=== PATIENT | female | born 1990 | race African-American/Black ===

== ENCOUNTER 2016-08-17 15:11 | Emergency (ER) | payer BC, OTHER ==
[~2016-08-17] VITALS: Ht 172.7 cm; Wt 134.7 kg
[~2016-08-17 15:11] MED LIST: ALBU0.8322 IH; ALBU17AE23; ALBU8.5H2; AMIT25TA9 PO; AMOX500C2 PO; BUTA1TAB55 PO; CEPH500C PO; CIPR-225 PO; CIPR500T4 PO; CLIN60GE TP; DOXY100C2 PO; FERR-84 PO; GBPN100C PO; HYDR-2997 PO; HYDR-3812 PO; HYDR-3874 PO; HYDR-757 PO; LNZ600T PO; MECL-124 PO; METR500T PO; MNTL10T; NAPR-243 PO; NF-ESOM40C PO; NITR-65 PO; ONDAN4ODT PO; OXYC-12 PO; OXYC-202 PO; OXYC5CAP4 PO; PNT40TEC PO; PRD50T PO; PRED-501 PO; PREN-94 PO; RABE20TA PO; RIFA300C39 PO; RIZA5TAB13 PO; SLMFT1E; SULF1TAB35 PO; TRAM-42 PO; TRAM50TA2; TRM50T PO
--- NOTE | 2016-08-17 15:33 | ED Lower Extremity ---
General Chief Complaint: Lower Extremity Stated Complaint: R FOOT INJ Nursing Triage Note: RIGHT ANKLE PAIN X2 MONTHS, NO RECENT INJURY Nursing Sepsis Screen: No Definite Risk Source: patient Exam Limitations: no limitations History of Present Illness Time seen by provider: 15:33 Initial Comments 26 yo female patient presents to the ED with c/o twisting the rt ankle 2 months ago. continues to have rt ankle pain. denies seeing her PCP for symptoms. Pain no different today. Onset: other (2 months ago) Pain/Injury Location: right ankle Method of Injury: twisted Modifying Factors: Worse With Movement Allergies and Home Medications Allergies Coded Allergies: ibuprofen (Unverified Allergy, Unknown, 10/15/10) Home Medications Ciprofloxacin HCl 500 Mg Tablet, 500 MG PO BID, #20 Ref 4 Prescribed by: PIEDAD ORTEGA on 02/28/16 1146 Ferrous Sulfate 325 Mg Tablet, 325 MG PO DAILY, (Reported) Oxycodone HCl/Acetaminophen 1 Each Tablet, 1-2 EACH PO Q4H PRN for PAIN, #60 Prescribed by: PIEDAD ORTEGA on 02/28/16 1146 Vits #90/Iron Fum/FA 1 Each Tablet, 1 TAB PO DAILY, (Reported) Constitutional: no symptoms reported Respiratory: no symptoms reported Cardiovascular: no symptoms reported Musculoskeletal: No back pain, joint pain (rt ankle), joint swelling (rt ankle) , No neck pain Skin: No change in color, No lesions Psychiatric/Neurological: Denies Numbness, Denies Paresthesia, Denies Tingling , Denies Weakness All Other Systems Reviewed Negative Unless Noted: Yes (Negative excepted noted.) Past Ekmwzfp-Jqptbk-Ygetis Hx Patient Social History Alcohol Use: Denies Use Recreational Drug Use: No Smoking Status: Former Smoker Type Used: Cigarettes 2nd Hand Smoke Exposure: No Recent Foreign Travel: No Contact w/Someone Who Travel: No Recent Infectious Disease Expo: No Recent Hopitalizations: No Immunizations Up To Date Tetanus Booster (TDap): Unknown Date of Influenza Vaccine: Dec 14, 2012 Seasonal Allergies Seasonal Allergies: Yes Surgeries HX Surgeries: Yes (LEFT KNEE, WISDOM TEETH, ABSCESS I&D'S ) Surgeries: Gallbladder, Orthopedic Respiratory Hx Respiratory Disorders: Yes Respiratory Disorders: Asthma Cardiovascular Hx Cardiac Disorders: No Neurological Hx Neurological Disorders: Yes Neurological Disorders: Headaches /Migraines Reproductive System : No Hx Reproductive Disorders: Yes (BLIGHTED OVUM) Genitourinary Hx Genitourinary Disorders: No Gastrointestinal Hx Gastrointestinal Disorders: Yes Gastrointestinal Disorders: Gastroesophageal Reflux Musculoskeletal Hx Musculoskeletal Disorders: No Endocrine Hx Endocrine Disorders: No HEENT HX ENT Disorders: Yes (GLASSES, CONTACTS) Loss of Vision: Bilateral Hearing Impairment: Denies Cancer Hx Cancer: No Psychosocial Hx Psychiatric Problems: No Integumentary HX Skin/Integumentary Disorder: Yes (MULTIPLE ABSCESSES - I&D'S, MRSA, HYDRADENTITIS SUPPURATIVA) Blood Transfusions Hx Blood Disorders: No Reviewed Nursing Assessment Reviewed/Agree w Nursing PMH: Yes Family Medical History Significant Family History: No Pertinent Family Hx Physical Exam Vital Signs Vital Sign - Last 12Hours 08/17/16 15:19 Temp 97.2 Pulse 99 Resp 18 B/P (MAP) 152/82 Pulse Ox 97 O2 Delivery Room Air Capillary Refill : Less Than 3 Seconds General Appearance: WD/WN, no apparent distress Cardiovascular: normal peripheral pulses, no edema Legs: bilateral leg non-tender, bilateral leg normal inspection, bilateral leg normal range of motion, bilateral leg no evidence of injury Knees: bilateral knee non-tender, bilateral knee normal inspection, bilateral knee normal range of motion, bilateral knee no evidence of injury Ankles: left ankle non-tender, left ankle normal inspection, left ankle normal range of motion, bilateral ankle no evidence of injury, right ankle bone tenderness (rt lateral maleolus), right ankle joint effusion, right ankle pain, right ankle soft tissue tenderness, right ankle swelling (mild swelling laterally and anteriorly) Feet: bilateral foot non-tender, bilateral foot normal inspection, bilateral foot normal range of motion, bilateral foot no evidence of injury Neurologic/Tendon: normal sensation, normal motor functions, normal tendon functions, responds to pain, no evidence tendon injury Neurologic/Psychiatric: no motor/sensory deficits, alert, normal mood/affect, oriented x 3 Skin: normal color, warm/dry Progress/Results/Core Measures Results/Orders My Orders Orders - BELINDA LAGOS Ankle, Right, 3 Views (08/17/16 15:33) Hydrocodone/Apap 5/325 Tablet (Lortab 5 (08/17/16 16:29) Crutches (08/17/16 16:29) Steplite (08/17/16 16:29) Vital Signs/I&O Vital Sign - Last 12Hours 08/17/16 08/17/16 15:19 16:52 Temp 97.2 97.6 Pulse 99 87 Resp 18 18 B/P (MAP) 152/82 Pulse Ox 97 98 O2 Delivery Room Air Blood Pressure Mean: 105 Diagnostic Imaging Diagonstic Imaging: Xray Plain Films/CT/US/NM/MRI: ankle Comments FINDINGS: On the oblique view, there is a vague area of slightly diminished density extending transversely through the lateral malleolus of the distal fibula. This finding is difficult to appreciate on the other two projections and consequently may be secondary to superimposition as opposed to a nondisplaced fracture. There is mild soft tissue edema in this area, however. If further imaging is desired, then CT would be recommended. No other fracture or acute bony abnormality is appreciated. The ankle mortise is not widened and the talar dome is smooth. IMPRESSION: 1. There is a question of a transverse nondisplaced fracture of the lateral malleolus of the distal fibula. Recommendations as above. 2. There is no acute bony abnormality noted otherwise. Dictated on workstation # [id number] Reviewed: Reviewed by Me (radiology report reviewed) Departure Communication Progress Notes Diagnostic findings discussed with the patient. Patient placed in a steplite boot and given crutches. Plan for discharge to home. Impression Impression: Primary Impression: Fracture of distal fibula Qualified Codes: S82.831A - Other fracture of upper and lower end of right fibula, initial encounter for closed fracture Disposition: HOME, SELF-CARE Condition: Improved Departure-Patient Inst. Decision time for Depature: 16:22 Referrals: [facility] (PCP/Family) Primary Care Physician JOEY GARCES MD Patient Instructions: Ankle Fracture (DC) Add. Discharge Instructions: All discharge instructions reviewed with patient and/or family. Voiced understanding. Medications as instructed. Tylenol extra strength over-the- counter as directed for pain. Elevate the right ankle on pillows, ice pack for 20 minute intervals as needed for pain. Boot and crutches as instructed. Follow-up with your family practitioner for recheck as an outpatient and possible need for MRI of the ankle. Return to the emergency department for worsened symptoms or any other concerns. BELINDA LAGOS Aug 17, 2016 15:33
--- NOTE | 2016-08-17 16:17 | Diagnostic Imaging Report ---
INDICATION: Ankle pain. EXAMINATION: Right ankle. Three views were obtained. FINDINGS: On the oblique view, there is a vague area of slightly diminished density extending transversely through the lateral malleolus of the distal fibula. This finding is difficult to appreciate on the other two projections and consequently may be secondary to superimposition as opposed to a nondisplaced fracture. There is mild soft tissue edema in this area, however. If further imaging is desired, then CT would be recommended. No other fracture or acute bony abnormality is appreciated. The ankle mortise is not widened and the talar dome is smooth. IMPRESSION: 1. There is a question of a transverse nondisplaced fracture of the lateral malleolus of the distal fibula. Recommendations as above. 2. There is no acute bony abnormality noted otherwise. Dictated by: Dictated on workstation # [id number]
[2016-08-17] MEDS ORDERED: HYDROcodone/APAP 5 MG/325 MG (LORTAB) TAB PO STA (16:29)
[2016-08-17 16:52] VITALS: BP 148/80
== END 2016-08-17 16:55 | disposition home or self-care (01) ==
LOC: EDUNIT# 15:11 → ER 15:13
DX: S82.831A Other fracture of upper and lower end of right fibula, initial encounter for closed fracture (principal); Z87.891 Personal history of nicotine dependence; X50.1XXA Overexertion from prolonged static or awkward postures, initial encounter
CPT/HCPCS: 73610; 99283

== ENCOUNTER 2016-10-17 15:41 | Emergency (ER) | payer SELFPAY ==
[~2016-10-17] VITALS: Ht 175.3 cm; Wt 104.3 kg
--- NOTE | 2016-10-17 16:09 | ED Lower Extremity ---
General Chief Complaint: Lower Extremity Stated Complaint: ANKLE INJ Source: patient Exam Limitations: no limitations History of Present Illness Time seen by provider: 16:08 Initial Comments To ER with reports of medial left ankle and midfoot pain over the plantar surface and medial surface that began 2 days ago without injury or known precipitating event. Onset: other Severity: moderate Pain/Injury Location: left foot Method of Injury: unknown Modifying Factors: Worse With Movement Allergies and Home Medications Allergies Coded Allergies: ibuprofen (Unverified Allergy, Unknown, 10/15/10) Home Medications Ciprofloxacin HCl 500 Mg Tablet, 500 MG PO BID, #20 Ref 4 Prescribed by: PIEDAD ORTEGA on 02/28/16 1146 Ferrous Sulfate 325 Mg Tablet, 325 MG PO DAILY, (Reported) Oxycodone HCl/Acetaminophen 1 Each Tablet, 1-2 EACH PO Q4H PRN for PAIN, #60 Prescribed by: PIEDAD ORTEGA on 02/28/16 1146 Vits #90/Iron Fum/FA 1 Each Tablet, 1 TAB PO DAILY, (Reported) Constitutional: see HPI EENTM: see HPI Respiratory: no symptoms reported Cardiovascular: no symptoms reported Genitourinary: no symptoms reported Musculoskeletal: see HPI Skin: no symptoms reported Psychiatric/Neurological: No Symptoms Reported Past Kuapdps-Afvvhk-Camphc Hx Patient Social History Type Used: Cigarettes 2nd Hand Smoke Exposure: No Recent Foreign Travel: No Contact w/Someone Who Travel: No Recent Hopitalizations: No Immunizations Up To Date Tetanus Booster (TDap): Unknown Date of Influenza Vaccine: Dec 14, 2012 Seasonal Allergies Seasonal Allergies: Yes Surgeries HX Surgeries: Yes (LEFT KNEE, WISDOM TEETH, ABSCESS I&D'S ) Surgeries: Gallbladder, Orthopedic Respiratory Hx Respiratory Disorders: Yes Respiratory Disorders: Asthma Cardiovascular Hx Cardiac Disorders: No Neurological Hx Neurological Disorders: Yes Neurological Disorders: Headaches /Migraines Reproductive System Hx Reproductive Disorders: Yes (BLIGHTED OVUM) Genitourinary Hx Genitourinary Disorders: No Gastrointestinal Hx Gastrointestinal Disorders: Yes Gastrointestinal Disorders: Gastroesophageal Reflux Musculoskeletal Hx Musculoskeletal Disorders: No Endocrine Hx Endocrine Disorders: No HEENT HX ENT Disorders: Yes (GLASSES, CONTACTS) Loss of Vision: Bilateral Hearing Impairment: Denies Cancer Hx Cancer: No Psychosocial Hx Psychiatric Problems: No Integumentary HX Skin/Integumentary Disorder: Yes (MULTIPLE ABSCESSES - I&D'S, MRSA, HYDRADENTITIS SUPPURATIVA) Blood Transfusions Hx Blood Disorders: No Family Medical History Significant Family History: No Pertinent Family Hx Physical Exam Vital Signs Capillary Refill : General Appearance: WD/WN, no apparent distress HEENT: PERRL/EOMI, normal ENT inspection Neck: non-tender, full range of motion Respiratory: normal breath sounds, no respiratory distress, no accessory muscle use Gastrointestinal: normal bowel sounds, non tender, soft Hips: bilateral hip non-tender, bilateral hip normal inspection, bilateral hip normal range of motion Legs: bilateral leg non-tender, bilateral leg normal inspection, bilateral leg normal range of motion Knees: bilateral knee non-tender, bilateral knee normal inspection, bilateral knee normal range of motion Ankles: left ankle pain, left ankle soft tissue tenderness, left ankle other ( tenderness over the medial aspect left foot of the plantar fascia.) Neurologic/Psychiatric: alert, normal mood/affect, oriented x 3 Skin: normal color, warm/dry Progress/Results/Core Measures Results/Orders My Orders Orders - TIA GRACE APRN Ankle, Left, 3 Views (10/17/16 16:07) Departure Impression Impression: Primary Impression: Plantar fasciitis Disposition: 01 HOME, SELF-CARE Condition: Stable Departure-Patient Inst. Decision time for Depature: 16:10 Referrals: [facility] (PCP/Family) Primary Care Physician Patient Instructions: Plantar Fasciitis Exercises Add. Discharge Instructions: 1. Return to ER for any concerns 2. Freeze a 2 L bottle of pop full of water and roll your foot back and forth over this 2. Get some shoe inserts for her shoe 2. Return to ER for any concerns All discharge instructions reviewed with patient and/or family. Voiced understanding. Scripts Methylprednisolone (Medrol) 4 Mg Tab.ds.pk 4 MG PO UD, #1 PKG Prov: TIA GRACE APRN 10/17/16 TIA GRACE APRN Oct 17, 2016 16:09
[2016-10-17] MEDS ORDERED: METH4TAB PO (16:11)
[2016-10-17 16:34] VITALS: BP 131/100
--- NOTE | 2016-10-17 16:44 | Diagnostic Imaging Report ---
EXAMINATION: Left ankle at 4:37 p.m. INDICATION: Ankle pain. Three views were obtained. There are no prior studies available for comparison. FINDINGS: There is no fracture, dislocation, or acute bony abnormality evident. The ankle mortise is not widened. The talar dome is smooth. There is soft tissue edema along the medial aspect of the ankle joint. If there is clinical concern regarding a ligamentous or tendinous injury in this area, then MRI would be recommended for further study. IMPRESSION: 1. There is no evidence for an acute bony abnormality. 2. There is soft tissue edema along the medial aspect of the ankle joint. Additional considerations as above. Dictated by: Dictated on workstation # [id number]
== END 2016-10-17 16:34 | disposition home or self-care (01) ==
LOC: EDUNIT# 15:41 → ER 15:44
DX: M72.2 Plantar fascial fibromatosis (principal); K21.9 Gastro-esophageal reflux disease without esophagitis; G43.909 Migraine, unspecified, not intractable, without status migrainosus; J45.909 Unspecified asthma, uncomplicated; Z98.890 Other specified postprocedural states; Z87.2 Personal history of diseases of the skin and subcutaneous tissue
CPT/HCPCS: 73610; 99283

== ENCOUNTER 2017-03-31 21:20 | Emergency (ER) | payer SELFPAY ==
[~2017-03-31] VITALS: Ht 170.2 cm; Wt 129.3 kg
[~2017-03-31 21:20] MED LIST changes: +ACHD5005 PO; -HYDR-3812 PO; +HYDR-3816 PO; +METH4TAB PO
[2017-04-01 00:15] LABS: BILIRUBIN,URINE NEGATIVE (NEGATIVE); CLARITY,URINE SLIGHTLY CLOUDY; COLOR,URINE YELLOW; GLUCOSE, URINE (UA) NEGATIVE (NEGATIVE); KETONES,URINE NEGATIVE (NEGATIVE); LEUKOCYTE ESTERASE ,URINE 2+ (NEGATIVE); NITRITE,URINE NEGATIVE (NEGATIVE); PH,URINE 7 (5-9); PROTEIN,URINE NEGATIVE (NEGATIVE); UROBILINOGEN,URINE NORMAL (NORMAL)
[2017-04-01 00:28] LABS: BACTERIA,URINE TRACE /HPF; RBC,URINE RARE /HPF; SQUAMOUS EPITHELIAL CELL,UR >50 /HPF; WBC,URINE RARE /HPF
[2017-04-01] MEDS ORDERED: FLUT1DIS28 IH (01:20)
[2017-04-01] MEDS ORDERED: RT-ALBUINH IH (01:20)
[2017-04-01 01:31] LABS: BASOPHILS % (AUTO) 0 % (0-10); EOSINOPHILS # (AUTO) 0.3 10^3/uL (0.0-0.3); EOSINOPHILS % (AUTO) 4 % (0-10); HEMATOCRIT 31 % (35-52); HEMOGLOBIN 10.2 G/DL (11.5-16.0); LYMPHOCYTES % (AUTO) 27 % (12-44); MEAN CORPUSCULAR HEMOGLOBIN 25 PG (25-34); MEAN CORPUSCULAR HGB CONC 33 G/DL (32-36); MEAN CORPUSCULAR VOLUME 74 FL (80-99); MEAN PLATELET VOLUME 9.2 FL (7.4-10.4); MONOCYTES # (AUTO) 0.5 X 10^3 (0.0-1.0); MONOCYTES % (AUTO) 7 % (0-12); NEUTROPHILS # (AUTO) 4.5 X 10^3 (1.8-7.8); NEUTROPHILS % (AUTO) 62 % (42-75); PLATELET COUNT 415 10^3/uL (130-400); RED BLOOD COUNT 4.17 10^6/uL (4.35-5.85); RED CELL DISTRIBUTION WIDTH 17.2 % (10.0-14.5); WHITE BLOOD COUNT 7.2 10^3/uL (4.3-11.0)
[2017-04-01 01:46] LABS: ALANINE AMINOTRANSFERASE 11 U/L (0-55); ALBUMIN 3.6 GM/DL (3.2-4.5); ALKALINE PHOSPHATASE 69 U/L (40-136); BILIRUBIN,TOTAL 0.2 MG/DL (0.1-1.0); BUN/CREATININE RATIO 12; CALCIUM 9.3 MG/DL (8.5-10.1); CARBON DIOXIDE 23 MMOL/L (21-32); CHLORIDE 103 MMOL/L (98-107); CREATININE SERUM 0.68 MG/DL (0.60-1.30); GFR ESTIMATED > 60; GLUCOSE 85 MG/DL (70-105); POTASSIUM 3.7 MMOL/L (3.6-5.0); SODIUM 138 MMOL/L (135-145); TOTAL PROTEIN 8.7 GM/DL (6.4-8.2)
[2017-04-01] MEDS ORDERED: DOXY100T2 PO (02:09)
--- NOTE | 2017-04-01 02:09 | ED Abdominal Pain ---
General Chief Complaint: Abdominal/GI Problems Stated Complaint: LT SIDED ABD PAIN Nursing Triage Note: PT PRESENTS TO ED WITH COMPLAINT OF LEFT SIDED LOWER ABDOMINAL PAIN. STATES SHES HAD THE PAIN X8 DAYS. Sepsis Screen: No Definite Risk Allergies and Home Medications Allergies Coded Allergies: ibuprofen (Unverified Allergy, Unknown, 01/17/17) Home Medications Albuterol Sulfate 6.7 Gm Hfa.aer.ad, 2 PUFF IH Q6H PRN for SHORTNESS OF BREATH, (Reported) Fluticasone/Salmeterol 1 Each Blst.w.dev, Unknown Dose IH, (Reported) Past Ajhbbtt-Oxkxdy-Exyehu Hx Patient Social History Alcohol Use: Occasionally Uses Number of Drinks Today: CC Alcohol Beverage of Choice: Cheap Liquor Recreational Drug Use: No Smoking Status: Former Smoker Type Used: Cigarettes Former Smoker, Quit: Sep 13, 2013 2nd Hand Smoke Exposure: No Recent Foreign Travel: No Contact w/Someone Who Travel: No Recent Infectious Disease Expo: No Recent Hopitalizations: No Immunizations Up To Date Tetanus Booster (TDap): Unknown PED Vaccines UTD: No Date of Influenza Vaccine: Dec 15, 2016 Seasonal Allergies Seasonal Allergies: Yes (HEMRROID, FISSURE) Surgeries History of Surgeries: Yes Surgeries: Gallbladder, Orthopedic Respiratory History of Respiratory Disorde: Yes Respiratory Disorders: Asthma Currently Using CPAP: No Currently Using BIPAP: No Cardiovascular History of Cardiac Disorders: No Neurological History of Neurological Disord: Yes Neurological Disorders: Headaches /Migraines Reproductive System Hx Reproductive Disorders: Yes (BLIGHTED OVUM) Genitourinary History of Genitourinary Disor: Yes Gastrointestinal History of Gastrointestinal Di: No Gastrointestinal Disorders: Gastroesophageal Reflux, Hemorrhoids Musculoskeletal History of Musculoskeletal Dis: No Endocrine History of Endocrine Disorders: No HEENT History of HEENT Disorders: Yes Loss of Vision: Denies Hearing Impairment: Denies Cancer History of Cancer: No Psychosocial History of Psychiatric Problem: No Integumentary History of Skin or Integumenta: Yes Skin/Integumentary Disorders: Recent Skin Changes Blood Transfusions History of Blood Disorders: No Adverse Reaction to a Blood Tr: No Family Medical History Significant Family History: No Pertinent Family Hx Family Medial History: Patient reports no known family medical history. Physical Exam Vital Signs VS - Last 72 Hours, by Label 04/01/17 00:00 Temp 98.8 Pulse 91 Resp 20 B/P (MAP) 141/98 (112) O2 Delivery Room Air Capillary Refill : Less Than 3 Seconds Progress/Results/Core Measures Results/Orders Lab Results Laboratory Tests Test 04/01/17 00:10 04/01/17 01:20 Range/Units Urine Color YELLOW Urine Clarity SLIGHTLY CLOUDY Urine pH 7 5-9 Urine Specific [place] 1.005 L 1.016-1.022 Urine Protein NEGATIVE NEGATIVE Urine Glucose (UA) NEGATIVE NEGATIVE Urine Ketones NEGATIVE NEGATIVE Urine Nitrite NEGATIVE NEGATIVE Urine Bilirubin NEGATIVE NEGATIVE Urine Urobilinogen NORMAL NORMAL MG/DL Urine Leukocyte Esterase 2+ H NEGATIVE Urine RBC (Auto) 2+ H NEGATIVE Urine RBC RARE /HPF Urine WBC RARE /HPF Urine Squamous Epithelial Cells >50 H /HPF Urine Crystals NONE /LPF Urine Bacteria TRACE /HPF Urine Casts NONE /LPF Urine Mucus NEGATIVE /LPF Urine Culture Indicated NO White Blood Count 7.2 4.3-11.0 10^3/uL Red Blood Count 4.17 L 4.35-5.85 10^6/uL Hemoglobin 10.2 L 11.5-16.0 G/DL Hematocrit 31 L 35-52 % Mean Corpuscular Volume 74 L 80-99 FL Mean Corpuscular Hemoglobin 25 25-34 PG Mean Corpuscular Hemoglobin Concent 33 32-36 G/DL Red Cell Distribution Width 17.2 H 10.0-14.5 % Platelet Count 415 H 130-400 10^3/uL Mean Platelet Volume 9.2 7.4-10.4 FL Neutrophils (%) (Auto) 62 42-75 % Lymphocytes (%) (Auto) 27 12-44 % Monocytes (%) (Auto) 7 0-12 % Eosinophils (%) (Auto) 4 0-10 % Basophils (%) (Auto) 0 0-10 % Neutrophils # (Auto) 4.5 1.8-7.8 X 10^3 Lymphocytes # (Auto) 2.0 1.0-4.0 X 10^3 Monocytes # (Auto) 0.5 0.0-1.0 X 10^3 Eosinophils # (Auto) 0.3 0.0-0.3 10^3/uL Basophils # (Auto) 0.0 0.0-0.1 10^3/uL Sodium Level 138 135-145 MMOL/L Potassium Level 3.7 3.6-5.0 MMOL/L Chloride Level 103 98-107 MMOL/L Carbon Dioxide Level 23 21-32 MMOL/L Anion Gap 12 5-14 MMOL/L Blood Urea Nitrogen 8 7-18 MG/DL Creatinine 0.68 0.60-1.30 MG/DL Estimat Glomerular Filtration Rate > 60 BUN/Creatinine Ratio 12 Glucose Level 85 70-105 MG/DL Calcium Level 9.3 8.5-10.1 MG/DL Total Bilirubin 0.2 0.1-1.0 MG/DL Aspartate Amino Transf (AST/SGOT) 10 5-34 U/L Alanine Aminotransferase (ALT/SGPT) 11 0-55 U/L Alkaline Phosphatase 69 40-136 U/L C-Reactive Protein High Sensitivity 7.78 H 0.00-0.50 MG/DL Total Protein 8.7 H 6.4-8.2 GM/DL Albumin 3.6 3.2-4.5 GM/DL Serum Test, Qualitative NEGATIVE NEGATIVE My Orders Orders - JOSE PANTOJA MD Ua Culture If Indicated (03/31/17 23:55) Cbc With Automated Diff (04/01/17 00:08) Comprehensive Metabolic Panel (04/01/17 00:08) Hs C Reactive Protein (04/01/17 00:08) Hcg,Qualitative Serum (04/01/17 00:08) Wound Culture (04/01/17 00:08) Saline Lock/Iv-Start (04/01/17 00:08) Abdomen/Kub 1view (04/01/17 01:54) Doxycycline Hyclate Tablet (Vibramycin T (04/01/17 02:15) Vital Signs/I&O Vital Sign - Last 12Hours 04/01/17 00:00 Temp 98.8 Pulse 91 Resp 20 B/P (MAP) 141/98 (112) O2 Delivery Room Air Blood Pressure Mean: 112 Departure Impression Impression: Primary Impression: Left lower quadrant pain Additional Impression: Hidradenitis suppurativa Disposition: 01 HOME, SELF-CARE Condition: Stable Departure-Patient Inst. Decision time for Depature: 02:00 Referrals: NO,LOCAL PHYSICIAN (PCP/Family) Primary Care Physician Patient Instructions: Acute Abdomen (Belly Pain), Adult (DC), Hidradenitis Suppurativa Add. Discharge Instructions: Complete your antibiotics as prescribed. Follow-up with your primary care provider as soon as possible. Your wound culture should be available in about 48 hours. Review results with your doctor. Return to the ER if symptoms worsen. You may take Tylenol and/or ibuprofen for pain. All discharge instructions reviewed with patient and/or family. Voiced understanding. Scripts Doxycycline Hyclate (Doxycycline Hyclate) 100 Mg Tablet 100 MG PO BID, #20 TAB Prov: JOSE PANTOJA MD 04/01/17 JOSE PANTOJA MD Apr 01, 2017 02:09
[2017-04-01 02:15] VITALS: BP 141/98
[2017-04-01] MEDS ORDERED: DOXYCYCLINE 100 MG (VIBRAMYCIN) TABLET PO ONE (02:15)
== END 2017-04-01 02:15 | disposition home or self-care (01) ==
LOC: EDUNIT# 21:20 → ER 21:21
DX: R10.32 Left lower quadrant pain (principal); L73.2 Hidradenitis suppurativa; J45.909 Unspecified asthma, uncomplicated; G43.909 Migraine, unspecified, not intractable, without status migrainosus; K21.9 Gastro-esophageal reflux disease without esophagitis; Z87.891 Personal history of nicotine dependence; Z87.19 Personal history of other diseases of the digestive system
CPT/HCPCS: 36415; 80053; 81000; 84703; 85025; 86141; 87070; 87077; 87186; 87205

== ENCOUNTER → 2017-04-07 | Outpatient (CLI) | payer OTHER ==
[~2017-04-07] MED LIST changes: +DOXY100T2 PO; +FLUT1DIS28 IH; +RT-ALBUINH IH
== END ==
LOC: RAD 08:54
PROVIDERS: ATTEND Nurse Practitioner Community Health
DX: Z53.20 Procedure and treatment not carried out because of patient's decision for unspecified reasons (principal); L73.2 Hidradenitis suppurativa; Z68.41 Body mass index [BMI] 40.0-44.9, adult

== ENCOUNTER → 2017-04-14 | Outpatient (CLI) | payer OTHER ==
--- NOTE | 2017-04-14 11:27 | Diagnostic Imaging Report ---
INDICATION: Left-sided pelvic pain. FINDINGS: Transabdominal and transvaginal pelvic sonography was performed. The uterus measures 7.5 x 4.2 x 3.0 cm. The endometrium is 5 mm in thickness. No myometrial mass is identified. The ovaries were not well-visualized. There is a cystic lesion near the midline, posterior to the uterine fundus measuring approximately 2.7 cm in diameter. Minimal free fluid is present. No other abnormalities identified. IMPRESSION: Poorly visualized ovaries. There is a midline 2.7 cm simple cyst, as described. This could conceivably be ovarian in etiology. No other significant abnormality is seen. Dictated by: Dictated on workstation # [id number]
== END ==
LOC: RAD 10:08
PROVIDERS: ATTEND Nurse Practitioner Community Health
DX: N94.89 Other specified conditions associated with female genital organs and menstrual cycle (principal)
CPT/HCPCS: 76830; 76856

== ENCOUNTER 2017-04-24 18:30 | Emergency (ER) | payer OTHER ==
[~2017-04-24] VITALS: Ht 172.7 cm; Wt 133.4 kg
[~2017-04-24 18:30] MED LIST changes: +HYDR-34 PO; -HYDR-3816 PO
[2017-04-24] MEDS ORDERED: NABU500T (21:48)
[2017-04-24] MEDS ORDERED: diphenhydrAMINE 50 MG/ML INJ (BENADRYL) IM STA (22:05)
[2017-04-24] MEDS ORDERED: KETOROLAC 60 MG/2 ML VIAL IM STA (22:05)
[2017-04-24] MEDS ORDERED: ORPHENADRINE 60 MG/2 ML (NORFLEX) AMP IM STA (22:05)
[2017-04-25] MEDS ORDERED: RX-TRAMADOL 50 MG (ULTRAM) TAB PPK#4 PO STA (00:33)
[2017-04-25] MEDS ORDERED: RX-CYCLOBENZAPRINE 10 MG (FLEXERIL) TAB PPK#3 PO STA (00:33)
[2017-04-25] MEDS ORDERED: METH4TAB PO (00:37)
[2017-04-25] MEDS ORDERED: BUTA1CAP45 PO (00:37)
[2017-04-25] MEDS ORDERED: METH500T PO (00:37)
--- NOTE | 2017-04-25 00:38 | ED Headache ---
General Chief Complaint: Head/Cervical Problems Stated Complaint: NECK STIFFNESS/VISION ISSUES Nursing Triage Note: pt to ER from [facility] [place] [facility]. c/o neck pain starting Thursday. headache starting yesterday. MEDICAL BILLING CODER at urgent care reports severe nystagmus. Nursing Sepsis Screen: No Definite Risk Source: patient History of Present Illness Date Seen by Provider: Apr 24, 2017 Time Seen by Provider: 21:58 Initial Comments PT ARRIVES VIA POV--SEEN AT URGENT CARE TODAY AROUND 1800 AND SENT HERE--MEDICAL BILLING CODER REPORTED NYSTAGMUS PT STATES SHE WOKE UP ON Thursday04/20/17 WITH A "STIFF NECK"--MOSTLY ON LEFT LATERAL NECK C/O HEADACHE -MOSTLY FRONTAL-SINCE YESTERDAY C/O MILD DIZZINESS WITH HEAD MOVEMENTS--NOT NOW C/O SLIGHTLY BLURRED VISION WITH DIZZINESS--NOT NOW C/O MILD NAUSEA NO FEVER NO RECENT ILLNESS, URI SYMPTOMS, ETC. 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 NO CONTROL. HAD LAB AND ULTRASOUND LAST WEEK FOR THIS PROBLEM--REPORTEDLY NORMAL AND PT STATES SHE IS NOT . [place] [facility] [place] [facility] ANALYST: DR. BENTON Allergies and Home Medications Allergies Coded Allergies: ibuprofen (Unverified Allergy, Unknown, 01/17/17) Home Medications Butalb/Acetaminophen/Caffeine 1 Each Capsule, 1-2 EACH PO Q6H PRN for HEADACHE, #10 Prescribed by: HARESH HARDING on 04/25/1736 Methocarbamol 500 Mg Tablet, 500 MG PO QID, #20 Prescribed by: HARESH HARDING on 04/25/17 003 Methylprednisolone 4 Mg Tab.ds.pk, 4 MG PO UD, #1 Prescribed by: HARESH HARDING on 04/25/1736 Nabumetone 500 Mg Tablet, (Reported) Constitutional: see HPI, No chills, No diaphoresis, dizziness, No fever, No malaise, No weakness Eyes: See HPI Ears, Nose, Mouth, Throat: no symptoms reported Respiratory: no symptoms reported Cardiovascular: no symptoms reported Gastrointestinal: see HPI, No abdominal pain, No loss of appetite, nausea Genitourinary: see HPI LMP: Feb 26, 2017 Musculoskeletal: see HPI, neck pain Skin: no symptoms reported Psychiatric/Neurological: See HPI, Headache, Denies Numbness, Denies Seizure, Denies Tingling, Denies Tremors, Denies Weakness Past Bpbjhcf-Hyuwom-Yqaply Hx Patient Social History Alcohol Use: Occasionally Uses Number of Drinks Today: CC Alcohol Beverage of Choice: Cheap Liquor Recreational Drug Use: No Smoking Status: Former Smoker (1 PPD) Type Used: Cigarettes (1 PPD) Former Smoker, Quit: Sep 13, 2013 2nd Hand Smoke Exposure: No Recent Foreign Travel: No Contact w/Someone Who Travel: No Recent Infectious Disease Expo: No Recent Hopitalizations: No Immunizations Up To Date Tetanus Booster (TDap): Unknown PED Vaccines UTD: No Date of Influenza Vaccine: Dec 15, 2016 Seasonal Allergies Seasonal Allergies: Yes (HEMRROID, FISSURE) Surgeries History of Surgeries: Yes (Hemorrhoids) Surgeries: Gallbladder, Orthopedic, Rectal Respiratory History of Respiratory Disorde: Yes Respiratory Disorders: Asthma Currently Using CPAP: No Currently Using BIPAP: No Cardiovascular History of Cardiac Disorders: No Neurological History of Neurological Disord: Yes Neurological Disorders: Headaches /Migraines Reproductive System Hx Reproductive Disorders: Yes (BLIGHTED OVUM) Genitourinary History of Genitourinary Disor: Yes Genitourinary Disorders: UTI-Chronic Gastrointestinal History of Gastrointestinal Di: Yes Gastrointestinal Disorders: Gastroesophageal Reflux, Hemorrhoids Musculoskeletal History of Musculoskeletal Dis: Yes (TAKES RELAFEN FOR GENERAL ACHES AND PAINS) Endocrine History of Endocrine Disorders: No HEENT History of HEENT Disorders: Yes Loss of Vision: Denies Hearing Impairment: Denies Cancer History of Cancer: No Psychosocial History of Psychiatric Problem: No Integumentary History of Skin or Integumenta: No Blood Transfusions History of Blood Disorders: No Adverse Reaction to a Blood Tr: No Family Medical History Family Medial History: Patient reports no known family medical history. Physical Exam Vital Signs Vital Signs - First Documented 04/24/17 19:06 Temp 98.7 Pulse 85 Resp 16 B/P (MAP) 144/78 (100) Pulse Ox 100 Capillary Refill : Less Than 3 Seconds General Appearance: WD/WN, no apparent distress, obese, other (DOES NOT APPEAR ILL OR TO BE IN ANY DISCOMFORT OR DISTRESSS) HEENT: PERRL/EOMI, normal ENT inspection, TMs normal, pharynx normal, No photophobia, other (NO NYSTAGMUS) Neck: full range of motion, supple, tender lateral (BILATERAL TRAPEZIUS AND LATERAL PARACERVICAL VERTEBRAL MUSCLE TENDERNESS AND SPASM--LEFT>>RIGHT. NO NUCHAL RIGIDITY OR MENINGISMUS), No tender midline Cardiovascular: regular rate, rhythm, no murmur Respiratory: normal breath sounds, no respiratory distress, no accessory muscle use Gastrointestinal: non tender, soft Back: normal inspection, no CVA tenderness, no vertebral tenderness Extremities: normal range of motion, non-tender, normal inspection, no pedal edema, no calf tenderness, normal capillary refill Psychiatric: alert, oriented x 3 Crainal Nerves: normal hearing, normal speech, PERRL Coordination/Gait: normal gait (AMBULATES AND MOVES /CHANGES POSITIONS QUICKLY WITHOUT DIFFICULTY) Motor/Sensory: no motor deficit, no sensory deficit, no pronator drift, other ( DTR'S INTACT) Skin: normal color, warm/dry, No rash, tattoos/piercings (MULTIPLE TATTOOS) Progress/Results/Core Measures Results/Orders My Orders Orders - HARESH HARDING DO Ct Head/Cervical Spine Wo (04/24/17 22:05) Ketorolac Injection (Toradol Injection) (04/24/17 22:05) Orphenadrine Injection (Norflex Injectio (04/24/17 22:05) Diphenhydramine Injection (Benadryl Inje (04/24/17 22:05) Rx-Cyclobenzaprine Tablet (Rx-Flexeril T (04/25/17 00:33) Rx-Tramadol Hcl (Rx-Ultram) (04/25/17 00:33) Methylprednisolone Sod Succ (Solu-Medrol (04/25/17 01:00) Vital Signs/I&O Vital Sign - Last 12Hours 04/24/17 04/24/17 04/24/17 04/25/17 19:06 22:32 22:32 00:59 Temp 98.7 98.7 98.7 98.7 Pulse 85 78 Resp 16 16 B/P (MAP) 144/78 (100) Pulse Ox 100 100 Blood Pressure Mean: 100 Progress Note : Progress Note SYMPTOMS IMPROVED AT DISMISSAL NO COMPLAINT OF DIZZINESS DURING ER STAY Diagnostic Imaging Comments CT HEAD/CERVICAL SPINE--NO ACUTE PROCESS, MILD PARANASAL SINUS MUCOSAL THICKENING--PER [facility] VIA FAX @ [phone] Reviewed: Reviewed by Me Departure Impression Impression: Primary Impression: Tension type headache Additional Impressions: Trapezius muscle strain Dizziness Disposition: 01 HOME, SELF-CARE Condition: Stable Departure-Patient Inst. Referrals: NO,LOCAL PHYSICIAN (PCP/Family) Primary Care Physician Patient Instructions: Cervical Muscle Strain (DC), Tension Headache (DC) Add. Discharge Instructions: MOST HEAT TO AREA AT 20 MINUTE INTERVALS HOLD RELAFEN WHILE TAKING PREDNISONE FOLLOW UP WITH YOUR DR IN 3-4 DAYS IF NO BETTER All discharge instructions reviewed with patient and/or family. Voiced understanding. Scripts Butalb/Acetaminophen/Caffeine (Esgic Capsule) 1 Each Capsule 1-2 EACH PO Q6H Y for HEADACHE, #10 CAP Prov: HARESH HARDING DO 04/25/17 Methocarbamol (Robaxin) 500 Mg Tablet 500 MG PO QID for Muscle Spasms, #20 TAB Prov: HARESH HARDING DO 04/25/17 Methylprednisolone (Medrol) 4 Mg Tab.ds.pk 4 MG PO UD, #1 PKG Prov: HARESH HARDING DO 04/25/17 HARESH HARDING DO Apr 25, 2017 00:38
[2017-04-25 00:59] VITALS: BP 100/77
[2017-04-25] MEDS ORDERED: methylPREDNISolone 125 MG (Solu-MEDROL) VIAL IM ONE (01:00)
--- NOTE | 2017-04-25 06:34 | Diagnostic Imaging Report ---
PROCEDURE: CT head and CT cervical spine without contrast. TECHNIQUE: Multiple contiguous axial images were obtained through the brain and cervical spine without the use of intravenous contrast. Sagittal and coronal reformations through the cervical spine were then performed. INDICATION: Head and neck pain. CT head: There is no hemorrhage, hydrocephalus, edema, mass, mass effect or displaced fracture deformity. No hemo-sinus. CT cervical spine: No fracture, dislocation or substantial stenosis. IMPRESSION: CT head: Negative. CT cervical spine: Negative. Dictated by: Dictated on workstation # [id number]
== END 2017-04-25 00:59 | disposition home or self-care (01) ==
LOC: EDUNIT# 18:30 → ER 18:31
DX: S29.012A Strain of muscle and tendon of back wall of thorax, initial encounter (principal); G44.209 Tension-type headache, unspecified, not intractable; R42 Dizziness and giddiness; K21.9 Gastro-esophageal reflux disease without esophagitis; J45.909 Unspecified asthma, uncomplicated; Z87.19 Personal history of other diseases of the digestive system; Z87.891 Personal history of nicotine dependence; Z88.6 Allergy status to analgesic agent; X58.XXXA Exposure to other specified factors, initial encounter
CPT/HCPCS: 70450; 72125; 96372; 99285

== ENCOUNTER 2017-06-10 14:32 | Outpatient (CLI) | payer OTHER ==
[~2017-06-10] VITALS: Ht 172.7 cm; Wt 134.9 kg
[~2017-06-10 14:32] MED LIST changes: +BUTA1CAP45 PO; +HYDR-3870 PO; -HYDR-3874 PO; +METH500T PO; +NABU500T
[2017-06-10] MEDS ORDERED: BUDE10.2 IH (14:42)
[2017-06-10] MEDS ORDERED: RT-ALBUINH IH (14:42)
[2017-06-10 14:46] VITALS: BP 120/80
[2017-06-10 15:21] LABS: BASOPHILS % (AUTO) 0 % (0-10); EOSINOPHILS # (AUTO) 0.4 10^3/uL (0.0-0.3); EOSINOPHILS % (AUTO) 5 % (0-10); HEMATOCRIT 30 % (35-52); HEMOGLOBIN 9.9 G/DL (11.5-16.0); LYMPHOCYTES # (AUTO) 1.7 X 10^3 (1.0-4.0); LYMPHOCYTES % (AUTO) 23 % (12-44); MEAN CORPUSCULAR HEMOGLOBIN 24 PG (25-34); MEAN CORPUSCULAR HGB CONC 33 G/DL (32-36); MEAN CORPUSCULAR VOLUME 72 FL (80-99); MEAN PLATELET VOLUME 9.4 FL (7.4-10.4); MONOCYTES # (AUTO) 0.5 X 10^3 (0.0-1.0); MONOCYTES % (AUTO) 7 % (0-12); NEUTROPHILS % (AUTO) 66 % (42-75); PLATELET COUNT 480 10^3/uL (130-400); RED BLOOD COUNT 4.13 10^6/uL (4.35-5.85); RED CELL DISTRIBUTION WIDTH 16.5 % (10.0-14.5); WHITE BLOOD COUNT 7.6 10^3/uL (4.3-11.0)
[2017-06-11] MEDS ORDERED: HYDR-757 PO (10:37)
== END 2017-06-10 15:57 ==
LOC: PREOP 14:32
PROVIDERS: ATTEND Obstetrics & Gynecology
DX: Z01.812 Encounter for preprocedural laboratory examination (principal); Z11.2 Encounter for screening for other bacterial diseases; R10.2 Pelvic and perineal pain
CPT/HCPCS: 36415; 84703; 85025; 87081

== ENCOUNTER 2017-06-11 08:58 | Day surgery (SDC) | payer OTHER ==
[~2017-06-11] VITALS: Ht 172.7 cm; Wt 134.9 kg
[~2017-06-11 08:58] MED LIST changes: +BUDE10.2 IH; +LACTATED RINGERS 1,000 ML IV PRN
[2017-06-11] MEDS ORDERED: LACTATED RINGERS 1,000 ML IV PRN (09:56)
[2017-06-11] MEDS ORDERED: FAMOTIDINE 20MG/2ML IV (PEPCID) IV ONE (10:00)
[2017-06-11 10:07] VITALS: BP 123/75
[2017-06-11] MEDS ORDERED: SEVOFLURANE (ULTANE) 15 ML INHAL SOLN ONE ×3 (10:21→12:13)
[2017-06-11] MEDS ORDERED: ROCURONIUM 10 MG/ML 5 ML SYRINGE IV ONE (10:21)
[2017-06-11] MEDS ORDERED: fentaNYL INJECTION 100 MCG/2 ML AMP ONE ×3 (10:21→12:01)
[2017-06-11] MEDS ORDERED: MIDAZOLAM 2 MG/2 ML (VERSED) VIAL ONE (10:21)
[2017-06-11] MEDS ORDERED: proPOfol 200 MG/20 ML (DIPRIVAN) VIAL IV ONE (10:21)
[2017-06-11] MEDS ORDERED: LIDOCAINE PF 2% 5 ML (XYLOCAINE) VIAL ONE (10:21)
[2017-06-11] MEDS ORDERED: LACTATED RINGERS 1,000 ML IV ONE (10:21)
--- NOTE | 2017-06-11 10:27 | Progress Note-Pre Operative ---
Pre-Operative Progress Note H&P Reviewed The H&P was reviewed, patient examined and no changes noted. Date Seen by Provider: Jun 11, 2017 Time Seen by Provider: 10: Date H&P Reviewed: Jun 11, 2017 Time H&P Reviewed: : Pre-Operative Diagnosis: Acute on Chronic pelvic pain JONES LARSON DO Jun 11, 2017 10:27 am
--- NOTE | 2017-06-11 10:32 | Discharge Inst-Women's Service ---
Discharge Inst-Women's Serv Depart Medication/Instructions New, Converted or Re-Newed RX: RX on Chart Consults/Follow Up Additional Follow Up: Yes Activity Activity: Activity as Tolerated Driving Instructions: You May Drive NO SMOKING: NO SMOKING Nothing Inside Vagina: No Douching, No [place], No Tampons Diet Discharge Diet: No Restrictions Symptoms to Report to : Bleeding Excessive, Pain Increased, Fever Over 101 Degrees F, Vaginal Bleeding Increase, Questions/Concerns For Any Problems or Questions: Contact Your Physician Skin/Wound Care Infection Signs and Symptoms: Increased Redness, Foul Odor of Wound, Increased Drainage, Skin Itchy or Has a Rash, Increased Swelling, Temperature Above 101 F Operative Area Clean and Dry: Keep Incision Clean/Dry Stitches/Doug/Dermabond: Dermabond, Care of Stitches Bathing Instructions: JONES Bass DO Jun 11, 2017 10:32 am
[2017-06-11] MEDS ORDERED: D5 LR IV SOLUTION 1,000 ML IV SCH (10:34)
[2017-06-11] MEDS ORDERED: HYDR-757 PO (10:37)
[2017-06-11] MEDS ORDERED: ONDANSETRON 4 MG/2 ML (SDV) Z0FRAN IVP PRN ×2 (10:45→13:15)
[2017-06-11] MEDS ORDERED: HYDROcodone/APAP 5 MG/325 MG (LORTAB) TAB PO PRN (10:45)
[2017-06-11] MEDS ORDERED: fentaNYL INJECTION 100 MCG/2 ML AMP IVP ONE (10:45)
[2017-06-11] MEDS ORDERED: BUPIVACAINE 0.25% 30 ML (SENSORCAINE) VIAL ONE (10:49)
[2017-06-11] MEDS ORDERED: GLYCOPYRROLATE 0.2 MG/ML (ROBINUL) 2 ML VIAL ONE (13:07)
[2017-06-11] MEDS ORDERED: NEOSTIGMINE 1 MG/ML 5 ML SYRINGE ONE (13:07)
[2017-06-11] MEDS ORDERED: ceFAZolin 1,000 MG (ANCEF) VIAL ONE ×3 (13:10→13:19)
[2017-06-11] MEDS ORDERED: fentaNYL INJECTION 100 MCG/2 ML AMP IVP PRN (13:15)
[2017-06-11] MEDS ORDERED: ceFAZolin 2 GM IV Premixed 50 ML IV ONE (13:15)
[2017-06-11] MEDS ORDERED: MEPERIDINE (DEMEROL) INJ 50 MG/ML IVP PRN (13:15)
[2017-06-11] MEDS: morphine INJ 10 MG/ML 1ML (SYR OR VIAL) IVP PRN ×2 (13:30→13:37)
--- NOTE | 2017-06-11 14:02 | Anesthesia-General Post-Op ---
General Patient Condition Mental Status/LOC: Same as Preop Cardiovascular: Satisfactory Nausea/Vomiting: Absent Respiratory: Satisfactory Pain: Controlled Complications: Absent Post Op Complications Complications None Follow Up Care/Instructions Patient Instructions None needed. Anesthesia/Patient Condition Patient Condition Patient was seen after surgery and was doing well, no complaints, stable vital signs, no apparent adverse anesthesia problems. She initially had some nausea in PACU but it improved after zofran. PRIYANKA DORADO DO Jun 11, 2017 14:02
[2017-06-11 14:05] VITALS: BP 135/77
[2017-06-11 14:35] VITALS: BP 137/71
[2017-06-11 15:05] VITALS: BP 134/76
[2017-06-11 16:05] VITALS: BP 133/77
--- NOTE | 2017-06-11 16:50 | OPERATIVE REPORT ---
DATE OF SERVICE: PREOPERATIVE DIAGNOSIS: A 27-year-old female with acute on chronic pelvic pain. POSTOPERATIVE DIAGNOSIS: A 27-year-old female with acute on chronic pelvic pain. PROCEDURE: Operative laparoscopy with cauterization of endometriosis implants and intraoperative consult for appendectomy. SURGEON: Dr. Jones Larson. COSURGEON: Dr. Wisam Nolasco. ANESTHESIA: General endotracheal. ESTIMATED BLOOD LOSS: Minimal. URINE OUTPUT: 150 mL clear at the end of the procedure. FLUIDS: 1100 mL of lactated Ringer solution. FINDINGS: Grossly normal-appearing uterus, bilateral fallopian tubes and ovaries. A corpus luteum cyst of the right ovary. Multiple endometriosis implants of the posterior leaf of the broad ligament on the left side. There are dense adhesions of the uterosacral ligament to the descending sigmoid colon and dense adhesions of the posterior cul-de-sac to the omentum and epiploic of the descending sigmoid colon. SPECIMEN SENT: Appendix. COMPLICATIONS: None. INDICATIONS FOR PROCEDURE: This 27-year-old female with a self consultation in my office due to frustration with ongoing pelvic pain and concern for it worsening. The patient reports that her menstrual cycles have always been heavy; however, in the past year, they have gotten significantly heavier and more painful to the point where it is debilitating in nature. She is when seen in the office and holding her side, it does affect her lifestyle and her ability to work. She is having a crouch over to avoid some of the pain. She also reports significant amount of pain with intercourse, so it has gotten significantly worse in the same time frame. The patient reports that her menstrual cycles were fairly regular; however, they become more irregular in the past month or two. She denies any new sexual partners, has undergone recently a sexual transmitted disease testing with the [facility] as well as a recent pelvic ultrasound, which really showed no abnormalities. Due to ongoing concern, the patient wishes to proceed with finding out what is going on. She has never undergone a diagnostic laparoscopy and is told that maybe she has PCOs or maybe she had endometriosis in the past. She was attempted to be on continuous control pills; however, is unable to tolerate this either due to a side effect of the medication or poor response to the medication and continuous bleeding and continuous pain. She is at her frustration limits and wants to proceed with diagnostic laparoscopy. Risks of this procedure were discussed with the patient in detail including risk of bleeding, infection, damage to any surrounding structures including, but not limited to bowel, bladder, ureter, kidneys, possible need for removal of any of the pelvic organs, possible appendectomy was discussed with the patient preoperatively. After all of her questions were answered, consent was obtained in the preoperative area and the patient was taken to the operating room. OPERATIVE REPORT IN DETAIL: Once in the operating room, general anesthesia was found to be adequate, placed in dorsal lithotomy position, prepped and draped in normal sterile fashion. Mars catheter was placed using sterile technique. A weighted speculum was inserted to the patient's vagina. A right angle retractor was used to visualize the cervix. It was grasped at 12 o'clock position using a long Allis clamp. I then gently dilate the uterus using Hegar dilators and sound the uterine cavity depth was found to be 8 cm. I then placed an 8 cm [id number] uterine manipulator. Once this was in place and the balloon was deployed, I removed all the instruments from the patient's vagina to perform a change of gloves and took my attention to the abdomen where infraumbilically, I infiltrated this area using 0.25% Marcaine and make a 5 mm incision and directed Veress needle through this incision until intraperitoneal placement was confirmed using a saline drop test. I proceed with insufflation using CO2 gas and opening pressure of 9 mmHg was noted. I proceeded to maximum pressure of 15 mmHg, at which point I removed the Veress needle and introduced a 5 mm blunt trocar. Once this was in place, I am able to confirm intraperitoneal placement using the laparoscope. I had the patient placed in steep Trendelenburg, I am able to visualize all the findings as listed above. I proceeded with using a hook cautery to take down some of these dense adhesions; however, due to the proximity to the bowel, I am not able to take all of them down, I do cauterize what endometriosis implants that I can see. Once these were taken down due to the patient's chronic pain and concern for visit to the emergency room and possible appendicitis with her symptoms, I intraoperatively consult Dr. Nolasco to come in and perform an appendectomy. He performs appendectomy and completes the procedure including closing all of the incisions. The patient tolerated the procedure well and was taken to recovery in stable condition. Lap and sponge counts correct at the procedure. Instruments counts were correct as well. Please see his operative report for the second portion of the procedure. Job ID: [id number] DocumentID: [id number] Dictated Date: 06/11/2017 12:49:41 Local Hazmat Driver Date: 06/11/2017 16:49:52 Dictated By: JONES LARSON DO
--- NOTE | 2017-06-11 17:07 | OPERATIVE REPORT ---
DATE OF SERVICE: 06/11/2017 ATTENDING PHYSICIAN: Jacob Powell DO. PREOPERATIVE DIAGNOSIS: Symptomatic chronic appendicitis. POSTOPERATIVE DIAGNOSIS: Symptomatic chronic appendicitis. PROCEDURE PERFORMED: Laparoscopic appendectomy. SURGEON: Eve Aguero MD. ANESTHESIA: General endotracheal. ESTIMATED BLOOD LOSS: Minimal. FINDINGS: This was done in conjunction with another procedure as an intraoperative consultation. The patient presented with a chronic abdominal pain with suspected endometriosis, which was identified. She was also found to have chronic inflammatory changes to the appendix, which was long and tortuous with increased turgor pressure consistent with a chronic appendicitis. DISPOSITION: The patient tolerated the procedure well. INDICATIONS: The patient is a 27-year-old female with chronic lower abdominal pain. The patient also has a history of menorrhagia and her pain appears to be coordinated with her menstrual cycles. Endometriosis was suspected and she underwent a diagnostic laparoscopy and was found to have endometriosis and underwent an ablative procedure. We were consulted intraoperatively for findings of what appeared to be a chronic appendicitis. Upon examination, there was a long and tortuous appendix with some chronic edema and increased turgor pressure consistent with a chronic appendicitis. DESCRIPTION OF PROCEDURE: The patient was already under general anesthesia with pneumo insufflation. The 5 mm infraumbilical port was converted to a 10 mm port. A left lower abdominal quadrant 5 mm port was already in place and we added another 5 mm port midline in the epigastric region. The appendix was then retracted towards the anterior abdominal wall. A window was then created between the base of the appendix and the mesoappendix. This was done using a [place] dissector. The appendix was then stapled and transected with a ZEKE 45 mm stapler with a 2.5 mm thickness load. The mesoappendix was then stapled and transected with the same stapler with a 2.0 mm thickness reload with visualization of good hemostasis. The appendix was removed through the 10 mm port site using an EndoCatch bag. The pelvis and peritoneal cavity were then irrigated and suctioned out. The 10 mm port site fascia and peritoneum were then closed under direct visualization using Cosmo-Lizzy device and 0 Vicryl suture. Abdomen was desufflated and remaining ports removed. All skin incisions were closed using 4-0 Monocryl running subcuticular sutures. Wounds were then cleaned and covered with Dermabond. The patient tolerated the procedure well. We will turn the patient back over to PIGEON FANCIER for further management and postoperative care. From our standpoint, the only restriction is no heavy lifting or exertion for the next 2 weeks and then to increase activity as tolerated. Job ID: [id number] DocumentID: [id number] Dictated Date: 06/11/2017 13:15:52 Probation Manager Date: 06/11/2017 17:06:26 Dictated By: EVE AGUERO MD
== END 2017-06-11 16:05 | disposition home or self-care (01) ==
LOC: SDC 08:58
PROVIDERS: ATTEND Obstetrics & Gynecology
DX: N80.3 Endometriosis of pelvic peritoneum (principal); K36 Other appendicitis; N83.11 Corpus luteum cyst of right ovary; N73.6 Female pelvic peritoneal adhesions (postinfective); N94.10 Unspecified dyspareunia; J45.909 Unspecified asthma, uncomplicated; E66.01 Morbid (severe) obesity due to excess calories; Z68.42 Body mass index [BMI] 45.0-49.9, adult; Z87.891 Personal history of nicotine dependence; Z79.899 Other long term (current) drug therapy
CPT/HCPCS: 86850; 86900; 86901

== ENCOUNTER 2017-08-06 05:30 | Outpatient (CLI) | payer OTHER ==
[~2017-08-06] VITALS: Ht 172.7 cm; Wt 134.7 kg
[~2017-08-06 05:30] MED LIST changes: -LACTATED RINGERS 1,000 ML IV PRN
== END 2017-08-06 12:37 ==
LOC: PREOP 05:30
PROVIDERS: ATTEND Obstetrics & Gynecology
DX: Z01.818 Encounter for other preprocedural examination (principal); N80.9 Endometriosis, unspecified

== ENCOUNTER 2017-08-09 17:31 | Emergency (ER) | payer OTHER ==
[~2017-08-09] VITALS: Ht 172.7 cm; Wt 137.4 kg
--- NOTE | 2017-08-09 18:29 | ED Integumentary General ---
General Chief Complaint: Skin/Wound Problems Stated Complaint: ABSCESS UNDER ARM Nursing Triage Note: pt reports pain and swelling under r/l axilla. Pt reports she has been on antibiotics within the last couple weeks but they are getting worse. various stages of draining sores noted in both r and l axilla. Source: patient Exam Limitations: no limitations History of Present Illness Date Seen by Provider: August 09, 2017 Time Seen by Provider: 18:23 Initial Comments To ER with c/o draining abscesses beneath each axilla, suprapubic region and inguinal region bilaterally. No fevers or chills. She has a history of hidradenitis suppurativa. She just finished a course of Diflucan and clindamycin last week. Severity: moderate Allergies and Home Medications Allergies Coded Allergies: ibuprofen (Unverified Allergy, Mild, HIVES, 06/10/17) Home Medications Albuterol Sulfate 6.7 Gm Hfa.aer.ad, 2 PUFF IH Q6H PRN for SHORTNESS OF BREATH, (Reported) Ampicillin Trihydrate 500 Mg Capsule, 500 MG PO Q6H Prescribed by: TIA GRACE on 08/09/171832 Azithromycin 250 Mg Tablet, 250 MG PO UD TAKE 2 TABLETS ON DAY ONE THEN TAKE 1 TABLET DAILY FOR FOUR MORE DAYS Prescribed by: TIA GRACE on 08/09/171832 Budesonide/Formoterol Fumarate 10.2 Gm Hfa.aer.ad, 2 PUFF IH BID, (Reported) Hydrocodone/Acetaminophen 1 Each Tablet, 1 EACH PO Q4H PRN for PAIN-MODERATE Prescribed by: TIA GRACE on 08/09/171834 Patient Home Medication List Home Medication List Reviewed: Yes Constitutional: see HPI; No chills, No fever EENTM: see HPI Respiratory: no symptoms reported Cardiovascular: no symptoms reported Genitourinary: no symptoms reported Musculoskeletal: no symptoms reported Skin: see HPI Psychiatric/Neurological: No Symptoms Reported Endocrine: No Symptoms Reported Hematologic/Lymphatic: No Symptoms Reported Past Tmhgzmt-Ckwqgx-Zdgwte Hx Patient Social History Alcohol Use: Denies Use Number of Drinks Today: CC Alcohol Beverage of Choice: Cheap Liquor Recreational Drug Use: No Smoking Status: Former Smoker Type Used: Cigarettes Former Smoker, Quit: Sep 13, 2013 2nd Hand Smoke Exposure: No Recent Foreign Travel: No Contact w/Someone Who Travel: No Recent Infectious Disease Expo: No Recent Hopitalizations: No Physical Abuse: No Sexual Abuse: No Mistreated: No Fear: No Immunizations Up To Date Tetanus Booster (TDap): Unknown PED Vaccines UTD: No Date of Influenza Vaccine: Dec 15, 2016 Seasonal Allergies Seasonal Allergies: Yes Past Medical History Surgeries: Yes (Hemorrhoids, KNEE SCOPE, D&C, DXLS) Gallbladder, Orthopedic, Rectal Respiratory: Yes Asthma Currently Using CPAP: No Currently Using BIPAP: No Cardiac: No Neurological: Yes Headaches /Migraines Reproductive Disorders: No (PELVIC PAIN) Female Reproductive Disorders: Menstrual Problems, Ovarian Cyst Sexually Transmitted Disease: No HIV/AIDS: No Genitourinary: Yes UTI-Chronic Gastrointestinal: Yes Gastroesophageal Reflux Musculoskeletal: Yes (TAKES RELAFEN FOR GENERAL ACHES AND PAINS) Arthritis, Chronic Back Pain Endocrine: No HEENT: No Loss of Vision: Bilateral Hearing Impairment: Denies Cancer: No Psychosocial: No Nursing Suicide Risk Score: 0 Integumentary: Yes (HYDRADENTITIS SUPPURATIVA) Recent Skin Changes Blood Disorders: Yes (ANEMIA) Adverse Reaction/Blood Tranf: No Family Medical History Patient reports no known family medical history. Physical Exam Vital Signs Vital Signs - First Documented 08/09/17 18:09 Temp 98.5 Pulse 88 Resp 20 B/P (MAP) 142/86 (104) Pulse Ox 97 Capillary Refill : Less Than 3 Seconds General Appearance: WD/WN, no apparent distress HEENT: PERRL/EOMI, normal ENT inspection Neck: non-tender, full range of motion Respiratory: no respiratory distress, no accessory muscle use Gastrointestinal: normal bowel sounds, non tender Neurologic/Psychiatric: alert, normal mood/affect, oriented x 3 Skin: normal color, warm/dry, other (There is a multitude of abscesses to each axilla, the mons pubis. She complains of no pain to the areas in the right inguinal region so I did not examine them. She is afebrile. She does have purulent drainage in each axilla.) Progress/Results/Core Measures Results/Orders My Orders Orders - TIA GRACE APRN Wound Culture (08/09/17 18:18) Rx-Hydrocodone/Apap 5-325 Mg (Rx-Vicodin (08/09/17 18:30) Amoxicillin/Clavulanate Tablet (Augmenti (08/09/17 18:45) Azithromycin Tablet (Zithromax Tablet) (08/09/17 18:45) Vital Signs/I&O 08/09/17 18:09 Temp 98.5 Pulse 88 Resp 20 B/P (MAP) 142/86 (104) Pulse Ox 97 Blood Pressure Mean: 104 Departure Communication (Admissions) Family Conversation Below is a copy of abscess culture and sensitivity from inguinal abscess March of this year WOUND CULTURE RESULT Final (continued) Verified 04/06/17 ( continued) PRO [facility] FAECAL INTERP INTERP AMPICILLIN S S GENTAMICIN S GENTAMICIN 500 S TOBRAMYCIN S CEFAZOLIN S CEFTRIAXONE S AMP/SULBACTAM S PIP/TAZO S ERYTHROMYCIN S LINEZOLID S TRIMETH/SULFA S VANCOMYCIN S CIPROFLOXACIN S MEROPENEM S AZTREONAM S Impression Primary Impression: Hidradenitis suppurativa Disposition: HOME, SELF-CARE Condition: Stable Departure-Patient Inst. Decision time for Depature: 18:29 Referrals: [facility] [place] (PCP/Family) Primary Care Physician TALYA WASHINGTON BRETT D DO JENKINS, XAVIER M MD KIDO, TAKAAKI MD Patient Instructions: Skin Abscess Add. Discharge Instructions: 1. Make an appointment with a surgeon of your choosing. Call Thursday for an appointment. Pain medication and antibiotics as directed. All discharge instructions reviewed with patient and/or family. Voiced understanding. Scripts Hydrocodone/Acetaminophen ([place] 5-325 Tablet) 1 Each Tablet 1 EACH PO Q4H PRN for PAIN-MODERATE, #14 TAB Prov: TIA GRACE APRN 08/09/17 Azithromycin (Azithromycin) 250 Mg Tablet 250 MG PO UD, #6 TAB TAKE 2 TABLETS ON DAY ONE THEN TAKE 1 TABLET DAILY FOR FOUR MORE DAYS Prov: TIA GRACE APRN 08/09/17 Ampicillin Trihydrate (Ampicillin Trihydrate) 500 Mg Capsule 500 MG PO Q6H, #28 CAP Prov: TIA GRACE APRN 08/09/17 Copy Copies To 1: TALYA WASHINGTON DO; CULLEN DE PETER J APRN August 09, 2017 18:29
[2017-08-09] MEDS ORDERED: RX-HYDROCODONE/APAP 5/325 MG #4 TAB PK PO PRN (18:30)
[2017-08-09] MEDS ORDERED: AMPI500C9 PO (18:33)
[2017-08-09] MEDS ORDERED: AZIT250T12 PO (18:33)
[2017-08-09] MEDS ORDERED: HYDR-757 PO (18:35)
[2017-08-09] MEDS ORDERED: AUGMENTIN 875 MG TAB (AMOXICILLIN/CLAVULANATE) PO SCH (18:45)
[2017-08-09] MEDS ORDERED: AZITHROMYCIN 250 MG TAB (ZITHROMAX) PO SCH (18:45)
[2017-08-09 19:05] VITALS: BP 132/87
== END 2017-08-09 19:04 | disposition home or self-care (01) ==
LOC: EDUNIT# 17:31 → ER 17:32
DX: L73.2 Hidradenitis suppurativa (principal); J45.909 Unspecified asthma, uncomplicated; G43.909 Migraine, unspecified, not intractable, without status migrainosus; K21.9 Gastro-esophageal reflux disease without esophagitis; D64.9 Anemia, unspecified; Z87.440 Personal history of urinary (tract) infections; Z87.448 Personal history of other diseases of urinary system; Z79.51 Long term (current) use of inhaled steroids; Z88.6 Allergy status to analgesic agent; Z87.891 Personal history of nicotine dependence
CPT/HCPCS: 87070; 87077; 87186; 87205; 99283

== ENCOUNTER 2017-08-13 07:44 | Day surgery (SDC) | payer OTHER ==
[~2017-08-13] VITALS: Ht 172.7 cm; Wt 134.7 kg
[~2017-08-13 07:44] MED LIST changes: +AMPI500C9 PO; +AZIT250T12 PO
[2017-08-13] MEDS ORDERED: LACTATED RINGERS 1,000 ML IV ONE (07:55)
[2017-08-13] MEDS ORDERED: LACTATED RINGERS 1,000 ML IV PRN (07:55)
[2017-08-13 08:00] VITALS: BP 123/78
[2017-08-13] MEDS ORDERED: ceFAZolin 2 GM IV Premixed 50 ML IV ONE (08:00)
[2017-08-13] MEDS ORDERED: metroNIDAZOLE 500MG/100ML IVPB 100 ML IV ONE (08:00)
[2017-08-13] MEDS ORDERED: SCOPOLAMINE 1.5 MG (TRANSDERM-SCOP) PATCH TOP ONE (08:15)
[2017-08-13] MEDS ORDERED: FAMOTIDINE 20MG/2ML IV (PEPCID) IV ONE (08:15)
[2017-08-13] MEDS ORDERED: ONDANSETRON 4 MG/2 ML (SDV) Z0FRAN IV ONE (08:15)
[2017-08-13 08:50] LABS: BASOPHILS % (AUTO) 0 % (0-10); EOSINOPHILS # (AUTO) 0.4 10^3/uL (0.0-0.3); EOSINOPHILS % (AUTO) 5 % (0-10); HEMATOCRIT 30 % (35-52); LYMPHOCYTES # (AUTO) 1.7 X 10^3 (1.0-4.0); LYMPHOCYTES % (AUTO) 22 % (12-44); MEAN CORPUSCULAR HEMOGLOBIN 24 PG (25-34); MEAN CORPUSCULAR HGB CONC 33 G/DL (32-36); MEAN CORPUSCULAR VOLUME 73 FL (80-99); MEAN PLATELET VOLUME 9.1 FL (7.4-10.4); MONOCYTES # (AUTO) 0.4 X 10^3 (0.0-1.0); MONOCYTES % (AUTO) 6 % (0-12); NEUTROPHILS # (AUTO) 5.2 X 10^3 (1.8-7.8); NEUTROPHILS % (AUTO) 67 % (42-75); PLATELET COUNT 483 10^3/uL (130-400); RED BLOOD COUNT 4.12 10^6/uL (4.35-5.85); RED CELL DISTRIBUTION WIDTH 17.6 % (10.0-14.5); WHITE BLOOD COUNT 7.8 10^3/uL (4.3-11.0)
== END 2017-08-13 09:35 | disposition home or self-care (01) ==
LOC: SDC 07:44
PROVIDERS: ATTEND Obstetrics & Gynecology
DX: N80.9 Endometriosis, unspecified (principal); R10.2 Pelvic and perineal pain; J45.909 Unspecified asthma, uncomplicated; G43.909 Migraine, unspecified, not intractable, without status migrainosus; K21.9 Gastro-esophageal reflux disease without esophagitis; E66.01 Morbid (severe) obesity due to excess calories; Z68.42 Body mass index [BMI] 45.0-49.9, adult; Z79.51 Long term (current) use of inhaled steroids; Z88.6 Allergy status to analgesic agent; Z87.891 Personal history of nicotine dependence; Z53.9 Procedure and treatment not carried out, unspecified reason
CPT/HCPCS: 36415; 84702; 84703; 85025; 86850; 86900; 86901

== ENCOUNTER → 2017-12-01 | Outpatient (CLI) | payer MEDICAID, OTHER ==
[~2017-12-01] MED LIST changes: +HYDR-4226 PO; -OXYC-202 PO; +OXYC1TAB12 PO
--- NOTE | 2017-12-01 17:28 | Diagnostic Imaging Report ---
INDICATION: . TECHNIQUE: Multiple real-time grayscale images were obtained over the gravid uterus. COMPARISON: None. FINDINGS: A painting gestation has a heart rate of 147 beats per minute. The placenta is posterior with no abruption or previa. No pathological finding at the anatomical survey was revealed, however the intracranial structures, the spine, and the cord insertion were suboptimally visualized on a positional basis. Measurements correlate with an age 20 weeks 3 days reflecting normal growth from prior. Biometrical measurements are as follows: Biparietal 4.92 cm, age 21 weeks 0 days. Head circumference 18.90 cm, age 21 weeks 2 days. Abdominal circumference 14.59 cm, age 20 weeks 0 days. Femur length 2.97 cm, age 19 weeks 2 days. Sonographic estimate age: 20 weeks 3 days. Sonographic estimated date of delivery: 04/17/18. Estimated Weight: 311 gm (+/- 45 gm). LMP percentile: 32%. heart rate: 147 beats per minute. number: 1 of 1. IMPRESSION: Painting gestation measures 20 weeks 3 days. No abnormality identified, however the anatomical survey is limited on a positional basis as discussed above. Dictated by: Dictated on workstation # [id number]
== END ==
LOC: RAD 16:02
PROVIDERS: ATTEND Obstetrics & Gynecology
DX: Z34.92 Encounter for supervision of normal pregnancy, unspecified, second trimester (principal); Z3A.20 20 weeks gestation of pregnancy
CPT/HCPCS: 76805

== ENCOUNTER 2018-01-03 17:12 | Emergency (ER) | payer MEDICAID ==
[~2018-01-03] VITALS: Ht 172.7 cm; Wt 136.1 kg
[2018-01-03] MEDS ORDERED: PREN-102 PO (17:36)
[2018-01-03] MEDS ORDERED: HYDROcodone/APAP 7.5 MG/325 MG (LORTAB, LORCET PLUS) TABLET PO STA (18:02)
[2018-01-03 18:11] LABS: BASOPHILS % (AUTO) 0 % (0-10); EOSINOPHILS # (AUTO) 0.1 10^3/uL (0.0-0.3); EOSINOPHILS % (AUTO) 1 % (0-10); HEMATOCRIT 26 % (35-52); HEMOGLOBIN 8.7 G/DL (11.5-16.0); LYMPHOCYTES # (AUTO) 1.2 X 10^3 (1.0-4.0); LYMPHOCYTES % (AUTO) 15 % (12-44); MEAN CORPUSCULAR HEMOGLOBIN 24 PG (25-34); MEAN CORPUSCULAR HGB CONC 33 G/DL (32-36); MEAN CORPUSCULAR VOLUME 72 FL (80-99); MEAN PLATELET VOLUME 8.9 FL (7.4-10.4); MONOCYTES # (AUTO) 0.5 X 10^3 (0.0-1.0); MONOCYTES % (AUTO) 7 % (0-12); NEUTROPHILS % (AUTO) 77 % (42-75); PLATELET COUNT 415 10^3/uL (130-400); RED BLOOD COUNT 3.67 10^6/uL (4.35-5.85); WHITE BLOOD COUNT 7.9 10^3/uL (4.3-11.0)
[2018-01-03] MEDS ORDERED: LIDOCAINE 1% INJ 20 ML 20 ML VIAL INJ ONE (18:15)
--- NOTE | 2018-01-03 18:16 | ED Lower Extremity ---
General Chief Complaint: Lower Extremity Stated Complaint: ABSCESS ON LEG Nursing Triage Note: ARRIVED VIA AMB TO ROOM 05. COMPLAINS OF MULTIPLE ABSCESSES ON RIGHT INNER THIGH X1 WEEK. STATES IT HAS DRAINED X3 ON ITS OWN. PT IS 25 WEEKS GESTATION. Nursing Sepsis Screen: No Definite Risk History of Present Illness Date Seen by Provider: Jan 03, 2018 Time Seen by Provider: 17:35 Initial Comments 27-year-old -[place] female presents for abscess to the right groin for 1 week. She has a history of MRSA and hydradenitis superlative. She is 25 weeks gestation. She has been taking Tylenol occasionally for the pain. She reports that it has been opening and expressing on its own until the last day when she has had no drainage. She has felt good movement through noon yesterday, today there has been less. Onset: last week Pain/Injury Location: right thigh Method of Injury: unknown Modifying Factors: Improves With Rest Allergies and Home Medications Allergies Coded Allergies: ibuprofen (Unverified Allergy, Mild, HIVES, 06/10/17) Home Medications Amoxicillin/Potassium Clav 1 Each Tablet, 1 EACH PO BID Prescribed by: ROSALBA HARVEY on 01/03/181922 Patient Home Medication List Home Medication List Reviewed: Yes Review of Systems Constitutional: no symptoms reported, see HPI Skin: see HPI, change in color, lesions (abscess right groin) All Other Systems Reviewed Negative Unless Noted: Yes Past Bmnpjpg-Dojasf-[place] Hx Past Med/Social Hx: Reviewed Nursing Past Med/Soc Hx, Reviewed and Corrections made Patient Social History Alcohol Use: Denies Use Number of Drinks Today: 0 Alcohol Beverage of Choice: Cheap Liquor Recreational Drug Use: No Smoking Status: Former Smoker Type Used: Cigarettes Former Smoker, Quit: Sep 13, 2013 2nd Hand Smoke Exposure: No Recent Foreign Travel: No Contact w/Someone Who Travel: No Recent Infectious Disease Expo: No Recent Hopitalizations: No Immunizations Up To Date Tetanus Booster (TDap): Unknown PED Vaccines UTD: No Date of Influenza Vaccine: Dec 15, 2016 Seasonal Allergies Seasonal Allergies: Yes Past Medical History Surgeries: Yes (Hemorrhoids, KNEE SCOPE, D&C, DXLS) Appendectomy, Gallbladder, Orthopedic, Rectal Respiratory: Yes Asthma Currently Using CPAP: No Currently Using BIPAP: No Cardiac: No Neurological: Yes Headaches /Migraines : Yes Expected Date of Delivery: Apr 20, 2018 Hx : 2 Hx Para: 0 Hx Total # of Abortions (Sp): 1 Reproductive Disorders: Yes (PELVIC PAIN) Female Reproductive Disorders: Menstrual Problems, Endometriosis, Ovarian Cyst Sexually Transmitted Disease: No HIV/AIDS: No Genitourinary: Yes UTI-Chronic Gastrointestinal: Yes Gastroesophageal Reflux Musculoskeletal: Yes (TAKES RELAFEN FOR GENERAL ACHES AND PAINS) Arthritis, Chronic Back Pain Endocrine: No HEENT: No Loss of Vision: Bilateral Hearing Impairment: Denies Cancer: No Psychosocial: No Integumentary: Yes (HYDRADENTITIS SUPPURATIVA, MRSA) Recent Skin Changes Blood Disorders: Yes (ANEMIA) Adverse Reaction/Blood Tranf: No Family Medical History Patient reports no known family medical history. Physical Exam Vital Signs Vital Signs - First Documented 01/03/18 17:23 Temp 98.2 Pulse 91 Resp 16 B/P (MAP) 144/81 (102) Pulse Ox 99 O2 Delivery Room Air Capillary Refill : Less Than 3 Seconds Height, Weight, BMI Height: 5'8.00" Weight: 300lbs. 0.0oz. 136.399007bl; 45.2 BMI Method:Stated General Appearance: WD/WN, no apparent distress Cardiovascular: normal peripheral pulses, regular rate, rhythm Respiratory: chest non-tender, lungs clear, normal breath sounds Gastrointestinal: normal bowel sounds, non tender, soft Hips: bilateral hip non-tender, bilateral hip normal inspection; right hip limited range of motion (secondary to right groin pain) Neurologic/Psychiatric: no motor/sensory deficits, alert, normal mood/affect, oriented x 3 Skin: normal color, warm/dry, other (Indurated, large abscess to right upper groin, extending to labia. Fluctuance in center. Marked tenderness and warmth, no active purullent drainage noted. Serous drainage noted. ) Good heart tones, 150-160. Active movement detected. Procedures/Interventions I&D : Blade Size: 11 I & D Procedure: betadine prep, sterile drapes applied, Wound Packing (1/4 iodoform ) Packing/Drain: Idoform 1/4 Progress Skin cleansed with Betadine, 2 areas opened with 11 blade. Medial wound with serous to purulent drainage, 10 mls Culture obtained. 2nd area opened deeper and wider with 11 blade, copious purulent, malodorous drainage approx 40 ml, culture obtained. Thoroughly irrigated with 1,000 ml of sterile saline, Bactroban oint to wound. Abscess approx 8 cm in depth. 1/4 iodoform gauze packed into wound. Bulky sterile dressing applied and secured with Kerlex and Dylon wrap. Pt tolerated procedure well. heart tones 160-170 during procedure and 140-150 post procedure. Pt denied any abdominal pain. movement felt during and after procedure by patient. Progress/Results/Core Measures Results/Orders Lab Results Laboratory Tests Test 01/03/18 18:02 01/03/18 18:15 Range/Units White Blood Count 7.9 4.3-11.0 10^3/uL Red Blood Count 3.67 L 4.35-5.85 10^6/uL Hemoglobin 8.7 L 11.5-16.0 G/DL Hematocrit 26 L 35-52 % Mean Corpuscular Volume 72 L 80-99 FL Mean Corpuscular Hemoglobin 24 L 25-34 PG Mean Corpuscular Hemoglobin Concent 33 32-36 G/DL Red Cell Distribution Width 18.0 H 10.0-14.5 % Platelet Count 415 H 130-400 10^3/uL Mean Platelet Volume 8.9 7.4-10.4 FL Neutrophils (%) (Auto) 77 H 42-75 % Lymphocytes (%) (Auto) 15 12-44 % Monocytes (%) (Auto) 7 0-12 % Eosinophils (%) (Auto) 1 0-10 % Basophils (%) (Auto) 0 0-10 % Neutrophils # (Auto) 6.0 1.8-7.8 X 10^3 Lymphocytes # (Auto) 1.2 1.0-4.0 X 10^3 Monocytes # (Auto) 0.5 0.0-1.0 X 10^3 Eosinophils # (Auto) 0.1 0.0-0.3 10^3/uL Basophils # (Auto) 0.0 0.0-0.1 10^3/uL Sodium Level 135 135-145 MMOL/L Potassium Level 3.9 3.6-5.0 MMOL/L Chloride Level 105 98-107 MMOL/L Carbon Dioxide Level 20 L 21-32 MMOL/L Anion Gap 10 5-14 MMOL/L Blood Urea Nitrogen 4 L 7-18 MG/DL Creatinine 0.61 0.60-1.30 MG/DL Estimat Glomerular Filtration Rate > 60 BUN/Creatinine Ratio 7 Glucose Level 95 70-105 MG/DL Lactic Acid Level 1.07 0.50-2.00 MMOL/L Calcium Level 9.0 8.5-10.1 MG/DL Corrected Calcium 9.8 8.5-10.1 MG/DL Total Bilirubin 0.2 0.1-1.0 MG/DL Aspartate Amino Transf (AST/SGOT) 7 5-34 U/L Alanine Aminotransferase (ALT/SGPT) 6 0-55 U/L Alkaline Phosphatase 71 40-136 U/L Total Protein 7.2 6.4-8.2 GM/DL Albumin 3.0 L 3.2-4.5 GM/DL Urine Color YELLOW Urine Clarity VERY CLOUDY H Urine pH 6.5 5-9 Urine Specific [place] 1.015 L 1.016-1.022 Urine Protein 2+ H NEGATIVE Urine Glucose (UA) NEGATIVE NEGATIVE Urine Ketones NEGATIVE NEGATIVE Urine Nitrite NEGATIVE NEGATIVE Urine Bilirubin NEGATIVE NEGATIVE Urine Urobilinogen 1 NORMAL MG/DL Urine Leukocyte Esterase 3+ H NEGATIVE Urine RBC (Auto) 3+ H NEGATIVE Urine RBC 10-25 H /HPF Urine WBC 25-50 H /HPF Urine Squamous Epithelial Cells 10-25 H /HPF Urine Crystals NONE /LPF Urine Bacteria LARGE H /HPF Urine Casts NONE /LPF Urine Mucus NEGATIVE /LPF Urine Culture Indicated YES My Orders Orders - ROSALBA HARVEY Cbc With Automated Diff (01/03/18 17:57) Comprehensive Metabolic Panel (01/03/18 17:57) Ua Culture If Indicated (01/03/18 17:57) Blood Culture (01/03/18 17:57) Lactic Acid Analyzer (01/03/18 17:57) Hydrocodone/Apap 7.5/325 Tab (Lortab 7. (01/03/18 18:02) Lidocaine 1% Inj 20 Ml (Xylocaine 1% Inj (01/03/18 18:15) Urine Culture (01/03/18 18:15) Rx-Mupirocin 2% Oint (Rx-Bactroban) (01/03/18 18:42) Rx-Mupirocin 2% Oint (Rx-Bactroban) (01/03/18 19:13) Rx-Amoxicillin/Clav Tab (Rx-Augmentin Ta (01/03/18 19:13) Rx-Hydrocodone/Apap 5-325 Mg (Rx-Vicodin (01/03/18 19:15) Wound Culture (01/03/18 19:32) Wound Culture (01/03/18 19:00) Medications Given in ED Current Medications Medications Dose Ordered Sig/Braulio Route Start Time Stop Time Status Last Admin Dose Admin Acetaminophen/ Hydrocodone Bitart 1 ea Q6H PRN PO 01/03/18 19:15 01/03/18 19:32 DC 01/03/18 19:16 1 EA Lidocaine HCl 20 ml ONCE ONCE INJ 01/03/18 18:15 01/03/18 18:16 DC 01/03/18 18:11 20 ML Vital Signs/I&O 01/03/18 01/03/18 17:23 19:31 Temp 98.2 98.2 Pulse 91 91 Resp 16 16 B/P (MAP) 144/81 (102) 144/81 (102) Pulse Ox 99 99 O2 Delivery Room Air Blood Pressure Mean: 102 Progress Progress Note : Time: 17:35 Progress Note Patient seen and evaluated, discussed findings with Dr. Larson per phone, ok for patient to have Hydrocodone. 1800 Recommended I&D to patient, discussed risks and benefits. She agreed with this treatment plan. 1845 Reviewed lab results, UA prob from contaminant, covered with Augmentin for abscess and urine. Cultures pending. HGB 8.7, which is lower than normal for her , she will discuss with Dr Larson tomorrow, WBC 7.9. CMP WNL. Discharge instructions and return precautions reviewed with her in detail. She verbalized significant relief in her groin pain, she is able to ambulate without discomfort. She has continued to have good movement. Departure Impression Primary Impression: Hidradenitis suppurativa Additional Impression: Abscess of right groin Disposition: HOME, SELF-CARE Condition: Improved Departure-Patient Inst. Decision time for Depature: 18:45 Referrals: [facility]/ (PCP) Primary Care Physician TASHA COLLADO (Family) Primary Care Physician Patient Instructions: Abscess Incision and Drainage (DC) Add. Discharge Instructions: Call Dr. Larson's office tomorrow for follow-up. Leave packing in wound until your follow-up with Dr. Larson. Re-apply dressings and wrap, if they become soiled or for excessive drainage. Take Augmentin one tablet twice daily with food. Take hydrocodone/apap every 6 hours as needed for pain. If pain is not as severe you may take Tylenol 650 mg every 6 hours. Do not take both, as the Hydrocodone/APAP has tylenol in it. Monitor movement, notify Dr. Larson via OB dept if no movement for 4 hours. Increase water intake. Return to Emergency Dept for new or worsening problems. All discharge instructions reviewed with patient and/or family. Voiced understanding. Scripts Amoxicillin/Potassium Clav (Augmentin 875-125 Tablet) 1 Each Tablet 1 EACH PO BID, #20 TAB 0 Refills Prov: ROSALBA HARVEY 01/03/18 Work/School Note: Work Release Form Date Seen in the Emergency Department: Jan 03, 2018 Return to Work: Jan 06, 2018 Restrictions: Need Release from Doctor Other Restrictions Listed Below: Work release per Dr. Larson. Copy Copies To 1: JONES LARSON AMY ARNP Jan 03, 2018 18:16
[2018-01-03 18:23] LABS: BILIRUBIN,URINE NEGATIVE (NEGATIVE); CLARITY,URINE VERY CLOUDY; COLOR,URINE YELLOW; GLUCOSE, URINE (UA) NEGATIVE (NEGATIVE); KETONES,URINE NEGATIVE (NEGATIVE); LEUKOCYTE ESTERASE ,URINE 3+ (NEGATIVE); NITRITE,URINE NEGATIVE (NEGATIVE); PH,URINE 6.5 (5-9); PROTEIN,URINE 2+ (NEGATIVE); UROBILINOGEN,URINE 1 MG/DL (NORMAL)
[2018-01-03 18:31] LABS: BACTERIA,URINE LARGE /HPF; WBC,URINE 25-50 /HPF
[2018-01-03 18:36] LABS: ALANINE AMINOTRANSFERASE 6 U/L (0-55); ALKALINE PHOSPHATASE 71 U/L (40-136); BILIRUBIN,TOTAL 0.2 MG/DL (0.1-1.0); BUN/CREATININE RATIO 7; CARBON DIOXIDE 20 MMOL/L (21-32); CHLORIDE 105 MMOL/L (98-107); CREATININE SERUM 0.61 MG/DL (0.60-1.30); GFR ESTIMATED > 60; GLUCOSE 95 MG/DL (70-105); POTASSIUM 3.9 MMOL/L (3.6-5.0); SODIUM 135 MMOL/L (135-145); TOTAL PROTEIN 7.2 GM/DL (6.4-8.2)
[2018-01-03] MEDS ORDERED: RX-MUPIROCIN (BACTROBAN) 2% OINT 22 GM TUBE ONE (18:42)
[2018-01-03] MEDS ORDERED: RX-AMOX/CLAV. (AUGMENTIN) 500MG TAB PPK#2 PO STA (19:13)
[2018-01-03] MEDS ORDERED: RX-MUPIROCIN (BACTROBAN) 2% OINT 22 GM TUBE TOP STA (19:13)
[2018-01-03] MEDS ORDERED: RX-HYDROCODONE/APAP 5/325 MG #4 TAB PK PO PRN (19:15)
[2018-01-03] MEDS ORDERED: AMOX-358 PO (19:23)
[2018-01-03 19:31] VITALS: BP 144/81
== END 2018-01-03 19:31 | disposition home or self-care (01) ==
LOC: EDUNIT# 17:12 → ER 17:14
DX: O99.712 Diseases of the skin and subcutaneous tissue complicating pregnancy, second trimester (principal); L02.214 Cutaneous abscess of groin; L73.2 Hidradenitis suppurativa; O99.512 Diseases of the respiratory system complicating pregnancy, second trimester; J45.909 Unspecified asthma, uncomplicated; O99.352 Diseases of the nervous system complicating pregnancy, second trimester; G43.909 Migraine, unspecified, not intractable, without status migrainosus; O99.612 Diseases of the digestive system complicating pregnancy, second trimester; K21.9 Gastro-esophageal reflux disease without esophagitis; O99.012 Anemia complicating pregnancy, second trimester; D64.9 Anemia, unspecified; Z87.440 Personal history of urinary (tract) infections; Z88.6 Allergy status to analgesic agent; Z86.14 Personal history of Methicillin resistant Staphylococcus aureus infection; Z87.891 Personal history of nicotine dependence; Z90.89 Acquired absence of other organs; Z3A.25 25 weeks gestation of pregnancy
CPT/HCPCS: 10061; 36415; 80053; 81000; 83605; 85025; 87040; 87070; 87077; 87088; 87205

== ENCOUNTER 2018-01-28 16:01 | Outpatient (CLI) | payer MEDICAID ==
[~2018-01-28] VITALS: Ht 172.7 cm; Wt 135.6 kg
[~2018-01-28 16:01] MED LIST changes: +AMOX-358 PO; +PREN-102 PO
[2018-01-28 16:20] VITALS: BP 138/78
[2018-01-28 16:40] LABS: BILIRUBIN,URINE NEGATIVE (NEGATIVE); CLARITY,URINE SLIGHTLY CLOUDY; COLOR,URINE YELLOW; GLUCOSE, URINE (UA) NEGATIVE (NEGATIVE); KETONES,URINE 1+ (NEGATIVE); LEUKOCYTE ESTERASE ,URINE 3+ (NEGATIVE); NITRITE,URINE NEGATIVE (NEGATIVE); PH,URINE 6 (5-9); PROTEIN,URINE 2+ (NEGATIVE); UROBILINOGEN,URINE 4 MG/DL (NORMAL)
[2018-01-28 17:01] LABS: BACTERIA,URINE MODERATE /HPF; CALCIUM OXALATE CRYSTALS,UR FEW /LPF
[2018-01-28] MEDS ORDERED: FLU QUADRIvalent (5+ YOA) 2018-2019 (AFLURIA) 0.5 ML IM ONE (18:45)
== END 2018-01-28 17:30 | disposition home or self-care (01) ==
LOC: WSo 16:01 → LDRP 16:10 → WSo 17:30
PROVIDERS: ATTEND Obstetrics & Gynecology
DX: O36.8130 Decreased fetal movements, third trimester, not applicable or unspecified (principal); Z3A.28 28 weeks gestation of pregnancy
CPT/HCPCS: 81000; 87088; 99212

== ENCOUNTER 2018-02-24 17:02 | Outpatient (CLI) | payer MEDICAID ==
[~2018-02-24] VITALS: Ht 172.7 cm; Wt 136.1 kg
[2018-02-24 17:10] VITALS: BP 117/69
[2018-02-24 17:27] LABS: BILIRUBIN,URINE NEGATIVE (NEGATIVE); CLARITY,URINE CLEAR; COLOR,URINE YELLOW; GLUCOSE, URINE (UA) NEGATIVE (NEGATIVE); KETONES,URINE NEGATIVE (NEGATIVE); LEUKOCYTE ESTERASE ,URINE 3+ (NEGATIVE); NITRITE,URINE NEGATIVE (NEGATIVE); PH,URINE 6 (5-9); PROTEIN,URINE 1+ (NEGATIVE); UROBILINOGEN,URINE 4 MG/DL (NORMAL)
[2018-02-24] MEDS ORDERED: ONDANSETRON 4 MG/2 ML (SDV) Z0FRAN IVP ONE (17:30)
[2018-02-24] MEDS ORDERED: D5 LR IV SOLUTION 1,000 ML IV ONE ×2 (17:30→17:39)
[2018-02-24] MEDS ORDERED: ONDANSETRON 4 MG/2 ML (SDV) Z0FRAN ONE (17:39)
[2018-02-24 17:43] LABS: BACTERIA,URINE MODERATE /HPF; CALCIUM OXALATE CRYSTALS,UR LARGE /LPF; WBC,URINE 50-100 /HPF
[2018-02-24 18:16] LABS: BILIRUBIN,URINE NEGATIVE (NEGATIVE); CLARITY,URINE CLEAR; COLOR,URINE YELLOW; GLUCOSE, URINE (UA) NEGATIVE (NEGATIVE); KETONES,URINE NEGATIVE (NEGATIVE); LEUKOCYTE ESTERASE ,URINE 1+ (NEGATIVE); NITRITE,URINE NEGATIVE (NEGATIVE); PH,URINE 5 (5-9); PROTEIN,URINE 1+ (NEGATIVE); UROBILINOGEN,URINE 4 MG/DL (NORMAL)
[2018-02-24 18:18] LABS: BASOPHILS % (AUTO) 0 % (0-10); EOSINOPHILS # (AUTO) 0.1 10^3/uL (0.0-0.3); EOSINOPHILS % (AUTO) 2 % (0-10); HEMATOCRIT 30 % (35-52); HEMOGLOBIN 9.7 G/DL (11.5-16.0); LYMPHOCYTES # (AUTO) 1.3 X 10^3 (1.0-4.0); LYMPHOCYTES % (AUTO) 19 % (12-44); MEAN CORPUSCULAR HEMOGLOBIN 24 PG (25-34); MEAN CORPUSCULAR HGB CONC 33 G/DL (32-36); MEAN CORPUSCULAR VOLUME 73 FL (80-99); MEAN PLATELET VOLUME 9.4 FL (7.4-10.4); MONOCYTES # (AUTO) 0.5 X 10^3 (0.0-1.0); MONOCYTES % (AUTO) 7 % (0-12); NEUTROPHILS # (AUTO) 4.9 X 10^3 (1.8-7.8); NEUTROPHILS % (AUTO) 72 % (42-75); PLATELET COUNT 416 10^3/uL (130-400); RED BLOOD COUNT 4.05 10^6/uL (4.35-5.85); RED CELL DISTRIBUTION WIDTH 17.3 % (10.0-14.5); WHITE BLOOD COUNT 6.8 10^3/uL (4.3-11.0)
[2018-02-24] MEDS ORDERED: FERR-84 PO (18:22)
[2018-02-24] MEDS ORDERED: CIPR-225 PO (18:22)
[2018-02-24 18:25] LABS: SQUAMOUS EPITHELIAL CELL,UR 0-2 /HPF; WBC,URINE 0-2 /HPF
[2018-02-24 18:37] LABS: ALANINE AMINOTRANSFERASE 13 U/L (0-55); ALBUMIN 3.1 GM/DL (3.2-4.5); ALKALINE PHOSPHATASE 104 U/L (40-136); BILIRUBIN,TOTAL 0.3 MG/DL (0.1-1.0); BUN/CREATININE RATIO 8; CALCIUM 9.2 MG/DL (8.5-10.1); CARBON DIOXIDE 21 MMOL/L (21-32); CHLORIDE 105 MMOL/L (98-107); CREATININE SERUM 0.62 MG/DL (0.60-1.30); GFR ESTIMATED > 60; GLUCOSE 70 MG/DL (70-105); POTASSIUM 3.8 MMOL/L (3.6-5.0); SODIUM 135 MMOL/L (135-145); TOTAL PROTEIN 7.8 GM/DL (6.4-8.2)
[2018-02-24] MEDS ORDERED: FLU QUADRIvalent (5+ YOA) 2018-2019 (AFLURIA) 0.5 ML IM ONE (19:00)
[2018-02-24 19:55] VITALS: BP 106/50
== END 2018-02-24 21:15 | disposition home or self-care (01) ==
LOC: WSo 17:02 → LDRP 17:02 → WSo 21:15
PROVIDERS: ATTEND Obstetrics & Gynecology
DX: O21.2 Late vomiting of pregnancy (principal); Z3A.32 32 weeks gestation of pregnancy
CPT/HCPCS: 36415; 80053; 81000; 82570; 84156; 85025; 87088; 96361; 96374; 99214

== ENCOUNTER 2018-03-23 04:37 | Inpatient (IN) | payer MEDICAID ==
[~2018-03-23] VITALS: Ht 172.7 cm; Wt 136.1 kg
--- NOTE | 2018-03-23 04:45 | NUR ---
Arrived to unit from ED with c/o Leaking fluid. pt reports started at 330 with a gush of fluid in bed. Wt obtained. to room 315. gowned and urine sample obtained. To bed and monitors on. Oriented to room, call light and surroundings. Plan of care reviewed with pt and s.o. at bedside.
[2018-03-23 05:06] VITALS: BP 136/93
[2018-03-23] MEDS ORDERED: ACET-789 PO (05:10)
[2018-03-23] MEDS ORDERED: CEPH-507 PO (05:10)
[2018-03-23] MEDS ORDERED: D5 LR IV SOLUTION 1,000 ML IV ONE (05:15)
--- NOTE | 2018-03-23 05:15 | NUR ---
multiple lesions noted on perineum, between legs and groin area at least 7 open lesions. 1 on right lower groin area draining and pt has gauze placed for drainage.
[2018-03-23 06:05] VITALS: BP 135/66
[2018-03-23] MEDS ORDERED: LACTATED RINGERS 1,000 ML IV ONE (07:30)
--- NOTE | 2018-03-23 07:38 | NUR ---
open lesion on Rt. labia cultured per Dr's orders. labeled and sent to lab.
--- NOTE | 2018-03-23 07:44 | NUR ---
SVE per . order received for primary c/s.
--- NOTE | 2018-03-23 07:47 | NUR ---
OR notified of primary c/s.
[2018-03-23] MEDS ORDERED: LACTATED RINGERS 1,000 ML IV PRN ×2 (07:51→08:00)
--- NOTE | 2018-03-23 07:53 | History & Physical-OB ---
OB - Chief Complaint & HPI Date/Time Date of Admission: Date of Admission: Date seen by a Provider: Mar 23, 2018 Time Seen by a Provider: 07:45 Chief Complaint/History OB-Reason for Admission/Chief: Rupture of Membranes Hx : 2 Hx Para: 0 Expected Date of Delivery: Apr 20, 2018 Gestational Age in Weeks: 36 Gestational Age in Days: 0 Other reason for admission: Patient has a history a severe hidradenitis suppurativa. she was planned to have a primary section on 04/13 She is however, ruptured and sulma. there are active lesions in the groin and on the vulva so we will proceed with primary section today. She was to see Dr. Powell in the office today. Admission Nurse Assessment Rev: Yes Allergies and Home Medications Allergies Coded Allergies: ibuprofen (Unverified Allergy, Mild, HIVES, 06/10/17) Home Medications Acetaminophen with Codeine 1 Each Tablet, 1 EACH PO Q4H PRN for PAIN-MILD, ( Reported) Cephalexin 500 Mg Capsule, 500 MG PO Q6H, (Reported) Ferrous Sulfate 325 Mg Tablet, 325 MG PO BID, (Reported) OB - History Hx of Present Care: Yes Obstetrical History Hx : 2 Hx Para: 0 Delivery History Hx Blood Disorders: Yes (ANEMIA) Adverse Rxn to Tranfusion: No Social History/Family History HIV/AIDS: No Recent Infectious Disease Expo: No Sexually Transmitted Disease: No Alcohol Use: Denies Use Recreational Drug Use: No 2nd Hand Smoke Exposure: No Immunizations Hepatitis A: No Hepatitis B: No Tetanus Booster (TDap): Unknown Date of Influenza Vaccine: Dec 15, 2017 OB - Admission Exam Physical Exam Vitals: Vital Signs 03/23/18 03/23/18 05:06 06:05 Temp 97.3 Pulse 103 Resp 20 B/P (MAP) 135/66 (89) O2 Delivery Room Air CHARLY BENTON DO Mar 23, 2018 07:53
[2018-03-23] MEDS ORDERED: KETAMINE HCL 100 MG/ML 5 ML VIAL ONE (07:57)
[2018-03-23] MEDS ORDERED: fentaNYL INJECTION 100 MCG/2 ML AMP ONE ×2 (07:57→09:41)
[2018-03-23 07:58] LABS: BASOPHILS % (AUTO) 0 % (0-10); EOSINOPHILS # (AUTO) 0.1 10^3/uL (0.0-0.3); EOSINOPHILS % (AUTO) 1 % (0-10); HEMATOCRIT 33 % (35-52); HEMOGLOBIN 10.8 G/DL (11.5-16.0); LYMPHOCYTES # (AUTO) 1.2 X 10^3 (1.0-4.0); LYMPHOCYTES % (AUTO) 16 % (12-44); MEAN CORPUSCULAR HEMOGLOBIN 24 PG (25-34); MEAN CORPUSCULAR HGB CONC 33 G/DL (32-36); MEAN CORPUSCULAR VOLUME 73 FL (80-99); MEAN PLATELET VOLUME 9.9 FL (7.4-10.4); MONOCYTES # (AUTO) 0.6 X 10^3 (0.0-1.0); MONOCYTES % (AUTO) 9 % (0-12); NEUTROPHILS # (AUTO) 5.3 X 10^3 (1.8-7.8); NEUTROPHILS % (AUTO) 74 % (42-75); PLATELET COUNT 488 10^3/uL (130-400); RED BLOOD COUNT 4.47 10^6/uL (4.35-5.85); RED CELL DISTRIBUTION WIDTH 17.6 % (10.0-14.5); WHITE BLOOD COUNT 7.2 10^3/uL (4.3-11.0)
[2018-03-23] MEDS ORDERED: OXYTOCIN/NORMAL SALINE 1,000 ML IV ONE (07:58)
[2018-03-23] MEDS ORDERED: ONDANSETRON 4 MG/2 ML (SDV) Z0FRAN ONE (07:58)
[2018-03-23] MEDS ORDERED: FAMOTIDINE 20MG/2ML IV (PEPCID) IVP ONE ×2 (08:00)
[2018-03-23] MEDS ORDERED: METOCLOPRAMIDE INJ 10 MG/2 ML (REGLAN) IV ONE ×2 (08:00)
[2018-03-23] MEDS ORDERED: CITRIC ACID/SOB CIT (BICITRA) 30 ML UDC PO ONE ×2 (08:00)
[2018-03-23] MEDS ORDERED: METOCLOPRAMIDE INJ 10 MG/2 ML (REGLAN) ONE (08:02)
[2018-03-23] MEDS ORDERED: CITRIC ACID/SOB CIT (BICITRA) 30 ML UDC ONE (08:02)
[2018-03-23] MEDS ORDERED: FAMOTIDINE 20MG/2ML IV (PEPCID) ONE (08:03)
--- NOTE | 2018-03-23 08:05 | NUR ---
pt crying with ctx's. S.SHAWN Gaffney @ bedside. Fentanyl 25mg IV given by FOOD AND NUTRITION SERVICES ASSISTANT
--- NOTE | 2018-03-23 08:10 | NUR ---
pre-op medications given. see eMar for further.
[2018-03-23] MEDS ORDERED: AZITHROMYCIN INJECTION 500 MG in NS (IVPB) 250 ML IV NR (08:15)
[2018-03-23 08:22] LABS: BILIRUBIN,URINE NEGATIVE (NEGATIVE); CLARITY,URINE SLIGHTLY CLOUDY; COLOR,URINE YELLOW; GLUCOSE, URINE (UA) NEGATIVE (NEGATIVE); KETONES,URINE NEGATIVE (NEGATIVE); LEUKOCYTE ESTERASE ,URINE 3+ (NEGATIVE); NITRITE,URINE NEGATIVE (NEGATIVE); PH,URINE 6 (5-9); PROTEIN,URINE 2+ (NEGATIVE); UROBILINOGEN,URINE NORMAL (NORMAL)
--- NOTE | 2018-03-23 08:22 | NUR ---
monitors dc'd. pt transferred to OB c/s room via bed with OR staff @ side. pt stable, no sx's of distress noted.
[2018-03-23 08:38] LABS: BACTERIA,URINE FEW /HPF; CALCIUM OXALATE CRYSTALS,UR FEW /LPF
[2018-03-23] MEDS ORDERED: MIDAZOLAM 2 MG/2 ML (VERSED) VIAL ONE (09:27)
[2018-03-23] MEDS ORDERED: ceFAZolin 2 GM IV Premixed 50 ML IV ONE (09:45)
[2018-03-23] MEDS ORDERED: LIDOCAINE PF 2% 5 ML (XYLOCAINE) VIAL ONE (09:48)
[2018-03-23] MEDS ORDERED: ceFAZolin 1,000 MG/10 ML (ANCEF) VIAL ONE (10:10)
[2018-03-23] MEDS ORDERED: OXYTOCIN/NORMAL SALINE 500 ML IV SCH (10:18)
--- NOTE | 2018-03-23 10:22 | Cesarean Section Operative ---
Procedure Procedure Note Pre-operative Diagnosis: Sabrina Mcclure is darrion (27 /Para 2 / 0, Gestational Age (wks)36 with active vulvar infection/hidradinitis supperativa Post-operative Diagnosis: same [] Procedure: [] low transverse section Physician: CHARLY BENTON Director Print: [] Estimated blood loss: [500 mL Disposition: [] Findings: Viable [] , Apgars [], weight [], intact placenta, 3vc, normal appearing uterus, tubes, and ovaries. Indications:Sabrina Mcclure is darrion (27 /Para 2 / 0,Gestational Age ( wks)36 presenting for []. Procedure Details: The patient was seen in pre-op and the procedure was discussed with the patient in full, including the risks, benefits, and alternatives. All questions were answered. The patient was taken to the operating room and a time out was performed, verifying patient and procedure. After spinal anesthesia was placed by our anesthesia colleagues, the patient was placed in the dorsal supine with leftward tilt for uterine displacement.~ Her abdomen was then prepped and draped in the typical sterile fashion. A Pfannenstiel skin incision was made using a scalpel and carried down through the underlying fascia. The fascia was incised in the midline and tented up using Pepe clamps. On both the inferior and superior fascia side the rectus muscle was dissected off bluntly and sharply using Lovell scissors. The peritoneum was identified and entered bluntly in the midline. This was then stretched laterally using manual strength. After entering the abdominal cavity and confirming lack of intraperitoneal adhesions, a large Heron retractor was placed and the lower uterine segment was visualized. A bladder flap was created with the use of Metzenbaum scissors.~ A scalpel was utilized to make a low transverse uterine incision. Amniotomy was performed with an Allis clamp with return of clear fluid. The infant's head was grasped and brought to the level of the incision. Fundal pressure was applied and was delivered without difficulty. Mouth and nares were suctioned with bulb suction. After the umbilical cord was clamped and cut, the was handed off to the pediatric staff. A sample of cord blood was then obtained. The placenta was delivered intact via uterine massage. The uterus was exteriorized and cleared of all clots and debris. The uterine incision was closed using 0 Vicryl in a running locked fashion. A second imbricated layer was placed using 0 Vicryl in a running fashion as well. The uterus was flexed forward and the posterior rectouterine space was inspected and cleared of all clots and debris. Again the hysterotomy site was examined and hemostasis was observed. The bilateral tubes and ovaries appeared normal. The uterus was placed back into the abdominal cavity and abdominal gutters were cleared of all clots and debris. A final check of the uterine incision showed it to be hemostatic. The peritoneum was closed using 3-0 Vicryl in a running fashion. The fascia was closed with 0 Vicryl in a running fashion. The subcutaneous space was hemostatic, and irrigated. The subcutaneous space was closed with 3-0 Vicryl in several single interrupted stitches. The skin was then closed using 4- 0 Monocryl in a running subcuticular fashion. The skin edges were reapproximated together and were hemostatic. A pressure dressing was applied. All sponge, lap and needle counts were correct at the end of the procedure per nursing. Vitals - Labs Vital Signs - I&O Vital Signs Date Time Temp Pulse Resp B/P (MAP) Pulse Ox O2 Delivery O2 Flow Rate FiO2 03/23/18 06:05 103 135/66 (89) Room Air 03/23/18 05:06 97.3 133 20 136/93 (107) Room Air Labs Laboratory Tests 03/23/18 05:45: White Blood Count 7.2, Red Blood Count 4.47, Hemoglobin 10.8L, Hematocrit 33L, Mean Corpuscular Volume 73L, Mean Corpuscular Hemoglobin 24L, Mean Corpuscular Hemoglobin Concent 33, Red Cell Distribution Width 17.6H, Platelet Count 488H, Mean Platelet Volume 9.9, Neutrophils (%) (Auto) 74, Lymphocytes (%) (Auto) 16, Monocytes (%) (Auto) 9, Eosinophils (%) (Auto) 1, Basophils (%) (Auto) 0, Neutrophils # (Auto) 5.3, Lymphocytes # (Auto) 1.2, Monocytes # (Auto) 0.6, Eosinophils # (Auto) 0.1, Basophils # (Auto) 0.0 03/23/18 08:00: Urine Color YELLOW, Urine Clarity SLIGHTLY CLOUDY, Urine pH 6, Urine Specific [place] 1.020, Urine Protein 2+H, Urine Glucose (UA) NEGATIVE, Urine Ketones NEGATIVE, Urine Nitrite NEGATIVE, Urine Bilirubin NEGATIVE, Urine Urobilinogen NORMAL, Urine Leukocyte Esterase 3+H, Urine RBC (Auto) 2+H, Urine RBC 10-25H, Urine WBC 5-10H, Urine Squamous Epithelial Cells 5-10, Urine Crystals PRESENTH, Urine Calcium Oxalate Crystals FEWH, Urine Bacteria FEWH, Urine Casts NONE, Urine Mucus SMALLH, Urine Culture Indicated YES CHARLY BENTON DO Mar 23, 2018 10:22
[2018-03-23] MEDS ORDERED: MEASLES,MUMPS,RUBELLA 1 EA INJ SC SCH (10:30)
[2018-03-23] MEDS ORDERED: HYDROmorphone 2 MG/ML VIAL (DILAUDID) IV PRN (10:30)
[2018-03-23] MEDS ORDERED: TETANUS,DIPTH,PERTUSS P/F (BOOSTRIX) 0.5 ML VIAL IM SCH (10:30)
--- NOTE | 2018-03-23 11:35 | NUR ---
pt transferred to room 313 via bed with staff @ side. report received from JUAN Jamison. care assumed of pt.
--- NOTE | 2018-03-23 11:37 | NUR ---
TRANSFER TEAM AT BEDSIDE TO TALK WITH PT. ABOUT INFANT.
[2018-03-23 11:50] VITALS: BP 141/84
--- NOTE | 2018-03-23 12:00 | NUR ---
PT HAS A DRSG OVER A LESION ON UPPER RIGHT GROIN AREA AND LOWER BACK REPORTED BY JAZZMINE MAGNET PLACER.
[2018-03-23] MEDS: CLINDAMYCIN 150 MG (CLEOCIN) CAP PO SCH ×3 (12:32→23:45)
--- NOTE | 2018-03-23 12:32 | NUR ---
DILAUDID 1 MG IVP FOR C/O ABD PAIN.
[2018-03-23] MEDS: oxyCODONE/APAP 5/325MG (PERCOCET 5) TABLET PO PRN ×3 (13:11→22:07)
--- NOTE | 2018-03-23 13:12 | NUR ---
LOTS OF FAMILY AT BEDSIDE. PERCOCET 2 TABS P.O. FOR C/O ABD PAIN.
[2018-03-23] MEDS: CEPHALEXIN 250 MG (KEFLEX) CAP PO SCH ×3 (14:05→21:24)
[2018-03-23 17:15] VITALS: BP 127/76
--- NOTE | 2018-03-23 17:15 | NUR ---
vs taken. POC reviewed, states understanding.
--- NOTE | 2018-03-23 17:30 | NUR ---
assisted up to BR. jasson-care offered. v-pad and panties in place. open lesions in "butt crack" cleaned and redressed with abd and opsites.
--- NOTE | 2018-03-23 17:45 | NUR ---
ambulated in hallways with this RN @ side. pt tolerated well. assisted back to bed. open lesion in Rt.groin area redressed with 4x4's, secured in place with tape.
--- NOTE | 2018-03-23 18:00 | NUR ---
called. update given on pt's status. no new orders received.
[2018-03-23] MEDS: CATHETER FLUSH 10 ML SYR IV SCH ×2 (18:28→23:45)
--- NOTE | 2018-03-23 18:30 | NUR ---
respiratory notified of IS order
[2018-03-23 21:00] VITALS: BP 107/64
[2018-03-23] MEDS: DOCUSATE SODIUM 100 MG (COLACE) CAP PO SCH (21:24)
[2018-03-24 01:00] VITALS: BP 115/69
[2018-03-24] MEDS: oxyCODONE/APAP 5/325MG (PERCOCET 5) TABLET PO PRN ×2 (02:23→08:54)
[2018-03-24 05:15] LABS: BASOPHILS % (AUTO) 0 % (0-10); EOSINOPHILS # (AUTO) 0.1 10^3/uL (0.0-0.3); EOSINOPHILS % (AUTO) 1 % (0-10); HEMATOCRIT 29 % (35-52); HEMOGLOBIN 9.5 G/DL (11.5-16.0); LYMPHOCYTES # (AUTO) 1.2 X 10^3 (1.0-4.0); LYMPHOCYTES % (AUTO) 14 % (12-44); MEAN CORPUSCULAR HEMOGLOBIN 24 PG (25-34); MEAN CORPUSCULAR HGB CONC 32 G/DL (32-36); MEAN CORPUSCULAR VOLUME 74 FL (80-99); MEAN PLATELET VOLUME 9.6 FL (7.4-10.4); MONOCYTES # (AUTO) 0.5 X 10^3 (0.0-1.0); MONOCYTES % (AUTO) 6 % (0-12); NEUTROPHILS # (AUTO) 6.5 X 10^3 (1.8-7.8); NEUTROPHILS % (AUTO) 78 % (42-75); PLATELET COUNT 330 10^3/uL (130-400); RED BLOOD COUNT 3.98 10^6/uL (4.35-5.85); RED CELL DISTRIBUTION WIDTH 16.9 % (10.0-14.5); WHITE BLOOD COUNT 8.3 10^3/uL (4.3-11.0)
[2018-03-24 05:50] VITALS: BP 135/79
[2018-03-24] MEDS: CLINDAMYCIN 150 MG (CLEOCIN) CAP PO SCH ×2 (06:10→12:38)
--- NOTE | 2018-03-24 07:45 | NUR ---
Assisted up to bathroom. pt with steady gait, void, pericare done. pt up and ambulating in halls with no assist.
--- NOTE | 2018-03-24 08:33 | Postpartum Progress Note ---
Post Op Post-operative Day #1 s/p PLTCS active hidradinitis supperativa. baby transferred due to respiratory distress/surfactant; patient motivated to discharge. Subjective: Patient is without complaints. Ambulating, voiding after costello removed. Tolerating a regular diet without nausea or vomiting. Normal lochia. Pain is well controlled with oral pain medications. Passing flatus. [] feeding. [] Objective: Laboratory Tests Test 03/24/18 04:40 Range/Units White Blood Count 8.3 4.3-11.0 10^3/uL Red Blood Count 3.98 L 4.35-5.85 10^6/uL Hemoglobin 9.5 L 11.5-16.0 G/DL Hematocrit 29 L 35-52 % Mean Corpuscular Volume 74 L 80-99 FL Mean Corpuscular Hemoglobin 24 L 25-34 PG Mean Corpuscular Hemoglobin Concent 32 32-36 G/DL Red Cell Distribution Width 16.9 H 10.0-14.5 % Platelet Count 330 130-400 10^3/uL Mean Platelet Volume 9.6 7.4-10.4 FL Neutrophils (%) (Auto) 78 H 42-75 % Lymphocytes (%) (Auto) 14 12-44 % Monocytes (%) (Auto) 6 0-12 % Eosinophils (%) (Auto) 1 0-10 % Basophils (%) (Auto) 0 0-10 % Neutrophils # (Auto) 6.5 1.8-7.8 X 10^3 Lymphocytes # (Auto) 1.2 1.0-4.0 X 10^3 Monocytes # (Auto) 0.5 0.0-1.0 X 10^3 Eosinophils # (Auto) 0.1 0.0-0.3 10^3/uL Basophils # (Auto) 0.0 0.0-0.1 10^3/uL 03/23/18 03/24/18 03/24/18 21:00 01:00 05:50 Temp 98.0 96.9 96.8 Pulse 86 79 84 Resp 18 18 18 B/P (MAP) 107/64 (78) 115/69 (84) 135/79 (97) Pulse Ox 100 97 100 O2 Delivery Room Air Room Air Room Air 03/24/18 00:00 Intake Total 840 ml Output Total 350 ml Balance 490 ml Physical Exam: General - Alert and oriented, no apparent distress Abdomen - Soft, appropriately tender to palpation, non-distended, fundus firm at umbilicus Incision - clean, dry and intact; no erythema or induration, no drainage Extremities - no edema, negative Shad's bilaterally [] Assessment: [] post-operative day # [], status post []. Recovering well, hemodynamically stable Acute blood loss anemia [] Plan: Routine post-operative care. Encourage breast feeding. Encourage ambulation. VTE prophylaxis: SCDs. Ferrous sulfate supplementation. Plan for discharge [] Vitals - Labs Vital Signs - I&O Vital Signs Date Time Temp Pulse Resp B/P (MAP) Pulse Ox O2 Delivery O2 Flow Rate FiO2 03/24/18 05:50 96.8 84 18 135/79 (97) 100 Room Air 03/24/18 01:00 96.9 79 18 115/69 (84) 97 Room Air 03/23/18 21:00 98.0 86 18 107/64 (78) 100 Room Air 03/23/18 19:26 Room Air 03/23/18 17:15 97.8 70 18 127/76 (93) 100 Room Air 03/23/18 11:50 98.0 67 18 141/84 (103) 99 Room Air I & O 03/24/18 07:00 Intake Total 3340 ml Output Total 1100 ml Balance 2240 ml Labs Laboratory Tests 03/24/18 04:40: White Blood Count 8.3, Red Blood Count 3.98L, Hemoglobin 9.5L, Hematocrit 29L, Mean Corpuscular Volume 74L, Mean Corpuscular Hemoglobin 24L, Mean Corpuscular Hemoglobin Concent 32, Red Cell Distribution Width 16.9H, Platelet Count 330, Mean Platelet Volume 9.6, Neutrophils (%) (Auto) 78H, Lymphocytes (%) (Auto) 14 , Monocytes (%) (Auto) 6, Eosinophils (%) (Auto) 1, Basophils (%) (Auto) 0, Neutrophils # (Auto) 6.5, Lymphocytes # (Auto) 1.2, Monocytes # (Auto) 0.5, Eosinophils # (Auto) 0.1, Basophils # (Auto) 0.0 CHARLY BENTON DO Mar 24, 2018 08:33
[2018-03-24] MEDS ORDERED: OXYC1TAB87 PO (08:35)
[2018-03-24] MEDS ORDERED: NAPR-1070 PO (08:35)
[2018-03-24] MEDS ORDERED: CLIN150C17 PO (08:37)
--- NOTE | 2018-03-24 08:39 | NUR ---
Dr white to see patient.
--- NOTE | 2018-03-24 08:44 | Discharge Inst-Women's Service ---
Discharge Inst-Women's Serv Depart Medication/Instructions New, Converted or Re-Newed RX: RX on Chart Final Diagnosis primary section vulvar infection/ history of hidradinitis supperativa Consults/Follow Up Additional Follow Up: Yes (1 week for incision check with [facility] then 6 weeks with [facility]) Activity Activity: Activity as Tolerated Driving Instructions: No Driving for 1 Week NO SMOKING: NO SMOKING Nothing Inside Vagina: No Douching, No [place], No Tampons Diet Discharge Diet: No Restrictions Symptoms to Report to : Swelling Increased, Pain Increased, Fever Over 101 Degrees F, Pain/Pressure in Jaw, Vaginal Bleeding Increase, Cramps in Feet or Legs, Vaginal Discharge Foul For Any Problems or Questions: Contact Your Physician Skin/Wound Care Infection Signs and Symptoms: Increased Redness, Foul Odor of Wound, Increased Drainage, Skin Itchy or Has a Rash, Increased Swelling, Temperature Above 101 F Operative Area Clean and Dry: Keep Incision Clean/Dry Stitches/Doug/Dermabond: Dermabond Bathing Instructions: CHARLY Garcia DO Mar 24, 2018 08:44
[2018-03-24] MEDS: CEPHALEXIN 250 MG (KEFLEX) CAP PO SCH ×2 (08:55→12:38)
[2018-03-24] MEDS: DOCUSATE SODIUM 100 MG (COLACE) CAP PO SCH (08:55)
[2018-03-24 09:03] VITALS: BP 114/70
--- NOTE | 2018-03-24 09:05 | Anesthesia-Regional Post-Op ---
Regional Patient Condition Mental Status: Alert, Oriented x3 Circulation: Same as Pre-Op Headache: Absent Sensation: Full Recovery Motor Block: Absent Post Op Complications Complications None Follow Up Care/Instructions Patient Instructions None needed. Anesthesia/Patient Condition Patient is doing well, no complaints, stable vital signs, no apparent adverse anesthesia problems. No complications reported per nursing. AR READ CRNA Mar 24, 2018 09:05
--- NOTE | 2018-03-24 10:30 | NUR ---
dressing on lower back area off for shower, noted dk brown green drainage on dressing,
--- NOTE | 2018-03-24 11:09 | NUR ---
BACK LESIONS REDRESSED WITH ABD PAD AND TAP ALONG WITH INNER RIGHT THIGH 4x4 PLACED AND TAPED FOR LESION THAT IS OOZING.
--- NOTE | 2018-03-24 12:50 | NUR ---
Discharge instructions given - orally and written. Pt verbalizes understanding. Scripts given for pain medications and breast pump.
--- NOTE | 2018-03-24 13:11 | NUR ---
Abdominal binder applied per pt request for comfort and support.
[2018-03-24] MEDS: CATHETER FLUSH 10 ML SYR IV SCH (13:16)
--- NOTE | 2018-03-24 13:35 | NUR ---
Discharged per wheelchair. Pt and significant other plan to go to [place] to see baby in NICU.
== END 2018-03-24 13:30 | disposition home or self-care (01) | DRG 787 ==
LOC: WSo 04:37 → LDRP 04:39 → WSo 07:54 → LDRP 07:54
PROVIDERS: ADMIT Obstetrics & Gynecology; ATTEND Obstetrics & Gynecology
PROC: 10D00Z1 Extraction of Products of Conception, Low, Open Approach (ICD-10-PCS; principal; 2018-03-23 08:22)
DX: O99.72 Diseases of the skin and subcutaneous tissue complicating childbirth (principal); L73.2 Hidradenitis suppurativa; O99.02 Anemia complicating childbirth; D62 Acute posthemorrhagic anemia; Z3A.36 36 weeks gestation of pregnancy; Z37.0 Single live birth
CPT/HCPCS: 36415; 81000; 85025; 86850; 86900; 86901; 87070; 87075; 87076; 87088; 87185; 87205; 99212

== ENCOUNTER 2019-09-09 19:47 | Emergency (ER) | payer SELFPAY ==
[~2019-09-09] VITALS: Ht 175 cm; Wt 125.0 kg
[~2019-09-09 19:47] MED LIST changes: +ACET-789 PO; +CEPH-507 PO; +CLIN150C17 PO; +NAPR-1070 PO; +OXYC1TAB87 PO
--- NOTE | 2019-09-09 20:02 | ED General ---
General Chief Complaint: Lower Extremity Stated Complaint: LEG SWELLING Source of Information: Patient Exam Limitations: No Limitations History of Present Illness Date Seen by Provider: Sep 09, 2019 Time Seen by Provider: 20:02 Initial Comments 29-year-old female presents with swallowing on the anterior portion of her right thigh. It is just proximal to her right knee. With "some knots up in her right side. Patient denies any injury. It is mildly erythematous and mildly warm to the touch. She denies any fevers chills. Patient is known COVID positive. She denies any shortness of breath. She did have a mild fever couple days ago. Allergies and Home Medications Allergies Coded Allergies: ibuprofen (Unverified Allergy, Mild, HIVES, 06/10/17) Home Medications Cephalexin 500 Mg Capsule, 500 MG PO Q6H, (Reported) Clindamycin HCl 150 Mg Capsule, 150 MG PO QID Prescribed by: CHARLY BENTON on 03/24/18 0837 Ferrous Sulfate 325 Mg Tablet, 325 MG PO BID, (Reported) Naproxen Sodium 550 Mg Tablet, 550 MG PO BID Prescribed by: CHARLY BENTON on 03/24/18 0835 Oxycodone HCl/Acetaminophen 1 Each Tablet, 2 TAB PO Q6H PRN for PAIN-MODERATE no more than 3 grams of tylenol daily; 1 for moderate pain, may take two for severe pain Prescribed by: CHARLY BENTON on 03/24/18 0835 Patient Home Medication List Home Medication List Reviewed: Yes Review of Systems Review of Systems Constitutional: fever Respiratory: No cough, No short of breath Cardiovascular: no symptoms reported Gastrointestinal: no symptoms reported Musculoskeletal: see HPI Skin: see HPI Psychiatric/Neurological: No Symptoms Reported Hematologic/Lymphatic: No Symptoms Reported Past Wuhxiob-Wclykw-Oqkrnh Hx Past Med/Social Hx: Reviewed Nursing Past Med/Soc Hx Patient Social History Alcohol Beverage of Choice: Cheap Liquor Type Used: Cigarettes Former Smoker, Quit: Sep 13, 2013 2nd Hand Smoke Exposure: No Recent Hopitalizations: No Immunizations Up To Date Tetanus Booster (TDap): Unknown PED Vaccines UTD: No Date of Influenza Vaccine: Dec 15, 2017 Seasonal Allergies Seasonal Allergies: Yes Past Medical History Surgeries: Yes (Hemorrhoids, KNEE SCOPE, D&C, DXLS) Appendectomy, Gallbladder, Orthopedic, Rectal Respiratory: Yes Asthma Currently Using CPAP: No Currently Using BIPAP: No Cardiac: No Neurological: No Headaches /Migraines Reproductive Disorders: Yes (PELVIC PAIN) Female Reproductive Disorders: Menstrual Problems, Endometriosis, Ovarian Cyst Sexually Transmitted Disease: No HIV/AIDS: No Genitourinary: No UTI-Chronic Gastrointestinal: Yes Gastroesophageal Reflux Musculoskeletal: Yes Arthritis, Chronic Back Pain Endocrine: No HEENT: No Loss of Vision: Bilateral Hearing Impairment: Denies Cancer: No Psychosocial: No Integumentary: Yes (HYDRADENTITIS SUPPURATIVA, MRSA) Recent Skin Changes Blood Disorders: Yes (ANEMIA) Adverse Reaction/Blood Tranf: No Family Medical History Patient reports no known family medical history. Physical Exam Vital Signs Vital Signs - First Documented 09/09/19 19:50 Temp 37.6 Pulse 101 Resp 16 B/P (MAP) 136/61 (86) Pulse Ox 100 O2 Delivery Room Air Capillary Refill : Height, Weight, BMI Height: 5'8.00" Weight: 300lbs. 2.0oz. [id number]; 45.6 BMI Method:Stated General Appearance: No Apparent Distress, WD/WN Eyes: Bilateral Eye Normal Inspection Neck: Full Range of Motion Respiratory: Lungs Clear, Normal Breath Sounds Cardiovascular: Regular Rate, Rhythm, No Edema Gastrointestinal: Non Tender, Soft Extremity: Normal Capillary Refill, Swelling (mild swelling just proximal to the right knee with some warmth and erythema to the area does not appear to affected knee joint. 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 Norm as Tested Skin: Erythema Progress/Results/Core Measures Suspected Sepsis SIRS Temperature: Pulse: Respiratory Rate: Laboratory Tests 09/09/19 20:06: White Blood Count 8.4 Blood Pressure / Mean: Laboratory Tests 09/09/19 20:06: Platelet Count 461H Results/Orders Lab Results Laboratory Tests Test 09/09/19 20:06 Range/Units White Blood Count 8.4 4.3-11.0 10^3/uL Red Blood Count 4.04 L 4.35-5.85 10^6/uL Hemoglobin 9.6 L 11.5-16.0 G/DL Hematocrit 30 L 35-52 % Mean Corpuscular Volume 74 L 80-99 FL Mean Corpuscular Hemoglobin 24 L 25-34 PG Mean Corpuscular Hemoglobin Concent 32 32-36 G/DL Red Cell Distribution Width 19.0 H 10.0-14.5 % Platelet Count 461 H 130-400 10^3/uL Mean Platelet Volume 9.8 7.4-10.4 FL Erythrocyte Sedimentation Rate > 140 H 0-20 MM/HR C-Reactive Protein High Sensitivity 10.07 H 0.00-0.50 MG/DL My Orders Orders - LEHMAN,GABBY L DO Cbc No Diff (09/09/19 20:03) Hs C Reactive Protein (09/09/19 20:03) Erythrocyte Sedimentation Rate (09/09/19 20:03) Ceftriaxone For Im Use (Rocephin For Im (09/09/19 20:45) Vital Signs/I&O 09/09/19 19:50 Temp 37.6 Pulse 101 Resp 16 B/P (MAP) 136/61 (86) Pulse Ox 100 O2 Delivery Room Air Capillary Refill : Progress Note : Time: 20:41 Progress Note Patient with symptoms somewhat consistent with an right anterior thigh cellulitis. I will treat her with Keflex. I did have a long discussion with patient that this could be an unknown complications with COVID due to the newness of disease and we are still figuring out all the pathology. I did do a literature search and do not find any associated symptoms. However I discussed with her that symptoms continue to worsen her signally worsen she should return to the ER immediately and we will further evaluate. Bedside ultrasound showed good popliteal vein flow. She also is very low risk on presentation for a DVT since the pain is anterior not posterior. Patient is discharged home in stable condition. Departure Impression Primary Impression: Cellulitis of right thigh Disposition: HOME, SELF-CARE Condition: Stable Departure-Patient Inst. Referrals: [facility] [place] ([place]P) Primary Care Physician TASHA COLLADO (Family) Primary Care Physician Patient Instructions: Cellulitis (Skin Infection), Adult (DC), Cellulitis and Erysipelas (Skin Infections) Add. Discharge Instructions: Return to the ER with any concerns or worsening of symptoms Follow-up with your primary care provider Thursday for recheck in today symptoms All discharge instructions reviewed with patient and/or family. Voiced understanding. Scripts Cephalexin (Cephalexin) 500 Mg Tablet 500 MG PO QID, #20 TAB 0 Refills Prov: LEHMAN,GABBY L DO 09/09/19 LEHMAN,GABBY L DO Sep 09, 2019 20:02
[2019-09-09 20:12] LABS: HEMATOCRIT 30 % (35-52); HEMOGLOBIN 9.6 G/DL (11.5-16.0); MEAN CORPUSCULAR HEMOGLOBIN 24 PG (25-34); MEAN CORPUSCULAR HGB CONC 32 G/DL (32-36); MEAN CORPUSCULAR VOLUME 74 FL (80-99); MEAN PLATELET VOLUME 9.8 FL (7.4-10.4); PLATELET COUNT 461 10^3/uL (130-400); WHITE BLOOD COUNT 8.4 10^3/uL (4.3-11.0)
[2019-09-09 20:30] LABS: ERYTHROCYTE SEDIMENTATION RATE > 140 MM/HR (0-20)
[2019-09-09] MEDS ORDERED: LIDOCAINE 1% INJ 20 ML 20 ML VIAL ONE (20:44)
[2019-09-09] MEDS ORDERED: cefTRIAXone 500 MG/1.43 ML vial (IM ONLY) IM ONE (20:45)
[2019-09-09] MEDS ORDERED: CEPH500T PO (20:45)
[2019-09-09 20:58] VITALS: BP 134/89
== END 2019-09-09 20:58 | disposition home or self-care (01) ==
LOC: EDUNIT# 19:47 → ER 19:49
DX: L03.115 Cellulitis of right lower limb (principal); U07.1 COVID-19; G43.909 Migraine, unspecified, not intractable, without status migrainosus; G89.29 Other chronic pain; M54.9 Dorsalgia, unspecified; N39.0 Urinary tract infection, site not specified; D64.9 Anemia, unspecified; Z88.6 Allergy status to analgesic agent; Z87.891 Personal history of nicotine dependence; Z79.1 Long term (current) use of non-steroidal anti-inflammatories (NSAID)
CPT/HCPCS: 36415; 85027; 85652; 86141

== ENCOUNTER 2019-11-20 18:41 | Emergency (ER) | payer OTHER ==
[~2019-11-20] VITALS: Ht 172 cm; Wt 122.0 kg
[~2019-11-20 18:41] MED LIST changes: +CEPH500T PO
[2019-11-20 18:55] LABS: BASOPHILS % (AUTO) 0 % (0-10); EOSINOPHILS # (AUTO) 0.4 10^3/uL (0.0-0.3); EOSINOPHILS % (AUTO) 5 % (0-10); HEMATOCRIT 31 % (35-52); HEMOGLOBIN 9.9 G/DL (11.5-16.0); LYMPHOCYTES # (AUTO) 2.9 X 10^3 (1.0-4.0); LYMPHOCYTES % (AUTO) 32 % (12-44); MEAN CORPUSCULAR HEMOGLOBIN 24 PG (25-34); MEAN CORPUSCULAR HGB CONC 32 G/DL (32-36); MEAN CORPUSCULAR VOLUME 76 FL (80-99); MEAN PLATELET VOLUME 9.6 FL (7.4-10.4); MONOCYTES # (AUTO) 0.5 X 10^3 (0.0-1.0); MONOCYTES % (AUTO) 6 % (0-12); NEUTROPHILS # (AUTO) 5.2 X 10^3 (1.8-7.8); NEUTROPHILS % (AUTO) 58 % (42-75); PLATELET COUNT 450 10^3/uL (130-400)
[2019-11-20 19:06] LABS: ALBUMIN 3.4 GM/DL (3.2-4.5); CHLORIDE 98 MMOL/L (98-107); POTASSIUM 3.9 MMOL/L (3.6-5.0); SODIUM 132 MMOL/L (135-145)
--- NOTE | 2019-11-20 19:06 | Diagnostic Imaging Report ---
CHEST 1 VIEW, AP/PA ONLY Indication: Chest pain. Comparison: None available. Findings: No focal airspace disease in the visualized lungs. Please note that the posterior lower lobes are poorly evaluated by portable radiography. No pleural effusion or pneumothorax. Normal cardiomediastinal silhouette. Impression: 1. No acute cardiopulmonary process by portable radiography. Dictated by: Dictated on workstation # [id number]
[2019-11-20 19:07] LABS: PROTHROMBIN TIME PATIENT 14.1 SEC (12.2-14.7)
[2019-11-20 19:08] LABS: CALCIUM 8.8 MG/DL (8.5-10.1); GLUCOSE 89 MG/DL (70-105)
[2019-11-20 19:09] LABS: TOTAL PROTEIN 8.8 GM/DL (6.4-8.2)
[2019-11-20 19:10] LABS: CARBON DIOXIDE 25 MMOL/L (21-32)
[2019-11-20 19:11] LABS: BILIRUBIN,TOTAL < 0.1 MG/DL (0.1-1.0)
[2019-11-20 19:12] LABS: ALKALINE PHOSPHATASE 55 U/L (40-136)
[2019-11-20 19:14] LABS: BUN/CREATININE RATIO 15; CREATININE SERUM 0.73 MG/DL (0.60-1.30); GFR ESTIMATED > 60
[2019-11-20 19:15] LABS: ALANINE AMINOTRANSFERASE 6 U/L (0-55); MAGNESIUM 1.8 MG/DL (1.6-2.4)
--- NOTE | 2019-11-20 19:27 | ED Chest Pain ---
General Chief Complaint: Chest Pain Stated Complaint: CHEST PAIN Nursing Triage Note: CHEST PAIN X1 HOUR Nursing Sepsis Screen: No Definite Risk Source: patient Exam Limitations: no limitations History of Present Illness Date Seen by Provider: Nov 20, 2019 Time Seen by Provider: 18:00 Initial Comments To ER with pain in the center of her chest x1 hour. Belching makes it better. Timing/Duration: 1 hour Severity/Quality: moderate Radiation: no radiation Activities at Onset: none ASA po LASER SPECIALIST: No NTG SL LASER SPECIALIST: No Associated Symptoms: denies symptoms Allergies and Home Medications Allergies Coded Allergies: ibuprofen (Unverified Allergy, Mild, HIVES, 06/10/17) Home Medications Cephalexin 500 Mg Capsule, 500 MG PO Q6H, (Reported) Cephalexin 500 Mg Tablet, 500 MG PO QID Prescribed by: GABBY LEHMAN on 09/09/192044 Clindamycin HCl 150 Mg Capsule, 150 MG PO QID Prescribed by: CHARLY BENTON on 03/24/18 0837 Ferrous Sulfate 325 Mg Tablet, 325 MG PO BID, (Reported) Naproxen Sodium 550 Mg Tablet, 550 MG PO BID Prescribed by: CHARLY BENTON on 03/24/18 0835 Oxycodone HCl/Acetaminophen 1 Each Tablet, 2 TAB PO Q6H PRN for PAIN-MODERATE no more than 3 grams of tylenol daily; 1 for moderate pain, may take two for severe pain Prescribed by: CHARLY BENTON on 03/24/18 0835 Patient Home Medication List Home Medication List Reviewed: Yes Review of Systems Review of Systems Constitutional: see HPI EENTM: No Symptoms Reported Respiratory: No Symptoms Reported, See HPI Cardiovascular: See HPI, Chest Pain Gastrointestinal: See HPI Genitourinary: No Symptoms Reported Musculoskeletal: no symptoms reported Skin: no symptoms reported Psychiatric/Neurological: No Symptoms Reported Endocrine: No Symptoms Reported Hematologic/Lymphatic: No Symptoms Reported Past Prhkexy-Djyyge-Ylijep Hx Patient Social History Alcohol Use: Occasionally Uses Alcohol Beverage of Choice: Cheap Liquor Recreational Drug Use: No Smoking Status: Never a Smoker Type Used: Cigarettes Former Smoker, Quit: Sep 13, 2013 2nd Hand Smoke Exposure: No Recent Foreign Travel: No Contact w/Someone Who Travel: No Recent Infectious Disease Expo: No Recent Hopitalizations: No Immunizations Up To Date Tetanus Booster (TDap): Unknown PED Vaccines UTD: No Date of Influenza Vaccine: Dec 15, 2017 Seasonal Allergies Seasonal Allergies: Yes Past Medical History Surgeries: Yes (Hemorrhoids, KNEE SCOPE, D&C, DXLS) Appendectomy, Gallbladder, Orthopedic, Rectal Respiratory: Yes Asthma Currently Using CPAP: No Currently Using BIPAP: No Cardiac: No Neurological: No Headaches /Migraines Reproductive Disorders: Yes (PELVIC PAIN) Female Reproductive Disorders: Menstrual Problems, Endometriosis, Ovarian Cyst Sexually Transmitted Disease: No HIV/AIDS: No Genitourinary: No UTI-Chronic Gastrointestinal: Yes Gastroesophageal Reflux Musculoskeletal: Yes Arthritis, Chronic Back Pain Endocrine: No HEENT: No Loss of Vision: Bilateral Hearing Impairment: Denies Cancer: No Psychosocial: No Integumentary: Yes (HYDRADENTITIS SUPPURATIVA, MRSA) Recent Skin Changes Blood Disorders: Yes (ANEMIA) Adverse Reaction/Blood Tranf: No Family Medical History Patient reports no known family medical history. Physical Exam Vital Signs Vital Signs - First Documented 11/20/19 18:41 Temp 37.0 Pulse 60 Resp 16 B/P (MAP) 138/53 (81) Pulse Ox 100 O2 Delivery Room Air Capillary Refill : Less Than 3 Seconds Height, Weight, BMI Height: 5'8.00" Weight: 300lbs. 2.0oz. [id number]; 41.00 BMI Method:Stated General Appearance: No Apparent Distress, WD/WN HEENT: PERRL/EOMI, TMs Normal Respiratory: Lungs Clear, Normal Breath Sounds, No Accessory Muscle Use, No Respiratory Distress Cardiovascular: Regular Rate, Rhythm, Normal Peripheral Pulses Gastrointestinal: Normal Bowel Sounds, Non Tender, Soft Extremity: Normal Capillary Refill, Normal Inspection Neurologic/Psychiatric: Alert, Oriented x3 Skin: Normal Color, Warm/Dry Progress/Results/Core Measures Results/Orders Lab Results Laboratory Tests Test 11/20/19 18:47 Range/Units White Blood Count 9.0 4.3-11.0 10^3/uL Red Blood Count 4.06 L 4.35-5.85 10^6/uL Hemoglobin 9.9 L 11.5-16.0 G/DL Hematocrit 31 L 35-52 % Mean Corpuscular Volume 76 L 80-99 FL Mean Corpuscular Hemoglobin 24 L 25-34 PG Mean Corpuscular Hemoglobin Concent 32 32-36 G/DL Red Cell Distribution Width 17.3 H 10.0-14.5 % Platelet Count 450 H 130-400 10^3/uL Mean Platelet Volume 9.6 7.4-10.4 FL Neutrophils (%) (Auto) 58 42-75 % Lymphocytes (%) (Auto) 32 12-44 % Monocytes (%) (Auto) 6 0-12 % Eosinophils (%) (Auto) 5 0-10 % Basophils (%) (Auto) 0 0-10 % Neutrophils # (Auto) 5.2 1.8-7.8 X 10^3 Lymphocytes # (Auto) 2.9 1.0-4.0 X 10^3 Monocytes # (Auto) 0.5 0.0-1.0 X 10^3 Eosinophils # (Auto) 0.4 H 0.0-0.3 10^3/uL Basophils # (Auto) 0.0 0.0-0.1 10^3/uL Prothrombin Time 14.1 12.2-14.7 SEC INR Comment 1.0 0.8-1.4 Activated Partial Thromboplast Time 38 H 24-35 SEC D-Dimer 0.42 0.00-0.49 UG/ML Sodium Level 132 L 135-145 MMOL/L Potassium Level 3.9 3.6-5.0 MMOL/L Chloride Level 98 98-107 MMOL/L Carbon Dioxide Level 25 21-32 MMOL/L Anion Gap 9 5-14 MMOL/L Blood Urea Nitrogen 11 7-18 MG/DL Creatinine 0.73 0.60-1.30 MG/DL Estimat Glomerular Filtration Rate > 60 BUN/Creatinine Ratio 15 Glucose Level 89 70-105 MG/DL Calcium Level 8.8 8.5-10.1 MG/DL Corrected Calcium 9.3 8.5-10.1 MG/DL Magnesium Level 1.8 1.6-2.4 MG/DL Total Bilirubin < 0.1 L 0.1-1.0 MG/DL Aspartate Amino Transf (AST/SGOT) 8 5-34 U/L Alanine Aminotransferase (ALT/SGPT) 6 0-55 U/L Alkaline Phosphatase 55 40-136 U/L Myoglobin 18.1 10.0-92.0 NG/ML Troponin I < 0.028 <0.028 NG/ML Total Protein 8.8 H 6.4-8.2 GM/DL Albumin 3.4 3.2-4.5 GM/DL My Orders Orders - GRACE,PETER J DIAL REFINISHER Cbc With Automated Diff (11/20/19 18:43) Magnesium (11/20/19 18:43) Chest 1 View, Ap/Pa Only (11/20/19 18:43) Ekg Tracing (11/20/19 18:43) Comprehensive Metabolic Panel (11/20/19 18:43) Myoglobin Serum (11/20/19 18:43) Protime With Inr (11/20/19 18:43) Partial Thromboplastin Time (11/20/19 18:43) O2 (11/20/19 18:43) Monitor-Rhythm Ecg Trace Only (11/20/19 18:43) Lipid Panel (11/21/19 06:00) Ed Iv/Invasive Line Start (11/20/19 18:43) Fibrin Degradation Products (11/20/19 18:43) Troponin I (11/20/19 18:43) Antacid Suspension (Mylanta Suspension (11/20/19 19:30) Lidocaine 2% Viscous 15 Ml (Xylocaine Vi (11/20/19 19:30) Medications Given in ED Current Medications Medications Dose Ordered Sig/Braulio Route Start Time Stop Time Status Last Admin Dose Admin Al Hydrox/Mg Hydrox/Simethicone 30 ml ONCE ONCE PO 11/20/19 19:30 11/20/19 19:31 11/20/19 19:28 30 ML Lidocaine HCl 15 ml ONCE ONCE PO 11/20/19 19:30 11/20/19 19:31 11/20/19 19:28 15 ML Vital Signs/I&O 11/20/19 18:41 Temp 37.0 Pulse 60 Resp 16 B/P (MAP) 138/53 (81) Pulse Ox 100 O2 Delivery Room Air Blood Pressure Mean: 81 Departure Impression Primary Impression: Chest pain Qualified Codes: R07.9 - Chest pain, unspecified Disposition: HOME, SELF-CARE Condition: Stable Departure-Patient Inst. Decision time for Depature: 19:27 Referrals: [facility] (PCP) Primary Care Physician TASHA COLLADO (Family) Primary Care Physician Patient Instructions: Chest Pain (DC) Scripts Omeprazole (Omeprazole) 40 Mg Capsule. 40 MG PO DAILY for 14 Days, #20 CAP Prov: TIA GRACE APRN 11/20/19 TIA GRACE APRN Nov 20, 2019 19:27
[2019-11-20] MEDS ORDERED: ANTACID SUSP 30 ML UDC (MYLANTA) PO ONE (19:30)
[2019-11-20] MEDS ORDERED: LIDOCAINE 2% VISCOUS 15 ML UDC PO ONE (19:30)
[2019-11-20] MEDS ORDERED: OMEP40CA27 PO (19:32)
[2019-11-20 19:55] VITALS: BP 74/53
== END 2019-11-20 19:55 | disposition home or self-care (01) ==
LOC: EDUNIT# 18:41 → ER 18:41
DX: R07.9 Chest pain, unspecified (principal); G89.29 Other chronic pain; M54.9 Dorsalgia, unspecified; Z87.891 Personal history of nicotine dependence; Z88.6 Allergy status to analgesic agent; Z79.891 Long term (current) use of opiate analgesic
CPT/HCPCS: 36415; 71045; 80053; 83735; 83874; 84484; 85025; 85379; 85610; 85730; 93005; 93041

== ENCOUNTER 2020-01-26 05:36 | Outpatient (RCR) | payer OTHER ==
[~2020-01-26] VITALS: Ht 175.3 cm; Wt 125.0 kg
[~2020-01-26 05:36] MED LIST changes: +NABU-88; -NABU500T; +OMEP40CA27 PO
[2020-01-26] MEDS ORDERED: PROP40TA5 PO (13:40)
[2020-01-26] MEDS ORDERED: HYDR25LI MC (13:40)
[2020-01-26] MEDS ORDERED: CLIN300C11 PO (13:40)
[2020-01-26] MEDS ORDERED: DICY20TA10 PO (13:40)
[2020-01-26] MEDS ORDERED: RIFA300C3 PO (13:40)
[2020-01-26] MEDS ORDERED: NAPR-915 PO (13:40)
[2020-01-26] MEDS ORDERED: CARI1.5C PO (13:46)
[2020-01-26] MEDS ORDERED: ADAL40SY SQ (13:46)
== END 2020-01-26 12:27 | disposition home or self-care (01) ==
LOC: PREOP 05:36
PROVIDERS: ATTEND Obstetrics & Gynecology
DX: Z01.812 Encounter for preprocedural laboratory examination (principal); N80.9 Endometriosis, unspecified; Z20.828 Contact with and (suspected) exposure to other viral communicable diseases
CPT/HCPCS: 87635

== ENCOUNTER 2020-01-30 06:03 | Day surgery (SDC) | payer OTHER ==
[~2020-01-30] VITALS: Ht 175 cm; Wt 125.0 kg
[2020-01-30] VITALS (12 sets, daily range): BP systolic 124–146; BP diastolic 72–94
[~2020-01-30 06:03] MED LIST changes: +ADAL40SY SQ; +CARI1.5C PO; +CLIN300C11 PO; +DICY20TA10 PO; +HYDR25LI MC; +NAPR-915 PO; +PROP40TA5 PO; +RIFA300C3 PO
[2020-01-30] MEDS ORDERED: LACTATED RINGERS 1,000 ML IV ONE (06:40)
[2020-01-30] MEDS ORDERED: LACTATED RINGERS 1,000 ML IV PRN (06:40)
[2020-01-30 06:45] LABS: BASOPHILS % (AUTO) 1 % (0-10); EOSINOPHILS # (AUTO) 0.3 10^3/uL (0.0-0.3); EOSINOPHILS % (AUTO) 4 % (0-10); HEMATOCRIT 33 % (35-52); HEMOGLOBIN 10.3 g/dL (11.5-16.0); LYMPHOCYTES # (AUTO) 2.1 10^3/uL (1.0-4.0); LYMPHOCYTES % (AUTO) 26 % (12-44); MEAN CORPUSCULAR HEMOGLOBIN 24 pg (25-34); MEAN CORPUSCULAR HGB CONC 31 g/dL (32-36); MEAN CORPUSCULAR VOLUME 78 fL (80-99); MEAN PLATELET VOLUME 9.6 fL (9.0-12.2); MONOCYTES # (AUTO) 0.5 10^3/uL (0.0-1.0); MONOCYTES % (AUTO) 6 % (0-12); NEUTROPHILS # (AUTO) 5.3 10^3/uL (1.8-7.8); NEUTROPHILS % (AUTO) 64 % (42-75); PLATELET COUNT 450 10^3/uL (130-400); WHITE BLOOD COUNT 8.3 10^3/uL (4.3-11.0)
[2020-01-30] MEDS ORDERED: metroNIDAZOLE 500MG/100ML IVPB 100 ML IV ONE (06:45)
[2020-01-30] MEDS ORDERED: ceFAZolin 2 GM IV Premixed 50 ML IV ONE (06:45)
[2020-01-30] MEDS ORDERED: ceFAZolin 2 GM IV Premixed 50 ML ONE (06:54)
[2020-01-30] MEDS ORDERED: SCOPOLAMINE 1.5 MG (TRANSDERM-SCOP) PATCH ONE (06:54)
[2020-01-30] MEDS ORDERED: metroNIDAZOLE 500MG/100ML IVPB 100 ML ONE (06:54)
[2020-01-30] MEDS ORDERED: ONDANSETRON 4 MG/2 ML (SDV) Z0FRAN ONE ×2 (06:54→06:57)
--- NOTE | 2020-01-30 06:56 | Progress Note-Pre Operative ---
Pre-Operative Progress Note H&P Reviewed The H&P was reviewed, patient examined and no changes noted. Date Seen by Provider: Jan 30, 2020 Time Seen by Provider: 06:45 Date H&P Reviewed: Jan 30, 2020 Time H&P Reviewed: 06:50 Pre-Operative Diagnosis: CPP, Endometriosis JONES LARSON DO Jan 30, 2020 06:56
[2020-01-30] MEDS ORDERED: proPOfol 200 MG/20 ML (DIPRIVAN) VIAL IV ONE (06:57)
[2020-01-30] MEDS ORDERED: ROCURONIUM 10 MG/ML 5 ML SYRINGE IV ONE ×2 (06:57→08:29)
[2020-01-30] MEDS ORDERED: SEVOFLURANE (ULTANE) 15 ML INHAL SOLN ONE ×8 (06:57→08:48)
[2020-01-30] MEDS ORDERED: LIDOCAINE PF 2% 5 ML (XYLOCAINE) VIAL ONE (06:57)
[2020-01-30] MEDS ORDERED: BUPIVACAINE 0.25% 30 ML (SENSORCAINE) VIAL ONE (06:58)
[2020-01-30] MEDS ORDERED: MIDAZOLAM 2 MG/2 ML (VERSED) VIAL ONE (06:58)
[2020-01-30] MEDS ORDERED: fentaNYL INJECTION 100 MCG/2 ML AMP ONE (06:58)
[2020-01-30] MEDS ORDERED: ZOLPIDEM 5 MG (AMBIEN) TAB PO PRN (07:00)
[2020-01-30] MEDS ORDERED: ANTACID SUSP 30 ML UDC (MYLANTA) PO PRN (07:00)
[2020-01-30] MEDS ORDERED: SCOPOLAMINE 1.5 MG (TRANSDERM-SCOP) PATCH TOP ONE (07:00)
[2020-01-30] MEDS ORDERED: FAMOTIDINE 20MG/2ML IV (PEPCID) IV ONE (07:00)
[2020-01-30] MEDS ORDERED: CHLORASEPTIC LOZENGE MM PRN (07:00)
[2020-01-30] MEDS ORDERED: ONDANSETRON 4 MG/2 ML (SDV) Z0FRAN IV ONE (07:00)
[2020-01-30] MEDS ORDERED: SIMETHICONE 80 MG (MYLICON) CHEW PO PRN (07:00)
[2020-01-30] MEDS ORDERED: DOCUSATE SODIUM 100 MG (COLACE) CAP PO PRN (07:00)
[2020-01-30] MEDS ORDERED: ONDANSETRON 4 MG/2 ML (SDV) Z0FRAN IV PRN (07:00)
[2020-01-30] MEDS ORDERED: NAPR250T6 PO (07:18)
[2020-01-30] MEDS ORDERED: DCS100C PO (07:18)
[2020-01-30] MEDS ORDERED: HYDR-34 PO (07:18)
--- NOTE | 2020-01-30 07:21 | Discharge Inst-Women's Service ---
Discharge Inst-Women's Serv Depart Medication/Instructions New, Converted or Re-Newed RX: RX on Chart Final Diagnosis PO RATLH w/ BSO Problems Reviewed?: Yes Consults/Follow Up Additional Follow Up: Yes Orders/Referrals Dr. Powell in 7-10 days and in 8 weeks Activity Activity: Activity as Tolerated Driving Instructions: No Driving for 1 Week NO SMOKING: NO SMOKING Nothing Inside Vagina: No Douching, No [place], No Tampons Diet Discharge Diet: No Restrictions Symptoms to Report to : Bleeding Excessive, Pain Increased, Fever Over 101 Degrees F For Any Problems or Questions: Contact Your Physician Skin/Wound Care Infection Signs and Symptoms: Increased Redness, Foul Odor of Wound, Increased Drainage, Skin Itchy or Has a Rash, Increased Swelling, Temperature Above 101 F Operative Area Clean and Dry: Keep Incision Clean/Dry Stitches/[place]/Dermabond: Dermabond, Care of Stitches Bathing Instructions: JONES Bass DO Jan 30, 2020 07:21
[2020-01-30] MEDS ORDERED: RT-ALBUINH IH (07:38)
[2020-01-30] MEDS ORDERED: fentaNYL INJECTION 250 MCG/5 ML AMP ONE (07:52)
[2020-01-30] MEDS ORDERED: GLYCOPYRROLATE 0.2 MG/ML (ROBINUL) 2 ML VIAL ONE (08:29)
[2020-01-30] MEDS ORDERED: NEOSTIGMINE 3 MG/3 ML VIAL ONE (08:29)
[2020-01-30] MEDS: LACTATED RINGERS 1,000 ML IV SCH ×2 (08:30→12:43)
[2020-01-30] MEDS ORDERED: NAPROXEN 250 MG (NAPROSYN) TABLET PO SCH (09:00)
[2020-01-30] MEDS ORDERED: morphine INJ 10 MG/ML 1ML (SYR OR VIAL) ONE (09:23)
[2020-01-30] MEDS ORDERED: PROMETHAZINE INJ 25 MG/ML (PHENERGAN) AMP ONE (09:24)
[2020-01-30] MEDS ORDERED: morphine INJ 10 MG/ML 1ML (SYR OR VIAL) IVP ONE (09:30)
[2020-01-30] MEDS ORDERED: PROMETHAZINE INJ 25 MG/ML (PHENERGAN) AMP IVP ONE (09:30)
--- NOTE | 2020-01-30 10:10 | NUR ---
Pt to unit via bed accompanied by OR staff. Report rec'd from Mitzi. VSS. Assessment done. Surgical op site dressings dry and intact with no drainage. Pt resting, but responds to name.
[2020-01-30] MEDS ORDERED: KETOROLAC 30 MG/ML VIAL ONE (10:50)
[2020-01-30] MEDS: KETOROLAC 30 MG/ML VIAL IV PRN ×2 (10:56→17:42)
[2020-01-30] MEDS ORDERED: HYDROcodone/APAP 7.5 MG/325 MG (LORTAB, LORCET PLUS) TABLET PO ONE ×2 (11:03→11:04)
[2020-01-30] MEDS: HYDROcodone/APAP 7.5 MG/325 MG (LORTAB, LORCET PLUS) TABLET PO PRN ×2 (11:07→18:27)
[2020-01-30] MEDS ORDERED: FLU QUADRIvalent (3YOA+) 60 mcg/0.5 ml 2020-21 (AFLURIA) IM ONE (14:15)
--- NOTE | 2020-01-30 16:15 | NUR ---
Report received from JUAN Mariano.
--- NOTE | 2020-01-30 17:30 | NUR ---
assisted up to BR. voided 100cc urine without difficulty.
--- NOTE | 2020-01-30 17:41 | NUR ---
pt requesting dismissal to home. was given update on status. dismissal orders received.
--- NOTE | 2020-01-30 18:29 | NUR ---
IV site dc'd. dismissal instructions given- verbalizes understanding. instructed pt to schedule 7-10 day incision check and 8 week post op appointments. reviewed medication administration schedule. signature page signed, placed on chart.
--- NOTE | 2020-01-30 18:38 | NUR ---
pt dismissed to private vehicle via w/c with this RN @ side. pt stable with no sx's of distress noted.
--- NOTE | 2020-01-30 18:51 | OPERATIVE REPORT ---
DATE OF SERVICE: PREOPERATIVE DIAGNOSES: 1. A 29-year-old female with chronic pelvic pain. 2. Endometriosis. POSTOPERATIVE DIAGNOSES: 1. A 29-year-old female with chronic pelvic pain. 2. Endometriosis. 3. Filmy adhesions of the omentum to the anterior abdominal wall and vesicouterine peritoneum. SURGEON: Jacob Powell DO LACE BURN OUT TENDER: Dianna Kim DNP, was necessary for manipulation and retraction throughout the procedure. ANESTHESIA: General endotracheal. ESTIMATED BLOOD LOSS: Minimal. URINE OUTPUT: 50 mL clear at the end of procedure. FLUIDS: 2 liters lactated Ringer's solution. FINDINGS: A grossly normal appearing uterus, bilateral fallopian tubes and ovaries with multiple endometriosis implants of the serosa of the uterus, posterior cul-de-sac and anterior vesicouterine peritoneum as well as adhesions into the vesicouterine peritoneum of the omentum. SPECIMEN SENT: Uterus, bilateral fallopian tubes and ovaries. INDICATIONS FOR PROCEDURE: This 29-year-old female patient who had chronically undergone issues with pelvic pain, endometriosis in the past. She had diagnostic laparoscopy in the past. She had planned to have a hysterectomy in the past. She was scheduled for hysterectomy in the past; however, was found to be at the time of her surgery. I therefore hysterectomy was deferred to . She followed up with me now that she has had a child and was 18 months later, she still wishing to proceed with hysterectomy. Risks of the procedure were discussed with the patient including risk of bleeding, infection, damage to surrounding structures including, but not limited to bowel, bladder, ureter, kidneys, possible need for reoperation, postoperative complications that may occur, risk from anesthesia, recovery timeframe and even . After all questions were answered, consent was obtained, the patient was taken to the operating room. OPERATIVE REPORT IN DETAIL: Once in the operating room, general anesthesia was found to be adequate, placed in dorsal lithotomy position, prepped and draped in normal sterile fashion where a timeout was performed. A Mars catheter was placed using sterile technique. A weighted speculum inserted to the patient's vagina. Right angle retractor was used to visualize the cervix. Anterior lip of cervix, was grasped using a long Allis clamp. The uterus was then gently sounded and found to have a depth of 8 cm, I then placed a Merry uterine manipulator with an 8 cm manipulator tip and a 3.5 cm colpotomy ring. The manipulator tip was advanced into the uterus where the balloon was deployed. Colpotomy ring was advanced around the vaginal fornix after which an excellent manipulation is noted on bimanual. I then removed all the instruments from the patient's vagina, performed change of gloves and took my attention to the abdomen where infraumbilically I infiltrated this area using 0.25% Marcaine with making 8 mm incision with a knife and directed Veress needle through the incision, intraperitoneal placement confirmed using saline drop test. An opening pressure of 5 mm that was noted. I proceeded to max pressure of 15 mmHg, at which point I removed the Veress needle and introduced an 8 mm laparoscopic trocar. Once this was in place, I am able to confirm intraperitoneal placement using the laparoscope. I then had the patient placed in steep Trendelenburg and made visualize all my pelvic anatomy was defined in my findings above. I placed two lateral trocars, both 8 mm trocars approximately 8 cm lateral to my infraumbilical trocar. Once both these trocars were placed under direct visualization and laparoscope by bringing the da Ladan robot and docked in appropriate fashion. Placing the vessel sealer in the left hand and monopolar ayesha in the right hand. I then took my place at the da Ladan operative console. I first started by taking down the multiple adhesions of the peritoneum and pelvis to visualize the pelvic anatomy as defined in my findings above. I performed the following dissection bilaterally starting at the infundibulopelvic ligament, bipolar cauterized and transected using the vessel sealer. I then grasped the round ligament, bipolar cauterized and transected using the vessel sealer. I then grasped the entire broad ligament, which I bipolar cauterized and transected using vessel sealer down to the level of the lower uterine segment, at which point, I the anterior leaflets and the posterior leaflets of the broad ligament. Anterior leaflet was taken around the anterior vaginal fornix, posterior leaflet was taken around the posterior vaginal fornix. This allows me to skeletonize the uterine vessels laterally, which I bipolar cauterized and transected using vessel sealer. I then created a colpotomy at 12 o'clock position using monopolar ayesha and took this circumferentially around the vaginal fornix amputating the cervix away from the vagina. The entire specimen was then removed from the patient's vagina. The lateral vaginal apices of the vaginal cuff are reapproximated using 2-0 Vicryl suture in a [id number] fashion colposuspending them to the uterosacral ligaments. I then closed the remainder of the vaginal cuff using 2-0 V-Loc in a running fashion, after which there was no active bleeding noted from any of my dissection planes. I then undocked the da Ladan robot and proceeded with remainder of the case laparoscopically. I copiously irrigated the pelvis using normal saline. Once again, there was no active bleeding noted from any of my dissection planes. I placed FloSeal hemostatic agent over all my planes of dissection tapped the patient taken out of steep Trendelenburg where I removed the lateral trocars under direct visualization of the laparoscope and infraumbilical trocars left in place to release insufflation and to introduce 10 mL of 0.25% Marcaine into the peritoneal cavity for postoperative pain management. I then removed this trocar as well. The skin reapproximated using 4-0 Monocryl in interrupted subcuticular stitches. Dermabond was applied to incision and bandage placed over the incisions as well. Mars catheter was left in place. The patient tolerated the procedure well and sent to recovery in stable condition. Lap and sponge counts were correct at the end of the procedure. Instrument counts correct as well. Two grams of Ancef, 500 mg of Flagyl were given preoperatively for infection prophylaxis. Job ID: [id number] DocumentID: [id number] Dictated Date: 01/30/2020 11:17:39 Electronics Manufacturer Date: 01/30/2020 18:50:39 Dictated By: DO CHERIE HAHN
--- NOTE | 2020-01-31 07:32 | Anesthesia-General Post-Op ---
General Patient Condition Mental Status/LOC: Same as Preop Cardiovascular: Satisfactory Nausea/Vomiting: Absent Respiratory: Satisfactory Pain: Controlled Complications: Absent Post Op Complications Complications None Follow Up Care/Instructions Patient Instructions None needed. Anesthesia/Patient Condition Patient Condition Patient is doing well, no complaints, stable vital signs, no apparent adverse anesthesia problems. No complications reported per nursing. [place] [facility] [place]: Yes JOSEPH QUINN CRNA Jan 31, 2020 07:32
== END 2020-01-30 18:38 | disposition home or self-care (01) ==
LOC: SDC 06:03 → WS 10:26 → SDC 18:38
PROVIDERS: ATTEND Obstetrics & Gynecology
DX: N80.0 Endometriosis of uterus (principal); N83.11 Corpus luteum cyst of right ovary; N83.8 Other noninflammatory disorders of ovary, fallopian tube and broad ligament; G89.29 Other chronic pain; K66.0 Peritoneal adhesions (postprocedural) (postinfection); J45.909 Unspecified asthma, uncomplicated; G43.909 Migraine, unspecified, not intractable, without status migrainosus; K21.9 Gastro-esophageal reflux disease without esophagitis; F41.9 Anxiety disorder, unspecified; F31.9 Bipolar disorder, unspecified; N94.6 Dysmenorrhea, unspecified; L73.2 Hidradenitis suppurativa; E28.2 Polycystic ovarian syndrome; M54.81 Occipital neuralgia; M19.90 Unspecified osteoarthritis, unspecified site; E66.01 Morbid (severe) obesity due to excess calories; Z68.41 Body mass index [BMI] 40.0-44.9, adult; Z79.899 Other long term (current) drug therapy; Z79.51 Long term (current) use of inhaled steroids; Z88.5 Allergy status to narcotic agent; Z87.891 Personal history of nicotine dependence; Z90.49 Acquired absence of other specified parts of digestive tract; Z83.3 Family history of diabetes mellitus
CPT/HCPCS: 36415; 84703; 85025; 86850; 86900; 86901; 87081; 88307; 90686; 94664

== ENCOUNTER 2020-02-02 13:51 | Emergency (ER) | payer OTHER ==
[~2020-02-02] VITALS: Ht 173 cm; Wt 122.0 kg
[~2020-02-02 13:51] MED LIST changes: +DCS100C PO; +NAPR250T6 PO
--- NOTE | 2020-02-02 14:09 | ED Abdominal Pain ---
General Chief Complaint: Post OP Complications/Pain Stated Complaint: P.O. TOTAL HYST BURNING SENSATION, PAIN Source of Information: Patient Exam Limitations: No Limitations History of Present Illness Date Seen by Provider: Feb 02, 2020 Time Seen by Provider: 14:07 Initial Comments ER with reports of pelvic pain after having a total hysterectomy 3 days ago. She states the pain is not improving despite hydrocodone. Timing/Duration: 2-3 Days Severity/Quality: Moderate Radiation: No Radiation Activities at Onset: None Allergies and Home Medications Allergies Coded Allergies: ibuprofen (Unverified Allergy, Mild, HIVES, 06/10/17) Home Medications Adalimumab 40 Mg/0.4 Ml Syringekit, 40 MG SQ WEEK, (Reported) Albuterol Sulfate 1 Puff Puff, 2 PUFF IH Q4H, (Reported) 1 PUFF = 90 MCG Cariprazine Hydrochloride 1.5 Mg Capsule, 1.5 MG PO DAILY, (Reported) Clindamycin HCl 300 Mg Capsule, 600 MG PO DAILY, (Reported) Dicyclomine HCl 20 Mg Tablet, 20 MG PO TID, (Reported) Docusate Sodium 100 Mg Capsule, 100 MG PO BID PRN for CONSTIPATION-1ST LINE Prescribed by: JONES POWELL on 01/30/20717 Hydrochloric Acid 25 Ml Liquid, 25 ML MC DAILY, (Reported) Hydrocodone Bit/Acetaminophen 1 Ea Tablet, 2 EA PO Q6H PRN for Pain-See Instructions Prescribed by: JONES POWELL on 01/30/20717 Naproxen 250 Mg Tablet, 500 MG PO BID Prescribed by: JONES POWELL on 01/30/20717 Propranolol HCl 40 Mg Tablet, 40 MG PO BID, (Reported) Rifampin 300 Mg Capsule, 300 MG PO BID, (Reported) Patient Home Medication List Home Medication List Reviewed: Yes Review of Systems Review of Systems Constitutional: see HPI EENTM: No Symptoms Reported Respiratory: No Symptoms Reported Cardiovascular: No Symptoms Reported Gastrointestinal: No Symptoms Reported Genitourinary: No Symptoms Reported Musculoskeletal: no symptoms reported Skin: no symptoms reported Psychiatric/Neurological: No Symptoms Reported Endocrine: No Symptoms Reported Hematologic/Lymphatic: No Symptoms Reported Past Cjakmvz-Gbcvfu-Xjzrrn Hx Patient Social History Alcohol Beverage of Choice: Cheap Liquor Type Used: Cigarettes Former Smoker, Quit: Sep 13, 2013 2nd Hand Smoke Exposure: No Recent Foreign Travel: No Contact w/Someone Who Travel: No Recent Hopitalizations: No Immunizations Up To Date Tetanus Booster (TDap): Unknown PED Vaccines UTD: No Date of Influenza Vaccine: Dec 16, 2019 Seasonal Allergies Seasonal Allergies: Yes Past Medical History Surgeries: Yes (Hemorrhoids, KNEE SCOPE, D&C, DXLS) Appendectomy, Section, Gallbladder, Orthopedic, Rectal Respiratory: Yes Asthma Currently Using CPAP: No Currently Using BIPAP: No Cardiac: No Neurological: Yes Headaches /Migraines Reproductive Disorders: Yes (PELVIC PAIN) Female Reproductive Disorders: Menstrual Problems, Endometriosis Sexually Transmitted Disease: No HIV/AIDS: No Genitourinary: No UTI-Chronic Gastrointestinal: No Gastroesophageal Reflux Musculoskeletal: Yes Arthritis, Chronic Back Pain Endocrine: No HEENT: No Loss of Vision: Bilateral Hearing Impairment: Denies Cancer: No Psychosocial: Yes Anxiety, Bipolar, Depression Integumentary: Yes (HYDRADENTITIS SUPPURATIVA, MRSA) Recent Skin Changes Blood Disorders: Yes (ANEMIA) Adverse Reaction/Blood Tranf: No Family Medical History Patient reports no known family medical history. Physical Exam Vital Signs Vital Signs - First Documented 02/02/20 14:06 Temp 35.8 Pulse 78 Resp 18 B/P (MAP) 125/60 (81) Pulse Ox 99 O2 Delivery Room Air Capillary Refill : Height/Weight/BMI Height: 5'8.00" Weight: 300lbs. 2.0oz. 136.701756vc; 40.81 BMI Method:Stated General Appearance: WD/WN, no apparent distress, obese Respiratory: no respiratory distress, no accessory muscle use Gastrointestinal: normal bowel sounds, soft, tenderness (Incisions are clean dry and intact) Neurologic/Psychiatric: alert, normal mood/affect, oriented x 3 Skin: normal color, warm/dry Progress/Results/Core Measures Results/Orders Lab Results Laboratory Tests Test 02/02/20 14:15 02/02/20 15:29 Range/Units White Blood Count 7.7 4.3-11.0 10^3/uL Red Blood Count 3.76 L 3.80-5.11 10^6/uL Hemoglobin 9.2 L 11.5-16.0 g/dL Hematocrit 30 L 35-52 % Mean Corpuscular Volume 79 L 80-99 fL Mean Corpuscular Hemoglobin 25 25-34 pg Mean Corpuscular Hemoglobin Concent 31 L 32-36 g/dL Red Cell Distribution Width 17.6 H 10.0-14.5 % Platelet Count 355 130-400 10^3/uL Mean Platelet Volume 9.0 9.0-12.2 fL Immature Granulocyte % (Auto) 0 % Neutrophils (%) (Auto) 62 42-75 % Lymphocytes (%) (Auto) 27 12-44 % Monocytes (%) (Auto) 6 0-12 % Eosinophils (%) (Auto) 5 0-10 % Basophils (%) (Auto) 0 0-10 % Neutrophils # (Auto) 4.8 1.8-7.8 10^3/uL Lymphocytes # (Auto) 2.1 1.0-4.0 10^3/uL Monocytes # (Auto) 0.4 0.0-1.0 10^3/uL Eosinophils # (Auto) 0.4 H 0.0-0.3 10^3/uL Basophils # (Auto) 0.0 0.0-0.1 10^3/uL Immature Granulocyte # (Auto) 0.0 0.0-0.1 10^3/uL Sodium Level 136 135-145 MMOL/L Potassium Level 3.5 L 3.6-5.0 MMOL/L Chloride Level 104 98-107 MMOL/L Carbon Dioxide Level 24 21-32 MMOL/L Anion Gap 8 5-14 MMOL/L Blood Urea Nitrogen 9 7-18 MG/DL Creatinine 0.61 0.60-1.30 MG/DL Estimat Glomerular Filtration Rate > 60 BUN/Creatinine Ratio 15 Glucose Level 85 70-105 MG/DL Calcium Level 8.3 L 8.5-10.1 MG/DL Urine Color YELLOW Urine Clarity CLEAR Urine pH 7.0 5-9 Urine Specific [place] <=1.005 1.016-1.022 Urine Protein NEGATIVE NEGATIVE Urine Glucose (UA) NEGATIVE NEGATIVE Urine Ketones NEGATIVE NEGATIVE Urine Nitrite NEGATIVE NEGATIVE Urine Bilirubin NEGATIVE NEGATIVE Urine Urobilinogen 0.2 < = 1.0 MG/DL Urine Leukocyte Esterase NEGATIVE NEGATIVE Urine RBC (Auto) NEGATIVE NEGATIVE Urine RBC NONE /HPF Urine WBC NONE /HPF Urine Squamous Epithelial Cells 0-2 /HPF Urine Crystals NONE /LPF Urine Bacteria NEGATIVE /HPF Urine Casts NONE /LPF Urine Mucus NEGATIVE /LPF Urine Culture Indicated NO My Orders Orders - TIA GRACE DESIGN ENGINEER AGRICULTURAL EQUIPMENT Cbc With Automated Diff (02/02/20 14:04) Ed Iv/Invasive Line Start (02/02/20 14:04) Basic Metabolic Panel (02/02/20 14:04) Ua Culture If Indicated (02/02/20 14:09) Ns Iv 500 Ml (Sodium Chloride 0.9%) (02/02/20 14:15) Ketamine Syringe (Ed Only) (Ketamine Syr (02/02/20 14:15) Ct Abdomen/Pelvis W (02/02/20 14:09) Iohexol Injection (Omnipaque 350 Mg/Ml 1 (02/02/20 14:30) Received Contrast (Hold Metformin- Contr (02/02/20 14:30) Ns (Ivpb) (Sodium Chloride 0.9% Ivpb Bag (02/02/20 14:30) Ondansetron Injection (Zofran Injectio (02/02/20 14:30) Medications Given in ED Current Medications Medications Dose Ordered Sig/Braulio Route Start Time Stop Time Status Last Admin Dose Admin Iohexol 100 ml ONCE ONCE IV 02/02/20 14:30 02/02/20 14:31 DC 02/02/20 14:33 100 ML Ketamine HCl 25 mg ONCE ONCE IV 02/02/20 14:15 02/02/20 14:16 DC 02/02/20 14:25 25 MG Ondansetron HCl 8 mg ONCE ONCE IVP 02/02/20 14:30 02/02/20 14:31 DC 02/02/20 14:25 8 MG Sodium Chloride 100 ml ONCE ONCE IV 02/02/20 14:30 02/02/20 14:31 DC 02/02/20 14:33 80 ML Vital Signs/I&O 02/02/20 14:06 Temp 35.8 Pulse 78 Resp 18 B/P (MAP) 125/60 (81) Pulse Ox 99 O2 Delivery Room Air Diagnostic Imaging Diagonstic Imaging: CT Comments NAME: LUNALauritaLUDIWGANNA MED REC#: [id number] PT STATUS: REG ER : 1990 PHYSICIAN: TIA GRACE APRN ADMIT DATE: 02/02/20/ER Draft Date of Exam:02/02/20 CT ABDOMEN/PELVIS W PROCEDURE: CT abdomen and pelvis with contrast. TECHNIQUE: Multiple contiguous axial images were obtained through the abdomen and pelvis after administration of intravenous contrast. Auto Exposure Controls were utilized during the CT exam to meet ALARA standards for radiation dose reduction. All CT scans use one or more of the following dose optimizing techniques: automated exposure control, MA and/or KvP adjustment based on patient size and exam type or iterative reconstruction. INDICATION: Status post hysterectomy three days ago. Patient complains of abdominal pain and nausea. Correlation is made with prior CT from 06/13/2015. The lung bases are clear. The liver is unremarkable. Gallbladder is surgically absent. No biliary ductal dilatation is seen. The pancreas and spleen are unremarkable. No adrenal mass is detected. Kidneys are unremarkable. There is no hydronephrosis. Aorta is non-aneurysmal. The bowel loops appear to be normal caliber. No obstruction is identified. There is moderate stool in the colon. Bladder is decompressed. The uterus is surgically absent. There is trace free fluid in the pelvis. No fluid collection is seen apart from some mild fluid in the subcutaneous fat and left paramidline gluteal region as well as right paramidline gluteal region. There is some subcutaneous gas in the anterior abdominal wall subcutaneous tissues. IMPRESSION: Postsurgical changes from recent hysterectomy. No developing abscess or bowel obstruction is seen. There is some dependent fluid in the subcutaneous fat of the right and left gluteal regions. The study is otherwise unremarkable. Dictated on workstation # [id number] Dict: 02/02/20 1448 Trans: 02/02/20 1453 [facility] [id number] Interpreted by: JERRY MAYO MD Electronically signed by: Departure Impression Primary Impression: Lower abdominal pain, unspecified Disposition: 01 HOME, SELF-CARE Condition: Stable Departure-Patient Inst. Decision time for Depature: 16:12 Referrals: [facility] [place] (PCP) Primary Care Physician TASHA COLLADO (Family) Primary Care Physician Patient Instructions: Acute Pain, Adult Add. Discharge Instructions: 1. Use the oxycodone instead of hydrocodone. Return to Er for any concerns. See Dr Powell later this week for recheck Scripts Oxycodone HCl/Acetaminophen (Percocet 5-325 mg Tablet) 1 Each Tablet 1 TAB PO Q4H PRN for PAIN-MODERATE MDD 6 for 7 Days, #14 TAB Prov: TIA GRACE APRN 02/02/20 Copy Copies To 1: JONES POWELL PETER J APRN Feb 02, 2020 14:08
[2020-02-02] MEDS ORDERED: NS IV 500 ML 500 ML IV SCH (14:15)
[2020-02-02] MEDS ORDERED: KETAMINE/NaCl 50 MG/5 ML SYRINGE (ED ONLY) IV ONE (14:15)
[2020-02-02 14:23] LABS: BASOPHILS % (AUTO) 0 % (0-10); EOSINOPHILS # (AUTO) 0.4 10^3/uL (0.0-0.3); EOSINOPHILS % (AUTO) 5 % (0-10); HEMATOCRIT 30 % (35-52); HEMOGLOBIN 9.2 g/dL (11.5-16.0); LYMPHOCYTES # (AUTO) 2.1 10^3/uL (1.0-4.0); LYMPHOCYTES % (AUTO) 27 % (12-44); MEAN CORPUSCULAR HEMOGLOBIN 25 pg (25-34); MEAN CORPUSCULAR HGB CONC 31 g/dL (32-36); MEAN CORPUSCULAR VOLUME 79 fL (80-99); MONOCYTES # (AUTO) 0.4 10^3/uL (0.0-1.0); MONOCYTES % (AUTO) 6 % (0-12); NEUTROPHILS # (AUTO) 4.8 10^3/uL (1.8-7.8); NEUTROPHILS % (AUTO) 62 % (42-75); PLATELET COUNT 355 10^3/uL (130-400); WHITE BLOOD COUNT 7.7 10^3/uL (4.3-11.0)
[2020-02-02] MEDS ORDERED: ONDANSETRON 4 MG/2 ML (SDV) Z0FRAN IVP ONE (14:30)
[2020-02-02] MEDS ORDERED: IOHEXOL 350 MG/ML 100 ML (OMNIPAQUE 350) VIAL IV ONE (14:30)
[2020-02-02] MEDS ORDERED: NS 100 ML (IVPB) BAG IV ONE (14:30)
[2020-02-02] MEDS ORDERED: HOLD METFORMIN - RECEIVED CONTRAST 20 ML VIAL IV SCH (14:30)
[2020-02-02 14:38] LABS: CHLORIDE 104 MMOL/L (98-107)
[2020-02-02 14:39] LABS: POTASSIUM 3.5 MMOL/L (3.6-5.0); SODIUM 136 MMOL/L (135-145)
[2020-02-02 14:40] LABS: CALCIUM 8.3 MG/DL (8.5-10.1); GLUCOSE 85 MG/DL (70-105)
[2020-02-02 14:42] LABS: CARBON DIOXIDE 24 MMOL/L (21-32)
[2020-02-02 14:44] LABS: CREATININE SERUM 0.61 MG/DL (0.60-1.30); GFR ESTIMATED > 60
[2020-02-02 14:45] LABS: BUN/CREATININE RATIO 15
--- NOTE | 2020-02-02 14:53 | Diagnostic Imaging Report ---
PROCEDURE: CT abdomen and pelvis with contrast. TECHNIQUE: Multiple contiguous axial images were obtained through the abdomen and pelvis after administration of intravenous contrast. Auto Exposure Controls were utilized during the CT exam to meet ALARA standards for radiation dose reduction. All CT scans use one or more of the following dose optimizing techniques: automated exposure control, MA and/or KvP adjustment based on patient size and exam type or iterative reconstruction. INDICATION: Status post hysterectomy three days ago. Patient complains of abdominal pain and nausea. Correlation is made with prior CT from 06/13/2015. The lung bases are clear. The liver is unremarkable. Gallbladder is surgically absent. No biliary ductal dilatation is seen. The pancreas and spleen are unremarkable. No adrenal mass is detected. Kidneys are unremarkable. There is no hydronephrosis. Aorta is non-aneurysmal. The bowel loops appear to be normal caliber. No obstruction is identified. There is moderate stool in the colon. Bladder is decompressed. The uterus is surgically absent. There is trace free fluid in the pelvis. No fluid collection is seen apart from some mild fluid in the subcutaneous fat and left paramidline gluteal region as well as right paramidline gluteal region. There is some subcutaneous gas in the anterior abdominal wall subcutaneous tissues. IMPRESSION: Postsurgical changes from recent hysterectomy. No developing abscess or bowel obstruction is seen. There is some dependent fluid in the subcutaneous fat of the right and left gluteal regions. The study is otherwise unremarkable. Dictated by: Dictated on workstation # [id number]
[2020-02-02 15:39] LABS: BILIRUBIN,URINE NEGATIVE (NEGATIVE); CLARITY,URINE CLEAR; COLOR,URINE YELLOW; GLUCOSE, URINE (UA) NEGATIVE (NEGATIVE); KETONES,URINE NEGATIVE (NEGATIVE); LEUKOCYTE ESTERASE ,URINE NEGATIVE (NEGATIVE); NITRITE,URINE NEGATIVE (NEGATIVE); PROTEIN,URINE NEGATIVE (NEGATIVE)
[2020-02-02 15:49] LABS: BACTERIA,URINE NEGATIVE /HPF; SQUAMOUS EPITHELIAL CELL,UR 0-2 /HPF
[2020-02-02] MEDS ORDERED: OXYC-199 PO (16:13)
[2020-02-02 16:26] VITALS: BP 123/66
== END 2020-02-02 16:25 | disposition home or self-care (01) ==
LOC: EDUNIT# 13:51 → ER 13:53
DX: R10.30 Lower abdominal pain, unspecified (principal); G89.29 Other chronic pain; M54.9 Dorsalgia, unspecified; E66.9 Obesity, unspecified; J45.909 Unspecified asthma, uncomplicated; F31.9 Bipolar disorder, unspecified; Z88.6 Allergy status to analgesic agent; Z87.891 Personal history of nicotine dependence; Z68.41 Body mass index [BMI] 40.0-44.9, adult; Z79.891 Long term (current) use of opiate analgesic
CPT/HCPCS: 36415; 74177; 80048; 81000; 85025; 96374

== ENCOUNTER 2020-04-09 18:23 | Emergency (ER) | payer OTHER ==
[~2020-04-09] VITALS: Ht 175.3 cm; Wt 131.5 kg
[~2020-04-09 18:23] MED LIST changes: -CLIN150C17 PO; +CLIN150C18 PO; -CLIN300C11 PO; +CLIN300C12 PO; +OXYC-199 PO
--- NOTE | 2020-04-09 19:14 | ED General ---
General Chief Complaint: Cough/Cold/Flu Symptoms Stated Complaint: HEADACHE/COUGH Nursing Triage Note: PT AMB TO RM 8 WITH COMPLAINT OF HEADACHE, COUGH, AND SORE THROAT FOR TWO DAYS. 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 Nursing Sepsis Screen: No Definite Risk Source of Information: Patient Exam Limitations: No Limitations History of Present Illness Date Seen by Provider: Apr 09, 2020 Time Seen by Provider: 18:50 Initial Comments To ER accompanied by her daughter. Both patients have fevers cough headache. Present for 48 hours. 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 Timing/Duration: 1-2 Days Severity: Moderate Associated Systoms: Cough, Headaches Allergies and Home Medications Allergies Coded Allergies: ibuprofen (Unverified Allergy, Mild, HIVES, 06/10/17) Home Medications Adalimumab 40 Mg/0.4 Ml Syringekit, 40 MG SQ WEEK, (Reported) Albuterol Sulfate 1 Puff Puff, 2 PUFF IH Q4H, (Reported) 1 PUFF = 90 MCG Cariprazine Hydrochloride 1.5 Mg Capsule, 1.5 MG PO DAILY, (Reported) Clindamycin HCl 300 Mg Capsule, 600 MG PO DAILY, (Reported) Dicyclomine HCl 20 Mg Tablet, 20 MG PO TID, (Reported) Docusate Sodium 100 Mg Capsule, 100 MG PO BID PRN for CONSTIPATION-1ST LINE Prescribed by: JONES LARSON on 01/30/20717 Hydrochloric Acid 25 Ml Liquid, 25 ML MC DAILY, (Reported) Hydrocodone Bit/Acetaminophen 1 Ea Tablet, 2 EA PO Q6H PRN for Pain-See Instructions Prescribed by: JONES LARSON on 01/30/20717 Naproxen 250 Mg Tablet, 500 MG PO BID Prescribed by: JONES LARSON on 01/30/20717 Oxycodone HCl/Acetaminophen 1 Each Tablet, 1 TAB PO Q4H PRN for PAIN-MODERATE Prescribed by: TIA GRACE on 02/02/20 1613 Propranolol HCl 40 Mg Tablet, 40 MG PO BID, (Reported) Rifampin 300 Mg Capsule, 300 MG PO BID, (Reported) Patient Home Medication List Home Medication List Reviewed: Yes Review of Systems Review of Systems Constitutional: see HPI, chills, fever Respiratory: see HPI, cough Cardiovascular: no symptoms reported Genitourinary: no symptoms reported Musculoskeletal: no symptoms reported Skin: no symptoms reported Psychiatric/Neurological: No Symptoms Reported Hematologic/Lymphatic: No Symptoms Reported Past Kdmklon-Dqphni-Zhvgkv Hx Patient Social History Alcohol Use: Occasionally Uses Number of Drinks Today: CC Alcohol Beverage of Choice: Cheap Liquor Smoking Status: Former Smoker Type Used: Cigarettes Former Smoker, Quit: Sep 13, 2013 2nd Hand Smoke Exposure: No Recent Infectious Disease Expo: No Recent Hopitalizations: No Immunizations Up To Date Tetanus Booster (TDap): Unknown PED Vaccines UTD: No Date of Influenza Vaccine: Dec 16, 2019 Seasonal Allergies Seasonal Allergies: Yes Past Medical History Surgeries: Yes (Hemorrhoids, KNEE SCOPE, D&C, DXLS) Appendectomy, Section, Gallbladder, Orthopedic, Rectal Respiratory: Yes Asthma Currently Using CPAP: No Currently Using BIPAP: No Cardiac: No Neurological: Yes Headaches /Migraines Reproductive Disorders: Yes (PELVIC PAIN) Female Reproductive Disorders: Menstrual Problems, Endometriosis Sexually Transmitted Disease: No HIV/AIDS: No Genitourinary: No UTI-Chronic Gastrointestinal: No Gastroesophageal Reflux Musculoskeletal: Yes Arthritis, Chronic Back Pain Endocrine: No HEENT: No Loss of Vision: Bilateral Hearing Impairment: Denies Cancer: No Psychosocial: Yes Anxiety, Bipolar, Depression Integumentary: Yes (HYDRADENTITIS SUPPURATIVA, MRSA) Recent Skin Changes Blood Disorders: Yes (ANEMIA) Adverse Reaction/Blood Tranf: No Family Medical History Patient reports no known family medical history. Physical Exam Vital Signs Vital Signs - First Documented 04/09/20 18:43 Temp 35.8 Pulse 89 Resp 20 B/P (MAP) 138/102 (114) Pulse Ox 99 O2 Delivery Room Air Capillary Refill : Less Than 3 Seconds Height, Weight, BMI Height: 5'8.00" Weight: 300lbs. 2.0oz. 136.856672db; 42.00 BMI Method:Stated General Appearance: No Apparent Distress, WD/WN Eyes: Bilateral Eye Normal Inspection, Bilateral Eye PERRL, Bilateral Eye EOMI Neck: Full Range of Motion, Normal Inspection Respiratory: No Accessory Muscle Use, No Respiratory Distress Cardiovascular: Regular Rate, Rhythm, Normal Peripheral Pulses Gastrointestinal: Normal Bowel Sounds, Non Tender, Soft Extremity: Normal Capillary Refill, Normal Inspection Neurologic/Psychiatric: Alert, Oriented x3 Skin: Normal Color, Warm/Dry Progress/Results/Core Measures Suspected Sepsis Recent Fever Within 48 Hours: No Infection Criteria Present: None New/Unexplained Altered Menta: No Sepsis Screen: No Definite Risk SIRS Temperature: Pulse: 89 Respiratory Rate: 20 Blood Pressure 138 /102 Mean: 114 Results/Orders Lab Results Laboratory Tests Test 04/09/20 18:55 Range/Units Coronavirus 2019 (ANDREA) Negative Negative Micro Results Microbiology 04/09/20 Influenza Types A,B Antigen (OVIDIO) - Final, Complete My Orders Orders - TIA GRACE STRAIGHTEDGE MACHINE OPERATOR HELPER Influenza A And B Antigens (04/09/20 18:36) Coronavirus Sars-Cov-2 So 2018 (04/09/20 18:36) Covid 19 Inhouse Test (04/09/20 19:03) Rx-Ondansetron Po (Rx-Zofran Po) (04/09/20 19:41) Oseltamivir 75 Mg Capsule (Tamiflu 75 (04/09/20 19:45) Vital Signs/I&O 04/09/20 04/09/20 18:43 18:43 Temp 35.8 Pulse 89 Resp 20 B/P (MAP) 138/102 (114) Pulse Ox 99 O2 Delivery Room Air Room Air Capillary Refill : Less Than 3 Seconds Blood Pressure Mean: 114 Departure Impression Primary Impression: Viral syndrome Disposition: HOME, SELF-CARE Condition: Stable Departure-Patient Inst. Decision time for Depature: 19:14 Referrals: [facility] (PCP) Primary Care Physician TASHA COLLADO (Family) Primary Care Physician Patient Instructions: Viral Syndrome (DC) Add. Discharge Instructions: 1. Continue to use Tylenol and naproxen for fever control. Return to ER for any concerns. All discharge instructions reviewed with patient and/or family. Voiced understanding. Scripts Promethazine HCl/Codeine (Prometh-Codein 6.25-10 mg/5 ml) 5 Ml Syrup 5 ML PO Q4H PRN for COUGH, #60 ML Prov: TIA GRACE STRAIGHTEDGE MACHINE OPERATOR HELPER 04/09/20 Oseltamivir Phosphate (Tamiflu) 75 Mg Cap 75 MG PO BID, #10 CAP Prov: TIA GRACE STRAIGHTEDGE MACHINE OPERATOR HELPER 04/09/20 TIA GRACE STRAIGHTEDGE MACHINE OPERATOR HELPER Apr 09, 2020 19:14
[2020-04-09] MEDS ORDERED: RX-ONDANSETRON 4 MG ODT (ZOFRAN) PPK #4 PO STA (19:41)
[2020-04-09] MEDS ORDERED: OSELTAMIVIR 75 MG (TAMIFLU) CAPSULE PO ONE (19:45)
[2020-04-09] MEDS ORDERED: OSLT75C PO (19:54)
[2020-04-09] MEDS ORDERED: PROM5SYR PO (19:55)
[2020-04-09 20:02] VITALS: BP 138/102
== END 2020-04-09 20:02 | disposition home or self-care (01) ==
LOC: EDUNIT# 18:23 → ER 18:26
DX: B34.9 Viral infection, unspecified (principal); J45.909 Unspecified asthma, uncomplicated; K21.9 Gastro-esophageal reflux disease without esophagitis; G89.29 Other chronic pain; M54.9 Dorsalgia, unspecified; F31.9 Bipolar disorder, unspecified; Z20.822 Contact with and (suspected) exposure to COVID-19; Z87.891 Personal history of nicotine dependence; Z88.6 Allergy status to analgesic agent; Z79.891 Long term (current) use of opiate analgesic
CPT/HCPCS: 87804; 99282; U0002; 87635

== ENCOUNTER 2020-05-05 16:01 | Emergency (ER) | payer OTHER ==
[~2020-05-05] VITALS: Ht 175 cm; Wt 131.0 kg
[~2020-05-05 16:01] MED LIST changes: -CIPR500T4 PO; +CIPR500T5 PO; +OSLT75C PO; +PROM5SYR PO
[2020-05-05] MEDS ORDERED: fentaNYL INJECTION 100 MCG/2 ML AMP IVP ONE (16:45)
--- NOTE | 2020-05-05 17:06 | ED Integumentary General ---
General Chief Complaint: Skin/Wound Problems Stated Complaint: RECTAL ABCESS Nursing Triage Note: ARRIVED VIA AMB TO ROOM 07. COMPLAINS OF ABSCESS LEFT BUTTOCK X1 MONTH. APPT WITH A PLASTIC SURGEON ON May. Source: patient Exam Limitations: no limitations (GORDON NOGUERA) History of Present Illness Date Seen by Provider: May 05, 2020 Time Seen by Provider: 16:40 Initial Comments Sabrina is a 30 y/o female that presents with three days of 10/10 left gluteus abscess pain. 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 No discharge has been noted and the use of hydrocodone has not relieve her pain. Sitting makes it worse. Associated nausea and fever at home. Radiation of pain down the left leg. Denies vomiting, SOB, chest pain, abdominal pain, dysuria, blood in stool or urine, loss of sensation or muscle strength at this time. The patient has not had a hiradenitis drained in over a month. She used to follow with with [facility] Razo but has not since insurance has changed. She is known to Dr. De and her last visit with him was due to a right gluteus hiradenitis which did not require drainage at the time. The patient states her cultures from past drainage has been polymicrobial. Last time she anything to eat or drink was at 1530pm. Timing/Duration: getting worse Severity: moderate, severe Location: genitalia (gluteus region tracking lateral and towards rectum. ) Possible Cause: other (hx of hiradenitis ) Associated Symptoms: fever, tingling (left leg), other (nausea and fever at home. ) (GORDON NOGUERA) Allergies and Home Medications Allergies Coded Allergies: ibuprofen (Unverified Allergy, Mild, HIVES, 06/10/17) Home Medications Adalimumab 40 Mg/0.4 Ml Syringekit, 40 MG SQ WEEK, (Reported) Albuterol Sulfate 1 Puff Puff, 2 PUFF IH Q4H, (Reported) 1 PUFF = 90 MCG Cariprazine Hydrochloride 1.5 Mg Capsule, 1.5 MG PO DAILY, (Reported) Clindamycin HCl 300 Mg Capsule, 600 MG PO DAILY, (Reported) Dicyclomine HCl 20 Mg Tablet, 20 MG PO TID, (Reported) Docusate Sodium 100 Mg Capsule, 100 MG PO BID PRN for CONSTIPATION-1ST LINE Prescribed by: JONES LARSON on 01/30/20717 Hydrochloric Acid 25 Ml Liquid, 25 ML MC DAILY, (Reported) Hydrocodone Bit/Acetaminophen 1 Ea Tablet, 2 EA PO Q6H PRN for Pain-See Instructions Prescribed by: JONES LARSON on 01/30/20717 Naproxen 250 Mg Tablet, 500 MG PO BID Prescribed by: JONES LARSON on 01/30/20717 Oseltamivir Phosphate 75 Mg Cap, 75 MG PO BID Prescribed by: TIA GRACE on 04/09/201953 Oxycodone HCl/Acetaminophen 1 Each Tablet, 1 TAB PO Q4H PRN for PAIN-MODERATE Prescribed by: TIA GRACE on 02/02/201612 Promethazine HCl/Codeine 5 Ml Syrup, 5 ML PO Q4H PRN for COUGH Prescribed by: TIA GRACE on 04/09/201955 Propranolol HCl 40 Mg Tablet, 40 MG PO BID, (Reported) Rifampin 300 Mg Capsule, 300 MG PO BID, (Reported) Sulfamethoxazole/Trimethoprim 1 Each Tablet, 1 EACH PO BID Prescribed by: BISHOP DRAKE on 05/05/201927 Patient Home Medication List Home Medication List Reviewed: Yes (BISHOP DRAKE MD) Review of Systems Review of Systems Constitutional: see HPI EENTM: no symptoms reported Respiratory: see HPI Cardiovascular: see HPI Gastrointestinal: see HPI Genitourinary: see HPI Musculoskeletal: see HPI Skin: other (warmth noted in left gluteus region) Psychiatric/Neurological: No Symptoms Reported Endocrine: No Symptoms Reported (POORNIMAGORDON [employer] STUDEN) Past Yxfairh-Cyqwea-Wevuci Hx Patient Social History Alcohol Use: Denies Use Number of Drinks Today: CC Alcohol Beverage of Choice: Cheap Liquor Smoking Status: Current Everyday Smoker Type Used: Cigarettes Former Smoker, Quit: Sep 13, 2013 2nd Hand Smoke Exposure: No Recent Infectious Disease Expo: No Recent Hopitalizations: No (POORNIMA,GORDON MED STUDEN) Immunizations Up To Date Tetanus Booster (TDap): Unknown PED Vaccines UTD: No Date of Influenza Vaccine: Dec 16, 2019 (POORNIMA,GORDON [employer]) Seasonal Allergies Seasonal Allergies: Yes (POORNIMA,GORDON MED STUDEN) Past Medical History Surgeries: Yes (Hemorrhoids, KNEE SCOPE, D&C, DXLS) Appendectomy, Section, Gallbladder, Orthopedic, Rectal Respiratory: Yes Asthma Currently Using CPAP: No Currently Using BIPAP: No Cardiac: No Neurological: Yes Headaches /Migraines Reproductive Disorders: Yes (PELVIC PAIN) Female Reproductive Disorders: Menstrual Problems, Endometriosis Sexually Transmitted Disease: No HIV/AIDS: No Genitourinary: No UTI-Chronic Gastrointestinal: No Gastroesophageal Reflux Musculoskeletal: Yes Arthritis, Chronic Back Pain Endocrine: No HEENT: No Loss of Vision: Bilateral Hearing Impairment: Denies Cancer: No Psychosocial: Yes Anxiety, Bipolar, Depression Integumentary: Yes (HYDRADENTITIS SUPPURATIVA, MRSA) Recent Skin Changes Blood Disorders: Yes (ANEMIA) Adverse Reaction/Blood Tranf: No (POORNIMA,GORDON MED STUDEN) Family Medical History Patient reports no known family medical history. Physical Exam Vital Signs Vital Signs - First Documented 05/05/20 16:20 Temp 36.3 Pulse 97 Resp 16 B/P (MAP) 123/75 (91) Pulse Ox 100 O2 Delivery Room Air (JOSE PANTOJA MD) Vital Signs Capillary Refill : Less Than 3 Seconds (POORNIMA,GORDON MED STUDEN) General Appearance: no apparent distress, obese HEENT: PERRL/EOMI Neck: non-tender, full range of motion Cardiovascular: normal peripheral pulses, regular rate, rhythm Respiratory: chest non-tender, lungs clear, no respiratory distress, no accessory muscle use Gastrointestinal: normal bowel sounds, non tender, soft Back: no CVA tenderness Extremities: no pedal edema, calf tenderness (left side calf tenderness) 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 ) Skin Problem Location: other (gluteus region ) Skin Problem Character: abscess (warm to touch. Hx of Hiradenitis Supportiva), erythema, swelling Lymphatic: no adenopathy Comments Examined patients gluteus region. The left side has an indurated and edematous /erythematous region that is >10cm in width and tracking lateral from the intergluteal cleft and towards the rectum. Old scars and healing abscesses noted on BL intergluteal cleft and gluteal folds. Area of concern is tender and warm to the touch. (GORDON NOGUERA) Progress/Results/Core Measures Results/Orders Lab Results Laboratory Tests Test 05/05/20 16:55 Range/Units White Blood Count 10.4 4.3-11.0 10^3/uL Red Blood Count 4.30 3.80-5.11 10^6/uL Hemoglobin 10.0 L 11.5-16.0 g/dL Hematocrit 32 L 35-52 % Mean Corpuscular Volume 75 L 80-99 fL Mean Corpuscular Hemoglobin 23 L 25-34 pg Mean Corpuscular Hemoglobin Concent 31 L 32-36 g/dL Red Cell Distribution Width 17.1 H 10.0-14.5 % Platelet Count 473 H 130-400 10^3/uL Mean Platelet Volume 9.2 9.0-12.2 fL Immature Granulocyte % (Auto) 0 % Neutrophils (%) (Auto) 69 42-75 % Lymphocytes (%) (Auto) 21 12-44 % Monocytes (%) (Auto) 6 0-12 % Eosinophils (%) (Auto) 3 0-10 % Basophils (%) (Auto) 0 0-10 % Neutrophils # (Auto) 7.2 1.8-7.8 10^3/uL Lymphocytes # (Auto) 2.2 1.0-4.0 10^3/uL Monocytes # (Auto) 0.7 0.0-1.0 10^3/uL Eosinophils # (Auto) 0.3 0.0-0.3 10^3/uL Basophils # (Auto) 0.0 0.0-0.1 10^3/uL Immature Granulocyte # (Auto) 0.0 0.0-0.1 10^3/uL Sodium Level 133 L 135-145 MMOL/L Potassium Level 4.2 3.6-5.0 MMOL/L Chloride Level 100 98-107 MMOL/L Carbon Dioxide Level 22 21-32 MMOL/L Anion Gap 11 5-14 MMOL/L Blood Urea Nitrogen 12 7-18 MG/DL Creatinine 0.78 0.60-1.30 MG/DL Estimat Glomerular Filtration Rate > 60 BUN/Creatinine Ratio 15 Glucose Level 88 70-105 MG/DL Calcium Level 9.2 8.5-10.1 MG/DL Corrected Calcium 9.5 8.5-10.1 MG/DL Total Bilirubin 0.1 0.1-1.0 MG/DL Aspartate Amino Transf (AST/SGOT) 11 5-34 U/L Alanine Aminotransferase (ALT/SGPT) 13 0-55 U/L Alkaline Phosphatase 66 40-136 U/L C-Reactive Protein High Sensitivity 7.42 H 0.00-0.50 MG/DL Total Protein 9.8 H 6.4-8.2 GM/DL Albumin 3.6 3.2-4.5 GM/DL Serum Test, Qualitative NEGATIVE NEGATIVE (JOSE PANTOJA MD) My Orders Orders - JOSE PANTOJA MD Fentanyl Injection (Sublimaze Injection (05/05/20 16:45) Cbc With Automated Diff (05/05/20 16:39) Comprehensive Metabolic Panel (05/05/20 16:39) Hs C Reactive Protein (05/05/20 16:39) Ed Iv/Invasive Line Start (05/05/20 16:39) Hcg,Qualitative Serum (05/05/20 16:39) Morphine Injection (Morphine Injection (05/05/20 17:16) Lidocaine/Epi 2% 1:100,000 (Xylocaine/Ep (05/05/20 18:49) (JOSE PANTOJA MD) Medications Given in ED (JOSE PANTOJA MD) Vital Signs/I&O 05/05/20 05/05/20 16:20 19:37 Temp 36.3 36.4 Pulse 97 88 Resp 16 18 B/P (MAP) 123/75 (91) 125/71 (91) Pulse Ox 100 100 O2 Delivery Room Air Room Air (JOSE PANTOJA MD) Blood Pressure Mean: 91 Progress Progress Note : Time: 16:40 Progress Note Ordered Faetanyl for pain management. Ordered CBC with, CMP and will obtain U/S in ER to better assess area of concer. Patient is in agreement with plan. Results will dictate future orders/consults/procedures. (GORDON NOGUERA) Progress Note : Time: 18:08 Progress Note I have personally interviewed and examined this patient. Bedside US was performed. She has a very large complex fluid collection within her affected areas of hidradenitis suppurativa on the left buttock. There is purulent drainage into the gluteal cleft. Laterally the fluid collection is tight, warm, and very tender. The collection appears to be approximately 10 cm, by 15 cm, by 3 cm. She does not appear septic at this time. I have discussed the case with Dr. De who is agreeable to drain the collection here in the emergency room. Ultimately she needs a wide debridement, preferably with plastics to perform skin reconstruction. (JOSE PANTOJA MD) Departure Impression Primary Impression: History of hidradenitis suppurativa Additional Impression: Abscess of left buttock Disposition: HOME, SELF-CARE Condition: Stable Departure-Patient Inst. Decision time for Depature: 19:27 (BISHOP DRAKE MD) Referrals: GOYO CARDONA MD (PCP/Family) Primary Care Physician Patient Instructions: Hidradenitis Suppurativa, Skin Abscess Add. Discharge Instructions: Take the Bactrim DS twice daily. Please drink plenty of fluids while taking the Bactrim to stay well-hydrated. Follow-up with Dr. De on Thursday in his office as directed. Return to the emergency room for any fever over 101, increased pain or any other emergent concerning symptoms. Take Tylenol and/or ibuprofen as needed for pain. Please keep your follow-up appointment with plastic surgery. Scripts Sulfamethoxazole/Trimethoprim (Bactrim Ds Tablet) 1 Each Tablet 1 EACH PO BID for 10 Days, #20 TAB Prov: BISHOP DRAKE MD 05/05/20 Medical Student Attestation and Attending Note: I have personally interviewed and examined this patient along with Gordon Chen, MS 4. I have reviewed student documentation including history, physical, and assessments. I agree with the documentation except where otherwise noted. Exam: General: Alert, oriented, no acute distress, well developed HEENT: Normocephalic and atraumatic Heart: Regular rate and rhythm without murmur Lungs: Normal respiratory rate and normal effort Neuropsych: Alert, oriented, normal mood and affect Skin: Large, tight skin overlying a large complex collection in the left buttock. Scarring noted more medially. Purulent drainage into the gluteal cleft. (JOSE PANTOJA MD) Copy Copies To 1: CULLEN DE DO Copies To 2: BOWEN HYLTON DO Progress Note Care assumed at shift change. Dr. De came by to see the patient and incised and opened the area of concern. Had moderate amount of pus return. He packed it. He request that the patient be placed on Bactrim DS for 10 days. Patient will follow-up in his office on Thursday for a wound check and repacking. Patient also has follow-up scheduled with plastic surgery at . Return precautions have been given. Patient is comfortable with the plan of care. All questions were sought and answered by Dr. De. Patient is stable for discharge. (BISHOP DRAKE MD) GORDON NOGUERA [facility] May 05, 2020 17:06 JOSE PANTOJA MD May 05, 2020 18:12 BISHOP DRAKE MD May 05, 2020 19:29
[2020-05-05 17:08] LABS: BASOPHILS % (AUTO) 0 % (0-10); EOSINOPHILS # (AUTO) 0.3 10^3/uL (0.0-0.3); EOSINOPHILS % (AUTO) 3 % (0-10); HEMATOCRIT 32 % (35-52); LYMPHOCYTES # (AUTO) 2.2 10^3/uL (1.0-4.0); LYMPHOCYTES % (AUTO) 21 % (12-44); MEAN CORPUSCULAR HEMOGLOBIN 23 pg (25-34); MEAN CORPUSCULAR HGB CONC 31 g/dL (32-36); MEAN CORPUSCULAR VOLUME 75 fL (80-99); MEAN PLATELET VOLUME 9.2 fL (9.0-12.2); MONOCYTES # (AUTO) 0.7 10^3/uL (0.0-1.0); MONOCYTES % (AUTO) 6 % (0-12); NEUTROPHILS # (AUTO) 7.2 10^3/uL (1.8-7.8); NEUTROPHILS % (AUTO) 69 % (42-75); PLATELET COUNT 473 10^3/uL (130-400); WHITE BLOOD COUNT 10.4 10^3/uL (4.3-11.0)
[2020-05-05] MEDS ORDERED: morphine INJ 10 MG/ML 1ML (SYR OR VIAL) IVP STA (17:16)
[2020-05-05 17:20] LABS: ALBUMIN 3.6 GM/DL (3.2-4.5); CHLORIDE 100 MMOL/L (98-107); POTASSIUM 4.2 MMOL/L (3.6-5.0); SODIUM 133 MMOL/L (135-145)
[2020-05-05 17:21] LABS: CALCIUM 9.2 MG/DL (8.5-10.1)
[2020-05-05 17:23] LABS: GLUCOSE 88 MG/DL (70-105); TOTAL PROTEIN 9.8 GM/DL (6.4-8.2)
[2020-05-05 17:24] LABS: BILIRUBIN,TOTAL 0.1 MG/DL (0.1-1.0); CARBON DIOXIDE 22 MMOL/L (21-32)
[2020-05-05 17:26] LABS: ALKALINE PHOSPHATASE 66 U/L (40-136); CREATININE SERUM 0.78 MG/DL (0.60-1.30); GFR ESTIMATED > 60
[2020-05-05 17:28] LABS: BUN/CREATININE RATIO 15
[2020-05-05 17:29] LABS: ALANINE AMINOTRANSFERASE 13 U/L (0-55)
[2020-05-05] MEDS ORDERED: LIDOCAINE/EPI 2% 1:100,00 (XYLOCAINE) 20 ML VIAL ONE (18:49)
[2020-05-05] MEDS ORDERED: SULF1TAB35 PO (19:28)
--- NOTE | 2020-05-05 19:35 | Consultation - Surgery ---
ANDREA CAMPA MED STUDENT 05/05/201934: History of Present Illness History of Present Illness Patient Consulted On(alda/time) 05/05/20 19:30 Date Seen by Provider: May 05, 2020 Time Seen by Provider: 19:15 Reason for Visit: L. Gluteal Abscess History of Present Illness Surgery consulted for abscess I&D. HPI per ER: Sabrina is a 30 y/o female that presents with three days of 10/10 left gluteus abscess pain. 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 No discharge has been noted and the use of hydrocodone has not relieve her pain. Sitting makes it worse. Associated nausea and fever at home. Radiation of pain down the left leg. Denies vomiting, SOB, chest pain, abdominal pain, dysuria, blood in stool or urine, loss of sensation or muscle strength at this time. The patient has not had a hiradenitis drained in over a month. She used to follow with with [facility] but has not since insurance has changed. She is known to Dr. De and her last visit with him was due to a right gluteus hiradenitis which did not require drainage at the time. The patient states her cultures from past drainage has been polymicrobial. Last time she anything to eat or drink was at 1530pm. Pt states the abscess first started four days ago, states its progessed in pain and size since. Denies radiation of pain. Pt has PMH of Hiradenitis Suppurtiva and has chronic hx of abscess formation in groin, gluteal and axillary regions. Pt states shes been on many different antibiotics in the past but can't name any specific ones. Pt denies fevers, night sweats, chest pain, abd pain or SOB. Allergies and Home Medications Allergies Coded Allergies: ibuprofen (Unverified Allergy, Mild, HIVES, 06/10/17) Home Medications Adalimumab 40 Mg/0.4 Ml Syringekit, 40 MG SQ WEEK, (Reported) Albuterol Sulfate 1 Puff Puff, 2 PUFF IH Q4H, (Reported) 1 PUFF = 90 MCG Cariprazine Hydrochloride 1.5 Mg Capsule, 1.5 MG PO DAILY, (Reported) Clindamycin HCl 300 Mg Capsule, 600 MG PO DAILY, (Reported) Dicyclomine HCl 20 Mg Tablet, 20 MG PO TID, (Reported) Docusate Sodium 100 Mg Capsule, 100 MG PO BID PRN for CONSTIPATION-1ST LINE Prescribed by: JONES LARSON on 01/30/20717 Hydrochloric Acid 25 Ml Liquid, 25 ML MC DAILY, (Reported) Hydrocodone Bit/Acetaminophen 1 Ea Tablet, 2 EA PO Q6H PRN for Pain-See Instructions Prescribed by: JONES LARSON on 01/30/20717 Naproxen 250 Mg Tablet, 500 MG PO BID Prescribed by: JONES LARSON on 01/30/20717 Oseltamivir Phosphate 75 Mg Cap, 75 MG PO BID Prescribed by: TIA GRACE on 04/09/201953 Oxycodone HCl/Acetaminophen 1 Each Tablet, 1 TAB PO Q4H PRN for PAIN-MODERATE Prescribed by: TIA GRACE on 02/02/201612 Promethazine HCl/Codeine 5 Ml Syrup, 5 ML PO Q4H PRN for COUGH Prescribed by: TIA GRACE on 04/09/201955 Propranolol HCl 40 Mg Tablet, 40 MG PO BID, (Reported) Rifampin 300 Mg Capsule, 300 MG PO BID, (Reported) Sulfamethoxazole/Trimethoprim 1 Each Tablet, 1 EACH PO BID Prescribed by: BISHOP DRAKE on 05/05/201927 Past Wxfgbny-Nywgih-Ivpqez Hx Patient Social History Number of Drinks Today: CC Smoking Status: Current Everyday Smoker Former Smoker, Quit: Sep 13, 2013 Type Used: Cigarettes 2nd Hand Smoke Exposure: No Recent Hopitalizations: No Immunizations Up To Date Tetanus Booster (TDap): Unknown PED Vaccines UTD: No Date of Influenza Vaccine: Dec 16, 2019 Seasonal Allergies Seasonal Allergies: Yes Surgeries History of Surgeries: Yes (Hemorrhoids, KNEE SCOPE, D&C, DXLS) Surgeries: Appendectomy, Section, Gallbladder, Orthopedic, Rectal Respiratory History of Respiratory Disorde: Yes Respiratory Disorders: Asthma Cardiovascular History of Cardiac Disorders: No Neurological History of Neurological Disord: Yes Neurological Disorders: Headaches /Migraines Reproductive System Hx Reproductive Disorders: Yes (PELVIC PAIN) Sexually Transmitted Disease: No HIV/AIDS: No Female Reproductive Disorders: Menstrual Problems, Endometriosis Genitourinary History of Genitourinary Disor: No Genitourinary Disorders: UTI-Chronic Gastrointestinal History of Gastrointestinal Di: No Gastrointestinal Disorders: Gastroesophageal Reflux Musculoskeletal History of Musculoskeletal Dis: Yes Musculoskeletal Disorders: Arthritis, Chronic Back Pain Endocrine History of Endocrine Disorders: No HEENT History of HEENT Disorders: No Loss of Vision: Bilateral Hearing Impairment: Denies Cancer History of Cancer: No Psychosocial History of Psychiatric Problem: Yes Behavioral Health Disorders: Anxiety, Bipolar, Depression Integumentary History of Skin or Integumenta: Yes (HYDRADENTITIS SUPPURATIVA, MRSA) Skin/Integumentary Disorders: Recent Skin Changes Blood Transfusions History of Blood Disorders: Yes (ANEMIA) Adverse Reaction to a Blood Tr: No Family Medical History Family Medial History: Patient reports no known family medical history. Review of Systems-General Constitutional: No chills, No diaphoresis EENTM: No hearing loss, No hoarseness, No throat pain Respiratory: No cough, No dyspnea on exertion, No hemoptysis, No orthopnea Cardiovascular: No chest pain, No palpitations Gastrointestinal: No abdominal pain, No constipation, No diarrhea, No dysphagia Genitourinary: No dysuria, No incontinence Musculoskeletal: back pain (chronic hx ); No muscle pain, No muscle cramps Skin: No pruritus; other (Hx of Hiradenitis Suppurtiva) Psychiatric/Neurological: Denies Numbness, Denies Paresthesia, Denies Tingling, Denies Tremors Other no FH of blood dyscrasias Physical Exam-General Problems Physical Exam Vital Signs Vital Signs - First Documented 05/05/20 16:20 Temp 36.3 Pulse 97 Resp 16 B/P (MAP) 123/75 (91) Pulse Ox 100 O2 Delivery Room Air Capillary Refill : Less Than 3 Seconds General Appearance: WD/WN, no apparent distress Eyes: Bilateral Eye PERRL, Bilateral Eye EOMI HEENT: PERRL/EOMI, pharynx normal Neck: supple, normal inspection Respiratory: chest non-tender, normal breath sounds, no respiratory distress, no accessory muscle use Cardiovascular: regular rate, rhythm, no murmur Peripheral Pulses: 2+ Radial Pulses (R), 2+ Radial Pulses (L) Gastrointestinal: non tender, soft Rectal: deferred Back: normal inspection, no CVA tenderness, no vertebral tenderness Extremities: normal range of motion, non-tender, normal inspection, no pedal edema 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 ) Lymphatic: no adenopathy Data Review Labs Laboratory Tests 05/05/20 16:55: White Blood Count 10.4, Red Blood Count 4.30, Hemoglobin 10.0L, Hematocrit 32L, Mean Corpuscular Volume 75L, Mean Corpuscular Hemoglobin 23L, Mean Corpuscular Hemoglobin Concent 31L, Red Cell Distribution Width 17.1H, Platelet Count 473H, Mean Platelet Volume 9.2, Immature Granulocyte % (Auto) 0, Neutrophils (%) (Auto) 69, Lymphocytes (%) (Auto) 21, Monocytes (%) (Auto) 6, Eosinophils (%) (Auto) 3, Basophils (%) (Auto) 0, Neutrophils # (Auto) 7.2, Lymphocytes # (Auto) 2.2, Monocytes # (Auto) 0.7, Eosinophils # (Auto) 0.3, Basophils # (Auto) 0.0, Immature Granulocyte # (Auto) 0.0, Sodium Level 133L, Potassium Level 4.2, Chloride Level 100, Carbon Dioxide Level 22, Anion Gap 11, Blood Urea Nitrogen 12, Creatinine 0.78, Estimat Glomerular Filtration Rate > 60, BUN/Creatinine Ratio 15, Glucose Level 88, Calcium Level 9.2, Corrected Calcium 9.5, Total Bilirubin 0.1, Aspartate Amino Transf (AST/SGOT) 11, Alanine Aminotransferase (ALT/SGPT) 13, Alkaline Phosphatase 66, C-Reactive Protein High Sensitivity 7.42H, Total Protein 9.8H, Albumin 3.6, Serum Test, Qualitative NEGATI VE Assessment/Plan Assessment/Plan Admission Diagonsis L gluteal Abscess Assessment/Plan L gluteal Abscess Hiradenitis Suppurtiva endometriosis I&D of gluteal abscess Oral ABs Follow up to clinic for wound care possible outpt regional gluteal debridement. CULLEN DE DO 05/06/20 1033: History of Present Illness History of Present Illness History of Present Illness Patient with longstanding Hidradenitis suppurativa. Presented to ED with pain to left buttock for 3 days that has worsened. Pain moderate and radiates down left leg. Nothing makes better. Has had drainage from multiple areas. Denies n/v fever sweats chills shortness of breath or chest pain. Allergies and Home Medications Allergies Coded Allergies: ibuprofen (Unverified Allergy, Mild, HIVES, 06/10/17) Home Medications Adalimumab 40 Mg/0.4 Ml Syringekit, 40 MG SQ WEEK, (Reported) Albuterol Sulfate 1 Puff Puff, 2 PUFF IH Q4H, (Reported) 1 PUFF = 90 MCG Cariprazine Hydrochloride 1.5 Mg Capsule, 1.5 MG PO DAILY, (Reported) Clindamycin HCl 300 Mg Capsule, 600 MG PO DAILY, (Reported) Dicyclomine HCl 20 Mg Tablet, 20 MG PO TID, (Reported) Docusate Sodium 100 Mg Capsule, 100 MG PO BID PRN for CONSTIPATION-1ST LINE Prescribed by: JONES LARSON on 01/30/20717 Hydrochloric Acid 25 Ml Liquid, 25 ML MC DAILY, (Reported) Hydrocodone Bit/Acetaminophen 1 Ea Tablet, 2 EA PO Q6H PRN for Pain-See Instructions Prescribed by: JONES LARSON on 01/30/20717 Naproxen 250 Mg Tablet, 500 MG PO BID Prescribed by: JONES LARSON on 01/30/20717 Oseltamivir Phosphate 75 Mg Cap, 75 MG PO BID Prescribed by: TIA GRACE on 04/09/201953 Oxycodone HCl/Acetaminophen 1 Each Tablet, 1 TAB PO Q4H PRN for PAIN-MODERATE Prescribed by: TIA GRACE on 02/02/201612 Promethazine HCl/Codeine 5 Ml Syrup, 5 ML PO Q4H PRN for COUGH Prescribed by: TIA GRACE on 04/09/201955 Propranolol HCl 40 Mg Tablet, 40 MG PO BID, (Reported) Rifampin 300 Mg Capsule, 300 MG PO BID, (Reported) Sulfamethoxazole/Trimethoprim 1 Each Tablet, 1 EACH PO BID Prescribed by: BISHOP DRAKE on 05/05/201927 Patient Home Medication List Home Medication List Reviewed: Yes Past Kxfqdtn-Hcphtf-Vckdwv Hx Reviewed Nursing Assessment Reviewed/Agree w Nursing PMH: Yes Family Medical History Significant Family History: No Pertinent Family Hx Family Medial History: Patient reports no known family medical history. Review of Systems-General Constitutional: No chills, No diaphoresis EENTM: No hearing loss, No hoarseness, No throat pain Respiratory: No cough, No hemoptysis, No orthopnea Cardiovascular: No chest pain, No palpitations Gastrointestinal: No abdominal pain, No constipation, No diarrhea, No dysphagia, No nausea, No vomiting Genitourinary: No incontinence Musculoskeletal: back pain (chronic hx ); No muscle pain, No muscle cramps Skin: change in color; No pruritus; other (Hx of Hidradenitis Suppurativa, drainage left buttock) Psychiatric/Neurological: Denies Numbness, Denies Paresthesia, Denies Tingling, Denies Tremors Physical Exam-General Problems Physical Exam General Appearance: WD/WN, no apparent distress HEENT: PERRL/EOMI, normal ENT inspection, pharynx normal Neck: supple, normal inspection Respiratory: chest non-tender, no respiratory distress, no accessory muscle use Cardiovascular: regular rate, rhythm, no JVD Gastrointestinal: non tender, soft Rectal: deferred Back: no CVA tenderness, no vertebral tenderness Extremities: non-tender, normal inspection Neurologic/Psychiatric: alert, normal mood/affect, oriented x 3 Skin: other (L gluteal abscess formation with area of fluctuance left buttock with surrounding induration and chronic granulation tissue formation with sinus tracts, ) Lymphatic: no adenopathy Assessment/Plan Assessment/Plan Assessment/Plan L gluteal Abscess Hidradenitis Suppurativa I&D of gluteal abscess Oral ABs Bactrim DS Needs to irrigate and pack daily. Follow up to clinic for wound care Patient has appointment with plastics which I have encouraged her to keep. Patient understands risks and benefits of Incision and drainage left buttock and agrees with plan. PROCEDURE: Incision and Drainage Left buttock Patient left buttock prepped and draped in sterile fashion. 5 mL of 1% lidocaine with epi was used to anesthesize area. 10 blade scalpel was used to make 3 cm incision over fluctuant area. Purulent material erupted and culture obtained. Adhesion were broken up and wound was irrigated with normal saline. Wound was packed with Iodoform gauze. Sterile bandage applied. Patient tolerated procedure well. Supervisory-Addendum Brief Verification & Attestation Participated in pt care: history, MDM, physical Personally performed: exam, history, MDM, supervision of care Care discussed with: Medical Student Procedures: n/a Results interpretation: Verified all documentation Verification and Attestation of Medical Student E/M Service A medical student performed and documented this service in my presence. I reviewed and verified all information documented by the medical student and made modifications to such information, when appropriate. I personally performed the physical exam and medical decision making. Cullen De, May 05, 2020,19:40 ANDREA CAMPA MED STUDENT May 05, 2020 19:35 CULLEN DE DO May 06, 2020 10:33
[2020-05-05 19:37] VITALS: BP 125/71
== END 2020-05-05 19:40 | disposition home or self-care (01) ==
LOC: EDUNIT# 16:01 → ER 16:02
DX: L02.31 Cutaneous abscess of buttock (principal); J45.909 Unspecified asthma, uncomplicated; E66.9 Obesity, unspecified; G89.29 Other chronic pain; M54.9 Dorsalgia, unspecified; F31.9 Bipolar disorder, unspecified; F17.210 Nicotine dependence, cigarettes, uncomplicated; Z88.6 Allergy status to analgesic agent; Z79.891 Long term (current) use of opiate analgesic
CPT/HCPCS: 36415; 80053; 84703; 85025; 86141

== ENCOUNTER 2020-06-12 17:09 | Emergency (ER) | payer OTHER ==
[~2020-06-12] VITALS: Ht 172.7 cm; Wt 136.6 kg
[~2020-06-12 17:09] MED LIST changes: +NAPR-1088 PO; -NAPR250T6 PO
--- NOTE | 2020-06-12 17:39 | ED Integumentary General ---
General Chief Complaint: Skin/Wound Problems Stated Complaint: ABCESS ON BUTT Nursing Triage Note: pt states she has had an abscess on her left buttocks for 5 weeks. has been seen here in ed and at [facility], is on second rx of bactrim currently. states she gets it packed every 3 days at [facility] and had it done last on thursday but today is having severe pain shooting up her back from it. Source: patient Exam Limitations: no limitations (TIANA COTE) History of Present Illness Date Seen by Provider: Jun 12, 2020 Time Seen by Provider: 17:24 Initial Comments Patient presents ER by private conveyance with chief complaint that 5 weeks ago she had bedside abscesses drained on her left buttock by Dr. De in the ER and has been following up routinely on antibiotics and every 2 days and now 3 days for packing changes at [facility]. She is having another spot on her right buttock that is draining and new area of tenderness along her left buttock shooting pain up her leg and back. No fevers or chills. No nausea vomiting cough shortness of breath. She has a history of hidradenitis suparativa and had an appointment today with plastic surgery to discuss revision of her multiple issues. She does not have any active draining abscesses in her armpits. She has had a history of hysterectomy which did help significantly with her HS. She is not having dysuria but she is having frequency of urine and feeling like she is not emptying her bladder. Last dose of hydrocodone 10/325 at 10 AM. Last oral intake 1 hour prior to arrival approximately and 1630. (TIANA COTE) Initial Comments PT STATES THAT SHE WAS SEEN AT TODAY BY PLASTIC SURGEON FOR THIS PROBLEM, AND STATES NO SURGERY WAS SCHEDULED, BUT WAS TOLD THEY WOULD DO IT IN 4 WEEKS. NO OTHER TREATMENT WAS DONE BY THEM TODAY AND NO RX'S GIVEN PT IS CURRENTLY ON BACTRIM--WAS PRESCRIBED BY DR. CARDONA ON 05/22/20 TO BE TAKING TWICE A DAY FOR 10 DAYS, BUT PT STILL HAS SEVERAL PILLS LEFT ( DESPITE CLAIMING SHE HAS NOT MISSED ANY DOSES) PT REPORTS THAT THEY DID CULTURES AT [facility] RECENTLY, BUT DOES NOT KNOW WHAT KIND OF BACTERIA GREW IN CULTURE. (HARESH RUGGIERO DO) Allergies and Home Medications Allergies Coded Allergies: ibuprofen (Unverified Allergy, Mild, HIVES, 06/10/17) Home Medications Adalimumab 40 Mg/0.4 Ml Syringekit, 40 MG SQ WEEK, (Reported) Albuterol Sulfate 1 Puff Puff, 2 PUFF IH Q4H, (Reported) 1 PUFF = 90 MCG Cariprazine Hydrochloride 1.5 Mg Capsule, 1.5 MG PO DAILY, (Reported) Clindamycin HCl 300 Mg Capsule, 600 MG PO DAILY, (Reported) Dicyclomine HCl 20 Mg Tablet, 20 MG PO TID, (Reported) Docusate Sodium 100 Mg Capsule, 100 MG PO BID PRN for CONSTIPATION-1ST LINE Prescribed by: JONES LARSON on 01/30/20717 Hydrochloric Acid 25 Ml Liquid, 25 ML MC DAILY, (Reported) Hydrocodone Bit/Acetaminophen 1 Ea Tablet, 2 EA PO Q6H PRN for Pain-See Instructions Prescribed by: JONES LARSON on 01/30/20717 Hydrocodone Bit/Acetaminophen 1 Ea Tablet, 1-2 EA PO Q4-6 PRN for PAIN Prescribed by: HARESH RUGGIERO on 06/12/201924 Naproxen 250 Mg Tablet, 500 MG PO BID Prescribed by: JONES LARSON on 01/30/20717 Oseltamivir Phosphate 75 Mg Cap, 75 MG PO BID Prescribed by: TIA GRACE on 04/09/201953 Oxycodone HCl/Acetaminophen 1 Each Tablet, 1 TAB PO Q4H PRN for PAIN-MODERATE Prescribed by: TIA GRACE on 02/02/201612 Promethazine HCl/Codeine 5 Ml Syrup, 5 ML PO Q4H PRN for COUGH Prescribed by: TIA GRACE on 04/09/201955 Propranolol HCl 40 Mg Tablet, 40 MG PO BID, (Reported) Rifampin 300 Mg Capsule, 300 MG PO BID, (Reported) Sulfamethoxazole/Trimethoprim 1 Each Tablet, 1 EACH PO BID Prescribed by: BISHOP DRAKE on 05/05/201927 Sulfamethoxazole/Trimethoprim 1 Each Tablet, 1 EACH PO BID Prescribed by: HARESH RUGGIERO on 06/12/201924 Patient Home Medication List Home Medication List Reviewed: Yes (TIANA COTE) Review of Systems Review of Systems Constitutional: No chills, No fever, No malaise EENTM: No ear discharge, No ear pain Respiratory: No cough, No short of breath Cardiovascular: No edema, No palpitations Gastrointestinal: No abdominal pain, No constipation, No nausea Genitourinary: see HPI; No discharge, No dysuria; frequency Musculoskeletal: No back pain, No joint pain Skin: see HPI (TIANA COTE) All Other Systems Reviewed Negative Unless Noted: Yes (TIANA COTE) Past Tfiuftq-Duoriv-Rljavl Hx Patient Social History Alcohol Use: Rarely Uses Number of Drinks Today: CC Alcohol Beverage of Choice: Cheap Liquor Smoking Status: Current Someday Smoker Type Used: Cigarettes Former Smoker, Quit: Sep 13, 2013 2nd Hand Smoke Exposure: No Recent Infectious Disease Expo: No Recent Hopitalizations: No (TIANA COTE) Immunizations Up To Date Tetanus Booster (TDap): Unknown PED Vaccines UTD: No Date of Influenza Vaccine: Dec 16, 2019 (TIANA COTE) Seasonal Allergies Seasonal Allergies: Yes (TIANA COTE) Past Medical History Surgeries: Yes (Hemorrhoids, KNEE SCOPE, D&C, DXLS) Appendectomy, Section, Gallbladder, Orthopedic, Rectal Respiratory: Yes Asthma Currently Using CPAP: No Currently Using BIPAP: No Cardiac: No Neurological: Yes Headaches /Migraines Reproductive Disorders: Yes (PELVIC PAIN) Female Reproductive Disorders: Menstrual Problems, Endometriosis Sexually Transmitted Disease: No HIV/AIDS: No Genitourinary: No UTI-Chronic Gastrointestinal: No Gastroesophageal Reflux Musculoskeletal: Yes Arthritis, Chronic Back Pain Endocrine: No HEENT: No Loss of Vision: Bilateral Hearing Impairment: Denies Cancer: No Psychosocial: Yes Anxiety, Bipolar, Depression Integumentary: Yes (HYDRADENTITIS SUPPURATIVA, MRSA) Recent Skin Changes Blood Disorders: Yes (ANEMIA) Adverse Reaction/Blood Tranf: No (TIANA COTE) Family Medical History Patient reports no known family medical history. No Pertinent Family Hx (TIANA COTE) Physical Exam Vital Signs Vital Signs - First Documented 06/12/20 06/12/20 17:23 19:40 Temp 36.6 Pulse 104 Resp 18 B/P (MAP) 133/91 (105) Pulse Ox 100 O2 Delivery Room Air (MEAGHAN,HARESH K DO) Vital Signs Capillary Refill : Less Than 3 Seconds (TIANA COTE) General Appearance: WD/WN, mild distress HEENT: PERRL/EOMI, pharynx normal Neck: full range of motion, normal inspection Cardiovascular: normal peripheral pulses, regular rate, rhythm Respiratory: no respiratory distress, no accessory muscle use Extremities: non-tender, normal capillary refill Neurologic/Psychiatric: alert, oriented x 3 Skin: other (Packed, nontender wound on the left buttock with good granulation tissue and no significant purulent drainage. Lateral to that wound is another area of fluctuance, induration and tenderness with a pointing head and bedside ultrasound revealing a 3 cm deep area of potential abscess. On the right buttock is pointing that is draining purulent abscess less tender and no area of fluctuance under it.) (TIANA COTE) Progress/Results/Core Measures Results/Orders Lab Results Laboratory Tests Test 06/12/20 17:39 06/12/20 17:48 Range/Units Urine Color YELLOW Urine Clarity CLEAR Urine pH 6.0 5-9 Urine Specific Jewett <=1.005 1.016-1.022 Urine Protein NEGATIVE NEGATIVE Urine Glucose (UA) NEGATIVE NEGATIVE Urine Ketones NEGATIVE NEGATIVE Urine Nitrite NEGATIVE NEGATIVE Urine Bilirubin NEGATIVE NEGATIVE Urine Urobilinogen 0.2 < = 1.0 MG/DL Urine Leukocyte Esterase NEGATIVE NEGATIVE Urine RBC (Auto) NEGATIVE NEGATIVE Urine RBC NONE /HPF Urine WBC 0-2 /HPF Urine Squamous Epithelial Cells 0-2 /HPF Urine Crystals NONE /LPF Urine Bacteria NEGATIVE /HPF Urine Casts NONE /LPF Urine Mucus NEGATIVE /LPF Urine Culture Indicated NO White Blood Count 10.0 4.3-11.0 10^3/uL Red Blood Count 4.24 3.80-5.11 10^6/uL Hemoglobin 9.7 L 11.5-16.0 g/dL Hematocrit 31 L 35-52 % Mean Corpuscular Volume 74 L 80-99 fL Mean Corpuscular Hemoglobin 23 L 25-34 pg Mean Corpuscular Hemoglobin Concent 31 L 32-36 g/dL Red Cell Distribution Width 17.0 H 10.0-14.5 % Platelet Count 511 H 130-400 10^3/uL Mean Platelet Volume 9.1 9.0-12.2 fL Immature Granulocyte % (Auto) 0 % Neutrophils (%) (Auto) 64 42-75 % Lymphocytes (%) (Auto) 22 12-44 % Monocytes (%) (Auto) 7 0-12 % Eosinophils (%) (Auto) 7 0-10 % Basophils (%) (Auto) 1 0-10 % Neutrophils # (Auto) 6.4 1.8-7.8 10^3/uL Lymphocytes # (Auto) 2.2 1.0-4.0 10^3/uL Monocytes # (Auto) 0.7 0.0-1.0 10^3/uL Eosinophils # (Auto) 0.7 H 0.0-0.3 10^3/uL Basophils # (Auto) 0.1 0.0-0.1 10^3/uL Immature Granulocyte # (Auto) 0.0 0.0-0.1 10^3/uL Sodium Level 137 135-145 MMOL/L Potassium Level 3.5 L 3.6-5.0 MMOL/L Chloride Level 105 98-107 MMOL/L Carbon Dioxide Level 22 21-32 MMOL/L Anion Gap 10 5-14 MMOL/L Blood Urea Nitrogen 10 7-18 MG/DL Creatinine 0.73 0.60-1.30 MG/DL Estimat Glomerular Filtration Rate > 60 BUN/Creatinine Ratio 14 Glucose Level 77 70-105 MG/DL Calcium Level 9.3 8.5-10.1 MG/DL Corrected Calcium 9.5 8.5-10.1 MG/DL Total Bilirubin 0.2 0.1-1.0 MG/DL Aspartate Amino Transf (AST/SGOT) 12 5-34 U/L Alanine Aminotransferase (ALT/SGPT) 13 0-55 U/L Alkaline Phosphatase 77 40-136 U/L C-Reactive Protein High Sensitivity 5.88 H 0.00-0.50 MG/DL Total Protein 9.7 H 6.4-8.2 GM/DL Albumin 3.7 3.2-4.5 GM/DL Serum Test, Qualitative NEGATIVE NEGATIVE (HARESH RUGGIERO DO) My Orders Orders - HARESH RUGGIERO DO Hcg,Qualitative Serum (06/12/20 17:56) Fentanyl Inj (Sublimaze Injection) (06/12/20 19:15) (HARESH RUGGIERO DO) Medications Given in ED Current Medications Medications Dose Ordered Sig/Braulio Route Start Time Stop Time Status Last Admin Dose Admin Fentanyl Citrate 50 mcg ONCE ONCE IVP 06/12/20 17:45 06/12/20 17:46 DC 06/12/20 17:49 50 MCG Fentanyl Citrate 50 mcg ONCE ONCE IVP 06/12/20 19:15 06/12/20 19:16 DC 06/12/20 19:19 50 MCG Iohexol 100 ml ONCE ONCE IV 06/12/20 18:15 06/12/20 18:16 DC 06/12/20 18:46 100 ML Lactated Ringer's 1,000 ml @ 0 mls/hr Q0M ONCE IV 06/12/20 17:45 06/12/20 17:46 DC 06/12/20 17:49 999 MLS/HR Sodium Chloride 10 ml NEEDED PRN IV 06/12/20 18:15 06/12/20 19:40 DC 06/12/20 18:46 10 ML Sodium Chloride 100 ml ONCE ONCE IV 06/12/20 18:15 06/12/20 18:16 DC 06/12/20 18:46 80 ML (HARESH RUGGIERO DO) Vital Signs/I&O 06/12/20 06/12/20 17:23 19:40 Temp 36.6 36.6 Pulse 104 89 Resp 18 18 B/P (MAP) 133/91 (105) 130/89 (105) Pulse Ox 100 100 O2 Delivery Room Air 06/13/20 00:00 Intake Total 1000 ml Balance 1000 ml (HARESH RUGGIERO DO) Blood Pressure Mean: 105 Progress Progress Note : Time: 17:53 Progress Note Because of the tachycardia there is concern for sepsis as well as infection that may be making its way deeper. Plan to get a CT of her pelvis looking for Kelton's gangrene. We have turned care of the patient over to Dr. Ruggiero at shift change. After the CT is done we would probably recommend consultation with Dr. De. Antibiotic selection based on labs and imaging. 50 mcg IV fentanyl. 1 L of lactated Ringer's. Blood work. (TIANA COTE) Progress Note : Progress Note 1800--ASSUMED CARE FROM DR. COTE AT SHIFT CHANGE. CT IS PENDING AT THIS TIME. PT CONTINUES TO C/O PAIN. ADDITIONAL PAIN MEDICATION ORDERED. DRESSING PLACED OVER DRAINAGE SITE ON LEFT BUTTOCK NO DETERIORATION IN PT'S CONDITION DURING ER STAY (HARESH RUGGIERO DO) Diagnostic Imaging Diagonstic Imaging: CT Plain Films/CT/US/NM/MRI: abdomen, pelvis Reviewed: Reviewed by Me (TIANA COTE) Comments CT ABDOMEN/PELVIS--PER RADIOLOGIST REPORT AT 191 FINDINGS: Lung bases: The lung bases are clear. Solid organs: The liver is normal without focal lesion. The gallbladder is surgically absent. There is no biliary ductal dilation. Pancreas is normal. Spleen is normal. Adrenal glands are normal. The kidneys are normal without hydronephrosis. Bowel: The stomach and small bowel are normal without obstruction. The colon is unremarkable. The appendix is nonvisualized and appears to be surgically absent. Peritoneum: There is no intraperitoneal free fluid or free air. No suspicious lymphadenopathy. Vasculature: Normal without aneurysm. Musculoskeletal: No suspicious osseous lesion or compression fracture. There are multiple loculated fluid collections within the gluteal cleft and extending along the left gluteal subcutaneous tissues bilaterally. The largest fluid collection measures 5.3 x 4.8 cm with suggestion of a fistulous tract to the skin surface (series 2 image 57). Pelvis: The uterus is surgically absent. No adnexal mass. The urinary bladder is normal. IMPRESSION: 1. Multiple fluid collections within the gluteal cleft and gluteal subcutaneous tissues measuring up to 5.3 x 4.8 cm in the left gluteal region. (HARESH RUGGIERO DO) Transfer of Care Time: 18:00 Care transferred to: Dr. Ruggiero (TIANA COTE) Departure Communication (Admissions) 1912--SPOKE WITH DR. DE, AND REVIEWED CT REPORT. HE ADVISES FOR PT TO CONTINUE ON BACTRIM AND FOLLOW UP AGAIN WITH PLASTIC SURGERY FOR DEFINITIVE SURGERY (HARESH RUGGIERO DO) Impression Primary Impression: CHRONIC HYDRADENITIS SUPPURATIVA Additional Impression: Abscess of multiple sites of buttock Disposition: HOME, SELF-CARE Condition: Stable Departure-Patient Inst. Referrals: GOYO CARDONA MD (PCP/Family) Primary Care Physician Patient Instructions: ABSCESS Add. Discharge Instructions: LEAVE PACKING IN PLACE CHANGE DRESSING DAILY CALL [facility] IN THE MORNING TO SCHEDULE SURGERY FOLLOW UP WITH [facility] OR DR. DE IN 2 DAYS FOR RECHECK AND REPACK OF ABSCESS All discharge instructions reviewed with patient and/or family. Voiced understanding. Scripts Hydrocodone Bit/Acetaminophen (HYDROcodone/APAP 7.5/325 TAB) 1 Ea Tablet 1-2 EA PO Q4-6 PRN for PAIN, #20 TAB Prov: HARESH RUGGIERO DO 3/30/21 Sulfamethoxazole/Trimethoprim (Bactrim Ds Tablet) 1 Each Tablet 1 EACH PO BID, #20 TAB Prov: HARESH RUGGIERO DO 06/12/20 TIANA COTE Jun 12, 2020 17:39 HARESH RUGGIERO DO Jun 12, 2020 19:13
[2020-06-12 17:45] LABS: BILIRUBIN,URINE NEGATIVE (NEGATIVE); CLARITY,URINE CLEAR; COLOR,URINE YELLOW; GLUCOSE, URINE (UA) NEGATIVE (NEGATIVE); KETONES,URINE NEGATIVE (NEGATIVE); LEUKOCYTE ESTERASE ,URINE NEGATIVE (NEGATIVE); NITRITE,URINE NEGATIVE (NEGATIVE); PROTEIN,URINE NEGATIVE (NEGATIVE)
[2020-06-12] MEDS ORDERED: fentaNYL INJ 100 MCG/2 ML AMP IVP ONE ×2 (17:45→19:15)
[2020-06-12] MEDS ORDERED: LACTATED RINGERS 1,000 ML IV ONE (17:45)
[2020-06-12 17:58] LABS: BASOPHILS # (AUTO) 0.1 10^3/uL (0.0-0.1); BASOPHILS % (AUTO) 1 % (0-10); EOSINOPHILS # (AUTO) 0.7 10^3/uL (0.0-0.3); EOSINOPHILS % (AUTO) 7 % (0-10); HEMATOCRIT 31 % (35-52); HEMOGLOBIN 9.7 g/dL (11.5-16.0); LYMPHOCYTES # (AUTO) 2.2 10^3/uL (1.0-4.0); LYMPHOCYTES % (AUTO) 22 % (12-44); MEAN CORPUSCULAR HEMOGLOBIN 23 pg (25-34); MEAN CORPUSCULAR HGB CONC 31 g/dL (32-36); MEAN CORPUSCULAR VOLUME 74 fL (80-99); MEAN PLATELET VOLUME 9.1 fL (9.0-12.2); MONOCYTES # (AUTO) 0.7 10^3/uL (0.0-1.0); MONOCYTES % (AUTO) 7 % (0-12); NEUTROPHILS # (AUTO) 6.4 10^3/uL (1.8-7.8); NEUTROPHILS % (AUTO) 64 % (42-75); PLATELET COUNT 511 10^3/uL (130-400)
[2020-06-12 18:00] LABS: BACTERIA,URINE NEGATIVE /HPF; SQUAMOUS EPITHELIAL CELL,UR 0-2 /HPF; WBC,URINE 0-2 /HPF
[2020-06-12 18:12] LABS: ALBUMIN 3.7 GM/DL (3.2-4.5); CHLORIDE 105 MMOL/L (98-107); POTASSIUM 3.5 MMOL/L (3.6-5.0); SODIUM 137 MMOL/L (135-145)
[2020-06-12 18:14] LABS: CALCIUM 9.3 MG/DL (8.5-10.1)
[2020-06-12 18:15] LABS: GLUCOSE 77 MG/DL (70-105); TOTAL PROTEIN 9.7 GM/DL (6.4-8.2)
[2020-06-12] MEDS ORDERED: IOHEXOL 350 MG/ML 100 ML (OMNIPAQUE 350) VIAL IV ONE (18:15)
[2020-06-12] MEDS ORDERED: HOLD METFORMIN - RECEIVED CONTRAST 20 ML VIAL IV SCH (18:15)
[2020-06-12] MEDS ORDERED: NS 100 ML (IVPB) BAG IV ONE (18:15)
[2020-06-12] MEDS ORDERED: CATHETER FLUSH 10 ML SYR IV PRN (18:15)
[2020-06-12 18:16] LABS: CARBON DIOXIDE 22 MMOL/L (21-32)
[2020-06-12 18:17] LABS: BILIRUBIN,TOTAL 0.2 MG/DL (0.1-1.0)
[2020-06-12 18:18] LABS: ALKALINE PHOSPHATASE 77 U/L (40-136)
[2020-06-12 18:19] LABS: CREATININE SERUM 0.73 MG/DL (0.60-1.30); GFR ESTIMATED > 60
[2020-06-12 18:20] LABS: BUN/CREATININE RATIO 14
[2020-06-12 18:21] LABS: ALANINE AMINOTRANSFERASE 13 U/L (0-55)
--- NOTE | 2020-06-12 19:08 | Diagnostic Imaging Report ---
EXAMINATION: CT Abdomen and Pelvis with intravenous contrast. TECHNIQUE: Multiple contiguous axial images were obtained through the abdomen and pelvis after the uneventful administration of intravenous contrast. All CT scans use one or more of the following dose optimizing techniques: automated exposure control, MA and/or KvP adjustment based on a patient size and exam type, or iterative reconstruction. HISTORY: Abscess COMPARISON: CT abdomen and pelvis 02/02/2020. FINDINGS: Lung bases: The lung bases are clear. Solid organs: The liver is normal without focal lesion. The gallbladder is surgically absent. There is no biliary ductal dilation. Pancreas is normal. Spleen is normal. Adrenal glands are normal. The kidneys are normal without hydronephrosis. Bowel: The stomach and small bowel are normal without obstruction. The colon is unremarkable. The appendix is nonvisualized and appears to be surgically absent. Peritoneum: There is no intraperitoneal free fluid or free air. No suspicious lymphadenopathy. Vasculature: Normal without aneurysm. Musculoskeletal: No suspicious osseous lesion or compression fracture. There are multiple loculated fluid collections within the gluteal cleft and extending along the left gluteal subcutaneous tissues bilaterally. The largest fluid collection measures 5.3 x 4.8 cm with suggestion of a fistulous tract to the skin surface (series 2 image 57). Pelvis: The uterus is surgically absent. No adnexal mass. The urinary bladder is normal. IMPRESSION: 1. Multiple fluid collections within the gluteal cleft and gluteal subcutaneous tissues measuring up to 5.3 x 4.8 cm in the left gluteal region. Dictated by: Dictated on workstation # [id number]
[2020-06-12] MEDS ORDERED: SULF1TAB35 PO (19:25)
[2020-06-12] MEDS ORDERED: HYDR-34 PO (19:25)
[2020-06-12 19:40] VITALS: BP 130/89
== END 2020-06-12 19:40 | disposition home or self-care (01) ==
LOC: EDUNIT# 17:09 → ER 17:10
DX: L02.31 Cutaneous abscess of buttock (principal); L73.2 Hidradenitis suppurativa; F41.9 Anxiety disorder, unspecified; F31.9 Bipolar disorder, unspecified; J45.909 Unspecified asthma, uncomplicated; F17.210 Nicotine dependence, cigarettes, uncomplicated; Z86.14 Personal history of Methicillin resistant Staphylococcus aureus infection; Z79.2 Long term (current) use of antibiotics; Z88.6 Allergy status to analgesic agent; Z32.02 Encounter for pregnancy test, result negative
CPT/HCPCS: 36415; 74177; 80053; 81000; 84703; 85025; 86141

== ENCOUNTER 2021-01-12 00:39 | Emergency (ER) | payer OTHER ==
[~2021-01-12] VITALS: Ht 175.3 cm; Wt 106.0 kg
[~2021-01-12 00:39] MED LIST changes: +CLIN-144 PO; -CLIN150C18 PO; +CLIN150C20 PO; -CLIN300C12 PO; -DCS100C PO; +DOCU-239 PO; -DOXY100C2 PO; +DOXY100C5 PO; -NABU-88; +NABU500T8; -OMEP40CA27 PO; +OMEP40CA6 PO; +SULF1TAB38 PO
--- NOTE | 2021-01-12 01:00 | ED Integumentary General ---
General Stated Complaint: STICHES OPENED BLEEDING Source: patient History of Present Illness Date Seen by Provider: Jan 12, 2021 Time Seen by Provider: 00:47 Initial Comments PT ARRIVES VIA POV FROM HOME PT HAD SURGERY ON 12/18/[address] 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 AUGMENTIN ? AT HER APPOINTMENT ON Thursday01/09/21 STATES SHE HAD LAB DONE THAT DAY AND HGB WAS 8, NO BLOOD TRANSFUSION PT ALSO STATES THAT SHE HAS BEEN PRESCRIBED A TOPICAL MEDICATION WELL --? MUPIROCIN ? PT STATES SHE HAS HAD A LITTLE MORE BLEEDING TODAY, AND THINKS THAT AREAS HAVE OPENED UP A LITTLE MORE, SINCE HER VISIT ON THURSDAY PT STATES SHE HAS HAD TEMP UP TO 99 HAS NOT ATTEMPTED TO CONTACT HER SURGEON AT ANY TIME SINCE HER VISIT ON THURSDAY NEXT APPOINTMENT IS JANUARY 22 PER MED RECONCILIATION, PT WAS PRESCRIBED DOXYCYCLINE ON 12/18/20, CLINDAMYCIN IS NOT LISTED ON MED RECONCILIATION, BUT WAS PLACED ON AUGMENTIN ON 01/08/21 AND WAS PRESCRIBED MUPIROCIN ON 01/08/21 ALSO. PT HAS BEEN PRESCRIBED HUMIRA FOR HYDRADENITIS WELL. PT HAS HISTORY OF MRSA [place] [facility] [place]ergies and Home Medications Allergies Coded Allergies: ibuprofen (Unverified Allergy, Mild, HIVES, 06/10/17) Patient Home Medication List Home Medication List Reviewed: Yes Adalimumab (Humira) 40 Mg/0.4 Ml Syringekit, 40 MG SQ WEEK, (Reported) Entered as Reported by: MARIANO STROUD on 01/26/20 1346 Albuterol Sulfate (Proair Hfa) 1 Puff Puff, 2 PUFF IH Q4H, (Reported) Entered as Reported by: BUBBA CAPONE on 01/30/20 0738 Amoxicillin/Potassium Clav (Amox Tr-K Clv 875-125 mg Tab) 1 Each Tablet, (Reported) Entered as Reported by: CLAUDIA HO on 01/12/21 0110 Last Action: New Order Cariprazine Hydrochloride (Vraylar) 1.5 Mg Capsule, 1.5 MG PO DAILY, (Reported) Entered as Reported by: MARIANO STROUD on 01/26/20 1346 Cariprazine Hydrochloride (Vraylar) 6 Mg Capsule, (Reported) Entered as Reported by: CLAUDIA HO on 01/12/21109 Last Action: New Order Dicyclomine HCl (Dicyclomine HCl) 20 Mg Tablet, 20 MG PO TID, (Reported) Entered as Reported by: MARIANO STROUD on 01/26/20 1340 Docusate Sodium (Dok) 100 Mg Capsule, 100 MG PO BID PRN for CONSTIPATION-1ST LINE Prescribed by: JONES LARSON on 01/30/20717 Hydrochlorothiazide (Hydrochlorothiazide) 25 Mg Tablet, (Reported) Entered as Reported by: CLAUDIA HO on 01/12/21109 Last Action: New Order Hydrocodone Bit/Acetaminophen (HYDROcodone/APAP 7.5/325 TAB) 1 Ea Tablet, 2 EA PO Q6H PRN for Pain-See Instructions Prescribed by: JONES LARSON on 01/30/20717 Hydrocodone Bit/Acetaminophen (HYDROcodone/APAP 7.5/325 TAB) 1 Ea Tablet, 1-2 EA PO Q4-6 PRN for PAIN Prescribed by: HARESH HARDING on 06/12/201924 Morphine Sulfate (Morphine Sulfate ER) 30 Mg Tablet.er, (Reported) Entered as Reported by: CLAUDIA HO on 01/12/21109 Last Action: New Order Mupirocin (Mupirocin) 22 Gm Oint...g., (Reported) Entered as Reported by: CLAUDIA HO on 01/12/21109 Last Action: New Order Naproxen (Naproxen) 250 Mg Tablet, 500 MG PO BID Prescribed by: JONES LARSON on 01/30/20717 Naproxen (Naproxen) 500 Mg Tablet, (Reported) Entered as Reported by: CLAUDIA HO on 01/12/21109 Last Action: New Order Oxycodone HCl/Acetaminophen (Percocet 5-325 mg Tablet) 1 Each Tablet, 1 TAB PO Q4H PRN for PAIN-MODERATE Prescribed by: TIA GRACE on 02/02/20 1613 Prazosin HCl (Prazosin HCl) 1 Mg Capsule, (Reported) Entered as Reported by: CLAUDIA HO on 01/12/21109 Last Action: New Order Promethazine HCl/Codeine (Prometh-Codein 6.25-10 mg/5 ml) 5 Ml Syrup, 5 ML PO Q4H PRN for COUGH Prescribed by: TIA GRACE on 04/09/201955 Propranolol HCl (Propranolol HCl) 40 Mg Tablet, 40 MG PO BID, (Reported) Entered as Reported by: MARIANO STROUD on 01/26/201339 Rifampin (Rifampin) 300 Mg Capsule, 300 MG PO BID, (Reported) Entered as Reported by: MARIANO STROUD on 01/26/201339 [Gabapentin] , (Reported) Entered as Reported by: CLAUDIA HO on 01/12/21109 Last Action: New Order [Gabapentin] , (Reported) Entered as Reported by: CLAUDIA HO on 01/12/21109 Last Action: New Order Discontinued Medications Clindamycin HCl (Clindamycin HCl) 300 Mg Capsule, 600 MG PO DAILY, (Reported) Discontinued Reason: Duplicate Order Entered as Reported by: MARIANO STROUD on 01/26/201339 Last Action: Discontinued Hydrochloric Acid (Hydrochloric Acid) 25 Ml Liquid, 25 ML MC DAILY, (Reported) Discontinued Reason: Duplicate Order Entered as Reported by: MARIANO STROUD on 01/26/201339 Last Action: Discontinued Oseltamivir Phosphate (Tamiflu) 75 Mg Cap, 75 MG PO BID Discontinued Reason: Duplicate Order Prescribed by: TIA GRACE on 04/09/201953 Last Action: Discontinued Sulfamethoxazole/Trimethoprim (Bactrim Ds Tablet) 1 Each Tablet, 1 EACH PO BID Discontinued Reason: Duplicate Order Prescribed by: BISHOP DRAKE on 05/05/201927 Last Action: Discontinued Sulfamethoxazole/Trimethoprim (Bactrim Ds Tablet) 1 Each Tablet, 1 EACH PO BID Discontinued Reason: Duplicate Order Prescribed by: HARESH HARDING on 06/12/201924 Last Action: Discontinued Review of Systems Review of Systems Constitutional: see HPI; No dizziness; fever; No malaise, No weakness Gastrointestinal: see HPI Genitourinary: no symptoms reported Skin: see HPI Hematologic/Lymphatic: See HPI Past Xphoyhd-Jdlrzk-Ajncna Hx Patient Social History Tobacco Use?: No Use of E-Cig and/or Vaping dev: Yes E-Cig or Vaping type used: Nicotine Use of E-Cig and/or Vaping Ender: Current Everyday User Substance use?: No Alcohol Use?: No Immunizations Up To Date Tetanus Booster (TDap): Unknown PED Vaccines UTD: No Third COVID19 Vaccination Date: 09/2020 Seasonal Allergies Seasonal Allergies: Yes Past Medical History Surgery/Hospitalization HX: SURGERY FOR HYDRADENITIS 12/18/[address] 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 Surgeries: Yes (Hemorrhoids, KNEE SCOPE, D&C, DXLS) Abdominal, Appendectomy, Section, Gallbladder, Orthopedic, Rectal Respiratory: Yes Asthma Currently Using CPAP: No Currently Using BIPAP: No Cardiac: No Neurological: Yes Headaches /Migraines Reproductive Disorders: Yes (PELVIC PAIN) Female Reproductive Disorders: Menstrual Problems, Endometriosis Sexually Transmitted Disease: No HIV/AIDS: No Genitourinary: Yes UTI-Chronic Gastrointestinal: Yes Gastroesophageal Reflux Musculoskeletal: Yes Arthritis, Chronic Back Pain Endocrine: Yes (MORBID OBESITY) HEENT: No Loss of Vision: Bilateral Hearing Impairment: Denies Cancer: No Psychosocial: Yes Anxiety, Bipolar, Depression Integumentary: Yes (HYDRADENTITIS SUPPURATIVA, MRSA) Recent Skin Changes Blood Disorders: Yes (ANEMIA) Adverse Reaction/Blood Tranf: No Family Medical History Patient reports no known family medical history. No Pertinent Family Hx Physical Exam Vital Signs Vital Signs - First Documented 01/12/21 00:44 Temp 36.3 Pulse 89 Resp 16 B/P (MAP) 121/79 (93) Pulse Ox 98 O2 Delivery Room Air Capillary Refill : General Appearance: WD/WN, obese (MORBIDLY OBESE), other (PT DOES NOT HAVE ANY DRESSINGS OVER HER WOUNDS--ALL AREAS ARE COMPLETELY OPEN, WITH DRIED RESIDUE OF BLOOD/DRAINAGE ALL OVER CLOTHING AND DOWN LEGS TO BOTTOM OF FEET--PT IS BAREFOOT. PT HAS NOT ATTEMPTED TO CLEAN ANY OF THIS OFF HER SKIN) Cardiovascular: regular rate, rhythm, no edema Respiratory: normal breath sounds Gastrointestinal: other (SURGICAL WOUNDS TO LOWER ABDOMEN/SUPRAPUBIC AREA AND BILATERAL GROIN/INGUINAL AREAS ALL HAVE COMPLETELY DEHISCED, AND SOME AREAS WITH SLIGHT OOZING WITH A VERY SCANT AMOUNT OF BLOODY DRAINAGE. NO PURULENT DRAINAGE. NO AREAS OF FLUCTUANCE, NO SURROUNDING ERYTHEMA, NO STREAKS. HAS INDURATION TO ALL AREAS SURROUNDING THE INCISIONS. ) Extremities: normal inspection, no pedal edema Neurologic/Psychiatric: no motor/sensory deficits, alert, oriented x 3 Skin: normal color (PT IS BLACK), warm/dry, other (WOUNDS NOTED ABOVE) Progress/Results/Core Measures Results/Orders Lab Results Laboratory Tests Test 01/12/21 00:54 Range/Units White Blood Count 9.5 4.3-11.0 10^3/uL Red Blood Count 3.56 L 3.80-5.11 10^6/uL Hemoglobin 7.3 L 11.5-16.0 g/dL Hematocrit 24 L 35-52 % Mean Corpuscular Volume 68 L 80-99 fL Mean Corpuscular Hemoglobin 21 L 25-34 pg Mean Corpuscular Hemoglobin Concent 30 L 32-36 g/dL Red Cell Distribution Width 18.6 H 10.0-14.5 % Platelet Count 483 H 130-400 10^3/uL Mean Platelet Volume 8.9 L 9.0-12.2 fL Immature Granulocyte % (Auto) 0 % Neutrophils (%) (Auto) 61 42-75 % Lymphocytes (%) (Auto) 27 12-44 % Monocytes (%) (Auto) 6 0-12 % Eosinophils (%) (Auto) 5 0-10 % Basophils (%) (Auto) 0 0-10 % Neutrophils # (Auto) 5.8 1.8-7.8 10^3/uL Lymphocytes # (Auto) 2.6 1.0-4.0 10^3/uL Monocytes # (Auto) 0.6 0.0-1.0 10^3/uL Eosinophils # (Auto) 0.4 H 0.0-0.3 10^3/uL Basophils # (Auto) 0.0 0.0-0.1 10^3/uL Immature Granulocyte # (Auto) 0.0 0.0-0.1 10^3/uL Sodium Level 137 135-145 MMOL/L Potassium Level 3.7 3.6-5.0 MMOL/L Chloride Level 104 98-107 MMOL/L Carbon Dioxide Level 22 21-32 MMOL/L Anion Gap 11 5-14 MMOL/L Blood Urea Nitrogen 9 7-18 MG/DL Creatinine 0.79 0.60-1.30 MG/DL Estimat Glomerular Filtration Rate 104 BUN/Creatinine Ratio 11 Glucose Level 108 H 70-105 MG/DL Calcium Level 8.9 8.5-10.1 MG/DL Serum Test, Qualitative NEGATIVE NEGATIVE My Orders Orders - MEAGHANHARESH Jean DO Ed Iv/Invasive Line Start (01/12/21 00:54) Basic Metabolic Panel (01/12/21 00:54) Cbc With Automated Diff (01/12/21 00:54) Hcg,Qualitative Serum (01/12/21 00:54) Wound Culture (01/12/21 00:54) Piperacillin Sodium/Tazobactam (Zosyn Vi (01/12/21 01:30) Acetaminophen Tablet (Tylenol Tablet) (01/12/21 01:30) Medications Given in ED Current Medications Medications Dose Ordered Sig/Braulio Route Start Time Stop Time Status Last Admin Dose Admin Acetaminophen 1,000 mg ONCE ONCE PO 01/12/21 01:30 01/12/21 01:31 DC 01/12/21 01:31 1,000 MG Piperacillin Sod/ Tazobactam Sod 4.5 gm/Sodium Chloride 100 ml @ 200 mls/hr ONCE ONCE IV 01/12/21 01:30 01/12/21 01:59 DC 01/12/21 01:31 200 MLS/HR Vital Signs/I&O 01/12/21 01/12/21 00:44 02:06 Temp 36.3 36.6 Pulse 89 75 Resp 16 16 B/P (MAP) 121/79 (93) 115/81 Pulse Ox 98 100 O2 Delivery Room Air Room Air Progress Progress Note : Progress Note LAB DRAWN AND CULTURES OBTAINED FROM WOUNDS PT INSTRUCTED ON CLEANSING WITH HIBICLENS--PT STATES SHE HAS SOME AT HOME, ABOUT USING MUPIROCIN AND APPLYING A DRESSING OVER THE WOUNDS AT ALL TIMES NO FEVER NO HYPOTENSION OR TACHYCARDIA NO DIZZINESS NO SIGNS OF SEPSIS OR SYMPTOMATIC ANEMIA PT ADVISED TO FOLLOW UP WITH HER SURGEON AT ON THURSDAY FOR FURTHER CARE WILL CONTINUE AUGMENTIN AT THIS TIME, PENDING WOUND CULTURE RESULTS. GAVE A DOSE OF ZOSYN HERE, TO SUPPLEMENT THE AUGMENTIN SHE IS CURRENTLY TAKING Departure Impression Primary Impression: Abdominal wound dehiscence Additional Impressions: Postoperative wound dehiscence History of hidradenitis suppurativa Chronic anemia Disposition: HOME, SELF-CARE Condition: Stable Departure-Patient Inst. Decision time for Depature: 01:23 Referrals: GOYO CARDONA MD (PCP/Family) Primary Care Physician Patient Instructions: Wound Dehiscence (DC), Anemia, Possibly From Low Iron, Adult ED Add. Discharge Instructions: CONTINUE TO CLEAN WOUNDS TWICE A DAY WITH HIBICLENS, PAT DRY, AND APPLY MUPIROCIN OINTMENT TWICE A DAY AND APPLY FRESH DRESSINGS SUCH MAXI PADS TO AREAS TWICE A DAY. CONTINUE ANTIBIOTICS PRESCRIBED TAKE 4 [place] VITAMINS A DAY FOR ANEMIA FOLLOW UP WITH YOUR SURGEON ON THURSDAY FOR FURTHER CARE HARESH HARDING DO Jan 12, 2021 01:00
[2021-01-12 01:03] LABS: BASOPHILS % (AUTO) 0 % (0-10); EOSINOPHILS # (AUTO) 0.4 10^3/uL (0.0-0.3); EOSINOPHILS % (AUTO) 5 % (0-10); HEMATOCRIT 24 % (35-52); HEMOGLOBIN 7.3 g/dL (11.5-16.0); LYMPHOCYTES # (AUTO) 2.6 10^3/uL (1.0-4.0); LYMPHOCYTES % (AUTO) 27 % (12-44); MEAN CORPUSCULAR HEMOGLOBIN 21 pg (25-34); MEAN CORPUSCULAR HGB CONC 30 g/dL (32-36); MEAN CORPUSCULAR VOLUME 68 fL (80-99); MEAN PLATELET VOLUME 8.9 fL (9.0-12.2); MONOCYTES # (AUTO) 0.6 10^3/uL (0.0-1.0); MONOCYTES % (AUTO) 6 % (0-12); NEUTROPHILS # (AUTO) 5.8 10^3/uL (1.8-7.8); NEUTROPHILS % (AUTO) 61 % (42-75); PLATELET COUNT 483 10^3/uL (130-400); WHITE BLOOD COUNT 9.5 10^3/uL (4.3-11.0)
[2021-01-12] MEDS ORDERED: HYDR25TA4 (01:10)
[2021-01-12] MEDS ORDERED: MUPI22OI2 (01:10)
[2021-01-12] MEDS ORDERED: NAPR-915 (01:10)
[2021-01-12] MEDS ORDERED: AMOX1TAB12 (01:10)
[2021-01-12] MEDS ORDERED: GABAPENTIN (01:10)
[2021-01-12] MEDS ORDERED: PRAZ1CAP2 (01:10)
[2021-01-12] MEDS ORDERED: MORP-69 (01:10)
[2021-01-12] MEDS ORDERED: CARI6CAP (01:10)
[2021-01-12 01:13] LABS: POTASSIUM 3.7 MMOL/L (3.6-5.0)
[2021-01-12 01:15] LABS: CALCIUM 8.9 MG/DL (8.5-10.1)
[2021-01-12 01:19] LABS: CREATININE SERUM 0.79 MG/DL (0.60-1.30)
[2021-01-12] MEDS ORDERED: PIPERACILLIN SODIUM/TAZOBACTAM 4.5 GM in NS (IVPB) 100 ML IV ONE (01:30)
[2021-01-12] MEDS ORDERED: ACETAMINOPHEN 500 MG TAB (TYLENOL) PO ONE (01:30)
[2021-01-12 02:06] VITALS: BP 115/81
== END 2021-01-12 02:08 | disposition home or self-care (01) ==
LOC: EDUNIT# 00:39 → ER 00:42
DX: T81.31XA Disruption of external operation (surgical) wound, not elsewhere classified, initial encounter (principal); D64.9 Anemia, unspecified; J45.909 Unspecified asthma, uncomplicated; G89.29 Other chronic pain; M54.9 Dorsalgia, unspecified; E66.01 Morbid (severe) obesity due to excess calories; F31.9 Bipolar disorder, unspecified; F17.200 Nicotine dependence, unspecified, uncomplicated; Z79.891 Long term (current) use of opiate analgesic; Z79.899 Other long term (current) drug therapy
CPT/HCPCS: 36415; 80048; 84703; 85025; 87070; 87205; 96365

== ENCOUNTER 2021-08-16 20:28 | Emergency (ER) | payer OTHER ==
[~2021-08-16 20:28] MED LIST changes: +AMOX1TAB12; +CARI6CAP; +DICY20TA PO; -DICY20TA10 PO; +GABAPENTIN; +HYDR25TA4; +MORP-69; +MUPI22OI2; +NAPR-915; +PRAZ1CAP2; -RIFA300C3 PO; +RIFA300C8 PO
--- NOTE | 2021-08-16 21:12 | ED Back Pain ---
General Chief Complaint: Back Problems Stated Complaint: BACK PAIN Source of Information: Patient History of Present Illness Date Seen by Provider: Aug 16, 2021 Time Seen by Provider: 21:00 Initial Comments PT ARRIVES VIA POV FROM HOME C/O RIGHT FLANK PAIN SINCE YESTERDAY PAIN IS SHARP AND IS SPASMS--WORSE WITH WALKING OR LAYING ON RIGHT SIDE NO RADIATION OF PAIN NO NAUSEA/VOMITING/DIARRHEA NO URINARY SYMPTOMS NO FEVER NO HISTORY OF SIMILAR TOOK MORPHINE EARLIER TODAY WITHOUT RELIEF--TAKES MORPHINE AND GABAPENTIN FOR HYDRADENITIS SUPPURATIVA. PT HAS HAD CHOLECYSTECTOMY, APPENDECTOMY, HYST/BSO. Other Comments PCP: DR. CARDONA Allergies and Home Medications Allergies Coded Allergies: ibuprofen (Unverified Allergy, Mild, HIVES, 06/10/17) Patient Home Medication List Adalimumab (Humira) 40 Mg/0.4 Ml Syringekit, 40 MG SQ WEEK, (Reported) Entered as Reported by: MARIANO STROUD on 01/26/20 1346 Albuterol Sulfate (Proair Hfa) 1 Puff Puff, 2 PUFF IH Q4H, (Reported) Entered as Reported by: BUBBA CAPONE on 01/30/20 0738 Amoxicillin/Potassium Clav (Amox Tr-K Clv 875-125 mg Tab) 1 Each Tablet, (Reported) Entered as Reported by: CLAUDIA HO on 01/12/21109 Cariprazine Hydrochloride (Vraylar) 1.5 Mg Capsule, 1.5 MG PO DAILY, (Reported) Entered as Reported by: MARIANO STROUD on 01/26/20 1346 Cariprazine Hydrochloride (Vraylar) 6 Mg Capsule, (Reported) Entered as Reported by: CLAUDIA HO on 01/12/21 011 Dicyclomine HCl (Dicyclomine HCl) 20 Mg Tablet, 20 MG PO TID, (Reported) Entered as Reported by: MARIANO STROUD on 01/26/20 1340 Docusate Sodium (Dok) 100 Mg Capsule, 100 MG PO BID PRN for CONSTIPATION-1ST LINE Prescribed by: JONES LARSON on 01/30/20 0718 Hydrochlorothiazide (Hydrochlorothiazide) 25 Mg Tablet, (Reported) Entered as Reported by: CLAUDIA HO on 01/12/21 011 Hydrocodone Bit/Acetaminophen (HYDROcodone/APAP 7.5/325 TAB) 1 Ea Tablet, 2 EA PO Q6H PRN for Pain-See Instructions Prescribed by: JONES LARSON on 01/30/20717 Hydrocodone Bit/Acetaminophen (HYDROcodone/APAP 7.5/325 TAB) 1 Ea Tablet, 1-2 EA PO Q4-6 PRN for PAIN Prescribed by: HARESH HARDING on 06/12/201924 Morphine Sulfate (Morphine Sulfate ER) 30 Mg Tablet.er, (Reported) Entered as Reported by: CLAUDIA HO on 01/12/21109 Mupirocin (Mupirocin) 22 Gm Oint...g., (Reported) Entered as Reported by: CLAUDIA HO on 01/12/21109 Naproxen (Naproxen) 250 Mg Tablet, 500 MG PO BID Prescribed by: JONES LARSON on 01/30/20717 Naproxen (Naproxen) 500 Mg Tablet, (Reported) Entered as Reported by: CLAUDIA HO on 01/12/21109 Oxycodone HCl/Acetaminophen (Percocet 5-325 mg Tablet) 1 Each Tablet, 1 TAB PO Q4H PRN for PAIN-MODERATE Prescribed by: TIA GRACE on 02/02/20 161 Prazosin HCl (Prazosin HCl) 1 Mg Capsule, (Reported) Entered as Reported by: CLAUDIA HO on 01/12/21109 Promethazine HCl/Codeine (Prometh-Codein 6.25-10 mg/5 ml) 5 Ml Syrup, 5 ML PO Q4H PRN for COUGH Prescribed by: TIA GRACE on 04/09/20 195 Propranolol HCl (Propranolol HCl) 40 Mg Tablet, 40 MG PO BID, (Reported) Entered as Reported by: MARIANO STROUD on 01/26/201339 Rifampin (Rifampin) 300 Mg Capsule, 300 MG PO BID, (Reported) Entered as Reported by: MARIANO STROUD on 01/26/201339 Sulfamethoxazole/Trimethoprim (Bactrim Ds Tablet) 1 Each Tablet, 1 EACH PO BID Prescribed by: HARESH HARDING on 08/16/212342 Tizanidine HCl (Zanaflex) 4 Mg Capsule, 4 MG PO TID Prescribed by: HARESH HARDING on 08/16/212342 [Gabapentin] , (Reported) Entered as Reported by: CLAUDIA HO on 01/12/21109 [Gabapentin] , (Reported) Entered as Reported by: CLAUDIA HO on 01/12/21109 Review of Systems Constitutional: no symptoms reported Respiratory: no symptoms reported; No cough, No short of breath Cardiovascular: no symptoms reported Gastrointestinal: No abdominal pain, No diarrhea, No nausea, No vomiting Genitourinary: no symptoms reported Control/STD Prophylaxis: Other (HYST/BSO) Musculoskeletal: see HPI, back pain Skin: no symptoms reported Psychiatric/Neurological: No Symptoms Reported Past Kxqmxxs-Oojmlz-Pfhbgw Hx Immunizations Up To Date Tetanus Booster (TDap): Unknown PED Vaccines UTD: No First/Initial COVID19 Vaccinat: 09/03 Second COVID19 Vaccination Dez: 10/03 Third COVID19 Vaccination Date: 09/2020 Seasonal Allergies Seasonal Allergies: Yes Past Medical History Surgery/Hospitalization HX: SURGERY FOR HYDRADENITIS 12/18/[address] 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 Surgeries: Yes (Hemorrhoids, KNEE SCOPE, D&C, DXLS;HYDRADENITIS SURGERIES;HYST/BSO) Abdominal, Appendectomy, Section, Gallbladder, Hysterectomy, Ooph orectomy, Orthopedic, Rectal Respiratory: Yes Asthma Currently Using CPAP: No Currently Using BIPAP: No Cardiac: No Neurological: Yes Headaches /Migraines : No Reproductive Disorders: Yes (PELVIC PAIN) Female Reproductive Disorders: Menstrual Problems, Endometriosis [employer] History: Hysterectomy Sexually Transmitted Disease: No HIV/AIDS: No Genitourinary: Yes UTI-Chronic Gastrointestinal: Yes Gastroesophageal Reflux Musculoskeletal: Yes Arthritis, Chronic Back Pain Endocrine: Yes (MORBID OBESITY) HEENT: No Loss of Vision: Bilateral Hearing Impairment: Denies Cancer: No Psychosocial: Yes Anxiety, Bipolar, Depression Integumentary: Yes (HYDRADENTITIS SUPPURATIVA, MRSA) Recent Skin Changes Blood Disorders: Yes (ANEMIA) Adverse Reaction/Blood Tranf: No Family Medical History Patient reports no known family medical history. No Pertinent Family Hx Physical Exam Vital Signs Vital Signs - First Documented 08/16/21 20:52 Temp 37.0 Pulse 88 Resp 18 B/P (MAP) 149/87 (107) Pulse Ox 99 Capillary Refill : Height, Weight, BMI Height: 5'8.00" Weight: 300lbs. 2.0oz. 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 Norm as Tested Skin: Normal Color (PT IS BLACK), Warm/Dry, Tattoos/Piercings (EXTENSIVE TATTOOS) Progress/Results/Core Measures Results/Orders Lab Results Laboratory Tests Test 08/16/21 21:00 08/16/21 23:10 Range/Units Urine Color YELLOW Urine Clarity CLEAR Urine pH 6.0 5-9 Urine Specific [place] 1.025 H 1.016-1.022 Urine Protein NEGATIVE NEGATIVE Urine Glucose (UA) NEGATIVE NEGATIVE Urine Ketones NEGATIVE NEGATIVE Urine Nitrite NEGATIVE NEGATIVE Urine Bilirubin NEGATIVE NEGATIVE Urine Urobilinogen 0.2 < = 1.0 MG/DL Urine Leukocyte Esterase 1+ H NEGATIVE Urine RBC (Auto) 2+ H NEGATIVE Urine RBC 5-10 H /HPF Urine WBC 5-10 H /HPF Urine Squamous Epithelial Cells 5-10 /HPF Urine Crystals NONE /LPF Urine Bacteria MODERATE H /HPF Urine Casts NONE /LPF Urine Mucus LARGE H /LPF Urine Culture Indicated YES Urine Opiates Screen POSITIVE H NEGATIVE Urine Oxycodone Screen NEGATIVE NEGATIVE Urine Methadone Screen NEGATIVE NEGATIVE Urine Propoxyphene Screen NEGATIVE NEGATIVE Urine Barbiturates Screen NEGATIVE NEGATIVE Ur Tricyclic Antidepressants Screen NEGATIVE NEGATIVE Urine Phencyclidine Screen NEGATIVE NEGATIVE Urine Amphetamines Screen NEGATIVE NEGATIVE Urine Methamphetamines Screen NEGATIVE NEGATIVE Urine Benzodiazepines Screen NEGATIVE NEGATIVE Urine Cocaine Screen NEGATIVE NEGATIVE Urine Cannabinoids Screen NEGATIVE NEGATIVE White Blood Count 10.8 4.3-11.0 10^3/uL Red Blood Count 4.26 3.80-5.11 10^6/uL Hemoglobin 7.8 L 11.5-16.0 g/dL Hematocrit 27 L 35-52 % Mean Corpuscular Volume 63 L 80-99 fL Mean Corpuscular Hemoglobin 18 L 25-34 pg Mean Corpuscular Hemoglobin Concent 29 L 32-36 g/dL Red Cell Distribution Width 21.2 H 10.0-14.5 % Platelet Count 551 H 130-400 10^3/uL Mean Platelet Volume 9.6 9.0-12.2 fL Immature Granulocyte % (Auto) 0 % Neutrophils (%) (Auto) 66 42-75 % Lymphocytes (%) (Auto) 22 12-44 % Monocytes (%) (Auto) 5 0-12 % Eosinophils (%) (Auto) 6 0-10 % Basophils (%) (Auto) 0 0-10 % Neutrophils # (Auto) 7.1 1.8-7.8 10^3/uL Lymphocytes # (Auto) 2.4 1.0-4.0 10^3/uL Monocytes # (Auto) 0.6 0.0-1.0 10^3/uL Eosinophils # (Auto) 0.6 H 0.0-0.3 10^3/uL Basophils # (Auto) 0.0 0.0-0.1 10^3/uL Immature Granulocyte # (Auto) 0.0 0.0-0.1 10^3/uL Sodium Level 139 135-145 MMOL/L Potassium Level 4.0 3.6-5.0 MMOL/L Chloride Level 103 98-107 MMOL/L Carbon Dioxide Level 22 21-32 MMOL/L Anion Gap 14 5-14 MMOL/L Blood Urea Nitrogen 10 7-18 MG/DL Creatinine 0.70 0.60-1.30 MG/DL Estimat Glomerular Filtration Rate 119 BUN/Creatinine Ratio 14 Glucose Level 91 70-105 MG/DL Calcium Level 9.2 8.5-10.1 MG/DL Corrected Calcium 9.5 8.5-10.1 MG/DL Total Bilirubin 0.2 0.1-1.0 MG/DL Aspartate Amino Transf (AST/SGOT) 11 5-34 U/L Alanine Aminotransferase (ALT/SGPT) 10 0-55 U/L Alkaline Phosphatase 72 40-136 U/L Total Protein 8.4 H 6.4-8.2 GM/DL Albumin 3.6 3.2-4.5 GM/DL My Orders Orders - HARESH HARDING DO Ua Culture If Indicated (08/16/21 21:01) Urine Culture (08/16/21 21:00) Ed Iv/Invasive Line Start (08/16/21 22:21) Ct Abd/Pelvis Wo(Kidney Stone) (08/16/21 22:21) Cbc With Automated Diff (08/16/21 22:21) Comprehensive Metabolic Panel (08/16/21 22:21) Drug Screen Stat (Urine) (08/16/21 22:21) Ed Iv/Invasive Line Start (08/16/21 22:21) Lactated Ringers (Lr 1000 Ml Iv Solution (08/16/21 22:30) Ketorolac Injection (Toradol Injection) (08/16/21 22:21) Ceftriaxone 1 Gm Pre-Mix (Rocephin 1 Gm (08/16/21 22:30) Medications Given in ED Current Medications Medications Dose Ordered Sig/Braulio Route Start Time Stop Time Status Last Admin Dose Admin Ceftriaxone Sodium/Dextrose 50 ml @ 100 mls/hr ONCE ONCE IV 08/16/21 22:30 08/16/21 22:59 DC 08/16/21 23:10 100 MLS/HR Lactated Ringer's 1,000 ml @ 0 mls/hr Q0M ONCE IV 08/16/21 22:30 08/16/21 22:31 DC 08/16/21 23:10 999 MLS/HR Vital Signs/I&O 08/16/21 20:52 Temp 37.0 Pulse 88 Resp 18 B/P (MAP) 149/87 (107) Pulse Ox [address] ABDOMEN/PELVIS---PER RADIOLOGIST REPORT AT 2255 FINDINGS: Lung bases are clear. Liver appears normal. Gallbladder is surgically absent. Pancreas is normal. Spleen is not enlarged. Kidneys and adrenals appear normal. There is no hydronephrosis. Ureters are clear. Urinary bladder is normal. Uterus is surgically absent. The appendix is surgically absent. Small bowel is not dilated. Colon is unremarkable. IMPRESSION: Postsurgical changes. No acute abnormality is seen in the abdomen or pelvis. Reviewed: Reviewed by Me Departure Impression Primary Impression: Urinary tract infection with hematuria Additional Impression: Right flank pain Disposition: HOME, SELF-CARE Condition: Stable Departure-Patient Inst. Decision time for Depature: 23:40 Referrals: GOYO CARDONA MD (PCP/Family) Primary Care Physician Patient Instructions: Urinary Tract Infection, Adult ED, Blood in Urine (Hematuria), Adult ED, Flank Pain ED Add. Discharge Instructions: LOTS OF CLEAR LIQUIDS--NO COFFEE, POP OR TEA CONTINUE YOUR MORPHINE NEEDED FOR PAIN , WELL GABAPENTIN FOLLOW UP WITH DR. CARDONA IN 3-4 DAYS IF NO BETTER, RETURN TO ER IF YOUR SYMPTOMS WORSEN All discharge instructions reviewed with patient and/or family. Voiced understanding. Scripts Tizanidine HCl (Zanaflex) 4 Mg Capsule 4 MG PO TID for Spasms, #15 CAP Prov: HARESH HARDING DO 08/16/21 Sulfamethoxazole/Trimethoprim (Bactrim Ds Tablet) 1 Each Tablet 1 EACH PO BID, #20 TAB Prov: HARESH HARDING DO 08/16/21 HARESH HARDING DO Aug 16, 2021 21:12
[2021-08-16 21:41] LABS: BILIRUBIN,URINE NEGATIVE (NEGATIVE); CLARITY,URINE CLEAR; COLOR,URINE YELLOW; GLUCOSE, URINE (UA) NEGATIVE (NEGATIVE); KETONES,URINE NEGATIVE (NEGATIVE); LEUKOCYTE ESTERASE ,URINE 1+ (NEGATIVE); NITRITE,URINE NEGATIVE (NEGATIVE); PROTEIN,URINE NEGATIVE (NEGATIVE)
[2021-08-16 22:09] LABS: BACTERIA,URINE MODERATE /HPF
[2021-08-16] MEDS ORDERED: KETOROLAC 30 MG/ML VIAL IVP STA (22:21)
[2021-08-16] MEDS ORDERED: cefTRIAXone 1 GM PRE-MIX 50 ML IV ONE (22:30)
[2021-08-16] MEDS ORDERED: LACTATED RINGERS 1,000 ML IV ONE (22:30)
[2021-08-16 22:39] LABS: AMPHETAMINE SCREEN, URINE NEGATIVE (NEGATIVE); BARBITURATE SCREEN URINE NEGATIVE (NEGATIVE); BENZODIAZEPINES SCREEN URINE NEGATIVE (NEGATIVE); CANNABINOID SCREEN, URINE NEGATIVE (NEGATIVE); COCAINE SCREEN URINE NEGATIVE (NEGATIVE); METHADONE STAT NEGATIVE (NEGATIVE); OPIATE SCREEN URINE POSITIVE (NEGATIVE); OXYCODONE STAT NEGATIVE (NEGATIVE); PROPOXYPHENE STAT NEGATIVE (NEGATIVE); TRICYCLIC ANTIDEPRESSANTS SCRE NEGATIVE (NEGATIVE)
--- NOTE | 2021-08-16 22:51 | Diagnostic Imaging Report ---
PROCEDURE: CT urinary tract, rule out kidney stone. TECHNIQUE: Multiple contiguous axial images were obtained through the abdomen and pelvis without the use of intravenous contrast. Auto Exposure Controls were utilized during the CT exam to meet ALARA standards for radiation dose reduction. INDICATION: Right flank pain. FINDINGS: Lung bases are clear. Liver appears normal. Gallbladder is surgically absent. Pancreas is normal. Spleen is not enlarged. Kidneys and adrenals appear normal. There is no hydronephrosis. Ureters are clear. Urinary bladder is normal. Uterus is surgically absent. The appendix is surgically absent. Small bowel is not dilated. Colon is unremarkable. IMPRESSION: Postsurgical changes. No acute abnormality is seen in the abdomen or pelvis. Dictated by: Dictated on workstation # [id number]
[2021-08-16 23:24] LABS: BASOPHILS % (AUTO) 0 % (0-10); EOSINOPHILS # (AUTO) 0.6 10^3/uL (0.0-0.3); EOSINOPHILS % (AUTO) 6 % (0-10); HEMATOCRIT 27 % (35-52); HEMOGLOBIN 7.8 g/dL (11.5-16.0); LYMPHOCYTES # (AUTO) 2.4 10^3/uL (1.0-4.0); LYMPHOCYTES % (AUTO) 22 % (12-44); MEAN CORPUSCULAR HEMOGLOBIN 18 pg (25-34); MEAN CORPUSCULAR HGB CONC 29 g/dL (32-36); MEAN CORPUSCULAR VOLUME 63 fL (80-99); MEAN PLATELET VOLUME 9.6 fL (9.0-12.2); MONOCYTES # (AUTO) 0.6 10^3/uL (0.0-1.0); MONOCYTES % (AUTO) 5 % (0-12); NEUTROPHILS # (AUTO) 7.1 10^3/uL (1.8-7.8); NEUTROPHILS % (AUTO) 66 % (42-75); PLATELET COUNT 551 10^3/uL (130-400); WHITE BLOOD COUNT 10.8 10^3/uL (4.3-11.0)
[2021-08-16 23:27] LABS: ALBUMIN 3.6 GM/DL (3.2-4.5)
[2021-08-16 23:28] LABS: CALCIUM 9.2 MG/DL (8.5-10.1)
[2021-08-16 23:29] LABS: TOTAL PROTEIN 8.4 GM/DL (6.4-8.2)
[2021-08-16 23:31] LABS: BILIRUBIN,TOTAL 0.2 MG/DL (0.1-1.0)
[2021-08-16 23:33] LABS: CREATININE SERUM 0.7 MG/DL (0.60-1.30)
[2021-08-16] MEDS ORDERED: TIZA4CAP PO (23:43)
[2021-08-16] MEDS ORDERED: SULF1TAB38 PO (23:43)
[2021-08-16 23:46] VITALS: BP 138/85
== END 2021-08-16 23:51 | disposition home or self-care (01) ==
LOC: EDUNIT# 20:28 → ER 20:29
DX: N39.0 Urinary tract infection, site not specified (principal); E66.9 Obesity, unspecified; Z68.34 Body mass index [BMI] 34.0-34.9, adult
CPT/HCPCS: 36415; 74176; 80053; 80306; 81000; 85025; 87088

== ENCOUNTER 2021-09-30 14:36 | Emergency (ER) | payer SELFPAY ==
[~2021-09-30] VITALS: Ht 175 cm; Wt 149.0 kg
[~2021-09-30 14:36] MED LIST changes: +TIZA4CAP PO
[2021-09-30 14:45] VITALS: BP 147/103
[2021-09-30] MEDS ORDERED: ONDANSETRON 4 MG (ZOFRAN) ORAL DISSOLVE TAB PO ONE (15:00)
[2021-09-30] MEDS ORDERED: HYDROcodone/APAP 5 MG/325 MG (LORTAB) TAB PO ONE (15:00)
--- NOTE | 2021-09-30 15:00 | ED Integumentary General ---
General Chief Complaint: Abdominal/GI Problems Stated Complaint: BELLY BUTTON LEAKAGE,PAIN Nursing Triage Note: ARRIVED VIA AMB WITH COMPLAINTS OF HER BELLY BUTTON DRAINING AFTER HER TODDLER JUMPED ON HER. STATES SHE HAD ABD SURGERY 2 YEARS AGO AND THINKS IT NEVVER HEALED RIGHT. Source: patient Exam Limitations: no limitations History of Present Illness Date Seen by Provider: Sep 30, 2021 Time Seen by Provider: 14:59 Initial Comments To ER with a 4-day history of umbilical drainage of purulent material. States that she had a 2 years ago and does not think it ever healed right. No recent surgery since then. No fevers or chills but she does have some diffuse periumbilical abdominal pain. Timing/Duration: constant Severity: moderate Location: torso Possible Cause: no cause identified Associated Symptoms: denies symptoms Allergies and Home Medications Allergies Coded Allergies: ibuprofen (Unverified Allergy, Mild, HIVES, 06/10/17) Patient Home Medication List Home Medication List Reviewed: Yes Adalimumab (Humira) 40 Mg/0.4 Ml Syringekit, 40 MG SQ WEEK, (Reported) Entered as Reported by: MARIANO STROUD on 01/26/20 1346 Albuterol Sulfate (Proair Hfa) 1 Puff Puff, 2 PUFF IH Q4H, (Reported) Entered as Reported by: BUBBA CAPONE on 01/30/20 0738 Amoxicillin/Potassium Clav (Amox Tr-K Clv 875-125 mg Tab) 1 Each Tablet, (Reported) Entered as Reported by: CLAUDIA HO on 01/12/21 011 Cariprazine Hydrochloride (Vraylar) 1.5 Mg Capsule, 1.5 MG PO DAILY, (Reported) Entered as Reported by: MARIANO STROUD on 01/26/20 134 Cariprazine Hydrochloride (Vraylar) 6 Mg Capsule, (Reported) Entered as Reported by: CLAUDIA HO on 01/12/21 011 Dicyclomine HCl (Dicyclomine HCl) 20 Mg Tablet, 20 MG PO TID, (Reported) Entered as Reported by: MARIANO STROUD on 01/26/20 134 Docusate Sodium (Dok) 100 Mg Capsule, 100 MG PO BID PRN for CONSTIPATION-1ST LINE Prescribed by: JONES LARSON on 01/30/20 0718 Doxycycline Hyclate (Doxycycline Hyclate) 100 Mg Tablet, 100 MG PO BID Prescribed by: TIA GRACE on 09/30/21 1601 Hydrochlorothiazide (Hydrochlorothiazide) 25 Mg Tablet, (Reported) Entered as Reported by: CLAUDIA HO on 01/12/21109 Hydrocodone Bit/Acetaminophen (HYDROcodone/APAP 7.5/325 TAB) 1 Ea Tablet, 2 EA PO Q6H PRN for Pain-See Instructions Prescribed by: JONES LARSON on 01/30/20717 Hydrocodone Bit/Acetaminophen (HYDROcodone/APAP 7.5/325 TAB) 1 Ea Tablet, 1-2 EA PO Q4-6 PRN for PAIN Prescribed by: HARESH HARDING on 06/12/20 192 Morphine Sulfate (Morphine Sulfate ER) 30 Mg Tablet.er, (Reported) Entered as Reported by: CLAUDIA HO on 01/12/21109 Mupirocin (Mupirocin) 22 Gm Oint...g., (Reported) Entered as Reported by: CLAUDIA HO on 01/12/21109 Mupirocin (Mupirocin) 2 % Oint...g., 1 GM TP BID Prescribed by: TIA GRACE on 09/30/21 1623 Naproxen (Naproxen) 250 Mg Tablet, 500 MG PO BID Prescribed by: JONES LARSON on 01/30/20717 Naproxen (Naproxen) 500 Mg Tablet, (Reported) Entered as Reported by: CLAUDIA HO on 01/12/21109 Oxycodone HCl/Acetaminophen (Percocet 5-325 mg Tablet) 1 Each Tablet, 1 TAB PO Q4H PRN for PAIN-MODERATE Prescribed by: TIA GRACE on 02/02/20 1613 Prazosin HCl (Prazosin HCl) 1 Mg Capsule, (Reported) Entered as Reported by: CLAUDIA HO on 01/12/21109 Promethazine HCl/Codeine (Prometh-Codein 6.25-10 mg/5 ml) 5 Ml Syrup, 5 ML PO Q4H PRN for COUGH Prescribed by: TIA GRACE on 04/09/20 195 Propranolol HCl (Propranolol HCl) 40 Mg Tablet, 40 MG PO BID, (Reported) Entered as Reported by: MARIANO STROUD on 01/26/20 1340 Rifampin (Rifampin) 300 Mg Capsule, 300 MG PO BID, (Reported) Entered as Reported by: MARIANO STROUD on 01/26/20 1340 Sulfamethoxazole/Trimethoprim (Bactrim Ds Tablet) 1 Each Tablet, 1 EACH PO BID Prescribed by: HARESH HARDING on 08/16/212342 Tizanidine HCl (Zanaflex) 4 Mg Capsule, 4 MG PO TID Prescribed by: HARESH HARDING on 08/16/212342 [Gabapentin] , (Reported) Entered as Reported by: CLAUDIA HO on 01/12/21109 [Gabapentin] , (Reported) Entered as Reported by: CLAUDIA HO on 01/12/21109 Review of Systems Review of Systems Constitutional: see HPI EENTM: see HPI Respiratory: no symptoms reported Cardiovascular: no symptoms reported Genitourinary: no symptoms reported Musculoskeletal: no symptoms reported Skin: see HPI Psychiatric/Neurological: No Symptoms Reported Past Lxevhle-Fiaotf-Mhzuaz Hx Immunizations Up To Date Tetanus Booster (TDap): Unknown PED Vaccines UTD: No First/Initial COVID19 Vaccinat: 09/03 Second COVID19 Vaccination Dez: 10/03 Third COVID19 Vaccination Date: 09/2020 Seasonal Allergies Seasonal Allergies: Yes Past Medical History Surgery/Hospitalization HX: SURGERY FOR HYDRADENITIS 12/18/[address] 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 No Pertinent Family Hx Physical Exam Vital Signs Vital Signs - First Documented 09/30/21 14:45 Temp 36.2 Pulse 102 Resp 16 B/P (MAP) 147/103 (118) Pulse Ox 100 O2 Delivery Room Air Capillary Refill : Less Than 3 Seconds General Appearance: WD/WN, no apparent distress HEENT: PERRL/EOMI, normal ENT inspection Neck: non-tender, full range of motion Respiratory: no respiratory distress, no accessory muscle use Gastrointestinal: normal bowel sounds, non tender Neurologic/Psychiatric: alert, normal mood/affect, oriented x 3 Skin: normal color, warm/dry, other (There is some granulation tissue within the umbilicus with purulent discharge. Culture collected and sent to lab. No visible surrounding cellulitis. There is some induration just inferior and lateral to the right side of the umbilicus.) Progress/Results/Core Measures Results/Orders Lab Results Laboratory Tests Test 09/30/21 15:50 Range/Units White Blood Count 9.8 4.3-11.0 10^3/uL Red Blood Count 4.71 3.80-5.11 10^6/uL Hemoglobin 8.4 L 11.5-16.0 g/dL Hematocrit 30 L 35-52 % Mean Corpuscular Volume 63 L 80-99 fL Mean Corpuscular Hemoglobin 18 L 25-34 pg Mean Corpuscular Hemoglobin Concent 28 L 32-36 g/dL Red Cell Distribution Width 21.4 H 10.0-14.5 % Platelet Count 592 H 130-400 10^3/uL Mean Platelet Volume 9.4 9.0-12.2 fL Immature Granulocyte % (Auto) 0 % Neutrophils (%) (Auto) 73 42-75 % Lymphocytes (%) (Auto) 20 12-44 % Monocytes (%) (Auto) 4 0-12 % Eosinophils (%) (Auto) 3 0-10 % Basophils (%) (Auto) 1 0-10 % Neutrophils # (Auto) 7.1 1.8-7.8 10^3/uL Lymphocytes # (Auto) 1.9 1.0-4.0 10^3/uL Monocytes # (Auto) 0.4 0.0-1.0 10^3/uL Eosinophils # (Auto) 0.3 0.0-0.3 10^3/uL Basophils # (Auto) 0.1 0.0-0.1 10^3/uL Immature Granulocyte # (Auto) 0.0 0.0-0.1 10^3/uL Sodium Level 136 135-145 MMOL/L Potassium Level 4.0 3.6-5.0 MMOL/L Chloride Level 101 98-107 MMOL/L Carbon Dioxide Level 24 21-32 MMOL/L Anion Gap 11 5-14 MMOL/L Blood Urea Nitrogen 8 7-18 MG/DL Creatinine 0.81 0.60-1.30 MG/DL Estimat Glomerular Filtration Rate 99 BUN/Creatinine Ratio 10 Glucose Level 89 70-105 MG/DL Calcium Level 9.7 8.5-10.1 MG/DL Smear Scan YES My Orders Orders - TIA GRACE BROADCAST DIRECTOR OPERATIONS Cbc With Automated Diff (09/30/21 14:56) Wound Culture (09/30/21 14:56) Ondansetron Oral Dissolve Tab (Zofran (09/30/21 15:00) Hydrocodone/Apap 5/325 Tablet (Lortab 5 (09/30/21 15:00) Basic Metabolic Panel (09/30/21 14:56) Ct Abdomen/Pelvis Wo (09/30/21 14:56) Ketorolac Injection (Toradol Injection) (09/30/21 16:15) Medications Given in ED Current Medications Medications Dose Ordered Sig/Braulio Route Start Time Stop Time Status Last Admin Dose Admin Acetaminophen/ Hydrocodone Bitart 1 ea ONCE ONCE PO 09/30/21 15:00 09/30/21 15:01 DC 09/30/21 15:31 1 EA Ketorolac Tromethamine 60 mg ONCE ONCE IM 09/30/21 16:15 09/30/21 16:16 DC 09/30/21 16:14 60 MG Ondansetron HCl 8 mg ONCE ONCE PO 09/30/21 15:00 09/30/21 15:01 DC 09/30/21 15:30 8 MG Vital Signs/I&O 09/30/21 14:45 Temp 36.2 Pulse 102 Resp 16 B/P (MAP) 147/103 (118) Pulse Ox 100 O2 Delivery Room Air Blood Pressure Mean: 118 Departure Impression Primary Impression: Umbilical discharge Disposition: 01 HOME, SELF-CARE Condition: Stable Departure-Patient Inst. Decision time for Depature: 15:57 Referrals: GOYO CARDONA MD (PCP/Family) Primary Care Physician Patient Instructions: No Instuctions Given Add. Discharge Instructions: Apply the antibiotic cream twice daily. Continue with your hydrocodone and gabapentin for pain control. Add the oral antibiotics as directed. Follow-up with your regular doctor next week. Scripts Mupirocin (Mupirocin) 2 % Oint...g. 1 GM TP BID, #1 EA Prov: TIA GRACE APRN 09/30/21 Doxycycline Hyclate (Doxycycline Hyclate) 100 Mg Tablet 100 MG PO BID, #20 TAB 0 Refills Prov: TIA GRACE APRN 09/30/21 TIA GRACE APRN Sep 30, 2021 15:00
--- NOTE | 2021-09-30 15:46 | Diagnostic Imaging Report ---
PROCEDURE: CT abdomen and pelvis without contrast. TECHNIQUE: Multiple contiguous axial images were obtained through the abdomen and pelvis without the use of intravenous contrast. Auto Exposure Controls were utilized during the CT exam to meet ALARA standards for radiation dose reduction. INDICATION: Draining from the umbilicus. COMPARISON: Correlation is made with prior CT from 08/16/2021. FINDINGS: The lung bases are clear. The liver is unremarkable. The gallbladder is surgically absent. No biliary ductal dilatation is seen. The pancreas and spleen are unremarkable. No adrenal mass is detected. No renal calculi are detected. No ureteral or bladder calculi are identified. Aorta is nonaneurysmal. Small and large bowel loops are normal in caliber. There is no obstruction. There appears to be a fat-containing umbilical hernia. No fluid collection is seen. Uterus is surgically absent. There are some mildly prominent lymph nodes in the inguinal regions bilaterally as well as in the obturator regions bilaterally. Obturator node on the right demonstrates a short axis measurement of 13 mm. The left obturator node has a short axis measurement of 14 mm. No central retroperitoneal or mesenteric lymphadenopathy is seen. There appears to be abnormal soft tissue thickening in the subcutaneous tissues in the midline at the gluteal fold superiorly. This appears similar to prior CT. IMPRESSION: Stable noncontrast CT of the abdomen and pelvis when compared with exam from 08/16/2021. There is pelvic lymphadenopathy, etiology indeterminate. Dictated by: Dictated on workstation # [id number]
[2021-09-30] MEDS ORDERED: DOXY100T2 PO (16:01)
[2021-09-30 16:03] LABS: BASOPHILS # (AUTO) 0.1 10^3/uL (0.0-0.1); BASOPHILS % (AUTO) 1 % (0-10); EOSINOPHILS # (AUTO) 0.3 10^3/uL (0.0-0.3); EOSINOPHILS % (AUTO) 3 % (0-10); HEMATOCRIT 30 % (35-52); HEMOGLOBIN 8.4 g/dL (11.5-16.0); LYMPHOCYTES # (AUTO) 1.9 10^3/uL (1.0-4.0); LYMPHOCYTES % (AUTO) 20 % (12-44); MEAN CORPUSCULAR HEMOGLOBIN 18 pg (25-34); MEAN CORPUSCULAR HGB CONC 28 g/dL (32-36); MEAN CORPUSCULAR VOLUME 63 fL (80-99); MEAN PLATELET VOLUME 9.4 fL (9.0-12.2); MONOCYTES # (AUTO) 0.4 10^3/uL (0.0-1.0); MONOCYTES % (AUTO) 4 % (0-12); NEUTROPHILS # (AUTO) 7.1 10^3/uL (1.8-7.8); NEUTROPHILS % (AUTO) 73 % (42-75); PLATELET COUNT 592 10^3/uL (130-400); WHITE BLOOD COUNT 9.8 10^3/uL (4.3-11.0)
[2021-09-30] MEDS ORDERED: KETOROLAC 60 MG/2 ML VIAL IM ONE (16:15)
[2021-09-30 16:16] LABS: CALCIUM 9.7 MG/DL (8.5-10.1)
[2021-09-30 16:17] LABS: SMEAR SCAN COMMENT YES
[2021-09-30 16:20] LABS: CREATININE SERUM 0.81 MG/DL (0.60-1.30)
[2021-09-30] MEDS ORDERED: MUPI22OI2 TP (16:23)
== END 2021-09-30 16:29 | disposition home or self-care (01) ==
LOC: EDUNIT# 14:36 → ER 14:38
DX: R19.8 Other specified symptoms and signs involving the digestive system and abdomen (principal); E66.01 Morbid (severe) obesity due to excess calories; Z98.890 Other specified postprocedural states; Z90.49 Acquired absence of other specified parts of digestive tract; Z90.710 Acquired absence of both cervix and uterus; Z90.722 Acquired absence of ovaries, bilateral
CPT/HCPCS: 36415; 74176; 80048; 85025; 87070; 87205

== ENCOUNTER → 2021-10-23 | Outpatient (CLI) | payer OTHER ==
[~2021-10-23] MED LIST changes: +MUPI22OI2 TP
--- NOTE | 2021-10-23 10:46 | Diagnostic Imaging Report ---
PROCEDURE: US Abdomen, limited. TECHNIQUE: Multiple realtime grayscale images were obtained over the abdomen in various projections. INDICATION: Draining from umbilicus for 4 weeks. Sonographic interrogation of the anterior abdomen midline near the umbilicus was performed. There is heterogeneous hypoechogenicity just deep to the umbilicus with some increased vascularity but no discrete fluid collection is identified. No other abnormalities are seen. IMPRESSION: There is some heterogeneity and vascularity just deep to the umbilicus but no discrete fluid collection is detected. Dictated by: Dictated on workstation # [id number]
== END ==
LOC: RAD 09:00
PROVIDERS: ATTEND Surgery
DX: R19.00 Intra-abdominal and pelvic swelling, mass and lump, unspecified site (principal)
CPT/HCPCS: 76705

== ENCOUNTER → 2021-11-14 | Outpatient (CLI) | payer SELFPAY ==
[~2021-11-14] VITALS: Ht 175.3 cm; Wt 149.0 kg
== END | disposition home or self-care (01) ==
LOC: PREOP 05:33
PROVIDERS: ATTEND Surgery
DX: Z01.818 Encounter for other preprocedural examination (principal)

== ENCOUNTER 2021-11-20 08:07 | Day surgery (SDC) | payer OTHER ==
[2021-11-20] VITALS (11 sets, daily range): BP systolic 134–171; BP diastolic 58–100
[~2021-11-20] VITALS: Ht 175.3 cm; Wt 149.0 kg
[~2021-11-20 08:07] MED LIST changes: -PRAZ1CAP2; +PRAZ1CAP2 PO
[2021-11-20] MEDS ORDERED: ceFAZolin INJECTION 2,000 MG VIAL IV ONE (08:30)
[2021-11-20] MEDS ORDERED: FAMOTIDINE 20MG/2ML IV (PEPCID) IVP ONE (08:45)
[2021-11-20] MEDS ORDERED: ONDANSETRON 4 MG/2 ML (SDV) Z0FRAN IVP ONE (08:45)
[2021-11-20] MEDS ORDERED: RT-ALBUTEROL SULF 2.5 MG/3 ML PRE-MIX VIAL ONE (08:50)
[2021-11-20] MEDS ORDERED: MORP30TA60 PO (08:56)
[2021-11-20] MEDS ORDERED: HYDR-34 PO (08:56)
[2021-11-20] MEDS ORDERED: MELO15TA39 PO (08:56)
[2021-11-20] MEDS ORDERED: GABA300C PO (08:56)
[2021-11-20] MEDS ORDERED: NS (IVPB) 50 ML ONE (09:04)
[2021-11-20 09:39] LABS: HEMOGLOBIN 7.3 g/dL (11.5-16.0)
[2021-11-20] MEDS: LACTATED RINGERS 1,000 ML IV PRN ×2 (09:40→12:31)
--- NOTE | 2021-11-20 10:20 | Progress Note-Pre Operative ---
Pre-Operative Progress Note Date of Available H&P: Oct 30, 2021 Date H&P Reviewed: Nov 20, 2021 Time H&P Reviewed: 10:19 History & Physical: H&P Reviewed, Patient Examed, No changes noted Pre-Operative Diagnosis: umbilical hernia, infected cyst umbilicus CULLEN DE DO Nov 20, 2021 10:20
[2021-11-20] MEDS ORDERED: LIDOCAINE/EPI 2% 1:200,00 (XYLOCAINE) 20 ML VIAL ONE (11:11)
[2021-11-20] MEDS ORDERED: MIDAZOLAM 2 MG/2 ML (VERSED) VIAL ONE (11:43)
[2021-11-20] MEDS ORDERED: LIDOCAINE PF 2% 5 ML (XYLOCAINE) VIAL ONE (11:43)
[2021-11-20] MEDS ORDERED: fentaNYL INJ 100 MCG/2 ML AMP ONE (11:43)
[2021-11-20] MEDS ORDERED: ONDANSETRON 4 MG/2 ML (SDV) Z0FRAN ONE (11:43)
[2021-11-20] MEDS ORDERED: SEVOFLURANE (ULTANE) 15 ML INHAL SOLN ONE (11:43)
[2021-11-20] MEDS ORDERED: proPOfol 200 MG/20 ML (DIPRIVAN) VIAL IV ONE (11:43)
[2021-11-20] MEDS ORDERED: GLYCOPYRROLATE 0.2 MG/ML (ROBINUL) 2 ML VIAL ONE (12:40)
[2021-11-20] MEDS ORDERED: ROCURONIUM 50 MG/5 ML (ZEMURON) VIAL IV ONE (12:40)
[2021-11-20] MEDS ORDERED: NEOSTIGMINE (BLOXIVERZ ) 1 MG/1ML 10 ML VIAL ONE (12:40)
[2021-11-20] MEDS ORDERED: SUCCINYLCHOLINE INJ 100 MG/5 ML SYR/VIAL ONE (12:40)
[2021-11-20] MEDS ORDERED: morphine INJ 10 MG/ML 1ML (SYR OR VIAL) ONE (13:02)
--- NOTE | 2021-11-20 13:05 | Anesthesia-General Post-Op ---
General Patient Condition Mental Status/LOC: Same as Preop Cardiovascular: Satisfactory Nausea/Vomiting: Absent Respiratory: Satisfactory Pain: Controlled Complications: Absent Post Op Complications Complications None Follow Up Care/Instructions Patient Instructions None needed. Anesthesia/Patient Condition Patient Condition Patient is doing well, no complaints, stable vital signs, no apparent adverse anesthesia problems. No complications reported per nursing. MALENA JOHNSON CRNA Nov 20, 2021 13:05
[2021-11-20] MEDS ORDERED: ONDANSETRON 4 MG/2 ML (SDV) Z0FRAN IVP PRN (13:15)
[2021-11-20] MEDS ORDERED: morphine INJ 10 MG/ML 1ML (SYR OR VIAL) IVP ONE (13:15)
[2021-11-20] MEDS ORDERED: fentaNYL INJ 100 MCG/2 ML AMP IVP ONE (13:15)
[2021-11-20] MEDS ORDERED: MEPERIDINE (DEMEROL) INJ 50 MG/ML IVP ONE (13:15)
--- NOTE | 2021-11-20 13:59 | Discharge Inst-Simple/Standard ---
Discharge Inst-Standard Patient Instructions/Follow Up Plan of Care/Instructions/FU: 2 weeks Beatris Activity as Tolerated: No Discharge Diet: Regular Diet Other Inst to Patient Follow up Appt: Make appointment for 2 week. Instructions: No lifting greater than 10 pounds. No strenuous activity. May shower in 24 hours, no tub bath or soaking. Use incentive spirometer at home as directed. No Smoking Skin/Wound Care: Keep area clean and dry. Change dressing daily. If bandage remains clean after 48 hours you can leave open to air. Symptoms to Report: Appetite Changes, Extremity Discoloration, Numbness/Tingling, Swelling Increased, Bleeding Excessive, Eyesight Changes, Pain Increased, Urine Color C hange, Constipation(Persistent), Fever over 101 degree F, Pain/Pressure in chest, Urinating Difficulty, Cough Up/Vomit Blood, Heart Beat Irreg/Pounding, Pain/Pressure in jaw, Vaginal Bleeding Increase, Cramps in feet or legs, Lightheadedness, Pain/Pressure in shoulder, Diarrhea(Persistent), Memory Changes Suddenly, Questions/Concerns, Weight gain consecutive days, Dizziness/Fainting, Nausea/Vomiting, Shortness of Breath, Weight gain over 2 pounds If questions or concerns contact your physician Or seek help at emergency department. CULLEN DE DO Nov 20, 2021 13:59
--- NOTE | 2021-11-20 14:01 | Progress Note-Post Operative ---
Post-Operative Progess Note Surgeon (s)/Mop Handle Assembler (s) Surgeon CULLEN DE DO Mop Handle Assembler: Dr. Bella Pre-Operative Diagnosis umbilical hernia, infected cyst umbilicus Post-Operative Diagnosis umbilical cyst/hydradentitis, umbilical hernia Procedure & Operative Findings Date of Procedure 11/20/21 Procedure Performed/Findings excision skin and subcutaneous tissue and primary umbilical hernia repair. Anesthesia Type general Estimated Blood Loss Estimated blood loss (mL): minimal Specimens/Packing Specimens Removed skin and subcut tissue CULLEN DE DO Nov 20, 2021 14:01
[2021-11-20] MEDS ORDERED: HYDROcodone/APAP 7.5 MG/325 MG (LORTAB, LORCET PLUS) TABLET PO ONE ×2 (14:15→14:23)
--- NOTE | 2021-11-20 21:45 | OPERATIVE REPORT ---
DATE OF SERVICE: 11/20/2021 PREOPERATIVE DIAGNOSES: Umbilical hernia, infected cyst of the umbilicus. POSTOPERATIVE DIAGNOSES: Umbilical cyst/hidradenitis and umbilical hernia. PROCEDURE: Excision of skin and subcutaneous tissue of the umbilicus 6.5 x 3 x 5 cm and primary umbilical hernia repair. SURGEON: Cullen Spear DO PASTE WORKER: Dr. Bella, assisted in retraction, dissection and closure. ANESTHESIA: General. ESTIMATED BLOOD LOSS: Minimal. COMPLICATIONS: None. INDICATIONS: The patient is a 31-year-old female with some slight drainage from the umbilical stalk, but also skin changes, which could be either umbilical cyst or hidradenitis. She also has a small umbilical hernia. She understands risks and benefits of procedure, wishes to proceed. Consent was signed in the chart. DESCRIPTION OF PROCEDURE: The patient was taken to the operating suite. She was prepped and draped in sterile fashion. Timeout was performed. Elliptical incision was made around the umbilicus removing the umbilicus and subcutaneous tissues around the umbilical stalk all the way down to the fascia, which was then removed, all the surrounding tissue appeared normal and not infected. The umbilical stalk was then divided also noting hernia contents of fat. The overall measurement was 6.5 x 3 x 5 cm. The fascial defect, all the hernia contents were reduced and the fascia was then closed using 1-0 PDS in a pant over shirt fashion to the primary closure. Wound was then irrigated with copious amounts of irrigation. Hemostasis was achieved. The skin was then closed using theodore. The area was washed and dried and sterile bandage was applied. The patient tolerated procedure well without any complications. She was taken to recovery room in stable condition. Job ID: [id number] DocumentID: [id number] Dictated Date: 11/20/2021 14:09:54 Communications Professional Date: 11/20/2021 21:45:17 Dictated By: CULLEN SPEAR DO
== END 2021-11-20 15:05 | disposition home or self-care (01) ==
LOC: SDC 08:07
PROVIDERS: ATTEND Surgery
DX: K42.9 Umbilical hernia without obstruction or gangrene (principal); L08.82 Omphalitis not of newborn; E66.01 Morbid (severe) obesity due to excess calories; Z68.42 Body mass index [BMI] 45.0-49.9, adult; Z87.891 Personal history of nicotine dependence; L72.3 Sebaceous cyst
CPT/HCPCS: 36415; 85014; 85018; 86850; 86900; 86901; 87081; 94640; 94760

== ENCOUNTER 2022-01-05 14:14 | Emergency (ER) | payer MEDICAID, OTHER ==
[~2022-01-05] VITALS: Ht 175.3 cm; Wt 140.0 kg
[~2022-01-05 14:14] MED LIST changes: +GABA300C PO; +MELO15TA39 PO; +MORP30TA60 PO
--- NOTE | 2022-01-05 14:33 | ED Back Pain ---
General Stated Complaint: BACK PAIN Source of Information: Patient Exam Limitations: No Limitations History of Present Illness Date Seen by Provider: Jan 05, 2022 Time Seen by Provider: 14:30 Initial Comments Patient is a 31 yo F who presents to the ED with left flank pain that began approximately one week ago. She states the pain is worse with certain movements. Denies any urinary symptoms initially but then states that she has felt like she has been unable to empty her bladder fully. Denies dysuria, urinary frequency, N/V/D. She has not had a fever. Denies any recent trauma preceding the pain. Is currently on morphine and lortab for her chronic pain r/t Hidradenitis Supporativa. States these medications are not helping the pain. Timing/Duration: 6-7 Days Pain/Injury Location: Back Allergies and Home Medications Allergies Coded Allergies: ibuprofen (Unverified Allergy, Mild, HIVES, 06/10/17) Patient Home Medication List Home Medication List Reviewed: Yes Albuterol Sulfate (Proair Hfa) 1 Puff Puff, 2 PUFF IH Q4H, (Reported) Entered as Reported by: BUBBA CAPONE on 01/30/20 0738 Cariprazine Hydrochloride (Vraylar) 1.5 Mg Capsule, 1.5 MG PO DAILY, (Reported) Entered as Reported by: MARIANO STROUD on 01/26/20 1346 Dicyclomine HCl (Dicyclomine HCl) 20 Mg Tablet, 20 MG PO TID, (Reported) Entered as Reported by: MARIANO STROUD on 01/26/20 1340 Gabapentin (Neurontin) 300 Mg Capsule, 300 MG PO TID, (Reported) Entered as Reported by: JUNAID MCKEON on 11/20/21 0856 Hydrocodone Bit/Acetaminophen (HYDROcodone/APAP 7.5/325 TAB) 1 Ea Tablet, 1 EA PO Q6H, (Reported) Entered as Reported by: JUNAID MCKEON on 11/20/21 0856 Meloxicam (Meloxicam) 15 Mg Tablet, 15 MG PO DAILY, (Reported) Entered as Reported by: JUNAID MCKEON on 11/20/21 0856 Morphine Sulfate (Ms Contin) 30 Mg Tablet.er, 30 MG PO Q12H, (Reported) Entered as Reported by: JUNAID MCKEON on 11/20/21 0856 Nitrofurantoin Monohyd/M-Cryst (Macrobid 100 mg Capsule) 100 Mg Capsule, 1 TAB PO BID Prescribed by: Robb Liu on 01/05/22 161 Phenazopyridine HCl (Phenazopyridine HCl) 200 Mg Tablet, 200 MG PO TID Prescribed by: Robb Liu on 01/05/22 161 Prazosin HCl (Prazosin HCl) 1 Mg Capsule, 1 CAP PO HS, (Reported) Entered as Reported by: CLAUDIA HO on 01/12/21 0110 Review of Systems Constitutional: no symptoms reported EENTM: no symptoms reported Respiratory: no symptoms reported Cardiovascular: no symptoms reported Gastrointestinal: no symptoms reported Musculoskeletal: no symptoms reported Skin: no symptoms reported Psychiatric/Neurological: No Symptoms Reported Past Cpgvhwo-Ypnbbk-Dbquft Hx Immunizations Up To Date Tetanus Booster (TDap): Unknown PED Vaccines UTD: No First/Initial COVID19 Vaccinat: 2020 Second COVID19 Vaccination Dez: 2020 Third COVID19 Vaccination Date: UNKNOWN Seasonal Allergies Seasonal Allergies: Yes Past Medical History Surgery/Hospitalization HX: SURGERY FOR HYDRADENITIS 12/18/[address] 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 No Pertinent Family Hx Physical Exam Vital Signs Vital Signs - First Documented 01/05/22 14:22 Temp 37.1 Pulse 96 Resp 18 B/P (MAP) 123/93 (103) Pulse Ox 100 O2 Delivery Room Air Capillary Refill : Height, Weight, BMI Height: 5'8.00" Weight: 300lbs. 2.0oz. 136.444622fo; 48.48 BMI Method:Stated General Appearance: No Apparent Distress, WD/WN HEENT: PERRL/EOMI, TMs Normal, Normal ENT Inspection, Pharynx Normal Neck: Full Range of Motion Cardiovascular: Regular Rate, Rhythm Respiratory: Chest Non Tender, Lungs Clear Gastrointestinal: Normal Bowel Sounds Extremity: Normal Capillary Refill Neurologic/Psychiatric: Alert, Oriented x3, No Motor/Sensory Deficits, Normal Mood/Affect Skin: Normal Color, Warm/Dry Progress/Results/Core Measures Results/Orders Lab Results Laboratory Tests Test 01/05/22 14:23 Range/Units Urine Color YELLOW Urine Clarity SL CLOUDY Urine pH 7.0 5-9 Urine Specific Superior 1.020 1.016-1.022 Urine Protein NEGATIVE NEGATIVE Urine Glucose (UA) NEGATIVE NEGATIVE Urine Ketones NEGATIVE NEGATIVE Urine Nitrite NEGATIVE NEGATIVE Urine Bilirubin NEGATIVE NEGATIVE Urine Urobilinogen 0.2 < = 1.0 MG/DL Urine Leukocyte Esterase 2+ H NEGATIVE Urine RBC (Auto) NEGATIVE NEGATIVE Urine RBC NONE /HPF Urine WBC 10-25 H /HPF Urine Squamous Epithelial Cells 5-10 /HPF Urine Crystals NONE /LPF Urine Bacteria MODERATE H /HPF Urine Casts NONE /LPF Urine Mucus LARGE H /LPF Urine Culture Indicated YES My Orders Orders - ROBB LIU APRN Ua Culture If Indicated (01/05/22 14:39) Ct Abdomen/Pelvis Wo (01/05/22 14:47) Urine Culture (01/05/22 14:23) Ketorolac Injection (Toradol Injection) (01/05/22 16:00) Medications Given in ED Current Medications Medications Dose Ordered Sig/Braulio Route Start Time Stop Time Status Last Admin Dose Admin Ketorolac Tromethamine 30 mg ONCE ONCE IM 01/05/22 16:00 01/05/22 16:01 DC 01/05/22 16:01 30 MG Vital Signs/I&O 01/05/22 01/05/22 14:22 16:45 Temp 37.1 Pulse 96 90 Resp 18 18 B/P (MAP) 123/93 (103) 127/88 Pulse Ox 100 100 O2 Delivery Room Air Room Air Progress Progress Note : Progress Note Patient is nontoxic and well hydrated on exam. Vital signs are reassuring. Patient does not have any abdominal or flank TTP. No abd rigidity or distention appreciated. Urinalysis notable for pyuria and bacteriuria c/w UTI. CT of the abd/pelvis is negative for acute findings. Will treat UTI with macrobid. Will give short prescription for pyridium for any spasming. Follow-up with PCP for persistent symptoms. Return precautions for urgent symptomology discussed. Patient verbalized understanding. Departure Impression Primary Impression: UTI (urinary tract infection) Qualified Codes: N30.00 - Acute cystitis without hematuria Additional Impression: Left flank pain Disposition: HOME, SELF-CARE Condition: Stable Departure-Patient Inst. Decision time for Depature: 16:10 Referrals: GOYO CARDONA MD (PCP/Family) Primary Care Physician Patient Instructions: Urinary Tract Infection, Adult ED, Flank Pain Scripts Phenazopyridine HCl (Phenazopyridine HCl) 200 Mg Tablet 200 MG PO TID for 2 Days, #6 TAB 0 Refills Prov: ROBB LIU APRN 01/05/22 Nitrofurantoin Monohyd/M-Cryst (Macrobid 100 mg Capsule) 100 Mg Capsule 1 TAB PO BID for 5 Days, #10 CAP 1 Refill Prov: ROBB LIU APRN 01/05/22 ROBB LIU APRN Jan 05, 2022 14:33
[2022-01-05 14:46] LABS: BILIRUBIN,URINE NEGATIVE (NEGATIVE); CLARITY,URINE SL CLOUDY; COLOR,URINE YELLOW; GLUCOSE, URINE (UA) NEGATIVE (NEGATIVE); KETONES,URINE NEGATIVE (NEGATIVE); LEUKOCYTE ESTERASE ,URINE 2+ (NEGATIVE); NITRITE,URINE NEGATIVE (NEGATIVE); PROTEIN,URINE NEGATIVE (NEGATIVE)
[2022-01-05 14:55] LABS: BACTERIA,URINE MODERATE /HPF
[2022-01-05] MEDS ORDERED: KETOROLAC 30 MG/ML VIAL IVP ONE (15:00)
--- NOTE | 2022-01-05 15:40 | Diagnostic Imaging Report ---
PROCEDURE: CT abdomen and pelvis without contrast. TECHNIQUE: Multiple contiguous axial images were obtained through the abdomen and pelvis without the use of intravenous contrast. Auto Exposure Controls were utilized during the CT exam to meet ALARA standards for radiation dose reduction. INDICATION: Low back pain. Left flank pain. Urinary hesitancy. COMPARISON: CT abdomen and pelvis without contrast 09/30/2021. FINDINGS: Cholecystectomy. Borderline splenomegaly. The liver, pancreas, adrenals, kidneys, collecting systems and decompressed bladder are negative on this noncontrast exam. Hysterectomy. Appendectomy. No free intraperitoneal air or fluid. No lymphadenopathy. No evidence of bowel obstruction. No acute osseous finding. Soft tissue thickening along the intergluteal cleft with locules of gas in the region. IMPRESSION: 1. Borderline splenomegaly. 2. Hysterectomy. Cholecystectomy. Appendectomy. 3. Nonspecific soft tissue thickening along the intergluteal cleft with associated small locules of gas. It is unclear if these locules of gas are within the cleft or within the dermis and subcutaneous tissues. Recommend correlation with history and clinical findings. 4. No evidence of nephrolithiasis or hydronephrosis. Dictated by: Dictated on workstation # [id number]
[2022-01-05] MEDS ORDERED: KETOROLAC 30 MG/ML VIAL IM ONE (16:00)
[2022-01-05] MEDS ORDERED: NITR-65 PO (16:17)
[2022-01-05] MEDS ORDERED: PHEN-827 PO (16:17)
[2022-01-05 16:45] VITALS: BP 127/88
== END 2022-01-05 16:45 | disposition home or self-care (01) ==
LOC: EDUNIT# 14:14 → ER 14:16
DX: N39.0 Urinary tract infection, site not specified (principal); E66.01 Morbid (severe) obesity due to excess calories; Z68.42 Body mass index [BMI] 45.0-49.9, adult
CPT/HCPCS: 74176; 81000; 87088

== ENCOUNTER 2022-07-06 00:57 | Emergency (ER) | payer MEDICAID ==
[~2022-07-06] VITALS: Ht 177.8 cm; Wt 140.0 kg
[2022-07-06 00:57] VITALS: BP 128/101
[~2022-07-06 00:57] MED LIST changes: +ALBU8.5H6 IH; +PHEN-827 PO
--- NOTE | 2022-07-06 01:15 | ED General ---
General Chief Complaint: Head/Cervical Problems Stated Complaint: MIGRAINE Source of Information: Patient, Old Records History of Present Illness Date Seen by Provider: Jul 06, 2022 Time Seen by Provider: 00:57 Initial Comments PT ARRIVES VIA EMS FROM HOME--WALKS INTO ER ON HER OWN WITHOUT DIFFICULTY FROM THE AMBULANCE, WEARING NIGHTGOWN, ROBE, AND SLIDE-TYPE SANDALS PT WITH MULTIPLE COMPLAINTS--ALL ONGOING X 6 DAYS, ALL STARTED AT THE SAME TIME C/O HEADACHE--PAIN TO TOP, SIDES AND BACK OF HEAD -BLURRED VISION -LIGHT SENSITIVITY C/O CHEST PAIN--NO RADIATION OF PAIN STATES HER NEUROPATHY IS WORSE X 6 DAYS SHE DENIES HISTORY OF DIABETES, OR HTN PT STATES SHE GETS HEADACHES ABOUT ONCE A MONTH, BUT NOT LIKE THIS SHE STATES NORMALLY SHE TAKES EXCEDRIN AND HER HEADACHE GOES AWAY. SHE HAS NOT TAKEN ANY EXCEDRIN FOR THIS HEADACHE SHE ALSO HAS MORPHINE AND HYDROCODONE AT HOME, BUT CLAIMS SHE HAS NOT TAKEN ANY FOR THE LAST FEW DAYS SHE SAW DR. CARDONA ON Thursday07/04/22 FOR THIS PROBLEM, NO TESTS WERE DONE. SHE WAS GIVEN RX FOR IMITREX. SHE HAS TAKEN A TOTAL OF 2 DOSES--FIRST DOSE AND 1930 AND SECOND DOSE AT 21 30--NO RELIEF SHE HAS NOT TAKEN ANYTHING ELSE FOR HER SYMPTOMS NO FEVER NO URI SYMPTOMS OR COUGH OR SORE THROAT NO GI SYMPTOMS NO SHORTNESS OF BREATH NO SWELLING IN LEGS/FEET OR PAIN IN CALVES PCP: DR. CARDONA Allergies and Home Medications Allergies Coded Allergies: ibuprofen (Unverified Allergy, Mild, HIVES, 06/10/17) Patient Home Medication List Home Medication List Reviewed: Yes Albuterol Sulfate (Ventolin Hfa) 1 Puff Puff, 2 PUFF IH Q4H, (Reported) Entered as Reported by: BUBBA CAPONE on 01/30/20 0738 Cariprazine Hydrochloride (Vraylar) 1.5 Mg Capsule, 1.5 MG PO DAILY, (Reported) Entered as Reported by: MARIANO STROUD on 01/26/20 1346 Dicyclomine HCl (Dicyclomine HCl) 20 Mg Tablet, 20 MG PO TID, (Reported) Entered as Reported by: MARIANO STROUD on 01/26/20 1340 Gabapentin (Neurontin) 300 Mg Capsule, 300 MG PO TID, (Reported) Entered as Reported by: JUNAID MCKEON on 11/20/21 0856 Hydrocodone Bit/Acetaminophen (HYDROcodone/APAP 7.5/325 TAB) 1 Ea Tablet, 1 EA PO Q6H, (Reported) Entered as Reported by: JUNAID Vela MIKE on 11/20/21 08 Meloxicam (Meloxicam) 15 Mg Tablet, 15 MG PO DAILY, (Reported) Entered as Reported by: JUNAID MCKEON on 11/20/21 08 Morphine Sulfate (Ms Contin) 30 Mg Tablet.er, 30 MG PO Q12H, (Reported) Entered as Reported by: JUNAID MCKEON on 11/20/21 08 Nitrofurantoin Monohyd/M-Cryst (Macrobid 100 mg Capsule) 100 Mg Capsule, 1 TAB PO BID Prescribed by: Robb Liu on 01/05/22 161 Nitrofurantoin Monohyd/M-Cryst (Macrobid 100 mg Capsule) 100 Mg Capsule, 1 TAB PO BID Prescribed by: HARESH HARDING on 07/06/22 0250 Ondansetron (Ondansetron Odt) 8 Mg Tab.rapdis, 8 MG PO Q6H Prescribed by: HARESH HARDING on 07/06/22 0250 Phenazopyridine HCl (Phenazopyridine HCl) 200 Mg Tablet, 200 MG PO TID Prescribed by: Robb Liu on 01/05/22 161 Prazosin HCl (Prazosin HCl) 1 Mg Capsule, 1 CAP PO HS, (Reported) Entered as Reported by: CLAUDIA HO on 01/12/21 0110 Prednisone (Prednisone) 20 Mg Tab, 40 MG PO DAILY Prescribed by: HARESH HARDING on 07/06/22 0250 Review of Systems Review of Systems Constitutional: no symptoms reported EENTM: no symptoms reported Respiratory: no symptoms reported Cardiovascular: see HPI Gastrointestinal: see HPI Genitourinary: no symptoms reported Musculoskeletal: no symptoms reported Skin: no symptoms reported Psychiatric/Neurological: See HPI Hematologic/Lymphatic: No Symptoms Reported Immunological/Allergic: no symptoms reported Past Wgcewbh-Ezkhzp-Sgxcae Hx Patient Social History Tobacco Use?: Yes Tobacco type used: Cigarettes Smoking Status: Former Smoker Use of E-Cig and/or Vaping dev: Yes E-Cig or Vaping type used: Nicotine Use of E-Cig and/or Vaping Ender: Current Everyday User Substance use?: No Alcohol Use?: No Immunizations Up To Date Tetanus Booster (TDap): Unknown PED Vaccines UTD: No First/Initial COVID19 Vaccinat: 2020 Second COVID19 Vaccination Dez: 2020 Third COVID19 Vaccination Date: 06/2021 Seasonal Allergies Seasonal Allergies: Yes Past Medical History Surgery/Hospitalization HX: SURGERY FOR HYDRADENITIS 12/18/[address] 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 No Pertinent Family Hx Physical Exam Vital Signs Vital Signs - First Documented 07/06/22 00:57 Temp 36.8 Pulse 75 Resp 16 B/P (MAP) 128/101 (110) Pulse Ox 100 O2 Delivery Room Air Capillary Refill : Height, Weight, BMI Height: 5'8.00" Weight: 300lbs. 2.0oz. 136.736467hm; 45.00 BMI Method:Stated General Appearance: No Apparent Distress, WD/WN, Obese, Other (HEAD IS SHAVED ALL AROUND SIDES AND BACK, WITH LARGE AMOUNT OF HAIR / EXTENSIONS ON TOP OF HEAD, PULLED INTO TIGHT "PONYTAIL" ON TOP OF HEAD. ) HEENT: PERRL/EOMI, TMs Normal, Normal ENT Inspection, Pharynx Normal, Moist Mucous Membranes; No Pale Conjunctivae (L), No Pale Conjunctivae (R) Neck: Full Range of Motion, Normal Inspection, Non Tender, Supple Respiratory: Normal Breath Sounds, No Accessory Muscle Use, No Respiratory Distress, Other (CHEST IS TENDER TO PALPATION--REPRODUCES PAIN ) Cardiovascular: Regular Rate, Rhythm, No Edema, No JVD, No Murmur, Normal Peripheral Pulses Gastrointestinal: Non Tender, Soft Back: Normal Inspection, No CVA Tenderness, No Vertebral Tenderness Extremity: Normal Capillary Refill, Normal Inspection, Normal Range of Motion, Non Tender, No Calf Tenderness, No Pedal Edema Neurologic/Psychiatric: Alert, Oriented x3, No Motor/Sensory Deficits, 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 ) Skin: Normal Color (PT IS BLACK), Warm/Dry; No Rash Progress/Results/Core Measures Suspected Sepsis SIRS Temperature: Pulse: Respiratory Rate: Laboratory Tests 07/06/22 01:10: White Blood Count 9.0 Blood Pressure / Mean: Laboratory Tests 07/06/22 01:10: Creatinine 0.71, INR Comment 1.1, Platelet Count 433H, Total Bilirubin 0.2 Results/Orders Lab Results Laboratory Tests Test 07/06/22 01:10 07/06/22 02:05 Range/Units White Blood Count 9.0 4.3-11.0 10^3/uL Red Blood Count 4.68 3.80-5.11 10^6/uL Hemoglobin 8.5 L 11.5-16.0 g/dL Hematocrit 29 L 35-52 % Mean Corpuscular Volume 61 L 80-99 fL Mean Corpuscular Hemoglobin 18 L 25-34 pg Mean Corpuscular Hemoglobin Concent 30 L 32-36 g/dL Red Cell Distribution Width 21.8 H 10.0-14.5 % Platelet Count 433 H 130-400 10^3/uL Mean Platelet Volume 9.9 9.0-12.2 fL Immature Granulocyte % (Auto) 0 % Neutrophils (%) (Auto) 57 42-75 % Lymphocytes (%) (Auto) 31 12-44 % Monocytes (%) (Auto) 4 0-12 % Eosinophils (%) (Auto) 8 0-10 % Basophils (%) (Auto) 0 0-10 % Neutrophils # (Auto) 5.1 1.8-7.8 10^3/uL Lymphocytes # (Auto) 2.8 1.0-4.0 10^3/uL Monocytes # (Auto) 0.3 0.0-1.0 10^3/uL Eosinophils # (Auto) 0.7 H 0.0-0.3 10^3/uL Basophils # (Auto) 0.0 0.0-0.1 10^3/uL Immature Granulocyte # (Auto) 0.0 0.0-0.1 10^3/uL Percent Immature Platelet Fraction 2.7 0.0-7.6 % Erythrocyte Sedimentation Rate 92 H 0-20 MM/HR Prothrombin Time 14.3 12.2-14.7 SEC INR Comment 1.1 0.8-1.4 Activated Partial Thromboplast Time 38 H 24-35 SEC Sodium Level 138 135-145 MMOL/L Potassium Level 4.0 3.6-5.0 MMOL/L Chloride Level 105 98-107 MMOL/L Carbon Dioxide Level 22 21-32 MMOL/L Anion Gap 11 5-14 MMOL/L Blood Urea Nitrogen 14 7-18 MG/DL Creatinine 0.71 0.60-1.30 MG/DL Estimat Glomerular Filtration Rate 116 BUN/Creatinine Ratio 20 Glucose Level 100 70-105 MG/DL Calcium Level 9.5 8.5-10.1 MG/DL Corrected Calcium 9.8 8.5-10.1 MG/DL Magnesium Level 2.1 1.6-2.4 MG/DL Total Bilirubin 0.2 0.1-1.0 MG/DL Aspartate Amino Transf (AST/SGOT) 9 5-34 U/L Alanine Aminotransferase (ALT/SGPT) 8 0-55 U/L Alkaline Phosphatase 90 40-136 U/L Total Creatine Kinase 46 29-168 U/L Creatine Kinase MB 0.3 <6.6 NG/ML Myoglobin 12.6 10.0-92.0 NG/ML Troponin I < 0.028 <0.028 NG/ML C-Reactive Protein High Sensitivity 7.02 H 0.00-0.50 MG/DL B-Type Natriuretic Peptide 39.0 <100.0 PG/ML Total Protein 9.1 H 6.4-8.2 GM/DL Albumin 3.6 3.2-4.5 GM/DL Serum Test, Qualitative NEGATIVE NEGATIVE Urine Color YELLOW Urine Clarity CLEAR Urine pH 6.0 5-9 Urine Specific [place] 1.025 H 1.016-1.022 Urine Protein NEGATIVE NEGATIVE Urine Glucose (UA) NEGATIVE NEGATIVE Urine Ketones NEGATIVE NEGATIVE Urine Nitrite NEGATIVE NEGATIVE Urine Bilirubin NEGATIVE NEGATIVE Urine Urobilinogen 0.2 < = 1.0 MG/DL Urine Leukocyte Esterase 1+ H NEGATIVE Urine RBC (Auto) TRACE-I H NEGATIVE Urine RBC 0-2 /HPF Urine WBC 5-10 H /HPF Urine Squamous Epithelial Cells 2-5 /HPF Urine Crystals NONE /LPF Urine Bacteria FEW H /HPF Urine Casts NONE /LPF Urine Mucus MODERATE H /LPF Urine Culture Indicated YES Urine Opiates Screen POSITIVE H NEGATIVE Urine Oxycodone Screen NEGATIVE NEGATIVE Urine Methadone Screen NEGATIVE NEGATIVE Urine Propoxyphene Screen NEGATIVE NEGATIVE Urine Barbiturates Screen NEGATIVE NEGATIVE Ur Tricyclic Antidepressants Screen NEGATIVE NEGATIVE Urine Phencyclidine Screen NEGATIVE NEGATIVE Urine Amphetamines Screen NEGATIVE NEGATIVE Urine Methamphetamines Screen NEGATIVE NEGATIVE Urine Benzodiazepines Screen POSITIVE H NEGATIVE Urine Cocaine Screen NEGATIVE NEGATIVE Urine Cannabinoids Screen NEGATIVE NEGATIVE My Orders Orders - HARESH HARDING DO Ed Iv/Invasive Line Start (07/06/22 01:04) Ekg Tracing (07/06/22 01:04) Monitor-Rhythm Ecg Trace Only (07/06/22 01:04) Ct Head Wo-R/O Stroke (07/06/22 01:04) Chest 1 View, Ap/Pa Only (07/06/22 01:04) Bnp [place] (07/06/22 01:04) Cbc With Automated Diff (07/06/22 01:04) Comprehensive Metabolic Panel (07/06/22 01:04) Creatine Kinase (07/06/22 01:04) Creatine Kinase Mb (07/06/22 01:04) Hs C Reactive Protein (07/06/22 01:04) Drug Screen Stat (Urine) (07/06/22 01:04) Hcg,Qualitative Serum (07/06/22 01:04) Magnesium (07/06/22 01:04) Protime With Inr (07/06/22 01:04) Partial Thromboplastin Time (07/06/22 01:04) Ua Culture If Indicated (07/06/22 01:04) Erythrocyte Sedimentation Rate (07/06/22 01:04) Myoglobin Serum (07/06/22 01:04) Troponin I [place] (07/06/22 01:04) Prochlorperazine Injection (Compazine In (07/06/22 02:15) Diphenhydramine Injection (Benadryl Inje (07/06/22 02:15) Methylprednisolone Sod Succ (Solu-Medrol (07/06/22 02:15) Orphenadrine Inj (Ed Only) (Norflex Inje (07/06/22 02:15) Urine Culture (07/06/22 02:05) Medications Given in ED Current Medications Medications Dose Ordered Sig/Braulio Route Start Time Stop Time Status Last Admin Dose Admin Diphenhydramine HCl 50 mg ONCE ONCE IVP 07/06/22 02:15 07/06/22 02:16 DC 07/06/22 02:40 50 MG Methylprednisolone Sodium Succinate 125 mg ONCE ONCE IVP 07/06/22 02:15 07/06/22 02:16 DC 07/06/22 02:37 125 MG Orphenadrine Citrate 60 mg ONCE ONCE IV 07/06/22 02:15 07/06/22 02:16 DC 07/06/22 02:36 60 MG Prochlorperazine Edisylate 10 mg ONCE ONCE IV 07/06/22 02:15 07/06/22 02:16 DC 07/06/22 02:38 10 MG Vital Signs/I&O 07/06/22 00:57 Temp 36.8 Pulse 75 Resp 16 B/P (MAP) 128/101 (110) Pulse Ox 100 O2 Delivery Room Air Capillary Refill : Progress Note : Progress Note GIVEN: -SOLU-MEDROL -COMPAZINE -BENADRYL -NORFLEX NO COMPLAINTS OF CHEST PAIN FOR REMAINDER OF ER STAY VITALS STABLE NO DETERIORATION IN PT'S CONDITION DURING ER STAY PT STATES HER NAUSEA IS GONE, HEADACHE IS NOT COMPLETELY GONE ADVISED HER THAT SHE MAY TAKE HER HOME HYDROCODONE OR HER MORPHINE WHEN SHE GETS HOME, SHE REPORTS THE HAS NOT HAD THEM FOR A FEW DAYS. ALSO ADVISED HER THAT LOOSENING THE PONY TAIL ON THE TOP OF HER HEAD MAY HELP SYMPTOMS WELL, IT IS VERY TIGHT, AND IS EXACTLY DIRECTLY OVER THE AREA OF HER HEADACHE. UNDERLYING SCALP APPEARS NORMAL--NO SIGNS OF INFECTION, SORES, ETC. DISCUSSED TEST RESULTS, ANTICIPATED COURSE, SYMPTOMATIC TREATMENT, MEDICATIONS, NEED FOR FOLLOW UP AND RETURN PRECAUTIONS REVIEWED PRIOR RECORDS INCLUDING ER VISITS, ADMITS/H&PS/DISCHARGE SUMMARIES, TESTS/PROCEDURES ECG Initial ECG Impression Date: Jul 06, 2022 Initial ECG Impression Time: 01:03 Initial ECG Rate: 71 Initial ECG Rhythm: Normal Sinus Initial ECG Intervals AL 208 QRS 72 QT/QTC 398/433 Initial ECG Comparisson: No Previous ECG Available Comment INTERPRETED BY ME Diagnostic Imaging Comments CXR--NO ACUTE PROCESS, PENDING RADIOLOGIST REVIEW CT HEAD--NO ACUTE PROCESS, PER [facility] RADIOLOGIST VIA PHONE AND VIA FAX AT 0210 Reviewed: Reviewed by Me, Discussed w/Radiologist Departure Impression Primary Impression: Headache Additional Impressions: Chest wall pain UTI (urinary tract infection) Disposition: HOME, SELF-CARE Condition: Stable Departure-Patient Inst. Decision time for Depature: 02:48 Referrals: GOYO CARDONA MD (PCP/Family) Primary Care Physician Patient Instructions: Headache, Adult (DC), Urinary Tract Infection, Adult ED, Costochondritis (DC) Add. Discharge Instructions: HOME, REST TAKE YOUR HOME PAIN MEDICATIONS PRESCRIBED LOTS OF CLEAR LIQUIDS FOLLOW UP WITH DR. CARDONA ON THURSDAY IF NO BETTER, RETURN TO ER IF WORSE All discharge instructions reviewed with patient and/or family. Voiced understanding. Scripts Ondansetron (Ondansetron Odt) 8 Mg Tab.rapdis 8 MG PO Q6H, #10 TAB Prov: HARESH HARDING DO 07/06/22 Prednisone (Prednisone) 20 Mg Tab 40 MG PO DAILY, #6 TAB 0 Refills Prov: HARESH HARDING DO 07/06/22 Nitrofurantoin Monohyd/M-Cryst (Macrobid 100 mg Capsule) 100 Mg Capsule 1 TAB PO BID, #20 CAP Prov: HARESH HARDING DO 07/06/22 HARESH HARDING DO Jul 06, 2022 01:15
[2022-07-06 01:16] LABS: MONOCYTES # (AUTO) 0.3 10^3/uL (0.0-1.0)
[2022-07-06 01:18] LABS: BASOPHILS % (AUTO) 0 % (0-10); EOSINOPHILS # (AUTO) 0.7 10^3/uL (0.0-0.3); EOSINOPHILS % (AUTO) 8 % (0-10); HEMATOCRIT 29 % (35-52); HEMOGLOBIN 8.5 g/dL (11.5-16.0); LYMPHOCYTES # (AUTO) 2.8 10^3/uL (1.0-4.0); LYMPHOCYTES % (AUTO) 31 % (12-44); MEAN CORPUSCULAR HEMOGLOBIN 18 pg (25-34); MEAN CORPUSCULAR HGB CONC 30 g/dL (32-36); MEAN CORPUSCULAR VOLUME 61 fL (80-99); MEAN PLATELET VOLUME 9.9 fL (9.0-12.2); MONOCYTES % (AUTO) 4 % (0-12); NEUTROPHILS # (AUTO) 5.1 10^3/uL (1.8-7.8); NEUTROPHILS % (AUTO) 57 % (42-75); PLATELET COUNT 433 10^3/uL (130-400)
[2022-07-06 01:27] LABS: ALBUMIN 3.6 GM/DL (3.2-4.5)
[2022-07-06 01:28] LABS: CHLORIDE 105 MMOL/L (98-107); SODIUM 138 MMOL/L (135-145)
[2022-07-06 01:29] LABS: CALCIUM 9.5 MG/DL (8.5-10.1)
[2022-07-06 01:30] LABS: GLUCOSE 100 MG/DL (70-105); TOTAL PROTEIN 9.1 GM/DL (6.4-8.2)
[2022-07-06 01:31] LABS: CARBON DIOXIDE 22 MMOL/L (21-32)
[2022-07-06 01:32] LABS: BILIRUBIN,TOTAL 0.2 MG/DL (0.1-1.0)
[2022-07-06 01:34] LABS: ALKALINE PHOSPHATASE 90 U/L (40-136); CREATININE SERUM 0.71 MG/DL (0.60-1.30); GFR ESTIMATED 116
[2022-07-06 01:35] LABS: BUN/CREATININE RATIO 20
[2022-07-06 01:37] LABS: ALANINE AMINOTRANSFERASE 8 U/L (0-55); CREATINE KINASE 46 U/L (29-168); INR 1.1 (0.8-1.4); MAGNESIUM 2.1 MG/DL (1.6-2.4); PROTHROMBIN TIME PATIENT 14.3 SEC (12.2-14.7)
[2022-07-06 01:44] LABS: CREATINE KINASE MB 0.3 NG/ML (<6.6)
[2022-07-06 01:48] LABS: ERYTHROCYTE SEDIMENTATION RATE 92 MM/HR (0-20)
[2022-07-06 02:15] LABS: BILIRUBIN,URINE NEGATIVE (NEGATIVE); CLARITY,URINE CLEAR; COLOR,URINE YELLOW; GLUCOSE, URINE (UA) NEGATIVE (NEGATIVE); KETONES,URINE NEGATIVE (NEGATIVE); LEUKOCYTE ESTERASE ,URINE 1+ (NEGATIVE); NITRITE,URINE NEGATIVE (NEGATIVE); PROTEIN,URINE NEGATIVE (NEGATIVE)
[2022-07-06] MEDS ORDERED: methylPREDNISolone 125 MG (Solu-MEDROL) VIAL IVP ONE (02:15)
[2022-07-06] MEDS ORDERED: ORPHENADRINE 60 MG/2 ML (NORFLEX) AMP (ED ONLY) IV ONE (02:15)
[2022-07-06] MEDS ORDERED: PROCHLORPERAZINE 10 MG/2ML INJ (COMPAZINE) IV ONE (02:15)
[2022-07-06] MEDS ORDERED: diphenhydrAMINE 50 MG/ML INJ (BENADRYL) IVP ONE (02:15)
[2022-07-06 02:22] LABS: BACTERIA,URINE FEW /HPF; RBC,URINE 0-2 /HPF
[2022-07-06 02:30] LABS: AMPHETAMINE SCREEN, URINE NEGATIVE (NEGATIVE); BENZODIAZEPINES SCREEN URINE POSITIVE (NEGATIVE); COCAINE SCREEN URINE NEGATIVE (NEGATIVE)
[2022-07-06 02:31] LABS: BARBITURATE SCREEN URINE NEGATIVE (NEGATIVE); CANNABINOID SCREEN, URINE NEGATIVE (NEGATIVE); METHADONE STAT NEGATIVE (NEGATIVE); OPIATE SCREEN URINE POSITIVE (NEGATIVE); OXYCODONE STAT NEGATIVE (NEGATIVE); PROPOXYPHENE STAT NEGATIVE (NEGATIVE); TRICYCLIC ANTIDEPRESSANTS SCRE NEGATIVE (NEGATIVE)
[2022-07-06] MEDS ORDERED: ONDA8TAB13 PO (02:50)
[2022-07-06] MEDS ORDERED: PRD20T PO (02:50)
[2022-07-06] MEDS ORDERED: NITR-65 PO (02:50)
--- NOTE | 2022-07-06 06:27 | Diagnostic Imaging Report ---
CLINICAL INDICATION: Patient with headache x6 days and history of migraines. EXAM: Portable chest x-ray upright view. COMPARISON: Chest x-ray dated 11/20/2019. FINDINGS: Lungs/pleura: Lungs are clear. There is no pneumothorax. There is no pleural effusion. Mediastinum: Unremarkable. Pulmonary vasculature: Unremarkable. Heart: Unremarkable. Bones/extrathoracic soft tissue: Unremarkable. IMPRESSION: There is no radiographic evidence of acute cardiopulmonary process. I agree with the Emergency Room clinician's preliminary impression. Dictated by: Dictated on workstation # [id number]
--- NOTE | 2022-07-06 06:50 | Diagnostic Imaging Report ---
Clinical indications: Patient with headache x6 days. Patient has chronic migraines. Exam: Axial CT scan of the brain without IV contrast with coronal and sagittal reformatted images. Auto Exposure Controls were utilized during the CT exam to meet ALARA standards for radiation dose reduction. Comparison: CT scan the head cervical spine without contrast dated 04/24/2017. Findings: There is no evidence of acute cerebral infarct, intracranial hemorrhage, or gross mass effect. There is note of partially empty sella turcica with the pituitary gland measuring 3 mm in craniocaudal dimensions. The intraorbital optic nerves are slightly tortuous on the sagittal reformatted images. These findings were unable to be exactly compared on the prior imaging due to no sagittal sequences of the brain were obtained during that time. The brain parenchymal volume appears appropriate for patient's age. There is normal watts-white matter distinction. There is no significant midline shift or herniation. There is no evidence of hydrocephalus. The basal cisterns are unremarkable. The skull, extracranial soft tissue, and orbits are unremarkable. The paranasal sinuses are unremarkable. Temporal bones show no significant abnormality. Impression: 1: There is no CT evidence of acute intracranial process. 2: There is partial empty sella turcica and slightly tortuous intraorbital optic nerves which may be seen with pseudotumor cerebri. Clinical correlation would better evaluate. Findings regarding for possible pseudotumor cerebri were not included in the preliminary report, otherwise I agree with the preliminary report. Report was called to [facility] ER, Dr. Thomas by dre at 6:48AM. Dictated by: Dictated on workstation # [id number]
== END 2022-07-06 03:30 | disposition home or self-care (01) ==
LOC: EDUNIT# 00:57 → ER 00:58
DX: R51.9 Headache, unspecified (principal); R07.89 Other chest pain; N39.0 Urinary tract infection, site not specified; E66.01 Morbid (severe) obesity due to excess calories; F17.290 Nicotine dependence, other tobacco product, uncomplicated; Z68.42 Body mass index [BMI] 45.0-49.9, adult
CPT/HCPCS: 36415; 70450; 71045; 80053; 80306; 81000; 82550; 82553; 83735; 83874; 83880; 84484; 84703; 85025; 85610; 85652; 85730; 86141; 87077; 87088; 93005; 93041

== ENCOUNTER 2022-07-09 16:08 | Emergency (ER) | payer MEDICAID ==
[~2022-07-09] VITALS: Ht 175.2 cm; Wt 145.3 kg
[~2022-07-09 16:08] MED LIST changes: +ONDA8TAB13 PO; +PRD20T PO
[2022-07-09 16:18] VITALS: BP 132/82
--- NOTE | 2022-07-09 16:47 | ED Headache ---
General Chief Complaint: Head/Cervical Problems Stated Complaint: HEADACHE Source: patient Exam Limitations: no limitations (BABAK LUIS MD) History of Present Illness Date Seen by Provider: Jul 09, 2022 Time Seen by Provider: 16:36 Initial Comments Here with complaint of persistent headache its been going on over the last week. She was seen here this last weekend, [address] and had [address] scan done which was initially read as normal but over read mentioned concern for possible pseudotumor cerebri. Patient was notified and PCP was notified. They were trying to set her up with outpatient lumbar puncture and were unable to accomplish that yet. Patient denies fever or chills. She denies injury. Does have history of headaches occasionally. She does have diabetes and is obese. She has been trying Excedrin as well as hydrocodone and morphine at home and that has not helped. She returns today for persistence of headache. Denies neck pain or upper respiratory symptoms. Timing/Duration: 1 week Severity/Quality: moderate, pressure Location: global Prior Headaches/Recent Trauma: occasional headaches Modifying Factors: worse with exposure to light Associated Symptoms: No confusion, No fatigue, No fever/chills, No nausea/vomiting, No nasal congestion, No stiff neck, No weakness (BABAK LUIS MD) Allergies and Home Medications Allergies Coded Allergies: ibuprofen (Unverified Allergy, Mild, HIVES, 06/10/17) Patient Home Medication List Home Medication List Reviewed: Yes (BABAK LUIS MD) Acetazolamide (Acetazolamide) 250 Mg Tablet, 250 MG PO BID Prescribed by: HARESH RUGGIERO on 07/09/22 1853 Albuterol Sulfate (Ventolin Hfa) 1 Puff Puff, 2 PUFF IH Q4H, (Reported) Entered as Reported by: BUBBA CAPONE on 01/30/20 0738 Cariprazine Hydrochloride (Vraylar) 1.5 Mg Capsule, 1.5 MG PO DAILY, (Reported) Entered as Reported by: MARIANO STROUD on 01/26/20 1346 Cephalexin (Cephalexin) 500 Mg Tablet, 500 MG PO TID Prescribed by: JOSE ROMEO on 07/09/22 1131 Dicyclomine HCl (Dicyclomine HCl) 20 Mg Tablet, 20 MG PO TID, (Reported) Entered as Reported by: MARIANO STROUD on 01/26/20 1340 Gabapentin (Neurontin) 300 Mg Capsule, 300 MG PO TID, (Reported) Entered as Reported by: JUNAID MCKEON on 11/20/21 0856 Hydrocodone Bit/Acetaminophen (HYDROcodone/APAP 7.5/325 TAB) 1 Ea Tablet, 1 EA PO Q6H, (Reported) Entered as Reported by: JUNAID MCKEON on 11/20/21 08 Meloxicam (Meloxicam) 15 Mg Tablet, 15 MG PO DAILY, (Reported) Entered as Reported by: JUNAID MCKEON on 11/20/21 08 Morphine Sulfate (Ms Contin) 30 Mg Tablet.er, 30 MG PO Q12H, (Reported) Entered as Reported by: JUNAID MCKEON on 11/20/21 08 Nitrofurantoin Monohyd/M-Cryst (Macrobid 100 mg Capsule) 100 Mg Capsule, 1 TAB PO BID Prescribed by: Robb Liu on 01/05/22 161 Nitrofurantoin Monohyd/M-Cryst (Macrobid 100 mg Capsule) 100 Mg Capsule, 1 TAB PO BID Prescribed by: HARESH RUGGIERO on 07/06/22 025 Ondansetron (Ondansetron Odt) 8 Mg Tab.rapdis, 8 MG PO Q6H Prescribed by: HARESH RUGGIERO on 07/06/22 025 Ondansetron (Ondansetron Odt) 8 Mg Tab.rapdis, 8 MG PO Q6H Prescribed by: HARESH RUGGIERO on 07/09/22 1853 Phenazopyridine HCl (Phenazopyridine HCl) 200 Mg Tablet, 200 MG PO TID Prescribed by: Robb Liu on 01/05/22 161 Prazosin HCl (Prazosin HCl) 1 Mg Capsule, 1 CAP PO HS, (Reported) Entered as Reported by: CLAUDIA HO on 01/12/21 0110 Prednisone (Prednisone) 20 Mg Tab, 40 MG PO DAILY Prescribed by: HARESH RUGGIERO on 07/06/22 025 Review of Systems Review of Systems Constitutional: see HPI; No chills, No fever Eyes: See HPI; Denies Blurred Vision; Photophobia Ears, Nose, Mouth, Throat: no symptoms reported Respiratory: no symptoms reported Cardiovascular: No chest pain, No edema Gastrointestinal: No nausea, No vomiting Genitourinary: no symptoms reported Musculoskeletal: see HPI; No back pain Skin: no symptoms reported (BABAK LUIS MD) Past Rframtr-Byxuzk-Ldzhth Hx Patient Social History Tobacco Use?: No Use of E-Cig and/or Vaping dev: Yes E-Cig or Vaping type used: Nicotine Substance use?: No Alcohol Use?: No (BABAK LUIS MD) Immunizations Up To Date Tetanus Booster (TDap): Unknown PED Vaccines UTD: No Influenza Vaccine Up-to-Date: No; Not Current First/Initial COVID19 Vaccinat: 2020 Second COVID19 Vaccination Dez: 2020 Third COVID19 Vaccination Date: 06/2021 (BABAK LUIS MD) Seasonal Allergies Seasonal Allergies: Yes (BABAK LUIS MD) Past Medical History Surgery/Hospitalization HX: Neuropathy in hands/feet, Anxiety, Asthma, Surgeries: Yes (Hemorrhoids, KNEE SCOPE, D&C, DXLS;HYDRADENITIS SURGERIES X8;HYST/BSO) Abdominal, Appendectomy, Section, Gallbladder, Hysterectomy, Oophorectomy, Orthopedic, Rectal Respiratory: Yes Asthma Currently Using CPAP: No Currently Using BIPAP: No Cardiac: No Neurological: Yes Headaches /Migraines Reproductive Disorders: Yes (PELVIC PAIN) Female Reproductive Disorders: Menstrual Problems, Endometriosis 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 Sexually Transmitted Disease: No HIV/AIDS: No Genitourinary: Yes UTI-Chronic Gastrointestinal: Yes Gastroesophageal Reflux Musculoskeletal: Yes Arthritis, Chronic Back Pain Endocrine: Yes (MORBID OBESITY) HEENT: No Loss of Vision: Bilateral Hearing Impairment: Denies Cancer: No Psychosocial: Yes Anxiety, Bipolar, Schizophrenia, Depression Integumentary: Yes (HYDRADENTITIS SUPPURATIVA, MRSA) Recent Skin Changes Blood Disorders: Yes (ANEMIA) Adverse Reaction/Blood Tranf: No (BABAK LUIS MD) Family Medical History Reviewed Nursing Family Hx (BABAK LUIS MD) Patient reports no known family medical history. No Pertinent Family Hx (BABAK LUIS MD) Physical Exam Vital Signs Vital Signs - First Documented 07/09/22 16:18 Temp 36.2 Pulse 96 Resp 16 B/P (MAP) 132/82 (99) Pulse Ox 98 O2 Delivery Room Air (MEAGHAN,HARESH K DO) Vital Signs Capillary Refill : (BABAK LUIS MD) Height, Weight, BMI Height: 5'8.00" Weight: 300lbs. 2.0oz. [id number]; 44.00 BMI Method:Stated General Appearance: WD/WN, no apparent distress HEENT: PERRL/EOMI, pharynx normal Neck: non-tender, full range of motion, supple, normal inspection Cardiovascular: regular rate, rhythm, no murmur Respiratory: lungs clear, normal breath sounds Gastrointestinal: non tender, soft Extremities: non-tender, normal inspection Psychiatric: alert, oriented x 3 Crainal Nerves: normal speech, PERRL Coordination/Gait: normal gait Motor/Sensory: no motor deficit Skin: normal color, warm/dry (BABAK LUIS MD) Progress/Results/Core Measures Results/Orders Lab Results Laboratory Tests Test 07/09/22 17:04 07/09/22 17:58 Range/Units White Blood Count 10.4 4.3-11.0 10^3/uL Red Blood Count 5.00 3.80-5.11 10^6/uL Hemoglobin 9.1 L 11.5-16.0 g/dL Hematocrit 31 L 35-52 % Mean Corpuscular Volume 62 L 80-99 fL Mean Corpuscular Hemoglobin 18 L 25-34 pg Mean Corpuscular Hemoglobin Concent 29 L 32-36 g/dL Red Cell Distribution Width 22.4 H 10.0-14.5 % Platelet Count 485 H 130-400 10^3/uL Mean Platelet Volume 9.8 9.0-12.2 fL Immature Granulocyte % (Auto) 0 % Neutrophils (%) (Auto) 63 42-75 % Lymphocytes (%) (Auto) 29 12-44 % Monocytes (%) (Auto) 4 0-12 % Eosinophils (%) (Auto) 4 0-10 % Basophils (%) (Auto) 0 0-10 % Neutrophils # (Auto) 6.5 1.8-7.8 X 10^3 Lymphocytes # (Auto) 3.1 1.0-4.0 X 10^3 Monocytes # (Auto) 0.4 0.0-1.0 X 10^3 Eosinophils # (Auto) 0.4 H 0.0-0.3 10^3/uL Basophils # (Auto) 0.0 0.0-0.1 10^3/uL Immature Granulocyte # (Auto) 0.0 0.0-0.1 10^3/uL Sodium Level 138 135-145 MMOL/L Potassium Level 3.5 L 3.6-5.0 MMOL/L Chloride Level 104 98-107 MMOL/L Carbon Dioxide Level 23 21-32 MMOL/L Anion Gap 11 5-14 MMOL/L Blood Urea Nitrogen 10 7-18 MG/DL Creatinine 0.73 0.60-1.30 MG/DL Estimat Glomerular Filtration Rate 112 BUN/Creatinine Ratio 14 Glucose Level 92 70-105 MG/DL Calcium Level 9.3 8.5-10.1 MG/DL C-Reactive Protein High Sensitivity 4.53 H 0.00-0.50 MG/DL Body Fluid Slide Review Yes CSF Tube Number 4 CSF Appearance CLEAR CSF Color COLORLESS CSF WBC 0.001 0-0.005 10^3/uL CSF RBC 0.000 0-0 10^6/uL CSF Mononuclear Cells % (Auto) 100.0 % CSF Polynuclear WBCs (%) 0.0 % CSF Glucose 52 50-80 MG/DL CSF Total Protein 21 15-40 MG/DL (MEAGHAN,HARESH K DO) My Orders Orders - MEAGHAN,HARESH K DO Fentanyl Inj (Sublimaze Injection) (07/09/22 18:08) Csf Culture (07/09/22 18:41) Ondansetron Injection (Zofran Injectio (07/09/22 19:00) (MEAGHAN,HARESH K DO) Medications Given in ED Current Medications Medications Dose Ordered Sig/Braulio Route Start Time Stop Time Status Last Admin Dose Admin Lidocaine HCl 20 ml STK-MED ONCE .ROUTE 07/09/22 17:45 07/09/22 17:48 DC 07/09/22 17:42 20 ML Ondansetron HCl 8 mg ONCE ONCE IVP 07/09/22 19:00 07/09/22 19:01 DC 07/09/22 18:53 8 MG (MEAGHAN,HARESH K DO) Vital Signs/I&O 07/09/22 16:18 Temp 36.2 Pulse 96 Resp 16 B/P (MAP) 132/82 (99) Pulse Ox 98 O2 Delivery Room Air (MEAGHAN,HARESH K DO) Progress Progress Note : Progress Note Seen and evaluated. I did review over read CT results and there is concern about possible pseudotumor cerebri findings. We will get IV and check basic labs including CBC and BMP as well as CRP to compare to previous. Fentanyl 75 mcg IV ordered for pain. I have consulted anesthesia for lumbar puncture and opening pressure findings. I have ordered cell count, protein and glucose for evaluation on CSF. We have also ordered MS studies as patient does have family history of MS. If cell count is grossly abnormal then we will order culture but not indicated currently as there is no concerns for meningitis findings right now. 1715: Anesthesia is here and will perform lumbar puncture. Monitor patient. I did discuss the case with Dr. Montejo. She will work on follow-up at the clinic. Patient does have neurology referral already from Dr. CARDONA. I did discuss with her about the need for ophthalmology follow-up and she will put that in the note for the clinic as well. I have ordered acetazolamide 250 mg p.o. Monitor patient. 1800: Anesthesia is still working on lumbar puncture. I have checked out the patient to Dr. Ruggiero and she will follow-up on CSF studies and prescription for acetazolamide if indicated. Monitor patient. (BABAK LUIS MD) Progress Note : Progress Note 1800--ASSUMED CARE OF PT FROM DR. LUIS, TIMBER SKIDDER IS DOING L.P AT THIS TIME. \\ GIVEN ADDITIONAL FENTANYL POST L.P. FOR C/O HEADACHE ALSO GIVEN ZOFRAN FOR C/O NAUSEA CSF IS CLEAR, WITH NO WBC'S OR RBC'S, AND NORMAL PROTEIN AND GLUCOSE LEVELS THERE ARE NO SIGNS OF MENINGITIS. PT IS NEUROLOGICALLY INTACT. NO DETERIORATION IN PT'S CONDITION DURING ER STAY VITALS STABLE. REVIEWED TEST RESULTS WITH PT, AND REVIEWED THE PLANS FOR OUTPATIENT FOLLOW UP AND MEDICATIONS PT HAS BEEN ADVISED TO FOLLOW UP WITH [facility] FOR ADDITIONAL OUTPATIENT REFERRALS/TREATMENT. PT IS ON CHRONIC DAILY MORPHINE + HYDROCODONE FOR CHRONIC GENERALIZED PAIN COMPLAINTS. (HARESH RUGGIERO DO) Departure Impression Primary Impression: Pseudotumor cerebri syndrome Additional Impressions: Morbid obesity CHRONIC PAIN--NARCOTIC DEPENDENT Chronic anemia Chronic headaches Disposition: 01 HOME, SELF-CARE Condition: Stable Departure-Patient Inst. Decision time for Depature: 18:51 (HARESH RUGGIERO DO) Referrals: GOYO CARDONA MD (PCP/Family) Primary Care Physician Patient Instructions: Headache, Adult (DC), Idiopathic Intracranial Hypertension (Pseudotumor Cerebri), Lumbar Puncture (DC) Add. Discharge Instructions: HOME, REST LOTS OF FLUIDS TAKE YOUR MEDICATIONS PRESCRIBED, INCLUDING YOUR REGULAR PAIN MEDICATIONS. FOLLOW UP WITH YOUR DR / [facility] THIS WEEK FOR FURTHER CARE, AND REFERRALS TO SPECIALISTS All discharge instructions reviewed with patient and/or family. Voiced understanding. Scripts Ondansetron (Ondansetron Odt) 8 Mg Tab.rapdis 8 MG PO Q6H, #10 TAB Prov: HARESH RUGGIERO DO 07/09/22 Acetazolamide (Acetazolamide) 250 Mg Tablet 250 MG PO BID, #60 TAB Prov: HARESH RUGGIERO DO 07/09/22 BABAK LUIS MD Jul 09, 2022 16:46 HARESH RUGGIERO DO Jul 09, 2022 18:34
[2022-07-09] MEDS ORDERED: fentaNYL INJ 100 MCG/2 ML AMP IVP STA ×2 (16:50→18:08)
[2022-07-09 17:10] LABS: BASOPHILS % (AUTO) 0 % (0-10); EOSINOPHILS # (AUTO) 0.4 10^3/uL (0.0-0.3); EOSINOPHILS % (AUTO) 4 % (0-10); HEMATOCRIT 31 % (35-52); HEMOGLOBIN 9.1 g/dL (11.5-16.0); LYMPHOCYTES # (AUTO) 3.1 X 10^3 (1.0-4.0); LYMPHOCYTES % (AUTO) 29 % (12-44); MEAN CORPUSCULAR HEMOGLOBIN 18 pg (25-34); MEAN CORPUSCULAR HGB CONC 29 g/dL (32-36); MEAN CORPUSCULAR VOLUME 62 fL (80-99); MEAN PLATELET VOLUME 9.8 fL (9.0-12.2); MONOCYTES # (AUTO) 0.4 X 10^3 (0.0-1.0); MONOCYTES % (AUTO) 4 % (0-12); NEUTROPHILS # (AUTO) 6.5 X 10^3 (1.8-7.8); NEUTROPHILS % (AUTO) 63 % (42-75); PLATELET COUNT 485 10^3/uL (130-400); WHITE BLOOD COUNT 10.4 10^3/uL (4.3-11.0)
[2022-07-09 17:24] LABS: POTASSIUM 3.5 MMOL/L (3.6-5.0)
[2022-07-09 17:25] LABS: CALCIUM 9.3 MG/DL (8.5-10.1)
[2022-07-09 17:30] LABS: CREATININE SERUM 0.73 MG/DL (0.60-1.30)
[2022-07-09] MEDS ORDERED: acetaZOLAMIDE 250 MG (DIAMOX) TAB PO STA (17:38)
[2022-07-09] MEDS ORDERED: LIDOCAINE 1% INJ 20 ML VIAL ONE (17:45)
[2022-07-09 18:35] LABS: APPEARANCE,CSF CLEAR; COLOR,CSF COLORLESS; CSF TUBE NUMBER 4; WHITE BLOOD CELL,CSF 0.001 10^3/uL (0-0.005)
--- NOTE | 2022-07-09 18:43 | Anesthesia-Procedure Note ---
Procedures/Interventions Procedure Start/Stop/Diagnosis Date of Procedure: Jul 09, 2022 Start Time: 17:35 Referring Physician: Juna Preprocedural Diagnosis: Headache Stop Time: 18:10 Lumbar Puncture Discussed Risk,Benefits: Yes Patient Consents: Yes Position: Lying, L3-4 Sterile Technique: Yes Opening Pressure: 33 Fluid Color: clear Spinal Needle Used: 20g Quinke 3 1/2inch Procedure Notes Multiple attempts at L 4/5 and L3/4 with multiple needles and multiple redirects with each needle. KATY BARNES CRNA Jul 09, 2022 18:43
[2022-07-09 18:44] LABS: CSF GLUCOSE 52 MG/DL (50-80); CSF TOTAL PROTEIN 21 MG/DL (15-40)
[2022-07-09] MEDS ORDERED: ONDA8TAB13 PO (18:53)
[2022-07-09] MEDS ORDERED: ACET250T3 PO (18:53)
[2022-07-09] MEDS ORDERED: ONDANSETRON 4 MG/2 ML (SDV) Z0FRAN IVP ONE (19:00)
== END 2022-07-09 19:05 | disposition home or self-care (01) ==
LOC: EDUNIT# 16:08 → ER 16:09
DX: G93.2 Benign intracranial hypertension (principal); R51.9 Headache, unspecified; G89.29 Other chronic pain; D64.9 Anemia, unspecified; E66.01 Morbid (severe) obesity due to excess calories; F17.290 Nicotine dependence, other tobacco product, uncomplicated; Z68.41 Body mass index [BMI] 40.0-44.9, adult; Z79.891 Long term (current) use of opiate analgesic
CPT/HCPCS: 36415; 80048; 82040; 82042; 82784; 82945; 83873; 83916; 84157; 85025; 86141; 87070; 87205; 89051

== ENCOUNTER 2022-07-12 00:05 | Emergency (ER) | payer MEDICAID ==
[~2022-07-12 00:05] MED LIST changes: +ACET250T3 PO
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
[2022-07-12 03:29] VITALS: BP 145/86
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
== END 2022-07-12 03:29 | disposition home or self-care (01) ==
LOC: EDUNIT# 00:05 → ER 00:08
DX: M54.2 Cervicalgia (principal); G89.29 Other chronic pain; M54.50 Low back pain, unspecified; M54.6 Pain in thoracic spine; R51.9 Headache, unspecified; F17.290 Nicotine dependence, other tobacco product, uncomplicated; E66.01 Morbid (severe) obesity due to excess calories; Z68.42 Body mass index [BMI] 45.0-49.9, adult; Z79.899 Other long term (current) drug therapy; Z79.1 Long term (current) use of non-steroidal anti-inflammatories (NSAID); V89.2XXA Person injured in unspecified motor-vehicle accident, traffic, initial encounter; Y92.410 Unspecified street and highway as the place of occurrence of the external cause
CPT/HCPCS: 72125; 72128; 72131

== ENCOUNTER 2022-08-20 12:54 | Emergency (ER) | payer MEDICARE, MEDICAID ==
[~2022-08-20] VITALS: Ht 177.8 cm; Wt 145.0 kg
[2022-08-20] MEDS ORDERED: BUPIVACAINE 0.5% 30 ML (SENSORCAINE) VIAL INJ ONE (14:00)
--- NOTE | 2022-08-20 14:00 | ED Headache ---
General Chief Complaint: Head/Cervical Problems Stated Complaint: HEADACHE | IIH Nursing Triage Note: PATIENT AMBULATORY TO ROOM 3 WITH SISTER W C/O RIGHT SIDED HEAD PRESSURE, A "REALLY BAD HEADACHE", AND VISION ISSUES X2DAYS. PATIENT WOKE UP THIS MORNING WITH A STIFF NECK AND DRY MOUTH. HX OF IIH. PATIENT REPORTS SHE HAD FLUID REMOVED ON THE June. Source: patient Exam Limitations: no limitations History of Present Illness Date Seen by Provider: Aug 20, 2022 Time Seen by Provider: 13:25 Initial Comments 32-year-old female presents to the ER with complaints of throbbing, sharp right- sided head pain for the last 2 days. She states the pain is mostly in the right posterior quadrant of her head and radiates forward and down into her neck. She reports tenderness to palpation of the right side of her posterior head. She also reports blurry vision, light sensitivity, sound sensitivity, ringing in right ear, and mild dizziness. She has a history of IIH, currently takes Diamox. Reports she has been urinating well on the Diamox. She is complaining of right-sided neck pain, is able to touch her chin to her chest. She denies fevers, reports nausea. Allergies and Home Medications Allergies Coded Allergies: ibuprofen (Unverified Allergy, Mild, HIVES, 06/10/17) Patient Home Medication List Home Medication List Reviewed: Yes Acetazolamide (Acetazolamide) 250 Mg Tablet, 250 MG PO BID Prescribed by: HARESH HARDING on 07/09/22 1853 Acetazolamide (Acetazolamide) 250 Mg Tablet, 250 MG PO BID Prescribed by: Narda Menezes on 08/20/22 1447 Albuterol Sulfate (Ventolin Hfa) 1 Puff Puff, 2 PUFF IH Q4H, (Reported) Entered as Reported by: BUBBA CAPONE on 01/30/20 0738 Cariprazine Hydrochloride (Vraylar) 1.5 Mg Capsule, 1.5 MG PO DAILY, (Reported) Entered as Reported by: MARIANO STROUD on 01/26/20 1346 Cephalexin (Cephalexin) 500 Mg Tablet, 500 MG PO TID Prescribed by: JOSE ROMEO on 07/09/22 1131 Dicyclomine HCl (Dicyclomine HCl) 20 Mg Tablet, 20 MG PO TID, (Reported) Entered as Reported by: MARIANO STROUD on 01/26/20 1340 Gabapentin (Neurontin) 300 Mg Capsule, 300 MG PO TID, (Reported) Entered as Reported by: JUNAID MCKEON on 11/20/21 0856 Hydrocodone Bit/Acetaminophen (HYDROcodone/APAP 7.5/325 TAB) 1 Ea Tablet, 1 EA PO Q6H, (Reported) Entered as Reported by: JUNAID MCKEON on 11/20/21 0856 Meloxicam (Meloxicam) 15 Mg Tablet, 15 MG PO DAILY, (Reported) Entered as Reported by: JUNAID MCKEON on 11/20/21 0856 Morphine Sulfate (Ms Contin) 30 Mg Tablet.er, 30 MG PO Q12H, (Reported) Entered as Reported by: JUNAID MCKEON on 11/20/21 0856 Nitrofurantoin Monohyd/M-Cryst (Macrobid 100 mg Capsule) 100 Mg Capsule, 1 TAB PO BID Prescribed by: Robb Liu on 01/05/22 161 Nitrofurantoin Monohyd/M-Cryst (Macrobid 100 mg Capsule) 100 Mg Capsule, 1 TAB PO BID Prescribed by: HARESH HARDING on 07/06/22 0250 Ondansetron (Ondansetron Odt) 8 Mg Tab.rapdis, 8 MG PO Q6H Prescribed by: HARESH HARDING on 07/06/22 0250 Ondansetron (Ondansetron Odt) 8 Mg Tab.rapdis, 8 MG PO Q6H Prescribed by: HARESH HARDING on 07/09/22 1853 Phenazopyridine HCl (Phenazopyridine HCl) 200 Mg Tablet, 200 MG PO TID Prescribed by: Robb Liu on 01/05/22 161 Prazosin HCl (Prazosin HCl) 1 Mg Capsule, 1 CAP PO HS, (Reported) Entered as Reported by: CLAUDIA HO on 01/12/21 0110 Prednisone (Prednisone) 20 Mg Tab, 40 MG PO DAILY Prescribed by: HARESH HARDING on 07/06/22 0250 Review of Systems Review of Systems Constitutional: see HPI Past [id number] Hx Patient Social History Tobacco Use?: No Substance use?: No Alcohol Use?: No Immunizations Up To Date Tetanus Booster (TDap): Unknown PED Vaccines UTD: No Influenza Vaccine Up-to-Date: Yes; Up-to-Date First/Initial COVID19 Vaccinat: UNK Second COVID19 Vaccination Dez: 2020 Third COVID19 Vaccination Date: 06/2021 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[employer]: [employer] Seasonal Allergies Seasonal Allergies: Yes Past Medical History Surgery/Hospitalization HX: Neuropathy in hands/feet, Anxiety, Asthma, Surgeries: Yes (Hemorrhoids, KNEE SCOPE, D&C, DXLS;HYDRADENITIS SURGERIES X8;HYST/BSO) Abdominal, Appendectomy, Section, Gallbladder, Hysterectomy, Oopho rectomy, Orthopedic, Rectal Respiratory: Yes Asthma Currently Using CPAP: No Currently Using BIPAP: No Cardiac: No Neurological: Yes (PSEUDOTUMOR CEREBRI) Headaches /Migraines, Neuropathy Reproductive Disorders: Yes (PELVIC PAIN) Female Reproductive Disorders: Menstrual Problems, 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 No Pertinent Family Hx Physical Exam Vital Signs Vital Signs - First Documented 08/20/22 13:00 Temp 36.4 Pulse 87 Resp 18 B/P (MAP) 123/67 (85) Pulse Ox 98 O2 Delivery Room Air Capillary Refill : Less Than 3 Seconds Height, Weight, BMI Height: 5'8.00" Weight: 300lbs. 2.0oz. 136.463179yw; 45.00 BMI Method:Stated General Appearance: WD/WN, no apparent distress HEENT: TMs normal, other (Right posterior head tender to palpation) Neck: full range of motion, supple, tender lateral (Mild right-sided tenderness) Cardiovascular: regular rate, rhythm Respiratory: lungs clear, normal breath sounds, no respiratory distress, no accessory muscle use Extremities: normal range of motion, normal inspection [place] Nerves: normal hearing, normal speech, PERRL Motor/Sensory: no motor deficit, no sensory deficit Skin: normal color, warm/dry Procedures/Interventions Progress Right occipital nerve block completed with 5 cc of bupivacaine. Patient tolerated procedure well. Progress/Results/Core Measures Results/Orders My Orders Orders - NARDA MENEZES APRN Bupivacaine 0.5% Injection (Sensorcaine (08/20/22 14:00) Vital Signs/I&O 08/20/22 08/20/22 13:00 15:00 Temp 36.4 Pulse 87 84 Resp 18 18 B/P (MAP) 123/67 (85) 105/85 Pulse Ox 98 100 O2 Delivery Room Air Room Air Blood Pressure Mean: 85 Progress Progress Note : Progress Note Patient seen and evaluated, resting in bed, no acute distress. Based on exam and symptoms, this is likely occipital neuralgia, not IIH. Patient is requesting a CT scan, informed her that CT scan is not necessary. Discussed doing an occipital nerve block. Patient hesitant, but agreed to do it. Patient reported improved pain approximately 15 minutes after occipital nerve block. Patient states she is ready to leave. She is requesting a refill of her Diamox. Discharge instructions and return precautions provided. Departure Impression Primary Impression: Occipital neuralgia of right side Disposition: HOME, SELF-CARE Condition: Stable Departure-Patient Inst. Decision time for Depature: 14:45 Referrals: GERARD TABARES DO (PCP/Family) Primary Care Physician Patient Instructions: Headache, Adult (DC) Add. Discharge Instructions: Schedule a follow-up appointment with your primary. Keep your appointment with the neurologist as scheduled. Discussed the occipital neuralgia with your neurologist. Continue taking your home medications as prescribed. Return for severe pain, vision changes, or any other new, concerning, or worsening symptoms. All discharge instructions reviewed with patient and/or family. Voiced understanding. Scripts Acetazolamide (Acetazolamide) 250 Mg Tablet 250 MG PO BID for 30 Days, #60 TAB 0 Refills Prov: NARDA MENEZES APRN 08/20/22 NARDA MENEZES APRN Aug 20, 2022 13:59
[2022-08-20] MEDS ORDERED: ACET250T3 PO (14:47)
[2022-08-20 15:00] VITALS: BP 105/85
== END 2022-08-20 15:00 | disposition home or self-care (01) ==
LOC: EDUNIT# 12:54 → ER 12:57
DX: M54.81 Occipital neuralgia (principal); G93.2 Benign intracranial hypertension; E66.01 Morbid (severe) obesity due to excess calories; Z79.899 Other long term (current) drug therapy; Z68.42 Body mass index [BMI] 45.0-49.9, adult
CPT/HCPCS: 99281

== ENCOUNTER 2022-10-07 15:19 | Emergency (ER) | payer MEDICARE, MEDICAID ==
[~2022-10-07] VITALS: Ht 177 cm; Wt 145.0 kg
--- NOTE | 2022-10-07 15:53 | ED Fall/Injury ---
General Chief Complaint: Dizziness/Syncope Stated Complaint: PASSED OUT - HIT HEAD Nursing Triage Note: PT AMB TO RM 4 PT STATES HAS PASSING OUT EPISODES AND HIT HEAD. PT STATES LOOSES BALANCE FELL BACKWARDS. Source: patient Exam Limitations: no limitations History of Present Illness Date Seen by Provider: Oct 07, 2022 Time Seen by Provider: 15:40 Initial Comments 32-year-old female presents emergency department today after she fell striking the back of her head on a bookshelf. She simply lost her balance when she stood up. She denies any loss of consciousness. No nausea or vomiting. No vision changes upper or lower extremity weakness numbness or tingling. All other systems reviewed and negative except documented per HPI. Voice recognition software was used to help create this chart Allergies and Home Medications Allergies Coded Allergies: ibuprofen (Unverified Allergy, Mild, HIVES, 06/10/17) Patient Home Medication List Home Medication List Reviewed: Yes Acetazolamide (Acetazolamide) 250 Mg Tablet, 250 MG PO BID Prescribed by: HARESH HARDING on 07/09/22 1853 Acetazolamide (Acetazolamide) 250 Mg Tablet, 250 MG PO BID Prescribed by: Narda Lynne on 08/20/22 1447 Albuterol Sulfate (Ventolin Hfa) 1 Puff Puff, 2 PUFF IH Q4H, (Reported) Entered as Reported by: BUBBA CAPONE on 01/30/20 0738 Cariprazine Hydrochloride (Vraylar) 1.5 Mg Capsule, 1.5 MG PO DAILY, (Reported) Entered as Reported by: MARIANO STROUD on 01/26/20 1346 Cephalexin (Cephalexin) 500 Mg Tablet, 500 MG PO TID Prescribed by: JOSE ROMEO on 07/09/22 1131 Dicyclomine HCl (Dicyclomine HCl) 20 Mg Tablet, 20 MG PO TID, (Reported) Entered as Reported by: MARIANO STROUD on 01/26/20 1340 Gabapentin (Neurontin) 300 Mg Capsule, 300 MG PO TID, (Reported) Entered as Reported by: JUNAID MCKEON on 11/20/21 0856 Hydrocodone Bit/Acetaminophen (HYDROcodone/APAP 7.5/325 TAB) 1 Ea Tablet, 1 EA PO Q6H, (Reported) Entered as Reported by: JUNAID MCKEON on 11/20/21 0856 Meloxicam (Meloxicam) 15 Mg Tablet, 15 MG PO DAILY, (Reported) Entered as Reported by: JUNAID MCKEON on 11/20/21 08 Morphine Sulfate (Ms Contin) 30 Mg Tablet.er, 30 MG PO Q12H, (Reported) Entered as Reported by: JUNAID Vela MIKE on 11/20/21 0856 Nitrofurantoin Monohyd/M-Cryst (Macrobid 100 mg Capsule) 100 Mg Capsule, 1 TAB PO BID Prescribed by: Robb Liu on 01/05/22 161 Nitrofurantoin Monohyd/M-Cryst (Macrobid 100 mg Capsule) 100 Mg Capsule, 1 TAB PO BID Prescribed by: HARESH HARDING on 07/06/22 025 Ondansetron (Ondansetron Odt) 8 Mg Tab.rapdis, 8 MG PO Q6H Prescribed by: HARESH HARDING on 07/06/22 025 Ondansetron (Ondansetron Odt) 8 Mg Tab.rapdis, 8 MG PO Q6H Prescribed by: HARESH HARDING on 07/09/22 185 Phenazopyridine HCl (Phenazopyridine HCl) 200 Mg Tablet, 200 MG PO TID Prescribed by: Robb Liu on 01/05/22 161 Prazosin HCl (Prazosin HCl) 1 Mg Capsule, 1 CAP PO HS, (Reported) Entered as Reported by: CLAUDIA HO on 01/12/21 0110 Prednisone (Prednisone) 20 Mg Tab, 40 MG PO DAILY Prescribed by: HARESH HARDING on 07/06/22 0250 Review of Systems Review of Systems Constitutional: see HPI Past Qrifwba-Sgiltk-Aoypws Hx Patient Social History Tobacco Use?: No Substance use?: No Alcohol Use?: No Pt feels they are or have been: No Immunizations Up To Date Tetanus Booster (TDap): Unknown PED Vaccines UTD: No First/Initial COVID19 Vaccinat: UNK Second COVID19 Vaccination Dez: UNK Third COVID19 Vaccination Date: UNK Seasonal Allergies Seasonal Allergies: Yes Past Medical History Surgery/Hospitalization HX: Neuropathy in hands/feet, Anxiety, Asthma, ENDOMETRIOSIS, PCOS, FLUID ON BRAIN. 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 No Pertinent Family Hx Physical Exam Vital Signs Vital Signs - First Documented 10/07/22 15:40 Pulse 85 Resp 15 B/P (MAP) 137/78 (97) Pulse Ox 100 Capillary Refill : Less Than 3 Seconds Height, Weight, BMI Height: 5'8.00" Weight: 300lbs. 2.0oz. 136.128631wj; 46.00 BMI Method:Stated General Appearance: WD/WN, no apparent distress HEENT: PERRL/EOMI, normal ENT inspection, TMs normal, pharynx normal Neck: full range of motion, supple, normal inspection, other (No midline neck tenderness. 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 She has no focal neurologic deficits, no loss consciousness nausea. No indication for CT scanning at this time. She be discharged with supportive care. I offered her oral pain medications here and she declined stating is almost time for her to take her pain medication at home and she will do that instead. Impression Primary Impression: Fall Qualified Codes: W19.XXXA - Unspecified fall, initial encounter Additional Impression: Closed head injury Qualified Codes: S09.90XA - Unspecified injury of head, initial encounter Disposition: HOME, SELF-CARE Condition: Stable Departure-Patient Inst. Referrals: GERARD TABARES DO (PCP/Family) Primary Care Physician Patient Instructions: Minor Head Injury, Adult ED Add. Discharge Instructions: As discussed there is no evidence for serious head injury, bleeding. Increase your fluids at home and rest. Use home pain medications as well as Tylenol for pain. Return to the emergency department for any severe concerns. Follow-up with primary doctor for any nonemergent needs. All discharge instructions reviewed with patient and/or family. Voiced understanding. MARION LOYA DO Oct 07, 2022 15:53
[2022-10-07 16:09] VITALS: BP 137/78
== END 2022-10-07 16:12 | disposition home or self-care (01) ==
LOC: EDUNIT# 15:19 → ER 15:21
DX: S09.90XA Unspecified injury of head, initial encounter (principal); E66.01 Morbid (severe) obesity due to excess calories; Z68.42 Body mass index [BMI] 45.0-49.9, adult; Z88.6 Allergy status to analgesic agent; W01.198A Fall on same level from slipping, tripping and stumbling with subsequent striking against other object, initial encounter
CPT/HCPCS: 99283

== ENCOUNTER 2022-10-30 10:25 | Outpatient (RCR) | payer MEDICARE, MEDICAID ==
[2022-10-28] MEDS: IRON SUCROSE 200 MG/10 ML VIAL IV SCH (11:04)
[2022-10-28 11:10] VITALS: BP 120/73
[~2022-10-30] VITALS: Wt 145.0 kg
[2022-10-30 10:20] VITALS: BP 129/82
[~2022-10-30 10:25] MED LIST changes: +IRON SUCROSE 200 MG/10 ML VIAL IV SCH
[2022-10-30] MEDS: IRON SUCROSE 200 MG/10 ML VIAL IV SCH (10:58)
== END 2022-11-13 | disposition home or self-care (01) ==
LOC: SDC 10:25
PROVIDERS: ATTEND Pediatrics
DX: D50.9 Iron deficiency anemia, unspecified (principal)
CPT/HCPCS: 96365

== ENCOUNTER 2022-11-02 12:29 | Emergency (ER) | payer MEDICARE, MEDICAID ==
[~2022-11-02] VITALS: Ht 177 cm; Wt 145.6 kg
[~2022-11-02 12:29] MED LIST changes: -IRON SUCROSE 200 MG/10 ML VIAL IV SCH
--- NOTE | 2022-11-02 13:09 | ED General ---
General Chief Complaint: Dizziness/Syncope Stated Complaint: BLURRY VISION/HEADACHE/DIZZINESS Nursing Triage Note: PT PRESENTS TO ED VIA POV FRO HOME WITH COMPLAINTS OF BLURRY VISION, GALICIA, DIZZINESS, CHEST TIGHTNESS, AND NEAR SYNCOPE STARTING AT 0000 THIS AM. Source of Information: Patient Exam Limitations: No Limitations History of Present Illness Date Seen by Provider: Nov 02, 2022 Time Seen by Provider: 12:50 Initial Comments Patient is a 32yo obese female with a long history of chronic pain on oral morphine and hydrocodone at home - fairly recent diagnosis of Idiopathic intracranial hypertension. She states she started getting a headache last night. She describes "pain all over" and a "pressure" in her head. She has taken her morning dose of diamox. She has not taken extra. Only on 500mg twice a day - she states it makes her sleepy. She denies fever, chills, dysuria, diarrhea. No rashes, new joint pain or swelling, Sees Dr Angel (neurology) and Dr Choudhary (neurology - for a second opinion). Has had one spinal tap here in June of 2022. She states that it feels as bad as when she had the spinal tap then. No trauma. She states she almost "passed out" due to the headache. She endorses "b lurry vision and black spots" in her left eye. No visual field loss. Timing/Duration: 12-24 Hours Severity: Severe Associated Systoms: Headaches, Malaise, Nausea/Vomiting ("a little nausea"), Weakness Allergies and Home Medications Allergies Coded Allergies: ibuprofen (Unverified Allergy, Mild, HIVES, 06/10/17) Patient Home Medication List Home Medication List Reviewed: Yes Acetazolamide (Acetazolamide) 250 Mg Tablet, 250 MG PO BID Prescribed by: HARESH HARDING on 07/09/22 1853 Acetazolamide (Acetazolamide) 250 Mg Tablet, 250 MG PO BID Prescribed by: Narda Lynne on 08/20/22 1447 Albuterol Sulfate (Ventolin Hfa) 1 Puff Puff, 2 PUFF IH Q4H, (Reported) Entered as Reported by: BUBBA CAPONE on 01/30/20 0738 Cariprazine Hydrochloride (Vraylar) 1.5 Mg Capsule, 1.5 MG PO DAILY, (Reported) Entered as Reported by: MARIANO STROUD on 01/26/20 1346 Cephalexin (Cephalexin) 500 Mg Tablet, 500 MG PO TID Prescribed by: JOSE ROMEO on 07/09/22 1131 Dicyclomine HCl (Dicyclomine HCl) 20 Mg Tablet, 20 MG PO TID, (Reported) Entered as Reported by: MARIANO STROUD on 01/26/20 1340 Gabapentin (Neurontin) 300 Mg Capsule, 300 MG PO TID, (Reported) Entered as Reported by: JUNAID MCKEON on 11/20/21 0856 Hydrocodone Bit/Acetaminophen (HYDROcodone/APAP 7.5/325 TAB) 1 Ea Tablet, 1 EA PO Q6H, (Reported) Entered as Reported by: JUNAID MCKEON on 11/20/21 08 Meloxicam (Meloxicam) 15 Mg Tablet, 15 MG PO DAILY, (Reported) Entered as Reported by: JUNAID MCKEON on 11/20/21 08 Morphine Sulfate (Ms Contin) 30 Mg Tablet.er, 30 MG PO Q12H, (Reported) Entered as Reported by: JUNAID MCKEON on 11/20/21 08 Nitrofurantoin Monohyd/M-Cryst (Macrobid 100 mg Capsule) 100 Mg Capsule, 1 TAB PO BID Prescribed by: Robb Liu on 01/05/221616 Nitrofurantoin Monohyd/M-Cryst (Macrobid 100 mg Capsule) 100 Mg Capsule, 1 TAB PO BID Prescribed by: HARESH HARDING on 07/06/22 0250 Ondansetron (Ondansetron Odt) 8 Mg Tab.rapdis, 8 MG PO Q6H Prescribed by: HARESH HARDING on 07/06/22 0250 Ondansetron (Ondansetron Odt) 8 Mg Tab.rapdis, 8 MG PO Q6H Prescribed by: HARESH HARDING on 07/09/22 1853 Phenazopyridine HCl (Phenazopyridine HCl) 200 Mg Tablet, 200 MG PO TID Prescribed by: Robb Liu on 01/05/22 161 Prazosin HCl (Prazosin HCl) 1 Mg Capsule, 1 CAP PO HS, (Reported) Entered as Reported by: CLAUDIA HO on 01/12/21 0110 Prednisone (Prednisone) 20 Mg Tab, 40 MG PO DAILY Prescribed by: HARESH HADRING on 07/06/22 0250 Review of Systems Review of Systems Constitutional: see HPI EENTM: blurred vision, other (photophobia) Respiratory: short of breath ((chronic "due to my asthma")) Cardiovascular: no symptoms reported Gastrointestinal: nausea Genitourinary: no symptoms reported Musculoskeletal: no symptoms reported Skin: no symptoms reported Psychiatric/Neurological: Headache, Other (photophobia) All Other Systems Reviewed Negative Unless Noted: Yes Past Ohcrnyy-Tdhbai-Vsstmr Hx Patient Social History Tobacco Use?: No Substance use?: No Alcohol Use?: No Pt feels they are or have been: No Immunizations Up To Date Tetanus Booster (TDap): Unknown PED Vaccines UTD: No First/Initial COVID19 Vaccinat: UNK Second COVID19 Vaccination Dze: UNK Third COVID19 Vaccination Date: UNK Seasonal Allergies Seasonal Allergies: Yes Past Medical History Surgery/Hospitalization HX: Neuropathy in hands/feet, Anxiety, Asthma, ENDOMETRIOSIS, PCOS, FLUID ON BRAIN. INTRACRANIAL IDOPATHIC HYPERTENSION Surgeries: Yes (Hemorrhoids, KNEE SCOPE, D&C, DXLS;HYDRADENITIS SURGERIES X8;HYST/BSO) Abdominal, Appendectomy, Section, Gallbladder, Hysterectomy, Oophorectomy, Orthopedic, Rectal Respiratory: Yes Asthma Currently Using CPAP: No Currently Using BIPAP: No Cardiac: No Neurological: Yes (PSEUDOTUMOR CEREBRI) Headaches /Migraines, Neuropathy Reproductive Disorders: Yes (PELVIC PAIN) Female Reproductive Disorders: Menstrual Problems, Endometriosis [employer] 1[employer] SHIFT History: Hysterectomy Sexually Transmitted Disease: No HIV/AIDS: No Genitourinary: Yes UTI-Chronic Gastrointestinal: Yes Gastroesophageal Reflux Musculoskeletal: Yes (CHRONIC NECK AND BACK PAIN) Arthritis, Chronic Back Pain Endocrine: Yes (MORBID OBESITY) HEENT: No Loss of Vision: Bilateral Hearing Impairment: Denies Cancer: No Psychosocial: Yes Anxiety, Bipolar, Schizophrenia, Depression Integumentary: Yes (HYDRADENTITIS SUPPURATIVA, MRSA) Blood Disorders: Yes (ANEMIA) Adverse Reaction/Blood Tranf: No Family Medical History Patient reports no known family medical history. No Pertinent Family Hx Physical Exam Vital Signs Vital Signs - First Documented 11/02/22 12:41 Temp 36.9 Pulse 89 Resp 18 B/P (MAP) 135/103 (114) Pulse Ox 95 Capillary Refill : Less Than 3 Seconds Height, Weight, BMI Height: 5'8.00" Weight: 300lbs. 2.0oz. 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)) Neck: Normal Inspection Respiratory: Lungs Clear, Normal Breath Sounds, No Accessory Muscle Use, No Respiratory Distress Cardiovascular: Regular Rate, Rhythm, Normal Peripheral Pulses Gastrointestinal: Normal Bowel Sounds, Soft Extremity: Normal Capillary Refill, Normal Inspection, Normal Range of Motion Neurologic/Psychiatric: Alert, Oriented x3, No Motor/Sensory Deficits, interactive producer II- XII Norm as Tested, Other (flat affect; slow speech) Skin: Normal Color, Warm/Dry Progress/Results/Core Measures Suspected Sepsis SIRS Temperature: Pulse: 89 Respiratory Rate: 18 Laboratory Tests 11/02/22 12:38: White Blood Count 10.0 Blood Pressure 135 /103 Mean: 114 Laboratory Tests 11/02/22 12:30: Creatinine 0.81 11/02/22 12:38: Platelet Count 440H Results/Orders Lab Results Laboratory Tests Test 11/02/22 12:30 11/02/22 12:38 Range/Units Sodium Level 139 135-145 MMOL/L Potassium Level 3.8 3.6-5.0 MMOL/L Chloride Level 110 H 98-107 MMOL/L Carbon Dioxide Level 20 L 21-32 MMOL/L Anion Gap 9 5-14 MMOL/L Blood Urea Nitrogen 6 L 7-18 MG/DL Creatinine 0.81 0.60-1.30 MG/DL Estimat Glomerular Filtration Rate 99 BUN/Creatinine Ratio 7 Glucose Level 100 70-105 MG/DL Calcium Level 9.2 8.5-10.1 MG/DL White Blood Count 10.0 4.3-11.0 10^3/uL Red Blood Count 4.86 3.80-5.11 10^6/uL Hemoglobin 9.2 L 11.5-16.0 g/dL Hematocrit 32 L 35-52 % Mean Corpuscular Volume 66 L 80-99 fL Mean Corpuscular Hemoglobin 19 L 25-34 pg Mean Corpuscular Hemoglobin Concent 29 L 32-36 g/dL Red Cell Distribution Width 24.8 H 10.0-14.5 % Platelet Count 440 H 130-400 10^3/uL Mean Platelet Volume 10.5 9.0-12.2 fL Immature Granulocyte % (Auto) 1 % Neutrophils (%) (Auto) 71 42-75 % Lymphocytes (%) (Auto) 20 12-44 % Monocytes (%) (Auto) 4 0-12 % Eosinophils (%) (Auto) 4 0-10 % Basophils (%) (Auto) 0 0-10 % Neutrophils # (Auto) 7.1 1.8-7.8 10^3/uL Lymphocytes # (Auto) 2.0 1.0-4.0 10^3/uL Monocytes # (Auto) 0.4 0.0-1.0 10^3/uL Eosinophils # (Auto) 0.4 H 0.0-0.3 10^3/uL Basophils # (Auto) 0.0 0.0-0.1 10^3/uL Immature Granulocyte # (Auto) 0.1 0.0-0.1 10^3/uL Percent Immature Platelet Fraction 3.1 0.0-7.6 % My Orders Orders - BISHOP DRAKE MD Ekg Tracing (11/02/22 12:39) Acetazolamide Injection (Acetazolamide I (11/02/22 13:15) Orphenadrine Inj (Ed Only) (Norflex Inje (11/02/22 13:15) Basic Metabolic Panel (11/02/22 13:29) Ed Iv/Invasive Line Start (11/02/22 13:29) Diphenhydramine Injection (Diphenhydram (11/02/22 13:45) Famotidine Injection (Famotidine Injec (11/02/22 14:30) Cbc With Automated Diff (11/02/22 14:21) Ct Head Wo (11/02/22 14:21) Medications Given in ED Vital Signs/I&O 11/02/22 11/02/22 12:41 17:08 Temp 36.9 36.9 Pulse 89 75 Resp 18 18 B/P (MAP) 135/103 (114) 122/91 Pulse Ox 95 96 Capillary Refill : Less Than 3 Seconds Blood Pressure Mean: 114 Progress Note #1: Time: 14:17 Progress Note Patient has not urinated yet (after the IV diamox 500mg) and with the muscle relaxer (Norflex 60mg IV) she has devleoped "itching" - not noted to have rash/hives or scratching. SHe was given 25mg IV benadryl and just now 25mg of IV Pepcid. SHe states no improvement in her headache. Differential diagnosis based on history and physical exam, exacerbation of intracranial hypertension, tension headache. Will call anesthesia for assistance with lumbar puncture. Labs independently reviewed and interpreted by me. WNL. EKG interpreted by me - no acute concerning findings. Anesthesia requested repeat CT head before LP. This was read by radiology as "normal". 1542 Anesthesia in the department at this time. Prepping for LP with opening pressure. Progress Note #2: Time: 16:50 Progress Note Patient had LP per anesthesia. Opening pressure of 30. She vickie off between 10- 15ml. Patient tolerated the procedure well. Strongly encouraged the patient to continue her Spironolactone. Advised she take a 3rd dose in the mid afternoon. Strongly also encouraged her to follow up with Neurology and then possibly neurosurgery for definitive treatment. ECG Initial ECG Impression Date: Nov 02, 2022 Initial ECG Impression Time: 12:42 Initial ECG Rate: 80 Initial ECG Rhythm: Normal Sinus Initial ECG Intervals: Normal Initial ECG Impression: Normal Diagnostic Imaging Diagonstic Imaging: CT Comments [facility], [place] NAME: ANNA PIEDRA MED REC#: [id number] PT STATUS: REG ER : 1990 PHYSICIAN: BISHOP DRAKE MD ADMIT DATE: 11/02/22/ER Draft Date of Exam:11/02/22 CT HEAD WO PROCEDURE: CT head without contrast. TECHNIQUE: Multiple contiguous axial images were obtained through the brain without the use of intravenous contrast. Auto Exposure Controls were utilized during the CT exam to meet ALARA standards for radiation dose reduction. INDICATION: Headache. COMPARISON: 07/06/2022. DISCUSSION: No intracranial hemorrhage, mass, midline shift, or hydrocephalus. The ventricles and sulci are normal size and configuration for age. The visualized orbits, paranasal sinuses, mastoid air cells, and calvarium are unremarkable. IMPRESSION: 1. Negative head CT. Dictated on workstation # [id number] Dict: 11/02/22 1439 Trans: 11/02/22 1445 [facility] [id number] Interpreted by: GOYO ROMERO MD Electronically signed by: Departure Impression Primary Impression: Headache Additional Impression: History of idiopathic intracranial hypertension Disposition: 01 HOME, SELF-CARE Condition: Improved Departure-Patient Inst. Decision time for Depature: 16:55 Referrals: GERARD TABARES DO (PCP/Family) Primary Care Physician USAMA MÉNDEZ OD Patient Instructions: Headache, Adult ED Add. Discharge Instructions: Continue to take your routine prescribed medications. Please call your Neurologist tomorrow for further follow up and management of the Intracranial Hypertension. You also need to follow up with an eye doctor for your vision. You can start with someone such as the [facility]. This is very important as the Intracranial Hypertension can permanently damage your vision. Return to the Emergency Department for any new, concerning or emergent complaints. Copy Copies To 1: GERARD TABARES KATHRYN M MD Nov 02, 2022 13:09
[2022-11-02] MEDS ORDERED: ACETAZOLAMIDE IV ONE (13:15)
[2022-11-02] MEDS ORDERED: ORPHENADRINE 60 MG/2 ML AMP (ED ONLY) IV ONE (13:15)
[2022-11-02 13:39] LABS: POTASSIUM 3.8 MMOL/L (3.6-5.0)
[2022-11-02 13:40] LABS: CALCIUM 9.2 MG/DL (8.5-10.1)
[2022-11-02 13:45] LABS: CREATININE SERUM 0.81 MG/DL (0.60-1.30)
[2022-11-02] MEDS ORDERED: diphenhydrAMINE INJ 50 MG/ML VIAL IVP ONE (13:45)
[2022-11-02] MEDS ORDERED: FAMOTIDINE INJ 20MG/2ML VIAL IVP ONE (14:30)
[2022-11-02 14:38] LABS: HEMATOCRIT 32 % (35-52); HEMOGLOBIN 9.2 g/dL (11.5-16.0); MEAN CORPUSCULAR HGB CONC 29 g/dL (32-36); MONOCYTES % (AUTO) 4 % (0-12)
[2022-11-02 14:40] LABS: BASOPHILS % (AUTO) 0 % (0-10); EOSINOPHILS # (AUTO) 0.4 10^3/uL (0.0-0.3); EOSINOPHILS % (AUTO) 4 % (0-10); LYMPHOCYTES % (AUTO) 20 % (12-44); MEAN CORPUSCULAR HEMOGLOBIN 19 pg (25-34); MEAN CORPUSCULAR VOLUME 66 fL (80-99); MEAN PLATELET VOLUME 10.5 fL (9.0-12.2); MONOCYTES # (AUTO) 0.4 10^3/uL (0.0-1.0); NEUTROPHILS # (AUTO) 7.1 10^3/uL (1.8-7.8); NEUTROPHILS % (AUTO) 71 % (42-75); PLATELET COUNT 440 10^3/uL (130-400)
--- NOTE | 2022-11-02 14:45 | Diagnostic Imaging Report ---
PROCEDURE: CT head without contrast. TECHNIQUE: Multiple contiguous axial images were obtained through the brain without the use of intravenous contrast. Auto Exposure Controls were utilized during the CT exam to meet ALARA standards for radiation dose reduction. INDICATION: Headache. COMPARISON: 07/06/2022. DISCUSSION: No intracranial hemorrhage, mass, midline shift, or hydrocephalus. The ventricles and sulci are normal size and configuration for age. The visualized orbits, paranasal sinuses, mastoid air cells, and calvarium are unremarkable. IMPRESSION: 1. Negative head CT. Dictated by: Dictated on workstation # [id number]
--- NOTE | 2022-11-02 16:54 | Anesthesia-Procedure Note ---
Procedures/Interventions Procedure Start/Stop/Diagnosis Date of Procedure: Nov 02, 2022 Start Time: 16:08 Referring Physician: Jung Preprocedural Diagnosis: Intracranial HPTN Brief History I was consulted by Dr. Feng for LP on a patient in ED who has a working dx of intracranial HPTN, with complaints of headache and blurred vision. Upon interviewing the patient she reports she had an LP in our ED in June 2022 for same symptoms. Follow up care has not been continued. Opening pressure at that t chika was high and CSF was obtained. Patient reports that both her spinal for her c/s in 2018 (which I did) and the LP in June were both complicated and not easily completed. The patient was provided with details of an LP and all possible complications and all questions were answered. Consent was obtained. The patients platelets were noted to be [address] of head negative. Patient was placed in right lateral position and her sister remained at her side. The patient actually fell asleep instantly upon lying down and was snoring loudly which also shook her entire body. I was able to complete the procedure with her asleep. The patient's lower back was prepped and draped with chlorarep and a sterile drape applied. I localized with 5cc Lidocaine at L3/L4 and used a 18g introducer needle. I then inserted a 22g 5 inch Pencan needle and obtained CSF with an opening pressure of 30 cm/H20. A total of 15cc CSF was collected in the vials per Dr. Feng order and discarded in the sharps container. [place] were withdrawn and a bandaid applied over site. The patient and her sister were given discharge instructions with follow up care. I reported off to Dr. Feng. Stop Time: 16:29 Lumbar Puncture Discussed Risk,Benefits: Yes Patient Consents: Yes Position: Lying, L3-4 Sterile Technique: Yes Opening Pressure: 30 cm/H20 Fluid Color: clear Spinal Needle Used: Other (22g Pencan 5 inch) TERRANCE GUERRERO CRNA Nov 02, 2022 16:54
[2022-11-02 17:08] VITALS: BP 122/91
== END 2022-11-02 17:08 | disposition home or self-care (01) ==
LOC: EDUNIT# 12:29 → ER 12:32
DX: R51.9 Headache, unspecified (principal); G89.29 Other chronic pain; E66.01 Morbid (severe) obesity due to excess calories; Z79.891 Long term (current) use of opiate analgesic; Z68.42 Body mass index [BMI] 45.0-49.9, adult; Z86.69 Personal history of other diseases of the nervous system and sense organs
CPT/HCPCS: 36415; 70450; 80048; 85025; 93005

== ENCOUNTER 2022-11-23 13:01 | Emergency (ER) | payer MEDICARE, MEDICAID ==
[~2022-11-23] VITALS: Ht 180.3 cm; Wt 145.6 kg
--- NOTE | 2022-11-23 13:46 | ED Headache ---
General Chief Complaint: Head/Cervical Problems Stated Complaint: MIGRAINE Nursing Triage Note: PT AMB TO RM 7 WITH CC OF GALICIA, DIZZINESS AND STIFF NECK X 15 DAYS. PT REPORTS HAS HX OF IIH. PT REPORTS NUMBNESS IN ARMS/HAND 11/21. SINCE PT STATES TOOK PAIN MEDS AT APPROX 0900 THIS AM WITH NO RELIEF. PT A&OX4 Source: patient Exam Limitations: no limitations History of Present Illness Date Seen by Provider: Nov 23, 2022 Time Seen by Provider: 13:35 Initial Comments Patient is a 32-year-old morbidly obese female who presents to the emergency room with a chief complaint of severe "off the charts" headache. Patient has a history of pseudotumor cerebri she is on Diamox daily. She states this headache started about 2 weeks ago and has been steadily worsening. She has adjusted her dose of Diamox without any relief of symptoms. She is on chronic narcotic pain medications benzodiazepines and psychiatric meds for history of schizophrenia and chronic pain. She takes oral morphine. This has not alleviated her pain. She was also placed on Imitrex and states that she has taken her max dose of Imitrex for today. She denies any vision changes. She states she feels a little off balance. She complains of some tingling to her feet and hands and face. She did not sleep due to the headache last night. She is concerned that her pressure may be high and she needs a spinal tap. Timing/Duration: waxing and waning (weeks), other Severity/Quality: severe ("off the charts") Location: other (right sided and intermittently global) Prior Headaches/Recent Trauma: frequent headaches, chronic headaches Modifying Factors: improves with exposure to light Associated Symptoms: nausea/vomiting, weakness Allergies and Home Medications Allergies Coded Allergies: ibuprofen (Unverified Allergy, Mild, HIVES, 06/10/17) Patient Home Medication List Home Medication List Reviewed: Yes Acetazolamide (Acetazolamide) 250 Mg Tablet, 250 MG PO BID Prescribed by: HARESH HARDING on 07/09/22 1853 Acetazolamide (Acetazolamide) 250 Mg Tablet, 250 MG PO BID Prescribed by: Narda Lynne on 08/20/22 1447 Albuterol Sulfate (Ventolin Hfa) 1 Puff Puff, 2 PUFF IH Q4H, (Reported) Entered as Reported by: BUBBA CAPONE on 01/30/20 0738 Cariprazine Hydrochloride (Vraylar) 1.5 Mg Capsule, 1.5 MG PO DAILY, (Reported) Entered as Reported by: MARIANO STROUD on 01/26/20 1346 Cephalexin (Cephalexin) 500 Mg Tablet, 500 MG PO TID Prescribed by: JOSE ROMEO on 07/09/22 1131 Dicyclomine HCl (Dicyclomine HCl) 20 Mg Tablet, 20 MG PO TID, (Reported) Entered as Reported by: MARIANO STROUD on 01/26/20 1340 Gabapentin (Neurontin) 300 Mg Capsule, 300 MG PO TID, (Reported) Entered as Reported by: JUNAID MCKEON on 11/20/21 0856 Hydrocodone Bit/Acetaminophen (HYDROcodone/APAP 7.5/325 TAB) 1 Ea Tablet, 1 EA PO Q6H, (Reported) Entered as Reported by: JUNAID MCKEON on 11/20/21 0856 Meloxicam (Meloxicam) 15 Mg Tablet, 15 MG PO DAILY, (Reported) Entered as Reported by: JUNAID MCKEON on 11/20/21 0856 Morphine Sulfate (Ms Contin) 30 Mg Tablet.er, 30 MG PO Q12H, (Reported) Entered as Reported by: JUNAID MCKEON on 11/20/21 0856 Nitrofurantoin Monohyd/M-Cryst (Macrobid 100 mg Capsule) 100 Mg Capsule, 1 TAB PO BID Prescribed by: Robb Liu on 01/05/22 161 Nitrofurantoin Monohyd/M-Cryst (Macrobid 100 mg Capsule) 100 Mg Capsule, 1 TAB PO BID Prescribed by: HARESH HARDING on 07/06/22 0250 Ondansetron (Ondansetron Odt) 8 Mg Tab.rapdis, 8 MG PO Q6H Prescribed by: HARESH HARDING on 07/06/22 0250 Ondansetron (Ondansetron Odt) 8 Mg Tab.rapdis, 8 MG PO Q6H Prescribed by: HARESH HARDING on 07/09/22 1853 Phenazopyridine HCl (Phenazopyridine HCl) 200 Mg Tablet, 200 MG PO TID Prescribed by: Robb Liu on 01/05/22 161 Prazosin HCl (Prazosin HCl) 1 Mg Capsule, 1 CAP PO HS, (Reported) Entered as Reported by: CLAUDIA HO on 01/12/21 0110 Prednisone (Prednisone) 20 Mg Tab, 40 MG PO DAILY Prescribed by: HARESH HARDING on 07/06/22 0250 Review of Systems Review of Systems Constitutional: see HPI Eyes: Photophobia Ears, Nose, Mouth, Throat: no symptoms reported Respiratory: no symptoms reported Cardiovascular: no symptoms reported Gastrointestinal: nausea Genitourinary: no symptoms reported Musculoskeletal: no symptoms reported Skin: no symptoms reported Psychiatric/Neurological: Paresthesia (hands and feet and face; denies weakness) All Other Systems Reviewed Negative Unless Noted: Yes Past Wlqvzpv-Lhswux-Uwjkqf Hx Patient Social History Tobacco Use?: No Substance use?: No Alcohol Use?: No Pt feels they are or have been: No Immunizations Up To Date Tetanus Booster (TDap): Unknown PED Vaccines UTD: No First/Initial COVID19 Vaccinat: UNK Second COVID19 Vaccination Dez: UNK Third COVID19 Vaccination Date: UNK Seasonal Allergies Seasonal Allergies: Yes Past Medical History Surgery/Hospitalization HX: Neuropathy in hands/feet, Anxiety, Asthma, ENDOMETRIOSIS, PCOS, FLUID ON BRAIN. 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 No Pertinent Family Hx Physical Exam Vital Signs Vital Signs - First Documented 11/23/22 13:15 Temp 36.5 Pulse 80 Resp 16 B/P (MAP) 142/92 (109) Pulse Ox 100 O2 Delivery Room Air Capillary Refill : Less Than 3 Seconds Height, Weight, BMI Height: 5'8.00" Weight: 300lbs. 2.0oz. [id number]; 44.00 BMI Method:Stated General Appearance: WD/WN, no apparent distress, obese HEENT: PERRL/EOMI, pharynx normal, other (moist mucous membranes) Neck: normal inspection Cardiovascular: regular rate, rhythm Respiratory: lungs clear, normal breath sounds, no respiratory distress, no accessory muscle use Extremities: normal range of motion, normal inspection Psychiatric: alert, oriented x 3 Crainal Nerves: normal hearing, normal speech, PERRL; No abnormal eye position, No abnormal speech, No facial asymmetry, No facial weakness, No tongue deviation to R, No tongue deviation to L Coordination/Gait: normal gait, negative Romberg's sign Motor/Sensory: no motor deficit, no sensory deficit, no pronator drift Skin: normal color, warm/dry Progress/Results/Core Measures Results/Orders Lab Results Laboratory Tests Test 11/23/22 13:30 Range/Units Sodium Level 138 135-145 MMOL/L Potassium Level 3.8 3.6-5.0 MMOL/L Chloride Level 111 H 98-107 MMOL/L Carbon Dioxide Level 17 L 21-32 MMOL/L Anion Gap 10 5-14 MMOL/L Blood Urea Nitrogen 12 7-18 MG/DL Creatinine 0.79 0.60-1.30 MG/DL Estimat Glomerular Filtration Rate 102 BUN/Creatinine Ratio 15 Glucose Level 85 70-105 MG/DL Calcium Level 9.2 8.5-10.1 MG/DL My Orders Orders - BISHOP DRAKE MD Ed Iv/Invasive Line Start (11/23/22 13:51) Basic Metabolic Panel (11/23/22 13:51) Droperidol Injection (Ed Only) (Droperid (11/23/22 14:00) Diphenhydramine Injection (Diphenhydram (11/23/22 14:00) Dexamethasone Injection (Decadron Injec (11/23/22 14:45) Medications Given in ED Vital Signs/I&O 11/23/22 11/23/22 13:15 15:04 Temp 36.5 Pulse 80 80 Resp 16 16 B/P (MAP) 142/92 (109) 138/75 Pulse Ox 100 100 O2 Delivery Room Air Room Air Blood Pressure Mean: 109 Progress Progress Note : Time: 14:41 Progress Note JUAN Shelby just advised the patient is still complaining of some headache. This in the face of having to wake the patient to assess her. The patient states that she is "sleepy" but her head still hurts. Will add a little steroid for pain relief. Patient has other pain medications at home she can use. She is not having any visual field or acuity issues. No concerns for vision loss. Advised the patient to follow up tomorrow with her neurologist as she has not seen them in the 2 weeks since the pain has been evolving. Eval today includes her physical exam with a BMP. Labs reviewed by me - CO2 slightly low at 17. Patient treated with Droperidol 2.5mg and Benadryl 25mg IV. Then given 8mg of Decadron. Patient appeared to have improvement. No concerning findings to warrant re-CT of head or Lumbar puncture. Departure Impression Primary Impression: Migraine headache Qualified Codes: G43.901 - Migraine, unspecified, not intractable, with status migrainosus Disposition: 01 HOME, SELF-CARE Condition: Improved Departure-Patient Inst. Decision time for Depature: 14:45 Referrals: GERARD TABARES DO (PCP/Family) Primary Care Physician Patient Instructions: Home Headache Remedies Add. Discharge Instructions: Continue your daily medications as prescribed by your primary care physician as well as your neurologist. Please call your neurologist office tomorrow for a follow-up appointment. You will need further evaluation for your chronic headaches. If you develop any new, concerning or emergent symptoms please return to the emergency room for reevaluation. Copy Copies To 1: GERARD TABARES KATHRYN M MD Nov 23, 2022 13:46
[2022-11-23] MEDS ORDERED: DroPERidol INJECTION 5 MG/2 ML (ED ONLY!) IV ONE (14:00)
[2022-11-23] MEDS ORDERED: diphenhydrAMINE INJ 50 MG/ML VIAL IVP ONE (14:00)
[2022-11-23 14:10] LABS: CALCIUM 9.2 MG/DL (8.5-10.1); CREATININE SERUM 0.79 MG/DL (0.60-1.30); POTASSIUM 3.8 MMOL/L (3.6-5.0)
[2022-11-23] MEDS ORDERED: dexAMETHasone INJ 4 MG/ML SDV IV STA (14:45)
[2022-11-23 15:04] VITALS: BP 138/75
== END 2022-11-23 15:05 | disposition home or self-care (01) ==
LOC: EDUNIT# 13:01 → ER 13:03
DX: G43.909 Migraine, unspecified, not intractable, without status migrainosus (principal); G93.2 Benign intracranial hypertension; F20.9 Schizophrenia, unspecified; G89.29 Other chronic pain; E66.01 Morbid (severe) obesity due to excess calories; Z68.41 Body mass index [BMI] 40.0-44.9, adult; Z79.899 Other long term (current) drug therapy; Z79.891 Long term (current) use of opiate analgesic; Z79.84 Long term (current) use of oral hypoglycemic drugs
CPT/HCPCS: 36415; 80048

== ENCOUNTER 2023-01-08 10:10 | Emergency (ER) | payer MEDICARE, MEDICAID ==
[~2023-01-08] VITALS: Ht 180.3 cm; Wt 145.1 kg
--- NOTE | 2023-01-08 10:28 | ED Headache ---
General Chief Complaint: Head/Cervical Problems Stated Complaint: HEAD PAIN Source: patient Exam Limitations: no limitations History of Present Illness Date Seen by Provider: Jan 08, 2023 Time Seen by Provider: 10:14 Initial Comments 32-year-old female presents emergency department today for headache. She has known diagnosis of pseudotumor cerebri. She states she has had this headache "building for a while." She states its been present since the last time she was seen in our emergency department which was about a month ago. She has seen her neurologist in the interim who keeps increasing her dose of acetazolamide. She denies any ataxia, changes in her vision. She is on oral morphine and benzodiazepines chronically for similar symptoms. When discussed, she states they are reluctant to do a shunt until they "get me on the right medicines." All other systems reviewed and negative except documented per HPI. Voice recognition software was used to help create this chart Allergies and Home Medications Allergies Coded Allergies: ibuprofen (Unverified Allergy, Mild, HIVES, 06/10/17) Patient Home Medication List Home Medication List Reviewed: Yes Acetazolamide (Acetazolamide) 250 Mg Tablet, 250 MG PO BID Prescribed by: HARESH HARDING on 07/09/22 1853 Acetazolamide (Acetazolamide) 250 Mg Tablet, 250 MG PO BID Prescribed by: Narda Lynne on 08/20/22 1447 Albuterol Sulfate (Ventolin Hfa) 1 Puff Puff, 2 PUFF IH Q4H, (Reported) Entered as Reported by: BUBBA CAPONE on 01/30/20 0738 Cariprazine Hydrochloride (Vraylar) 1.5 Mg Capsule, 1.5 MG PO DAILY, (Reported) Entered as Reported by: MARIANO STROUD on 01/26/20 1346 Cephalexin (Cephalexin) 500 Mg Tablet, 500 MG PO TID Prescribed by: JOSE ROMEO on 07/09/22 1131 Dicyclomine HCl (Dicyclomine HCl) 20 Mg Tablet, 20 MG PO TID, (Reported) Entered as Reported by: MARIANO STROUD on 01/26/20 1340 Gabapentin (Neurontin) 300 Mg Capsule, 300 MG PO TID, (Reported) Entered as Reported by: JUNAID MCKEON on 11/20/21 0856 Hydrocodone Bit/Acetaminophen (HYDROcodone/APAP 7.5/325 TAB) 1 Ea Tablet, 1 EA PO Q6H, (Reported) Entered as Reported by: JUNAID MCKEON on 11/20/21 0856 Meloxicam (Meloxicam) 15 Mg Tablet, 15 MG PO DAILY, (Reported) Entered as Reported by: JUNAID MCKEON on 11/20/21 0856 Morphine Sulfate (Ms Contin) 30 Mg Tablet.er, 30 MG PO Q12H, (Reported) Entered as Reported by: JUNAID MCKEON on 11/20/21 0856 Nitrofurantoin Monohyd/M-Cryst (Macrobid 100 mg Capsule) 100 Mg Capsule, 1 TAB PO BID Prescribed by: Robb Liu on 01/05/22 161 Nitrofurantoin Monohyd/M-Cryst (Macrobid 100 mg Capsule) 100 Mg Capsule, 1 TAB PO BID Prescribed by: HARESH HARDING on 07/06/22 0250 Ondansetron (Ondansetron Odt) 8 Mg Tab.rapdis, 8 MG PO Q6H Prescribed by: HARESH HARDING on 07/06/22 0250 Ondansetron (Ondansetron Odt) 8 Mg Tab.rapdis, 8 MG PO Q6H Prescribed by: HARESH HARDING on 07/09/22 1853 Phenazopyridine HCl (Phenazopyridine HCl) 200 Mg Tablet, 200 MG PO TID Prescribed by: Robb Liu on 01/05/22 161 Prazosin HCl (Prazosin HCl) 1 Mg Capsule, 1 CAP PO HS, (Reported) Entered as Reported by: CLAUDIA HO on 01/12/21 0110 Prednisone (Prednisone) 20 Mg Tab, 40 MG PO DAILY Prescribed by: HARESH HARDING on 07/06/22 0250 Review of Systems Review of Systems Constitutional: see HPI Past [place]-Dtejxs-Aqpblq Hx Patient Social History Tobacco Use?: No Substance use?: No Alcohol Use?: No Immunizations Up To Date Tetanus Booster (TDap): Unknown PED Vaccines UTD: No First/Initial COVID19 Vaccinat: UNK Second COVID19 Vaccination Dez: UNK Third COVID19 Vaccination Date: UNK Seasonal Allergies Seasonal Allergies: Yes Past Medical History Surgery/Hospitalization HX: Neuropathy in hands/feet, Anxiety, Asthma, ENDOMETRIOSIS, PCOS, FLUID ON BRAIN. 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 No Pertinent Family Hx Physical Exam Vital Signs Capillary Refill : Height, Weight, BMI Height: 5'8.00" Weight: 300lbs. 2.0oz. [id number]; 44.00 BMI Method:Stated General Appearance: WD/WN, no apparent distress HEENT: PERRL/EOMI, normal ENT inspection, other (No papilledema on limited bedside) Neck: non-tender, supple, normal inspection Cardiovascular: regular rate, rhythm, no murmur Respiratory: chest non-tender, lungs clear, normal breath sounds, no respiratory distress, no accessory muscle use Gastrointestinal: normal bowel sounds, non tender, soft Extremities: normal range of motion, non-tender, normal inspection, normal capillary refill Psychiatric: alert, oriented x 3 Crainal Nerves: normal hearing, normal speech, PERRL Coordination/Gait: normal finger to nose, normal gait Motor/Sensory: no motor deficit, no sensory deficit, no pronator drift Skin: normal color, warm/dry Departure Communication (Admissions) Dynamically stable. She has no red flag symptoms to include ataxia, papilledema or changes in her vision. She has a chronic headache at this point, present for more than 1 month. She has seen her primary neurologist and LP was not recommended at that time though she was having similar symptoms. I do not think an emergent LP is warranted at this point. Did offer her temporary relief with IM medications and she declines Impression Primary Impression: Headache Qualified Codes: R51.9 - Headache, unspecified; G89.29 - Other chronic pain Additional Impression: Pseudotumor cerebri syndrome Disposition: 01 HOME, SELF-CARE Condition: Stable Departure-Patient Inst. Referrals: GERARD TABARES DO (PCP/Family) Primary Care Physician Patient Instructions: Headache, Adult ED Add. Discharge Instructions: As discussed there is no emergent indication for lumbar puncture at this time. Continue to follow with your neurologist as scheduled. You may want to get a second opinion on possible shunt placement. Return to the emergency department for any difficulty walking or if your symptoms change in any way otherwise concerning to you All discharge instructions reviewed with patient and/or family. Voiced unders tanding. MARION LOYA DO Jan 08, 2023 10:28
[2023-01-08 10:31] VITALS: BP 130/87
== END 2023-01-08 10:33 | disposition home or self-care (01) ==
LOC: EDUNIT# 10:10 → ER 10:11
DX: G93.2 Benign intracranial hypertension (principal); E66.01 Morbid (severe) obesity due to excess calories; Z68.41 Body mass index [BMI] 40.0-44.9, adult
CPT/HCPCS: 99281

== ENCOUNTER 2023-01-25 20:28 | Emergency (ER) | payer MEDICARE, MEDICAID ==
[~2023-01-25] VITALS: Ht 180 cm; Wt 145.0 kg
--- NOTE | 2023-01-25 20:45 | ED Headache ---
General Stated Complaint: MIGRAINE Source: patient Exam Limitations: no limitations History of Present Illness Date Seen by Provider: Jan 25, 2023 Time Seen by Provider: 20:45 Initial Comments Patient is a 32-year-old female who presents to the emergency department with a chief complaint of global headache that has been worsening over the course of the last 2 to 3 weeks. She has a history of idiopathic intracranial hypertension. She states she is on 250 mg of Diamox 8 times a day. She is also on multiple narcotic pain relievers including oral extended release morphine and hydrocodone, topiramate and other headache medications. She is also on as needed Xanax. She states bright light makes her head hurt worse, bending her head down hurts worse. She states her vision is "blurry". She states she has a an appointment with a neuro-gas pumper this coming Thursday, 5 days from now. She denies fever but has had some chills. No productive cough. No dysuria, urgency or frequency. She has no other complaints of illness. She has taken all of her prescribed medications without any relief of the headache. Timing/Duration: other (2-3 weeks) Severity/Quality: severe, throbbing Location: global Prior Headaches/Recent Trauma: frequent headaches Modifying Factors: worse with exposure to light, worse with movement Associated Symptoms: vision changes (" a little blurry") Allergies and Home Medications Allergies Coded Allergies: ibuprofen (Unverified Allergy, Mild, HIVES, 06/10/17) Patient Home Medication List Home Medication List Reviewed: Yes Acetazolamide (Acetazolamide) 250 Mg Tablet, 250 MG PO BID Prescribed by: HARESH HARDING on 07/09/22 1853 Acetazolamide (Acetazolamide) 250 Mg Tablet, 250 MG PO BID Prescribed by: Narda Lynne on 08/20/22 1447 Albuterol Sulfate (Ventolin Hfa) 1 Puff Puff, 2 PUFF IH Q4H, (Reported) Entered as Reported by: BUBBA CAPONE on 01/30/20 0738 Cariprazine Hydrochloride (Vraylar) 1.5 Mg Capsule, 1.5 MG PO DAILY, (Reported) Entered as Reported by: MARIANO STROUD on 01/26/20 1346 Cephalexin (Cephalexin) 500 Mg Tablet, 500 MG PO TID Prescribed by: JOSE ROMEO on 07/09/22 1131 Dicyclomine HCl (Dicyclomine HCl) 20 Mg Tablet, 20 MG PO TID, (Reported) Entered as Reported by: MARIANO STROUD on 01/26/20 1340 Gabapentin (Neurontin) 300 Mg Capsule, 300 MG PO TID, (Reported) Entered as Reported by: JUNAID MCKEON on 11/20/21 0856 Hydrocodone Bit/Acetaminophen (HYDROcodone/APAP 7.5/325 TAB) 1 Ea Tablet, 1 EA PO Q6H, (Reported) Entered as Reported by: JUNAID MCKEON on 11/20/21 0856 Meloxicam (Meloxicam) 15 Mg Tablet, 15 MG PO DAILY, (Reported) Entered as Reported by: JUNAID MCKEON on 11/20/21 0856 Morphine Sulfate (Ms Contin) 30 Mg Tablet.er, 30 MG PO Q12H, (Reported) Entered as Reported by: JUNAID MCKEON on 11/20/21 0856 Nitrofurantoin Monohyd/M-Cryst (Macrobid 100 mg Capsule) 100 Mg Capsule, 1 TAB PO BID Prescribed by: Robb Liu on 01/05/22 1617 Nitrofurantoin Monohyd/M-Cryst (Macrobid 100 mg Capsule) 100 Mg Capsule, 1 TAB PO BID Prescribed by: HARESH HARDING on 07/06/22 0250 Ondansetron (Ondansetron Odt) 8 Mg Tab.rapdis, 8 MG PO Q6H Prescribed by: HARESH HARDING on 07/06/22 0250 Ondansetron (Ondansetron Odt) 8 Mg Tab.rapdis, 8 MG PO Q6H Prescribed by: HARESH HARDING on 07/09/22 1853 Phenazopyridine HCl (Phenazopyridine HCl) 200 Mg Tablet, 200 MG PO TID Prescribed by: Robb Liu on 01/05/22 1617 Prazosin HCl (Prazosin HCl) 1 Mg Capsule, 1 CAP PO HS, (Reported) Entered as Reported by: CLAUDIA HO on 01/12/21 0110 Prednisone (Prednisone) 20 Mg Tab, 40 MG PO DAILY Prescribed by: HARESH HARDING on 07/06/22 0250 Review of Systems Review of Systems Constitutional: see HPI Eyes: Photophobia, Other ("blurry") Ears, Nose, Mouth, Throat: no symptoms reported Respiratory: no symptoms reported Cardiovascular: no symptoms reported Gastrointestinal: no symptoms reported Genitourinary: no symptoms reported Musculoskeletal: no symptoms reported Skin: no symptoms reported Psychiatric/Neurological: Headache Past Pplhwrc-Irtrwy-Vkbqef Hx Immunizations Up To Date Tetanus Booster (TDap): Unknown PED Vaccines UTD: No First/Initial COVID19 Vaccinat: UNK Second COVID19 Vaccination Dez: UNK Third COVID19 Vaccination Date: UNK Seasonal Allergies Seasonal Allergies: Yes Past Medical History Surgery/Hospitalization HX: Neuropathy in hands/feet, Anxiety, Asthma, ENDOMETRIOSIS, PCOS, FLUID ON BRAIN. INTRACRANIAL IDOPATHIC HYPERTENSION Surgeries: Yes (Hemorrhoids, KNEE SCOPE, D&C, DXLS;HYDRADENITIS SURGERIES X8;HYST/BSO) Abdominal, Appendectomy, Section, Gallbladder, Hysterectomy, Oophorectomy, Orthopedic, Rectal Respiratory: Yes Asthma Currently Using CPAP: No Currently Using BIPAP: No Cardiac: No Neurological: Yes (PSEUDOTUMOR CEREBRI) Headaches /Migraines, Neuropathy Reproductive Disorders: Yes (PELVIC PAIN) Female Reproductive Disorders: Menstrual Problems, Endometriosis [employer] History: Hysterectomy Sexually Transmitted Disease: No HIV/AIDS: No Genitourinary: Yes UTI-Chronic Gastrointestinal: Yes Gastroesophageal Reflux Musculoskeletal: Yes (CHRONIC NECK AND BACK PAIN) Arthritis, Chronic Back Pain Endocrine: Yes (MORBID OBESITY) HEENT: No Loss of Vision: Bilateral Hearing Impairment: Denies Cancer: No Psychosocial: Yes Anxiety, Bipolar, Schizophrenia, Depression Integumentary: Yes (HYDRADENTITIS SUPPURATIVA, MRSA) Blood Disorders: Yes (ANEMIA) Adverse Reaction/Blood Tranf: No Family Medical History Patient reports no known family medical history. No Pertinent Family Hx Physical Exam Vital Signs Vital Signs - First Documented 01/25/23 20:55 Temp 38.6 Pulse 101 Resp 20 B/P (MAP) 120/59 (79) Pulse Ox 98 O2 Delivery Room Air Capillary Refill : Height, Weight, BMI Height: 5'8.00" Weight: 300lbs. 2.0oz. [id number]; 44.00 BMI Method:Stated General Appearance: WD/WN, no apparent distress, obese HEENT: PERRL/EOMI, other (no papilledema on fundoscopic exam - shapr vessels) Neck: full range of motion Cardiovascular: regular rate, rhythm Respiratory: lungs clear, normal breath sounds, no respiratory distress, no accessory muscle use Extremities: normal range of motion, normal inspection Psychiatric: alert, oriented x 3 Crainal Nerves: normal hearing, normal speech, PERRL; No abnormal eye position, No gaze palsy; other (no visual field defects on exam) Coordination/Gait: normal gait Motor/Sensory: no motor deficit, no sensory deficit, no pronator drift Skin: normal color, warm/dry Procedures/Interventions Progress occipital nerve block on the left with 5ml of 0.5% bupivicaine Progress/Results/Core Measures Results/Orders My Orders Orders - BISHOP DRAKE MD Ed Iv/Invasive Line Start (01/25/23 20:54) Tropicamide 1% Ophth Soln (Mydriacyl 1% (01/25/23 21:15) Ns Iv 500 Ml (Ns Iv 500 Ml) (01/25/23 21:15) Bupivacaine 0.5% 10 Ml Inj (Bupivacaine (01/25/23 21:45) Diphenhydramine Injection (Diphenhydram (01/25/23 22:15) Promethazine Injection (Promethazine I (01/25/23 22:15) Morphine Injection (Morphine Injection (01/25/23 22:08) Medications Given in ED Current Medications Medications Dose Ordered Sig/Braulio Route Start Time Stop Time Status Last Admin Dose Admin Bupivacaine HCl 10 ml ONCE ONCE INJ 01/25/23 21:45 01/25/23 21:46 DC 01/25/23 21:44 10 ML Diphenhydramine HCl 50 mg ONCE ONCE IVP 01/25/23 22:15 01/25/23 22:16 DC 01/25/23 22:37 50 MG Promethazine HCl 25 mg ONCE ONCE IVP 01/25/23 22:15 01/25/23 22:16 DC 01/25/23 22:35 25 MG Tropicamide 2 ml ONCE ONCE OU 01/25/23 21:15 01/25/23 21:16 DC 01/25/23 21:17 2 ML Vital Signs/I&O 01/25/23 20:55 Temp 38.6 Pulse 101 Resp 20 B/P (MAP) 120/59 (79) Pulse Ox 98 O2 Delivery Room Air Progress Progress Note : Time: 22:10 Progress Note Patient seen and evaluated by me. Evaluation today includes history and physical exam. Physical exam pertinent for well-developed well-nourished obese female in no acute distress. HEENT exam shows normal extraocular muscles, pupils are quite small and equally reactive. The rest of the exam was benign. Heart is regular, lungs are clear. She has no focal neurologic deficits. Differential diagnosis includes exacerbation of idiopathic intracranial hypertension, worsening. Migraine headache, tension headache. Patient had an IV placed and 500 mL of normal saline bolus. Patient had 2 drops of tropicamide applied to both eyes to facilitate funduscopic exam. I was able to visualize the fundus bilaterally and did not appreciate any significant papilledema. She requested occipital nerve block as she has had this in the past and had alleviated her symptoms. Skin was prepped to the left of the occiput and 5 mL of half percent bupivacaine was injected. After about 20 minutes she said she had no relief. Her head is still "throbbing". She ambrocio lly takes oral extended release morphine. I ordered 5 mg of IV morphine, 25 of Phenergan and 50 mg of Benadryl. She has no obvious visual field deficits. Her vision is a little blurry which she states it does occasionally get this way. She states she is compliant with her medications. She has an appointment with a neuro-gas pumper on Thursday of this next week. 2255 Patient was significantly improved after Morphine, Benadyl and phenergan. Discharged with friend and "sober" straddle bug driver. Departure Impression Primary Impression: Headache Qualified Codes: G44.59 - Other complicated headache syndrome Disposition: HOME, SELF-CARE Condition: Improved Departure-Patient Inst. Decision time for Depature: 22:34 Referrals: GERARD TABARES DO (PCP/Family) Primary Care Physician Patient Instructions: Headache, Adult ED Add. Discharge Instructions: Continue your daily medications as prescribed. Be sure and take your Diamox as directed. Keep your follow-up appointment with the neuro-gas pumper on Thursday of this week. If you have any worsening headache with vision changes please return to the emergency department for reevaluation. Copy Copies To 1: GERARD TABARES KATHRYN M MD Jan 25, 2023 20:45
[2023-01-25 20:55] VITALS: BP 120/59
[2023-01-25] MEDS ORDERED: TROPICAMIDE 1% OPH SOLN (MYDRIACYL) 15 ML BTL OU ONE (21:15)
[2023-01-25] MEDS ORDERED: NS IV 500 ML 500 ML IV SCH (21:15)
[2023-01-25] MEDS ORDERED: BUPIVACAINE 0.5% 10 ML VIAL INJ ONE (21:45)
[2023-01-25] MEDS ORDERED: morphine INJ 10 MG/ML 1ML (SYR OR VIAL) IVP STA (22:08)
[2023-01-25] MEDS ORDERED: diphenhydrAMINE INJ 50 MG/ML VIAL IVP ONE (22:15)
[2023-01-25] MEDS ORDERED: PROMETHAZINE INJ 25 MG/ML VIAL IVP ONE (22:15)
== END 2023-01-25 22:40 | disposition home or self-care (01) ==
LOC: EDUNIT# 20:28 → ER 20:30
DX: R51.9 Headache, unspecified (principal); E66.01 Morbid (severe) obesity due to excess calories; Z86.69 Personal history of other diseases of the nervous system and sense organs; Z68.41 Body mass index [BMI] 40.0-44.9, adult
CPT/HCPCS: 96361; 96374; 96375